=== PATIENT | female | born 1955 | race Caucasian/White ===

== ENCOUNTER → 2017-02-03 | Outpatient (CLI) | payer BC ==
[2017-02-03 12:12] LABS: Calcium 10.2 mg/dL (8.4-10.2); Potassium 5.4 mmol/L (3.5-5.1); Total Bilirubin 0.6 mg/dL (0.2-1.3); Total Protein 7.7 g/dL (6.3-8.2)
[2017-02-03 14:04] LABS: Hemoglobin A1C 7.4 % (4.2-6.1)
== END | disposition home or self-care (01) ==
LOC: LABWHC1 11:01
PROVIDERS: ATTEND Family Medicine
DX: I10 Essential (primary) hypertension (principal); E11.9 Type 2 diabetes mellitus without complications; E78.5 Hyperlipidemia, unspecified
CPT/HCPCS: 36415; 80053; 80061; 83036

== ENCOUNTER → 2017-10-03 | Outpatient (CLI) | payer BC ==
[2017-10-03 10:28] LABS: ALT 54 U/L (9-52); AST 41 U/L (14-36); Albumin 4.2 g/dL (3.5-5.0); Alkaline Phosphatase 62 U/L (38-126); Anion Gap 12 mmol/L; Blood Urea Nitrogen 22 mg/dL (7-17); Calcium 10.2 mg/dL (8.4-10.2); Carbon Dioxide 29 mmol/L (22-30); Chloride 105 mmol/L (98-107); Cholesterol 137 mg/dL (<200); Glucose 82 mg/dL (74-99); HDL Cholesterol 42 mg/dL (40-60); LDL Cholesterol,Calculated 74 mg/dL (0-99); Sodium 146 mmol/L (137-145); Total Bilirubin 0.3 mg/dL (0.2-1.3); Total Protein 7.3 g/dL (6.3-8.2); Triglycerides 103 mg/dL (<150)
== END | disposition home or self-care (01) ==
LOC: LABWHC1 09:48
PROVIDERS: ATTEND Internal Medicine Interventional Cardiology
DX: E78.2 Mixed hyperlipidemia (principal)
CPT/HCPCS: 36415; 80053; 80061

== ENCOUNTER 2017-10-18 07:12 | Day surgery (SDC) | payer BC ==
[2017-10-06 13:14] VITALS: BMI 38.2
[2017-10-18] MEDS ORDERED: SODIUM CHLORIDE 0.9% 1,000 ML in EMPTY BAG 1 BAG IV ONE (07:38)
[2017-10-18] MEDS ORDERED: NITROGLYCERIN SL TABS 0.4 MG TAB SUBLINGUAL PRN ×2 (07:38→11:22)
[2017-10-18] MEDS ORDERED: ALPRAZolam 0.25 MG TAB PO PRN (07:38)
[2017-10-18] MEDS ORDERED: ASPIRIN 325 MG TAB PO STA (07:38)
[2017-10-18] MEDS ORDERED: SODIUM CHLORIDE 0.9% 1,000 ML IV ONE (08:00)
[2017-10-18 08:12] LABS: Glucose,Whole Blood 97 mg/dL (75-99)
[2017-10-18] MEDS ORDERED: fentaNYL (PF) 50 MCG/ML 2 ML AMP ONE (09:35)
[2017-10-18] MEDS ORDERED: HEPARIN SODIUM 1,000 UN/ML (10ML VL) ONE (09:35)
[2017-10-18] MEDS ORDERED: LIDOCAINE 2% INJ 20 MG/ML (20 ML MDV) ONE (09:35)
[2017-10-18] MEDS ORDERED: VERAPAMIL 2.5 MG/ML 2 ML AMP ONE (09:40)
[2017-10-18] MEDS ORDERED: fentaNYL (PF) 50 MCG/ML 2 ML AMP IV ONE (10:19)
[2017-10-18] MEDS ORDERED: LIDOCAINE 2% INJ 20 MG/ML SQ ONE (10:21)
[2017-10-18] MEDS: VERAPAMIL SYRINGE (5 MG/10 ML) INTRAARTER ONE ×2 (10:25→10:59)
[2017-10-18] MEDS ORDERED: PRASUGREL 10 MG TAB ONE (10:34)
[2017-10-18] MEDS ORDERED: BIVALIRUDIN BOLUS 250 MG/50 ML IV ONE (10:35)
[2017-10-18] MEDS ORDERED: MIDAZOLAM 2 MG/2 ML VIAL ONE (10:37)
[2017-10-18] MEDS ORDERED: PRASUGREL 10 MG TAB PO ONE (10:40)
[2017-10-18] MEDS ORDERED: BIVALIRUDIN 250 MG in SODIUM CHLORIDE 0.9% 50 ML IV ONE (10:40)
[2017-10-18] MEDS ORDERED: MIDAZOLAM 2 MG/2 ML VIAL IV ONE (10:40)
[2017-10-18] MEDS ORDERED: IODIXANOL 320 MG/ML 100 ML INTRAARTER ONE (10:59)
[2017-10-18 11:15] LABS: Glucose,Whole Blood 76 mg/dL (75-99)
[2017-10-18] MEDS ORDERED: ATROPINE SULFATE 0.1 MG/ML 10ML SYRINGE IV PRN (11:22)
[2017-10-18] MEDS ORDERED: ZOLPIDEM 5 MG TAB PO PRN (11:22)
[2017-10-18] MEDS ORDERED: MAG HYDROX/AL HYDROX/SIMETH 30 ML CUP PO PRN (11:22)
[2017-10-18] MEDS ORDERED: RX INFO: IV CONTRAST WAS GIVEN 1 EACH MISC MISCELLANE PRN (11:22)
[2017-10-18] MEDS ORDERED: SODIUM CHLORIDE 0.9% 1,000 ML IV SCH (11:30)
--- NOTE | 2017-10-18 11:38 | CC ---
CARDIAC CATHETERIZATION REPORT Mrs. Ramírez is 61-year-old female with known history of hypertension, hyperlipidemia, and diabetes mellitus who has been complaining for symptoms of progressive dyspnea on exertion as well as chest discomfort with activity. In view of that, recommendation regarding cardiac catheterization, the procedures, risks and complication were discussed with the patient who is in full understanding and agreement. PROCEDURE: Patient was brought to the Project [facility] in a fasting semi-sedated state after receiving fentanyl and Benadryl. She was draped and prepped in conventional fashion using Xylocaine anesthesia and Seldinger technique, a 6-Maltese sheath was introduced in the right radial artery. Selective right and left angiography were performed using 5- Maltese 3.5 bend right and left En catheter. Multiple views of the right coronary artery including osman-axial views were obtained. Following that a 5-Maltese tight pigtail catheter introduced into the left ventricle and pressure was calculated. Following that, catheters were removed, images were reviewed. FINDINGS: 1. FLUOROSCOPY: There is mild calcification involving all the coronary arteries. 2. LEFT MAIN: This is a short-size vessel bifurcating into left circumflex, left anterior descending artery. Left main coronary artery has no evidence of high- grade stenosis. 3. LEFT ANTERIOR DESCENDING ARTERY: This is a large-sized vessel reaching toward the apex with a wraparound apex segment giving rise to a moderately-sized diagonal branch. The left anterior descending artery has mild to moderate disease in the mid segment of 30%. The rest of the vessel has no high-grade stenosis. 4. LEFT CIRCUMFLEX: This is a nondominant large vessel giving rise to 2 obtuse marginal branch. The first one is small in caliber, has diffuse intimal disease. The second one is large and has an area of 80% to 90% stenosis proximally. The rest of the vessel has no high-grade stenosis. 5. RIGHT CORONARY ARTERY: This is a large dominant vessel bifurcating into PDA and posterolateral segment branches. The right coronary in mid segment has after the takeoff of the acute marginal branch, has an area of stenosis of 70%, distally prior to the bifurcation. The PDA has a long segment of stenosis up to 99%. The rest of the vessel has no high-grade stenosis. 6. LEFT VENTRICULOGRAM: Left ventriculogram is not performed. 7. HEMODYNAMICS: There was no gradient across the aortic valve. The ventricular end- diastolic pressure was 10 mmHg. CONCLUSION: 1. Critical stenosis involving the mid and distal right coronary artery. 2. Significant stenosis involving the second obtuse marginal branch. 3. Mild disease in the left anterior descending artery. RECOMMENDATION: In view of finding anatomy, I have recommended proceeding with angioplasty and stenting of the right coronary artery. Those findings and recommendations were discussed with the patient. She was in full understanding and agreement. MMCECILIAL / IJN: [id number] /
--- NOTE | 2017-10-18 12:14 | PTCA ---
PERCUTANEOUSTRANS CORORONARY ANGIOGRAPHY Mrs. Ramírez is a 61-year-old female with known history of hypertension, hyperlipidemia, diabetes mellitus, who has been complaining of progressive symptoms, dyspnea on exertion, and chest discomfort with physical activity. She underwent cardiac catheterization, was found to have critical stenosis involving the distal right coronary artery and the mid-right coronary artery as well as the second obtuse marginal branch. Patient has baseline mild renal insufficiency. In view of that, staged angioplasty and stenting was recommended. Those findings and recommendation were discussed with the patient and she is in full understanding and agreement. PROCEDURE: A 6-Setswana FR 3.5 guiding catheter introduced into the system. After cannulating the right coronary ostium, a 0.014 advanced medium-weight J-wire was advanced across the lesion and positioned distally. Then a 2.5 x 50 mm Trek balloon was advanced and two inflations distal segment were done and insufflation in the mid-segment was done at maximum 8 atmospheres. Following that, the balloon removed and a 2.5 x 18 mm Xience Alpine stent was deployed distally. Post-dilated at 14 atmospheres. Following that, the balloon was removed and a 3.0 x 18 mm Xience Alpine stent was deployed in the mid segment and postdilated at 14 atmospheres. After the last inflation, after appropriate wait, the balloon and the guidewire were withdrawn back in the guiding catheter. Images were obtained and repeated. Those images reveal stable successful stenting. At that point, the guiding catheter, the balloon and the guidewire were removed. The sheath was removed. Hemostasis was obtained with deployment of a TR band. There was no immediate complication. Patient is returned to her room in stable condition. Of note, patient had no chest discomfort with the inflation, but had EKG changes. She received Angiomax per protocol as well as oral loading dose of Effient. She received intra-arterial verapamil. FINDIN. Successful stenting of the mid-right coronary artery with reduction of stenosis from 70% to 0%. 2. Successful stenting of the distal right coronary artery with reduction of stenosis from 99% to 0%. RECOMMENDATION: Patient will be continued on aspirin, Effient, beta rosalva, and statin. The importance of dual antiplatelet treatment were discussed with the patient and her family and they are in full understanding and agreement. The patient will be brought back in an elective fashion to undergo percutaneous revascularization of her left circumflex. Duration of the procedure is 44 minutes. MMODL / IJN: [id number] /
--- NOTE | 2017-10-18 12:17 | LTR ---
DATE OF SERVICE: 10/18/2017 RE: Jenny Ramírez Dear Dr. Quinonez; I had the pleasure to perform cardiac catheterization and coronary angioplasty on Mrs. Ramírez on [facility] on October 18, 2017 and a full copy of the procedure note with be forwarded to you. In brief, she was found to have significant obstructive disease involving the right coronary artery, distally as well as in the mid-segment. She underwent successful stenting of that vessel using a drug-eluting stent. At the same time, she had significant obstructive disease involving the second obtuse marginal branch, but because of her baseline renal insufficiency, I have recommended to perform staged stenting of the circumflex at a later time. I will keep you updated on her progress and thank you again for allowing me to participate in your patient's care. Please feel free to call for any questions. Sincerely yours, MD BABAR Hess / TRAMAINE: [id number] /
[2017-10-18 16:50] LABS: Glucose,Whole Blood 132 mg/dL (75-99)
[2017-10-18] MEDS: ASCORBIC ACID 500 MG TAB PO SCH (17:10)
[2017-10-18] MEDS: busPIRone HCl 5 MG TAB PO SCH (20:53)
[2017-10-18] MEDS ORDERED: ATENOLOL 50 MG TAB PO SCH (21:00)
[2017-10-18 21:01] LABS: Glucose,Whole Blood 151 mg/dL (75-99)
[2017-10-18] MEDS: INSULIN DETEMIR 100 UNIT/ML 10 ML VIAL SQ SCH (21:03)
[2017-10-19 06:20] LABS: Glucose,Whole Blood 123 mg/dL (75-99)
[2017-10-19] MEDS: ASCORBIC ACID 500 MG TAB PO SCH (06:43)
[2017-10-19 06:45] LABS: Anion Gap 13 mmol/L; Blood Urea Nitrogen 20 mg/dL (7-17); Carbon Dioxide 25 mmol/L (22-30); Chloride 105 mmol/L (98-107); Glucose 119 mg/dL (74-99); Potassium 4.4 mmol/L (3.5-5.1); Sodium 143 mmol/L (137-145)
[2017-10-19 08:04] VITALS: RESP 18; TEMP 97.1
[2017-10-19] MEDS ORDERED: FENOFIBRATE 160 MG TAB PO SCH (09:00)
[2017-10-19] MEDS ORDERED: CALCIUM CARB-VIT D 500MG-200UN 1 EACH TAB PO SCH (09:00)
[2017-10-19] MEDS ORDERED: ATORVASTATIN 20 MG TAB PO SCH (09:00)
[2017-10-19] MEDS ORDERED: ESCITALOPRAM 10 MG TAB PO SCH (09:00)
[2017-10-19] MEDS ORDERED: HYDROCHLOROTHIAZIDE 25 MG TAB PO SCH (09:00)
[2017-10-19] MEDS ORDERED: ASPIRIN 81 MG PO SCH (09:00)
[2017-10-19] MEDS ORDERED: amLODIPine 10 MG TAB PO SCH (09:00)
[2017-10-19] MEDS ORDERED: LISINOPRIL 10 MG TAB PO SCH (09:00)
[2017-10-19] MEDS: busPIRone HCl 5 MG TAB PO SCH (09:21)
[2017-10-19 09:39] VITALS: PULSE 62
[2017-10-19] MEDS: INSULIN DETEMIR 100 UNIT/ML 10 ML VIAL SQ SCH (09:51)
[2017-10-19 10:09] VITALS: BP 161/70
--- NOTE | 2017-10-19 10:24 | PN ---
PROGRESS NOTE Mrs. Ramírez is a 61-year-old female with known history of hypertension, hyperlipidemia, diabetes mellitus, who presented with symptoms of angina pectoris, underwent cardiac catheterization and was found to have critical stenosis involving the right coronary artery as well as severe stenosis of first obtuse marginal branch. Because of her baseline renal insufficiency, she underwent stenting of the right coronary artery in the mid and distal segment and the plan is to bring her back to undergo a staged procedure to the left circumflex. She is doing well this morning. She is denying any chest pain. Her breathing has been stable. She denies any dizziness or palpitation. She continues to be on aspirin once a day, Effient 10 mg daily, amlodipine 10 mg daily, atenolol 50 mg daily, Lipitor 20 mg daily, fenofibrate 160 mg daily, Lexapro 10 mg daily, buspirone 15 mg twice a day, hydrochlorothiazide 25 mg daily, insulin, lisinopril 10 mg daily. PHYSICAL EXAMINATION: Blood pressure running in the 160s with the heart rate in the 60s. LUNGS: Clear. HEART: Regular rate and rhythm. S1, S2. No S3, no rub with systolic murmur. ABDOMEN: Soft, nontender. EXTREMITIES: With trace to 1+ edema. Right radial pulse intact. EKG revealed no acute changes. LAB DATA: Lab data revealed BUN and creatinine of 20 and 1.0. Potassium 4.4. IMPRESSION: 1. Coronary artery disease, status post stenting of the right coronary artery. 2. Significant disease in the left circumflex. 3. Hypertension. 4. Hyperlipidemia. 5. Diabetes mellitus. 6. Renal insufficiency preprocedure. RECOMMENDATION: Patient will be discharged home today to be re-admitted as an outpatient and undergo percutaneous revascularization of left circumflex. The rationale behind the procedure as well as the risks and complications were discussed with the patient who is in full understanding and agreement. MMODL / IJN: [id number] /
[2017-10-19] MEDS ORDERED: PRASUGREL 10 MG TAB PO SCH (11:00)
[2017-10-19] MEDS ORDERED: VIT A,C & E-LUTEIN-MINERALS 1 EACH TAB PO SCH (12:00)
== END 2017-10-19 10:42 | disposition home or self-care (01) ==
LOC: CATHCVL 07:12 → 6SEL 11:00 → CATHCVL 10-19 10:42
PROVIDERS: ATTEND Internal Medicine Interventional Cardiology
DX: I25.110 Atherosclerotic heart disease of native coronary artery with unstable angina pectoris (principal); I25.84 Coronary atherosclerosis due to calcified coronary lesion; I10 Essential (primary) hypertension; E78.2 Mixed hyperlipidemia; E11.9 Type 2 diabetes mellitus without complications; Z79.4 Long term (current) use of insulin; Z79.82 Long term (current) use of aspirin; Z79.899 Other long term (current) drug therapy; Z88.0 Allergy status to penicillin; Z88.2 Allergy status to sulfonamides; Z91.09 Other allergy status, other than to drugs and biological substances
CPT/HCPCS: 80048; 85347; 93458

== ENCOUNTER 2017-10-24 06:17 | Day surgery (SDC) | payer BC ==
[2017-10-19 15:30] VITALS: BMI 42.5
[~2017-10-24 06:17] MED LIST: ALPRAZolam 0.25 MG TAB PO PRN; ALPRAZolam 0.5 MG TAB PO PRN; ASPIRIN 325 MG TAB PO STA; NITROGLYCERIN SL TABS 0.4 MG TAB SUBLINGUAL PRN
[2017-10-24] MEDS: SODIUM CHLORIDE 0.9% 1,000 ML in EMPTY BAG 1 BAG IV ONE ×2 (06:40→07:19)
[2017-10-24 06:59] LABS: Glucose,Whole Blood 75 mg/dL (75-99)
[2017-10-24 07:30] LABS: Basophils # (A) 0.1 k/uL (0-0.2); Basophils % (A) 1 %; Eosinophils # (A) 0.5 k/uL (0-0.7); Eosinophils % (A) 5 %; HCT 38.5 % (34.0-46.0); HGB 12.3 gm/dL (11.4-16.0); Lymphocytes # (A) 2.6 k/uL (1.0-4.8); Lymphocytes % (A) 23 %; MCH 27.6 pg (25.0-35.0); MCV 86.1 fL (80.0-100.0); Mean Platelet Volume 6.8; Monocytes # (A) 0.7 k/uL (0-1.0); Monocytes % (A) 6 %; Neutrophils # (A) 7.2 k/uL (1.3-7.7); Neutrophils % (A) 64 %; Platelet Count 381 k/uL (150-450); RBC 4.47 m/uL (3.80-5.40); WBC 11.3 k/uL (3.8-10.6)
[2017-10-24] MEDS ORDERED: fentaNYL (PF) 50 MCG/ML 2 ML AMP IV ONE (07:30)
[2017-10-24] MEDS ORDERED: LIDOCAINE 2% INJ 20 MG/ML SQ ONE (07:36)
[2017-10-24] MEDS ORDERED: BIVALIRUDIN BOLUS 250 MG/50 ML IV ONE (07:40)
[2017-10-24] MEDS ORDERED: BIVALIRUDIN 250 MG in SODIUM CHLORIDE 0.9% 40 ML IV ONE (07:40)
[2017-10-24] MEDS ORDERED: MIDAZOLAM 2 MG/2 ML VIAL IV ONE (07:42)
[2017-10-24] MEDS ORDERED: NITROGLYCERIN 1000MCG/10ML SYRINGE INTRACORON ONE (07:47)
[2017-10-24] MEDS ORDERED: IODIXANOL 320 MG/ML 100 ML INTRAARTER ONE (07:57)
[2017-10-24] MEDS ORDERED: ATROPINE SULFATE 0.1 MG/ML 10ML SYRINGE IV PRN (08:10)
[2017-10-24] MEDS ORDERED: MAG HYDROX/AL HYDROX/SIMETH 30 ML CUP PO PRN (08:10)
[2017-10-24] MEDS ORDERED: ZOLPIDEM 5 MG TAB PO PRN (08:10)
[2017-10-24] MEDS ORDERED: NITROGLYCERIN SL TABS 0.4 MG TAB SUBLINGUAL PRN ×2 (08:10→08:12)
[2017-10-24] MEDS ORDERED: RX INFO: IV CONTRAST WAS GIVEN 1 EACH MISC MISCELLANE PRN (08:10)
[2017-10-24] MEDS ORDERED: SODIUM CHLORIDE 0.9% 1,000 ML IV SCH (08:15)
--- NOTE | 2017-10-24 08:30 | PTCA ---
PERCUTANEOUSTRANS CORORONARY ANGIOGRAPHY Mrs. Ramírez is a 61-year-old female with a history of hypertension, hyperlipidemia and diabetes mellitus, who has been complaining of exertional chest discomfort and progressive dyspnea on exertion. She underwent cardiac catheterization last week and was found to have critical stenosis involving the right coronary artery and the left circumflex, underwent stenting of the right coronary artery and she is admitted today to undergo staged angioplasty of the first obtuse marginal branch. The procedure as well as the risks and complications were discussed with the patient who is in full understanding and agreement. PROCEDURE: Patient was brought to the labor mediator in a fasting semi-sedated state after receiving fentanyl and Benadryl and achieving moderate conscious sedated state. Using Xylocaine anesthesia in the Seldinger technique, a 6-Andorran sheath was introduced in the right radial artery. Left coronary angiography was performed with 6-Andorran FL3.5 bend. After cannulating the left main, a 0.014 balanced medium weight J-wire was advanced across the lesion, positioned in the distal obtuse marginal branch. Following that, a 2.5 x 12 mm Trek balloon was advanced, 1 inflation, 8 atmospheres was done. Following that, the balloon was removed and a 2.75 x 18 mm Xience Alpine stent was deployed postdilated at 14 atmospheres. After the last inflation, after appropriate wait, the balloon and the guidewire were withdrawn back in the guiding catheter. Images were obtained and repeated. Those images reveal stable successful stenting. At that point, the guiding catheter, the balloon and the guidewire were removed. The sheath was removed. Hemostasis was obtained with deployment of a TR band. There was no immediate complication. Patient is returned to her room in stable condition. Of note, the patient had chest discomfort with the inflation that resulted in procedure. She received Angiomax per protocol and she received intra-arterial verapamil. RESULTS: Successful stenting of the first obtuse marginal branch with reduction of stenosis from 90% to 0%. RECOMMENDATION: The patient will be continued on aspirin, Effient, beta rosalva, MIN inhibitor and statin. The importance of dual antiplatelet treatment was discussed with the patient and her family and are in full understanding and agreement. Duration of procedure is 27 minutes. MMODL / IJN: [id number] /
[2017-10-24 09:26] LABS: Glucose,Whole Blood 231 mg/dL (75-99)
[2017-10-24] MEDS: busPIRone HCl 5 MG TAB PO SCH ×2 (09:27→21:52)
[2017-10-24] MEDS: ATORVASTATIN 20 MG TAB PO SCH (09:27)
[2017-10-24] MEDS: ASCORBIC ACID 500 MG TAB PO SCH ×2 (09:27→21:52)
[2017-10-24] MEDS: ASPIRIN 81 MG PO SCH (09:27)
[2017-10-24] MEDS: amLODIPine 10 MG TAB PO SCH (09:27)
[2017-10-24] MEDS: HYDROCHLOROTHIAZIDE 25 MG TAB PO SCH (09:28)
[2017-10-24] MEDS: FENOFIBRATE 160 MG TAB PO SCH (09:28)
[2017-10-24] MEDS: PRASUGREL 10 MG TAB PO SCH (09:28)
[2017-10-24] MEDS: LISINOPRIL 10 MG TAB PO SCH (09:28)
[2017-10-24] MEDS: ESCITALOPRAM 10 MG TAB PO SCH (09:28)
[2017-10-24] MEDS: INSULIN DETEMIR 100 UNIT/ML 10 ML VIAL SQ SCH ×2 (09:35→21:53)
[2017-10-24] MEDS ORDERED: VIT A,C & E-LUTEIN-MINERALS 1 EACH TAB PO SCH (12:00)
[2017-10-24] MEDS ORDERED: CALCIUM CARB-VIT D 500MG-200UN 1 EACH TAB PO SCH (12:00)
[2017-10-24] MEDS ORDERED: MULTIVITAMINS, THERA 1 EACH TAB PO SCH (12:00)
[2017-10-24 12:38] LABS: Glucose,Whole Blood 245 mg/dL (75-99)
[2017-10-24 16:41] LABS: Glucose,Whole Blood 209 mg/dL (75-99)
[2017-10-24] MEDS ORDERED: ACETAMINOPHEN TAB 325 MG TAB PO PRN (16:45)
[2017-10-24 20:37] LABS: Glucose,Whole Blood 216 mg/dL (75-99)
[2017-10-24] MEDS ORDERED: ATENOLOL 50 MG TAB PO SCH (21:00)
[2017-10-24 23:34] VITALS: TEMP 97.4
[2017-10-24 23:46] VITALS: RESP 18
[2017-10-25 06:18] LABS: Glucose,Whole Blood 82 mg/dL (75-99)
[2017-10-25 06:25] LABS: Anion Gap 10 mmol/L; Blood Urea Nitrogen 21 mg/dL (7-17); Calcium 10.3 mg/dL (8.4-10.2); Carbon Dioxide 32 mmol/L (22-30); Chloride 103 mmol/L (98-107); Glucose 78 mg/dL (74-99); Potassium 4.6 mmol/L (3.5-5.1); Sodium 145 mmol/L (137-145)
[2017-10-25 06:27] VITALS: BP 184/72; PULSE 59
[2017-10-25] MEDS: amLODIPine 10 MG TAB PO SCH (08:19)
[2017-10-25] MEDS: PRASUGREL 10 MG TAB PO SCH (08:19)
[2017-10-25] MEDS: FENOFIBRATE 160 MG TAB PO SCH (08:19)
[2017-10-25] MEDS: LISINOPRIL 10 MG TAB PO SCH (08:19)
[2017-10-25] MEDS: busPIRone HCl 5 MG TAB PO SCH (08:19)
[2017-10-25] MEDS: ATORVASTATIN 20 MG TAB PO SCH (08:19)
[2017-10-25] MEDS: ASCORBIC ACID 500 MG TAB PO SCH (08:20)
[2017-10-25] MEDS: ESCITALOPRAM 10 MG TAB PO SCH (08:20)
[2017-10-25] MEDS: HYDROCHLOROTHIAZIDE 25 MG TAB PO SCH (08:20)
[2017-10-25] MEDS: ASPIRIN 81 MG PO SCH (08:21)
[2017-10-25] MEDS: INSULIN DETEMIR 100 UNIT/ML 10 ML VIAL SQ SCH (08:24)
--- NOTE | 2017-10-25 08:34 | PN ---
PROGRESS NOTE Mrs. Ramírez is a 61-year-old female, known history of hypertension, hyperlipidemia, diabetes mellitus, who presented with evidence of angina pectoris, underwent cardiac catheterization and was found to have significant disease in the RCA and the circumflex. Underwent stenting of the RCA last week and was brought in yesterday electively to undergo stenting of the left circumflex. She underwent the procedure without any difficulty. She is doing well this morning. Her breathing is stable. She denying any dizziness or palpitation. No nausea. She is ambulating without difficulty. She is going to be on aspirin once a day, amlodipine 10 mg daily, atenolol 50 mg daily, Lipitor 20 mg daily, buspirone, Lexapro 10 mg daily, fenofibrate 160 mg daily, hydrochlorothiazide 25 mg daily, lisinopril 10 mg daily, insulin, Effient 10 mg daily. PHYSICAL EXAMINATION: Blood pressure in the 150s to 160s with the heart rate in the 60s. LUNGS: Clear. HEART: Regular rate and rhythm. S1, S2. No S3. No rub. ABDOMEN: Soft, nontender, obese. EXTREMITIES: No edema. Right radial pulse is intact. LAB DATA: Lab data revealed BUN and creatinine 21 and 1.0. Potassium 4.6. IMPRESSION: 1. Status post stenting of left circumflex. 2. Hypertension. 3. Hyperlipidemia. 4. Diabetes mellitus. RECOMMENDATION: The patient will be discharged home today. Her blood pressure will be followed as an outpatient for further adjustment of her medical regimen. MMODL / IJN: [id number] /
== END 2017-10-25 08:49 | disposition home or self-care (01) ==
LOC: CATHCVL 06:17 → 6SEL 07:57 → CATHCVL 10-25 08:49
PROVIDERS: ATTEND Internal Medicine Interventional Cardiology
DX: I25.119 Atherosclerotic heart disease of native coronary artery with unspecified angina pectoris (principal); I10 Essential (primary) hypertension; E78.2 Mixed hyperlipidemia; E11.9 Type 2 diabetes mellitus without complications; Z79.4 Long term (current) use of insulin; Z95.5 Presence of coronary angioplasty implant and graft; Z79.82 Long term (current) use of aspirin; Z79.899 Other long term (current) drug therapy; Z88.0 Allergy status to penicillin; Z88.2 Allergy status to sulfonamides; Z91.09 Other allergy status, other than to drugs and biological substances
CPT/HCPCS: 85347; 80048; 85025; C9600; C1769 ×2; C1887; C1894; C1725; C1874; J2001; J2250; Q9967; J3010; J0583

== ENCOUNTER → 2017-11-23 | Outpatient (CLI) | payer BC ==
[2017-11-23 10:01] LABS: Calcium 10.2 mg/dL (8.4-10.2); Magnesium 2.1 mg/dL (1.6-2.3); Potassium 4.9 mmol/L (3.5-5.1)
== END | disposition home or self-care (01) ==
LOC: LABWHC1 08:56
PROVIDERS: ATTEND Internal Medicine Nephrology
DX: I12.9 Hypertensive chronic kidney disease with stage 1 through stage 4 chronic kidney disease, or unspecified chronic kidney disease (principal); N18.2 Chronic kidney disease, stage 2 (mild); E11.22 Type 2 diabetes mellitus with diabetic chronic kidney disease
CPT/HCPCS: 36415; 80048; 82043; 82570; 83735

== ENCOUNTER 2018-03-30 23:42 | Emergency (ER) | payer BC ==
[2018-03-31 00:08] VITALS: TEMP 98
[2018-03-31] MEDS ORDERED: cloNIDine HCL 0.1 MG TAB PO STA (01:14)
[2018-03-31] MEDS ORDERED: OXYMETAZOLINE 0.05% NASL SPRAY 1 SPRAY BOTTLE NASAL STA (01:14)
--- NOTE | 2018-03-31 02:28 | ED ---
ENT HPI - General Chief complaint: ENT Stated complaint: Epistaxis Time Seen by Provider: 03/31/18 01:03 Source: patient Mode of arrival: ambulatory Limitations: no limitations - History of Present Illness Initial comments: 62-year-old female patient presents to emergency department today for evaluation of epistaxis. Patient states that she has been having bleeding from the left nostril for the last 6 hours. Patient states that she has attempted several times to hold pressure after blowing out the clots but has not helped. Patient states that she has spoken to her doctor's office as well as her [facility] nursing line. Patient has been having difficulty controlling her blood pressures, her primary care physician is adjusting her medications. Patient denies any dizziness, weakness, headache, fever, chills, recent illness , fatigue, chest pain, or shortness of breath. Patient states that she has been having epistaxis on and off since starting Effient. She takes the effient for heart stents. - Related Data Home Medications Medication Instructions Recorded Confirmed Ascorbic Acid [Vitamin C] 500 mg PO BID 01/06/14 03/31/18 Aspirin 81 mg PO DAILY 01/06/14 03/31/18 Atenolol 50 mg PO HS 01/06/14 03/31/18 Escitalopram [Lexapro] 10 mg PO DAILY 01/06/14 03/31/18 Hydrochlorothiazide [Hydrodiuril] 25 mg PO DAILY 01/06/14 03/31/18 Insulin Glargine [Lantus] 52 unit SQ BID 01/06/14 03/31/18 Multivitamin [Multivitamins] 1 each PO DAILY 01/06/14 03/31/18 amLODIPine [Norvasc] 10 mg PO DAILY 01/06/14 03/31/18 busPIRone HCL [Buspar] 15 mg PO BID 01/06/14 03/31/18 glyBURIDE/METFORMIN HCL 2 tab PO AC-BID 01/06/14 03/31/18 [Glucovance 5-500 mg Tablet] Calcium Carbonate/Vitamin D3 1 each PO DAILY 10/06/17 03/31/18 [Calcium 500-Vit D3 600 Tablet] Fenofibrate 160 mg PO DAILY 10/06/17 03/31/18 Insulin Glulisine [Apidra] 8 - 12 unit SQ TID-W/MEALS PRN 10/06/17 03/31/18 Quinapril HCl [Accupril] 10 mg PO DAILY 10/06/17 03/31/18 hydrALAZINE HCL 25 mg PO 03/31/18 Previous Rx's Medication Instructions Recorded Atorvastatin [Lipitor] 20 mg PO DAILY #90 tab 10/19/17 Nitroglycerin Sl Tabs [Nitrostat] 0.4 mg SUBLINGUAL Q5M PRN #25 tab 10/19/17 Prasugrel [Effient] 10 mg PO DAILY #90 tab 10/19/17 Allergies Allergy/AdvReac Type Severity Reaction Status Date / Time Penicillins Allergy Rash/Hives Verified 10/24/17 07:00 Sulfa (Sulfonamide Allergy Rash/Hives Verified 10/24/17 07:00 Antibiotics) adhesive AdvReac Rash/Hives Verified 10/24/17 07:00 Review of Systems ROS Statement: Those systems with pertinent positive or pertinent negative responses have been documented in the HPI. ROS Other: All systems not noted in ROS Statement are negative. Past Medical History Past Medical History: Diabetes Mellitus, Hypertension, Skin Disorder Additional Past Medical History / Comment(s): Rt radial puncture from heart cath ,SOB,ARTHRITIS, CHRONIC BACKPAIN, SORES RIGHT CALF ARE HEALING-Scabbed History of Any Multi-Drug Resistant Organisms: None Reported Past Surgical History: Back Surgery, Section, Heart Catheterization With Stent, Hysterectomy, Orthopedic Surgery, Tonsillectomy Additional Past Surgical History / Comment(s): heart stents x2,BUNIONECTOMY BELLA , LEFT KNEE TORN MENISCUS, TRIGGER FINGER X2,Rods and screws to back,bella cataract Past Anesthesia/Blood Transfusion Reactions: Motion Sickness, Postoperative Nausea & Vomiting (PONV) Additional Past Anesthesia/Blood Transfusion Reaction / Comment(s): no prob with prior blood transfusions Date of Last Stent Placement:: 10-18-17 Past Psychological History: Anxiety, Depression Smoking Status: Never smoker Past Alcohol Use History: None Reported Past Drug Use History: None Reported - Past Family History Father Family Medical History: Cancer, Deep Vein Thrombosis (DVT) Mother Family Medical History: Cancer Additional Family Medical History / Comment(s): heart disease Brother(s) Family Medical History: Pulmonary Embolus General Exam Limitations: no limitations General appearance: alert, in no apparent distress, other (Well-developed, well- nourished adult female patient in no acute distress. Vital signs temperature 98.0F, pulse 71, respirations 20, blood pressure 181/74, pulse ox 97% on room air.) Eye exam: Present: normal appearance, PERRL, EOMI. Absent: scleral icterus, conjunctival injection, periorbital swelling ENT exam: Present: normal exam, normal oropharynx, mucous membranes moist, other (Patient has bright red bleeding from the left nare) Neck exam: Present: normal inspection. Absent: tenderness, meningismus, lymphadenopathy Respiratory exam: Present: normal lung sounds bilaterally. Absent: respiratory distress, wheezes, rales, rhonchi, stridor Cardiovascular Exam: Present: regular rate, normal rhythm, normal heart sounds. Absent: systolic murmur, diastolic murmur, rubs, gallop, clicks GI/Abdominal exam: Present: soft, normal bowel sounds. Absent: distended, tenderness, guarding, rebound, rigid Neurological exam: Present: alert, oriented X3, CN II-XII intact Psychiatric exam: Present: normal affect, normal mood Skin exam: Present: warm, dry, intact, normal color. Absent: rash Course Vital Signs 03/31/18 03/31/18 00:03 02:29 Temperature 98.0 F Pulse Rate 71 67 Respiratory 20 18 Rate Blood Pressure 181/74 138/80 O2 Sat by Pulse 97 96 Oximetry Medical Decision Making - Medical Decision Making 62-year-old female patient presented to the emergency department today for evaluation of epistaxis. Upon arrival blood pressure was elevated. We did administer Catapres. Upon reevaluation patient states epistaxis was resolved without any intervention. Patient is hemodynamically stable. She is instructed to follow-up with her primary care physician for recheck in 1-2 days. Return parameters discussed in detail. She verbalizes understanding and agreed with this plan. Disposition Clinical Impression: Epistaxis, Hypertension Disposition: HOME SELF-CARE Condition: Good Instructions: Nosebleed (ED), Hypertension (ED) Additional Instructions: If bleeding starts again, blow out all clots and hold pressure for 20 minutes. Follow-up with your primary care physician to discuss nosebleeds and high blood pressure. Return here immediately for any new, worsening, or concerning symptoms. Is patient prescribed a controlled substance at d/c from ED?: No Referrals: Uriel Quinonez MD [Primary Care Provider] - 1-2 days Time of Disposition: 02:28
[2018-03-31 02:30] VITALS: BP 138/80; PULSE 67; RESP 18
== END 2018-03-31 02:39 | disposition home or self-care (01) ==
LOC: EC 23:42
DX: I10 Essential (primary) hypertension (principal); R04.0 Epistaxis; E11.9 Type 2 diabetes mellitus without complications; M19.90 Unspecified osteoarthritis, unspecified site; F32.9 Major depressive disorder, single episode, unspecified; F41.9 Anxiety disorder, unspecified; Z95.5 Presence of coronary angioplasty implant and graft; Z98.890 Other specified postprocedural states; Z79.4 Long term (current) use of insulin; Z79.82 Long term (current) use of aspirin; Z79.899 Other long term (current) drug therapy; Z88.0 Allergy status to penicillin; Z88.2 Allergy status to sulfonamides; Z91.048 Other nonmedicinal substance allergy status
CPT/HCPCS: 99283

== ENCOUNTER → 2018-05-22 | Outpatient (CLI) | payer BC ==
[2018-05-22 10:38] LABS: Albumin 4.2 g/dL (3.5-5.0); Calcium 9.7 mg/dL (8.4-10.2); Potassium 5.1 mmol/L (3.5-5.1); Total Bilirubin 0.4 mg/dL (0.2-1.3); Total Protein 7.1 g/dL (6.3-8.2)
== END ==
LOC: LABWHC1 09:36
PROVIDERS: ATTEND Internal Medicine Interventional Cardiology
DX: E78.2 Mixed hyperlipidemia (principal)
CPT/HCPCS: 36415; 80053; 80061

== ENCOUNTER → 2018-05-31 | Outpatient (CLI) | payer BC | END | disposition home or self-care (01) | LOC: LABWHC1 09:11 | PROVIDERS: ATTEND Internal Medicine Interventional Cardiology | DX: I10 Essential (primary) hypertension (principal) | CPT/HCPCS: 36415; 80051; 82565; 84520 ==

== ENCOUNTER → 2018-06-18 | Outpatient (CLI) | payer BC ==
[2018-06-18 10:54] LABS: Potassium 4.6 mmol/L (3.5-5.1)
== END ==
LOC: LABWHC1 09:53
PROVIDERS: ATTEND Internal Medicine Interventional Cardiology
DX: I25.10 Atherosclerotic heart disease of native coronary artery without angina pectoris (principal); I10 Essential (primary) hypertension
CPT/HCPCS: 36415; 80051; 82565; 83880; 84520

== ENCOUNTER 2018-07-24 05:42 | Day surgery (SDC) | payer BC ==
[2018-07-23 10:48] VITALS: BMI 45.7
[2018-07-24 06:27] VITALS: TEMP 97.8
[2018-07-24] MEDS ORDERED: SODIUM CHLORIDE 0.9% 1,000 ML IV ONE (06:29)
[2018-07-24 06:45] LABS: Glucose,Whole Blood 93 mg/dL (75-99)
[2018-07-24] MEDS ORDERED: fentaNYL (PF) 50 MCG/ML 2 ML AMP IV ONE (07:34)
[2018-07-24] MEDS: MIDAZOLAM 2 MG/2 ML VIAL IV ONE ×2 (07:40→07:55)
[2018-07-24] MEDS: LIDOCAINE 1% INJ 10MG/ML (20 ML MDV) SQ ONE ×2 (07:48→07:59)
[2018-07-24] MEDS ORDERED: VERAPAMIL SYRINGE (5 MG/10 ML) INTRAARTER ONE (07:50)
[2018-07-24 08:03] VITALS: RESP 16
[2018-07-24] MEDS ORDERED: IOPAMIDOL-370 125ML BTL INJ ONE (08:12)
[2018-07-24] MEDS ORDERED: RX INFO: IV CONTRAST WAS GIVEN 1 EACH MISC MISCELLANE PRN (08:24)
[2018-07-24] MEDS ORDERED: NITROGLYCERIN SL TABS 0.4 MG TAB SUBLINGUAL PRN (08:24)
[2018-07-24] MEDS ORDERED: SODIUM CHLORIDE 0.9% 1,000 ML IV SCH (08:30)
[2018-07-24] MEDS ORDERED: amLODIPine 10 MG TAB PO SCH (09:00)
[2018-07-24] MEDS ORDERED: VITAMIN D3 PO SCH (09:00)
[2018-07-24] MEDS ORDERED: INSULIN GLARGINE 52 UNIT SQ SCH (09:00)
[2018-07-24] MEDS ORDERED: ATORVASTATIN 20 MG TAB PO SCH (09:00)
[2018-07-24] MEDS ORDERED: hydrALAZINE HCL 25 MG TAB PO SCH (09:00)
[2018-07-24] MEDS ORDERED: ASCORBIC ACID 500 MG TAB PO SCH (09:00)
[2018-07-24] MEDS ORDERED: BUSPIRONE HCL 15 MG PO SCH (09:00)
[2018-07-24] MEDS ORDERED: MULTIVITAMIN PO SCH (09:00)
[2018-07-24] MEDS ORDERED: CALCIUM CARBONATE PO SCH (09:00)
[2018-07-24] MEDS ORDERED: ESCITALOPRAM 10 MG TAB PO SCH (09:00)
[2018-07-24] MEDS ORDERED: ASPIRIN 81 MG PO SCH (09:00)
[2018-07-24] MEDS ORDERED: QUINAPRIL HCL 40 MG PO SCH (09:00)
[2018-07-24] MEDS ORDERED: CLOPIDOGREL 75 MG TAB PO SCH (09:00)
[2018-07-24] MEDS ORDERED: NON-FORMULARY DRUG (Vit C/E/Zn/Coppr/Lutein/Zeaxan [Preservision Areds 2 Softgel] 1 EACH) PO SCH (09:00)
[2018-07-24] MEDS ORDERED: [UNRECOGNIZED DRUG - OTHER] PO SCH (09:00)
[2018-07-24] MEDS ORDERED: ATENOLOL 50 MG TAB PO SCH (09:00)
--- NOTE | 2018-07-24 09:28 | CC ---
CARDIAC CATHETERIZATION REPORT Mrs. Ramírez is a 62-year-old female with known history of hypertension, hyperlipidemia, diabetes mellitus, history of coronary artery disease status post stenting of the left circumflex and the right coronary artery who was been complaining of progressive dyspnea on exertion. She underwent a myocardial perfusion imaging that revealed anterolateral and anteroapical ischemia. In view of that, recommendation made regarding cardiac catheterization. The procedures, risks and complication were discussed with the patient who is in full understanding and agreement. PROCEDURE: Patient was brought to the laborer beam house in a fasting semi-sedated state after receiving fentanyl and Benadryl and achieving moderate conscious sedated state. The right radial artery was cannulated but there was inability to advance the wire because of severe spasm at that time. Using Xylocaine anesthesia and Seldinger technique, a 6-German sheath was introduced in the right femoral artery. Selective right and left angiography performed using 6-German 4 bend right and left En catheter, multiple views including hemiaxial views were obtained. Following that, a 5-German tight pigtail catheter was introduced in the left ventricle and a 30 degree MORALES view of the left ventricle was obtained. Following that, the catheter and sheath were removed. Hemostasis was obtained with deployment of an Angio-Seal. There was no immediate complication. Patient was returned to her room in stable condition. FINDINGS: LEFT MAIN: This is a large-sized vessel bifurcating into left circumflex, left anterior descending artery. Left main coronary artery has no evidence of high-grade stenosis. LEFT ANTERIOR DESCENDING ARTERY: This is a large-sized vessel, reaching to the apex with a wraparound apex segment giving rise to two diagonal branches. The left anterior descending artery has mild intimal disease proximally of 20%. The rest of the vessel has no high-grade stenosis. LEFT CIRCUMFLEX: This is a large nondominant vessel, giving rise to three obtuse marginal branches The first obtuse marginal branch is the largest in caliber. The stented segment in the obtuse marginal branch is patent. There is no evidence of restenosis. There is a 20% plaque proximal to it. The rest of the vessel has no high- grade stenosis. RIGHT CORONARY ARTERY: This is a large dominant vessel, bifurcating into PDA and posterolateral segment branches. The stented segment in the mid and distal area are patent. There is mild intimal disease proximally and in the mid segment of about 20%. The rest of the vessel has no high-grade stenosis. LEFT VENTRICULOGRAM: Left ventriculogram was performed in 30 degree MORALES view revealing normal ventricular size and systolic function, ejection fraction is 55%. There was no significant mitral regurgitation. HEMODYNAMIC: There was no gradient across the aortic valve. The left ventricular end- diastolic pressure was 20 mmHg. CONCLUSION: 1. Mild triple-vessel disease. 2. No evidence of restenosis in the stented segment of the left circumflex coronary artery. 3. Normal left ventricular size and systolic function. RECOMMENDATION: In view of finding anatomy, recommend continue medical therapy with aggressive risk modifications being initiated. Those findings and recommendation were discussed with the patient and her family who are in full understanding and agreement. Duration of the procedure is 26 minutes. MMODL / IJN: [id number] /
[2018-07-24 13:11] LABS: Glucose,Whole Blood 173 mg/dL (75-99)
[2018-07-24 13:24] VITALS: PULSE 62
[2018-07-24 16:26] VITALS: BP 127/77
== END 2018-07-24 15:45 | disposition home or self-care (01) ==
LOC: CATHCVL 05:42
PROVIDERS: ATTEND Internal Medicine Interventional Cardiology
DX: I25.10 Atherosclerotic heart disease of native coronary artery without angina pectoris (principal); I10 Essential (primary) hypertension; E78.5 Hyperlipidemia, unspecified; E11.9 Type 2 diabetes mellitus without complications; Z79.4 Long term (current) use of insulin; Z95.5 Presence of coronary angioplasty implant and graft; Z79.02 Long term (current) use of antithrombotics/antiplatelets; Z79.82 Long term (current) use of aspirin; Z79.899 Other long term (current) drug therapy; Z88.0 Allergy status to penicillin; Z91.09 Other allergy status, other than to drugs and biological substances; Z88.2 Allergy status to sulfonamides
CPT/HCPCS: 93458; C1760; C1894; C1769; J2250; J2001; J3010; Q9967

== ENCOUNTER → 2018-08-30 | Outpatient (CLI) | payer BC ==
--- NOTE | 2018-08-31 14:43 | MM ---
Reason for exam: screening (asymptomatic). Last mammogram was performed 3 years and 11 months ago. History: Patient is postmenopausal and had first child at age 32. Physical Findings: A clinical breast exam by your physician is recommended on an annual basis and results should be correlated with mammographic findings. MG 3D Screening Mammo W/Cad Bilateral CC and MLO view(s) were taken. Prior study comparison: September 19, 2014, bilateral MG screening mammo w CAD. July 22, 2013, bilateral digital screening mammo w/CAD. The breast tissue is heterogeneously dense. This may lower the sensitivity of mammography. There are benign appearing round vascular calcifications bilaterally. New grouped indeterminate calcifications left middle depth lower inner quadrant. ASSESSMENT: Incomplete: need additional imaging evaluation, BI-RAD 0 RECOMMENDATION: Special view mammogram of the left breast. [facility] will attempt to contact patient to return for supplemental views.
== END | disposition home or self-care (01) ==
LOC: RADMAMWWP 11:45
PROVIDERS: ATTEND Family Medicine
DX: Z12.31 Encounter for screening mammogram for malignant neoplasm of breast (principal)
CPT/HCPCS: 77063; 77067

== ENCOUNTER → 2018-09-05 | Outpatient (CLI) | payer BC ==
--- NOTE | 2018-09-06 08:48 | MM ---
Reason for exam: additional evaluation requested from abnormal screening. Last mammogram was performed less than 1 month ago. History: Patient is postmenopausal and had first child at age 32. Physical Findings: Nurse did not find any significant physical abnormalities on exam. MG 3D Work Up W/Cad LT CC with magnification, LM with magnification, and LM view(s) were taken of the left breast. Prior study comparison: August 30, 2018, bilateral MG 3d screening mammo w/cad. September 19, 2014, bilateral MG screening mammo w CAD. There are scattered fibroglandular densities. 8 o'clock grouped heterogeneous calcifications middle to posterior depth left breast. Biopsy recommended. These results were verbally communicated with the patient and result sheet given to the patient on 09/05/18. ASSESSMENT: Suspicious, BI-RAD 4 RECOMMENDATION: Surgical consultation and stereotactic core biopsy of the left breast. Called Dr. Quinonez with mammographic findings and has scheduled an appointment for the patient for 09/20/18 at 1:[address] Posadas. Biopsy scheduled for 09/27/18 at 8 o'clock. PRELIMINARY REPORT CALLED AND FAXED TO DR. POSADAS ON09/06/18.
== END | disposition home or self-care (01) ==
LOC: RADMAMWWP 14:46
PROVIDERS: ATTEND Family Medicine
DX: R92.8 Other abnormal and inconclusive findings on diagnostic imaging of breast (principal)
CPT/HCPCS: 77061; 77065

== ENCOUNTER → 2018-09-20 | Outpatient (CLI) | payer BC ==
[2018-09-20 13:13] VITALS: BP 145/87; PULSE 62; RESP 18; TEMP 96.9; BMI 44.1
--- NOTE | 2018-09-20 13:58 | P.GSHP ---
History of Present Illness H&P Date: 09/20/18 Chief Complaint: Mammographic abnormality left breast Jenny is a 62-year-old white female who presents with a mammographic abnormality revealing in the 8 o'clock position of the left breast grouped heterogeneous calcifications in the middle to the posterior depth. The patient had no lesions of concern noted in the right breast. The patient states this was a routine screening mammogram. The patient does not feel anything of concern in her breasts. She has no history of abnormal nipple discharge. She has no history of any trauma to the breast. She has no history of any infection in the breast. The patient does have a history of a superficial breast abscess/pimple approximately a year and a half ago. Family History: 1. father: lung (smoker) 2. paternal grandfather: lung cancer 3. mother: skin cancer, no melanoma Hormonal history: Menarche: 13 Pregnancies:1, children,1; breast fed: yes, age: 31 menpause: partial hysterectomy at 32 control pills: 8 hormones: none Past surgical history: 1. Hysterectomy 2. Bilateral bunionectomy twice 3. Tonsillectomy/adenoidectomy 4. 5. Trigger finger release 6. Colonoscopy 7. Torn meniscus repair left knee 8. Trigger finger release and right ring finger 9. Back surgery laminectomy/decompression 10. Bilateral cataracts surgery 11. Torn meniscus right knee 12. Total knee replacement by 11. Cardiac stents placed to in 13. Heart cath and one stent placed Medical history: 1. Insulin-dependent diabetic 10 years 2. Coronary artery disease 3. Arthritis 4. Status post hysterectomy 5. Shortness of breath Social history: Smoke: Negative Alcohol: Negative Drugs: Negative - Constitutional Constitutional: Denies chills, Denies fever - EENT Comment: Bilateral cataracts surgery Eyes: denies blurred vision, denies pain Ears: deny: decreased hearing, tinnitus Ears, nose, mouth and throat: Denies headache, Denies sore throat - Breasts Breasts: bilateral: as per HPI - Cardiovascular Cardiovascular: Reports high blood pressure, Reports shortness of breath - Respiratory Respiratory: Denies cough, Denies 7 - Gastrointestinal Gastrointestinal: Denies abdominal pain, Denies diarrhea, Denies nausea, Denies vomiting - Genitourinary (Female) Genitourinary: Denies dysuria, Denies hematuria - Menstruation Menstruation: Reports post hysterectomy - Musculoskeletal Comment: arthritis, back pain in past - Integumentary Comment: excezma Integumentary: Denies pruritus, Denies rash - Neurological Neurological: Denies numbness, Denies weakness - Psychiatric Psychiatric: Reports anxiety, Reports depression - Endocrine Comment: diabetes - Hematologic/Lymphatic Comment: plavix, and aspirin - Allergic/Immunologic Allergic/Immunologic: Reports as per HPI Past Medical History Past Medical History: Chest Pain / Angina, Diabetes Mellitus, Hyperlipidemia, Hypertension, Skin Disorder Additional Past Medical History / Comment(s): SOB,ARTHRITIS History of Any Multi-Drug Resistant Organisms: None Reported Past Surgical History: Back Surgery, Section, Heart Catheterization With Stent, Hysterectomy, Orthopedic Surgery, Tonsillectomy Additional Past Surgical History / Comment(s): heart stents x2,BUNIONECTOMY BELLA , LEFT KNEE TORN MENISCUS, TRIGGER FINGER X2,Rods and screws to back,bella cataract, Total right knee replacement Past Anesthesia/Blood Transfusion Reactions: Motion Sickness, Postoperative Nausea & Vomiting (PONV) Additional Past Anesthesia/Blood Transfusion Reaction / Comment(s): no prob with prior blood transfusions Date of Last Stent Placement:: 10-18-17 Past Psychological History: Anxiety, Depression Smoking Status: Never smoker Past Alcohol Use History: None Reported Past Drug Use History: None Reported - Past Family History Father Family Medical History: Cancer, Deep Vein Thrombosis (DVT) Mother Family Medical History: Cancer Additional Family Medical History / Comment(s): heart disease Brother(s) Family Medical History: Pulmonary Embolus Medications and Allergies Home Medications Medication Instructions Recorded Confirmed Type Aspirin 81 mg PO DAILY 01/06/14 09/20/18 History Atenolol 50 mg PO BID 01/06/14 09/20/18 History Escitalopram [Lexapro] 10 mg PO DAILY 01/06/14 09/20/18 History Insulin Glargine [Lantus] 52 unit SQ BID 01/06/14 09/20/18 History amLODIPine [Norvasc] 10 mg PO DAILY 01/06/14 09/20/18 History busPIRone HCL [Buspar] 15 mg PO BID 01/06/14 09/20/18 History glyBURIDE/METFORMIN HCL 2 tab PO BID 01/06/14 09/20/18 History [Glucovance 5-500 mg Tablet] Quinapril HCl [Accupril] 40 mg PO DAILY 10/06/17 09/20/18 History Atorvastatin [Lipitor] 20 mg PO DAILY #90 tab 10/19/17 09/20/18 Rx hydrALAZINE HCL 25 mg PO TID 03/31/18 09/20/18 History Clopidogrel [Plavix] 75 mg PO DAILY 07/23/18 09/20/18 History Furosemide [Lasix] 20 mg PO BID 07/23/18 09/20/18 History Insulin Aspart [NovoLOG See Protocol SQ AC-TID 07/23/18 09/20/18 History (formulary)] Allergies Allergy/AdvReac Type Severity Reaction Status Date / Time Penicillins Allergy Rash/Hives Verified 09/20/18 13:13 Sulfa (Sulfonamide Allergy Rash/Hives Verified 09/20/18 13:13 Antibiotics) adhesive AdvReac Rash/Hives Verified 09/20/18 13:13 Surgical - Exam Vital Signs Temp Pulse Resp BP Pulse Ox 96.9 F L 62 18 145/87 98 09/20/18 13:06 09/20/18 13:06 09/20/18 13:06 09/20/18 13:06 09/20/18 13:06 BMI 44.1 - General obese - Eyes normal ocular movement - ENT normal pinna, no hearing loss - Neck no masses, trachea midline - Respiratory normal respiratory effort, clear to auscultation - Cardiovascular Rhythm: regular Heart Sounds: normal: S1, S2 - Abdomen Abdomen: soft - Integumentary scattered areas over right arm where scratched - Neurologic no disoriented, no combative - Musculoskeletal normal gait, normal posture - Psychiatric oriented to time, oriented to person, oriented to place, speech is normal, memory intact Breast examination: Right breast: Multi-positional exam no dominant masses or nodules of concern Right axilla: No adenopathy of concern Left breast: Multi-positional exam no dominant masses or nodules of concern Left axilla: No adenopathy of concern Assessment and Plan Assessment: Impression: 1. History of angina with 3 cardiac stents 2. Radiographic abnormality left breast for which biopsy has been recommended 3. Multiple joint surgeries including right knee total replacement and left knee arthroscopy 4. 2 surgeries for trigger finger 5. Surgery for back pain which has resolved 6. Cataract surgery bilateral 7. Diabetes 8. Coronary artery disease 9. Hypertension 10. Hyperlipidemia I have had a long discussion with the patient and her regarding stereotactic core biopsy. Additionally I have reviewed her radiographs with radiology and the fact that the patient has coronary artery disease and is presently on aspirin and Plavix. 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 After review of the radiographs in discussion with radiology refill that this is reasonable. Patient and her understand that there could be increased risk of bruising and wished to proceed. Alternatives would be open surgical biopsy which is not recommended at this time. Risk and benefits of the procedure are discussed with the patient and her . Plan: 1. Medical management of medical conditions 2. Patient will continue her aspirin but stopped her Plavix and proceed with a stereotactic core biopsy of the left breast CC: Dr. Uriel Quinonez in [place], [place]
== END | disposition home or self-care (01) ==
LOC: WWCWWP 12:46
PROVIDERS: ATTEND Surgery
DX: Z53.9 Procedure and treatment not carried out, unspecified reason (principal)

== ENCOUNTER → 2018-09-27 | Day surgery (SDC) | payer BC ==
[2018-09-27 07:32] VITALS: RESP 16; BMI 44.1
[2018-09-27 10:00] VITALS: BP 144/66; PULSE 65; TEMP 98.5
--- NOTE | 2018-09-27 14:57 | P.OP ---
Date of Procedure: 09/27/18 Preoperative Diagnosis: Mammographic abnormality left breast 2 sites Postoperative Diagnosis: same Procedure(s) Performed: Left breast stereotactic core biopsy 2 sites Anesthesia: local Surgeon: Zoraida Posadas Estimated Blood Loss (ml): 1 Pathology: other (Breast tissue) Condition: stable Disposition: same day Indications for Procedure: Mammographic abnormality of 2 sites of concern in the left breast this 8:00 grouped heterogeneous calcifications medial to posterior depth of left breast, second area of linear calcifications remote from this site Description of Procedure: Jenny is a 62-year-old white female who was noted on a routine mammogram to have 2 areas of microcalcification identified in her left breast for which stereotactic core biopsy was recommended. The first group was at the 8 o'clock position in the middle to posterior depths of the left breast. The second group was linear in nature somewhat remote from the first group. On physical examination the patient did not have any dominant masses or nodules of concern in either breast. There is no axillary adenopathy of concern. Patient was taken with stereotactic core biopsy room and risks and benefits of the procedure were clearly discussed with the patient. The patient wished to proceed with a biopsy. Concern is the fact that the patient does take aspirin and Plavix and although she stopped her Plavix she is still taking baby aspirin. She understands there is increased risk of hematoma formation wishes to proceed. The patient was positioned on the low rad table. The 8:00 group of heterogeneous calcifications was identified. Stereotactic views were obtained of this group. The approach was a CC from below. The breast was prepped using Betadine. 1% lidocaine with epinephrine was used to anesthetize the area of concern. Approximately 15 mL was utilized. A 9-gauge vacuum assisted rotating core biopsy needle was driven to the correct coordinates. Pre-fire and post- fire radiographs were obtained confirming the correct location of the needle. Multiple core biopsies were obtained, 12. Radiograph of the specimen revealed the area of concern had been obtained. A secure shailesh top marker was placed. The linear calcifications were targeted. Approximately 10 mL of 1% lidocaine with epinephrine was used to anesthetize the area of concern. A 9-gauge vacuum assisted rotating core biopsy needle was driven to the correct coordinates. Prefire and post-fire radiographs were obtained confirming the correct location of the needle. Approximately 8 core biopsies were obtained with 3 at the 12 o' clock position, one biopsy was obtained at the 11 o'clock position and one at the 1 o'clock position, additionally 3 core biopsies were obtained at the 6 o' clock position. Radiograph of the specimen revealed that the area of microcalcifications of concern was obtained. A trimark marking device was deployed at the site of biopsy. Radiograph revealed that the marking clips were in the correct location. Specimens were sent for pathology. There were no immediate postprocedure complications. The patient will follow-up with Dr. Sargent in 1 week.
--- NOTE | 2018-09-27 17:06 | MM ---
EXAMINATION TYPE: MG stereo VAD BX addl LT DATE OF EXAM: 09/27/2018 COMPARISON: 09/05/2018 CLINICAL HISTORY: Abnormal calcifications left breast TECHNIQUE: Stereotactic guided core biopsy of left breast. FINDINGS: The procedure was performed by surgery. Final Targeting was provided by surgery. Images were reviewed. A second set of calcifications were identified on both locations were determined to be sufficiently suspicious to warrant core biopsy. The calcifications were targeted. Imaging demonstrates biopsy of this site. Marker was deployed at this location. The linear arranged calcifications were targeted. Suspicion of the biopsy technique discussed with the surgeon. Imaging demonstrates biopsy at this site. Marker was deployed at this location. Specimen: Mammographic specimen is presented. Multiple calcifications are scattered within each specimen. A postprocedure mammogram was obtained and demonstrates 2 clips present from the biopsy. Calcifications resected. IMPRESSION: 1. Successful stereotactic core biopsy left breast calcifications, 2 separate locations. Recommendations: 1. Recommendations are pending pathology results. Pathology Results: Benign A. LEFT BREAST ANTERIOR, SITE A, STEREOTACTIC CORE BIOPSY: Fibrocystic changes including fibroadenomatoid hyperplasia with calcifications and fibrosis. B. LEFT BREAST POSTERIOR, SITE B, STEREOTACTIC CORE BIOPSY: Fibrocystic changes including fibroadenomatoid hyperplasia with calcifications and fibrosis. Recommendation Follow up mammogram of the left breast in 6 months. ANGE
== END ==
LOC: RADMAMWWP 06:48
PROVIDERS: ATTEND Surgery
DX: N60.12 Diffuse cystic mastopathy of left breast (principal); R92.1 Mammographic calcification found on diagnostic imaging of breast; Z79.02 Long term (current) use of antithrombotics/antiplatelets; Z79.82 Long term (current) use of aspirin; Z88.0 Allergy status to penicillin; Z88.2 Allergy status to sulfonamides; Z91.09 Other allergy status, other than to drugs and biological substances
CPT/HCPCS: 88305; 19081; 19082; A4648

== ENCOUNTER → 2018-10-04 | Outpatient (CLI) | payer BC ==
[2018-10-04 10:33] VITALS: BP 195/81; PULSE 64; TEMP 96.4; BMI 44.1
--- NOTE | 2018-10-04 11:07 | P.PN ---
Subjective Progress Note Date: 10/04/18 Jenny is a 62-year-old white female who is status post her tactic core biopsy of 2 sites in her left breast on 120 419. Postprocedure she has done well with some mild ecchymosis developing at the biopsy site. Of importance is the fact that she had been on Plavix and aspirin and although she stopped the Plavix she was continuing her aspirin. She has no hematoma of concern. Her pathology revealed fiber adenomatoid hyperplasia with calcifications of both sites. This was felt to be benign concordant. Objective - Vital Signs Vital signs: Vital Signs Temp 96.4 F L 10/04/18 10:24 Pulse 64 10/04/18 10:24 Resp BP 195/81 10/04/18 10:24 Pulse Ox 97 10/04/18 10:24 Intake & Output 10/03/18 10/04/18 10/04/18 18:59 06:59 18:59 Weight 120.202 kg - Exam BMI 44.1 - Constitutional General appearance: Present: obese - EENT Eyes: Present: EOMI ENT: Present: hearing grossly normal - Integumentary Integumentary Comment(s): Mild ecchymosis at the posterior haptic core biopsy site No hematoma Puncture sites clean and dry - Psychiatric Psychiatric: Present: A&O x's 3, appropriate affect, intact judgment & insight Assessment and Plan Assessment: Impression: 1. Patient status post stereotactic core biopsy 2 sites and left breast/benign pathology Plan: 1. Repeat left breast mammogram in 6 months time with physician exam at that time CC:Dr. Quinonez
== END | disposition home or self-care (01) ==
LOC: WWCWWP 10:20
PROVIDERS: ATTEND Surgery
DX: Z53.9 Procedure and treatment not carried out, unspecified reason (principal)

== ENCOUNTER → 2018-11-22 | Outpatient (CLI) | payer BC ==
[2018-11-22 10:52] LABS: Anisocytosis Slight; Basophils % (A) 1 %; Eosinophils # (A) 0.4 k/uL (0-0.7); Eosinophils % (A) 4 %; HCT 33.4 % (34.0-46.0); Hypochromasia Moderate; Lymphocytes # (A) 1.3 k/uL (1.0-4.8); Lymphocytes % (A) 14 %; MCH 23.6 pg (25.0-35.0); MCHC 29.8 g/dL (31.0-37.0); MCV 79.3 fL (80.0-100.0); Mean Platelet Volume 7.2; Monocytes # (A) 0.5 k/uL (0-1.0); Monocytes % (A) 6 %; Neutrophils # (A) 6.5 k/uL (1.3-7.7); Neutrophils % (A) 73 %; Platelet Count 259 k/uL (150-450); RBC 4.21 m/uL (3.80-5.40); RDW 16.2 % (11.5-15.5); WBC 8.9 k/uL (3.8-10.6)
[2018-11-22 17:18] LABS: Albumin 4.2 g/dL (3.80-4.90); Albumin/Globulin Ratio 1.83 (1.60-3.17); Anion Gap 8.5 mmol/L (4.00-12.00); Calcium 9.1 mg/dL (8.7-10.3); Carbon Dioxide 25.5 mmol/L (21.6-31.8); Globulin 2.3 g/dL (1.6-3.3); LDL Cholesterol,Calculated 45.8 mg/dL (0.0-131.0); Potassium 4.3 mmol/L (3.5-5.5); Total Bilirubin 0.4 mg/dL (0.3-1.2); Total Protein 6.5 g/dL (6.2-8.2); Uric Acid 9.1 mg/dL (2.9-7.7); VLDL Calculation 14.2 mg/dL (5.00-40.00)
== END | disposition home or self-care (01) ==
LOC: LABWHC1 09:50
PROVIDERS: ATTEND Internal Medicine Interventional Cardiology
DX: E11.22 Type 2 diabetes mellitus with diabetic chronic kidney disease (principal); I12.9 Hypertensive chronic kidney disease with stage 1 through stage 4 chronic kidney disease, or unspecified chronic kidney disease; N18.3 Chronic kidney disease, stage 3 (moderate); E78.2 Mixed hyperlipidemia
CPT/HCPCS: 36415; 80053; 80061; 82043; 82570; 83970; 84550; 85025

== ENCOUNTER → 2019-01-29 | Outpatient (CLI) | payer BC ==
[2019-01-29 15:58] LABS: Anion Gap 8.1 mmol/L (4.00-12.00); Calcium 9.7 mg/dL (8.7-10.3); Carbon Dioxide 24.9 mmol/L (21.6-31.8); Potassium 4.7 mmol/L (3.5-5.5)
== END | disposition home or self-care (01) ==
LOC: LABWHC1 09:31
PROVIDERS: ATTEND Internal Medicine Nephrology
DX: I12.9 Hypertensive chronic kidney disease with stage 1 through stage 4 chronic kidney disease, or unspecified chronic kidney disease (principal); N18.3 Chronic kidney disease, stage 3 (moderate)
CPT/HCPCS: 36415; 80048; 83735

== ENCOUNTER → 2019-02-04 | Outpatient (CLI) | payer BC ==
--- NOTE | 2019-02-05 10:52 | MM ---
Reason for exam: follow-up at short interval from prior study. Last mammogram was performed 5 months ago. History: Patient is postmenopausal and had first child at age 32. Benign MG stereo VAD BX addl LT of the left breast, September 27, 2018. Benign MG stereo VAD BX LT of the left breast, September 27, 2018. Physical Findings: Nurse did not find any significant physical abnormalities on exam. MG 3D Diag Mammo W/Cad LT CC and MLO view(s) were taken of the left breast. Prior study comparison: September 05, 2018, left breast MG 3d work up w/cad LT. August 30, 2018, bilateral MG 3d screening mammo w/cad. The breast tissue is heterogeneously dense. This may lower the sensitivity of mammography. Benign appearing calcifictions in the left breast. There are residual hematomas at the site of biopsy x 2 on the left. These results were verbally communicated with the patient and result sheet given to the patient on 02/04/19. ASSESSMENT: Benign, BI-RAD 2 RECOMMENDATION: Return to routine screening mammogram schedule for both breasts. Back on schedule.
== END ==
LOC: RADMAMWWP 13:57
PROVIDERS: ATTEND Surgery
DX: R92.8 Other abnormal and inconclusive findings on diagnostic imaging of breast (principal)
CPT/HCPCS: 77061; 77065

== ENCOUNTER → 2019-02-15 | Outpatient (CLI) | payer BC ==
[2019-02-15 08:18] VITALS: BP 137/69; PULSE 74; RESP 16; TEMP 97.8; BMI 44.9
--- NOTE | 2019-02-15 08:57 | P.PN ---
Subjective Progress Note Date: 02/15/19 Jenny is a 63 year old white female status post left breast stero-biopsy on 09-27-18. Two sites were sampled both were benign. She is here for a 6 month follow up. she had a left breast mammogram on 02-04-19 which was benign BIRAD 2. she is not having any complaints related to her breast. She is having no pain johanna or nipple discharge of concern. Family History: 1. father: lung cancer 2. mother: skin Past Surgical History: 1. hysterectomy 2. bunionectomy 3. tonsil 4. 5. trigger finger 6. colonoscopy 7. back surgery 8. catatact 9. total knee right 10. heart cath 11. cardiac stents past Medical history 1. diabetic, insulin dependant 2. Coranary artery disease 3. arthritis 4. 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 muscle-skeletal: arthritis skin: excezma endocrine: diabetes psych: anxiety/depression hematologic: aspirin/plavix Objective - Vital Signs Vital signs: Vital Signs Temp 97.8 F 02/15/19 07:59 Pulse 74 02/15/19 07:59 Resp 16 02/15/19 07:59 BP 137/69 02/15/19 07:59 Pulse Ox 95 02/15/19 07:59 Intake & Output 02/14/19 02/15/19 02/15/19 18:59 06:59 18:59 Weight 122.47 kg - Exam BMI 44.9 - Constitutional General appearance: Present: obese - EENT Eyes: Present: EOMI ENT: Present: hearing grossly normal - Neck Neck: Present: normal ROM - Respiratory Respiratory: bilateral: CTA - Cardiovascular Rhythm: regular Heart sounds: normal: S1, S2 - Gastrointestinal General gastrointestinal: Present: soft - Integumentary Integumentary Comment(s): bilateral ankel swelling +2 pitting edema Integumentary: Present: normal turgor - Musculoskeletal Musculoskeletal: Present: gait normal - Psychiatric Psychiatric: Present: A&O x's 3, appropriate affect, intact judgment & insight - Additional findings Additional findings: breast exam: right breast: no masses, fibrocystic changes right axilla: no adenopathy of concern left breast: no masses, scar from prior boil left axilla: no denopathy of concern Assessment and Plan Assessment: Impression: 1. diabetic, insulin dependant 2. Coranary artery disease 3. arthritis 4. Shortness of breath 5. bilateral fibrocystic breast disease 6. family history of cancer 7. skin change left breast/scar 8. obesity Plan: 1. repeat bilateral mammogram in 6 months 2. appointment at that time 3. medical managment of medical problems CC: Dr. Quinonez in [place]
== END | disposition home or self-care (01) ==
LOC: WWCWWP 07:53
PROVIDERS: ATTEND Surgery
DX: Z53.9 Procedure and treatment not carried out, unspecified reason (principal)

== ENCOUNTER 2019-04-11 14:48 | Inpatient (IN) | payer BC ==
[2019-04-11] MEDS ORDERED: IPRATROPIUM-ALBUTEROL 3 ML NEB INHALATION STA (15:18)
--- NOTE | 2019-04-11 15:23 | ED ---
SOB HPI - General Chief Complaint: Shortness of Breath Stated Complaint: SOB/knee pain Time Seen by Provider: 04/11/19 15:18 Source: patient, RN notes reviewed, old records reviewed Mode of arrival: wheelchair Limitations: no limitations - History of Present Illness Initial Comments: This is a 60-year-old female the ER for evaluation, patient is presented to ER for evaluation of couple complaints, shortness of breath shortness of breath with exertion, knee pain knee pain with ambulation worse with palpation. History of right knee repair. Patient has history of diabetes high blood pressure high cholesterol angina. Patient has no current chest pain. No recent travel history no sick contacts. Patient has had fevers up to 103 at home with cough. No recent hospitalizations. Patient has not taken anything for pain, the pain is on the point right knee where she has difficulty with ambulation MD Complaint: shortness of breath, cough -: days(s) Severity: moderate Severity scale (1-10): 6 Consistency: constant Improves With: nothing Worsens With: exertion, movement Known History Of: congestive heart failure Context: recent URI, occurred during exertion Associated Symptoms: fever, cough, sputum production Treatments Prior to Arrival: none - Related Data Home Medications Medication Instructions Recorded Confirmed Aspirin 81 mg PO DAILY 01/06/14 04/11/19 Atenolol 50 mg PO BID 01/06/14 04/11/19 Insulin Glargine [Lantus] 52 unit SQ QAM 01/06/14 04/11/19 glyBURIDE/METFORMIN HCL 2 tab PO BID 01/06/14 04/11/19 [Glucovance 5-500 mg Tablet] Clopidogrel [Plavix] 75 mg PO DAILY 07/23/18 04/11/19 Furosemide [Lasix] 40 mg PO DAILY 07/23/18 04/11/19 INSULIN ASPART (NovoLOG) [NovoLOG See Protocol SQ AC-TID 07/23/18 04/11/19 (formulary)] Multivitamin with Iron 1 tab PO DAILY 02/15/19 04/11/19 [Multivitamins with Iron] Vit C/E/Zn/Coppr/Lutein/Zeaxan 1 tab PO DAILY 02/15/19 04/11/19 [Preservision Areds 2 Softgel] Atorvastatin [Lipitor] 20 mg PO HS 04/11/19 04/11/19 Betamethasone Dipropionate 1 applic TOPICAL BID PRN 04/11/19 04/11/19 [Diprolene 0.05% Ointment] Escitalopram [Lexapro] 20 mg PO DAILY 04/11/19 04/11/19 Insulin Glargine [Lantus] 40 unit SQ HS 04/11/19 04/11/19 Isosorbide Mononitrate ER [Imdur] 30 mg PO HS 04/11/19 04/11/19 Melatonin 5 mg PO HS 04/11/19 04/11/19 NIFEdipine [Procardia XL] 60 mg PO BID 04/11/19 04/11/19 Nitroglycerin Sl Tabs [Nitrostat] 0.4 mg SUBLINGUAL Q5M PRN 04/11/19 04/11/19 Quinapril HCl [Accupril] 40 mg PO DAILY 04/11/19 04/11/19 Spironolactone [Aldactone] 25 mg PO DAILY 04/11/19 04/11/19 Allergies Allergy/AdvReac Type Severity Reaction Status Date / Time Penicillins Allergy Dyspnea Verified 04/11/19 17:24 Sulfa (Sulfonamide Allergy Rash/Hives Verified 04/11/19 17:24 Antibiotics) adhesive AdvReac Rash/Hives Verified 04/11/19 17:24 Review of Systems ROS Statement: Those systems with pertinent positive or pertinent negative responses have been documented in the HPI. ROS Other: All systems not noted in ROS Statement are negative. Past Medical History Past Medical History: Chest Pain / Angina, Diabetes Mellitus, Hyperlipidemia, Hypertension, Skin Disorder Additional Past Medical History / Comment(s): SOB,ARTHRITIS History of Any Multi-Drug Resistant Organisms: None Reported Past Surgical History: Back Surgery, Section, Heart Catheterization With Stent, Hysterectomy, Orthopedic Surgery, Tonsillectomy Additional Past Surgical History / Comment(s): heart stents x2,BUNIONECTOMY BELLA, LEFT KNEE TORN MENISCUS, TRIGGER FINGER X2,Rods and screws to back,bella ca taract, Total right knee replacement Past Anesthesia/Blood Transfusion Reactions: Motion Sickness, Postoperative Nausea & Vomiting (PONV) Additional Past Anesthesia/Blood Transfusion Reaction / Comment(s): no prob with prior blood transfusions Date of Last Stent Placement:: 2 Past Psychological History: Anxiety, Depression Smoking Status: Never smoker Past Alcohol Use History: None Reported Past Drug Use History: None Reported - Past Family History Father Family Medical History: Cancer, Deep Vein Thrombosis (DVT) Mother Family Medical History: Cancer Additional Family Medical History / Comment(s): heart disease Brother(s) Family Medical History: Pulmonary Embolus General Exam Limitations: no limitations General appearance: alert, in no apparent distress Head exam: Present: atraumatic, normocephalic, normal inspection Eye exam: Present: normal appearance, PERRL, EOMI. Absent: scleral icterus, conjunctival injection, periorbital swelling ENT exam: Present: normal exam, mucous membranes moist Neck exam: Present: normal inspection. Absent: tenderness, meningismus, lymphadenopathy Respiratory exam: Present: normal lung sounds bilaterally. Absent: respiratory distress, wheezes, rales, rhonchi, stridor Cardiovascular Exam: Present: regular rate, normal rhythm, normal heart sounds. Absent: systolic murmur, diastolic murmur, rubs, gallop, clicks GI/Abdominal exam: Present: soft, normal bowel sounds. Absent: distended, tenderness, guarding, rebound, rigid Extremities exam: Present: normal inspection, full ROM, normal capillary refill. Absent: tenderness, pedal edema, joint swelling, calf tenderness Back exam: Present: normal inspection Neurological exam: Present: alert, oriented X3, CN II-XII intact Psychiatric exam: Present: normal affect, normal mood Skin exam: Present: warm, dry, intact, normal color. Absent: rash Course Vital Signs 04/11/19 04/11/19 04/11/19 14:54 16:05 16:16 Temperature 98.0 F Pulse Rate 67 68 64 Respiratory 24 Rate Blood Pressure 145/65 O2 Sat by Pulse 96 Oximetry 04/11/19 04/11/19 18:30 19:37 Temperature 98.1 F Pulse Rate 70 74 Respiratory 18 22 Rate Blood Pressure 138/70 O2 Sat by Pulse 98 Oximetry - Reevaluation(s) Reevaluation #1: 04/11/19 20:24 Medical record reviewed Reevaluation #2: 04/11/19 20:24 Patient is still with pain shortness of breath Medical Decision Making - Medical Decision Making 63 female the ER for evaluation. Patient resents today for evaluation regards to shortness of breath and knee pain. Patient be admitted for knee can be pain control she does have bursitis of the right knee as well as shortness of breath and fever likely bronchitis we'll treat with antibiotics and breathing treatments. - Lab Data Result diagrams: 04/11/19 15:45 04/11/19 15:45 Lab Results 04/11/19 04/11/19 04/11/19 Range/Units 15:45 15:45 15:45 WBC 17.6 H (3.8-10.6) k/uL RBC 4.08 (3.80-5.40) m/uL Hgb 10.5 L (11.4-16.0) gm/dL Hct 31.6 L (34.0-46.0) % MCV 77.4 L (80.0-100.0) fL MCH 25.6 (25.0-35.0) pg MCHC 33.1 (31.0-37.0) g/dL RDW 16.8 H (11.5-15.5) % Plt Count 263 (150-450) k/uL Neutrophils % 82 % Lymphocytes % 8 % Monocytes % 8 % Eosinophils % 0 % Basophils % 0 % Neutrophils # 14.4 H (1.3-7.7) k/uL Lymphocytes # 1.3 (1.0-4.8) k/uL Monocytes # 1.5 H (0-1.0) k/uL Eosinophils # 0.0 (0-0.7) k/uL Basophils # 0.0 (0-0.2) k/uL Anisocytosis Slight Microcytosis Slight PT (9.0-12.0) sec INR (<1.2) APTT (22.0-30.0) sec Sodium 136 L (137-145) mmol/L Potassium 4.2 (3.5-5.1) mmol/L Chloride 101 (98-107) mmol/L Carbon Dioxide 23 (22-30) mmol/L Anion Gap 12 mmol/L BUN 29 H (7-17) mg/dL Creatinine 1.22 H (0.52-1.04) mg/dL Est GFR (CKD-EPI)AfAm 55 (>60 ml/min/1.73 sqM) Est GFR (CKD-EPI)NonAf 47 (>60 ml/min/1.73 sqM) Glucose 127 H (74-99) mg/dL Calcium 9.1 (8.4-10.2) mg/dL Magnesium 1.9 (1.6-2.3) mg/dL Total Bilirubin 0.6 (0.2-1.3) mg/dL AST 28 (14-36) U/L ALT 30 (9-52) U/L Alkaline Phosphatase 87 (38-126) U/L Troponin I (0.000-0.034) ng/mL NT-Pro-B Natriuret Pep 1670 pg/mL Total Protein 7.1 (6.3-8.2) g/dL Albumin 4.0 (3.5-5.0) g/dL 04/11/19 04/11/19 Range/Units 15:45 15:45 WBC (3.8-10.6) k/uL RBC (3.80-5.40) m/uL Hgb (11.4-16.0) gm/dL Hct (34.0-46.0) % MCV (80.0-100.0) fL MCH (25.0-35.0) pg MCHC (31.0-37.0) g/dL RDW (11.5-15.5) % Plt Count (150-450) k/uL Neutrophils % % Lymphocytes % % Monocytes % % Eosinophils % % Basophils % % Neutrophils # (1.3-7.7) k/uL Lymphocytes # (1.0-4.8) k/uL Monocytes # (0-1.0) k/uL Eosinophils # (0-0.7) k/uL Basophils # (0-0.2) k/uL Anisocytosis Microcytosis PT 10.6 (9.0-12.0) sec INR 1.0 (<1.2) APTT 25.9 (22.0-30.0) sec Sodium (137-145) mmol/L Potassium (3.5-5.1) mmol/L Chloride (98-107) mmol/L Carbon Dioxide (22-30) mmol/L Anion Gap mmol/L BUN (7-17) mg/dL Creatinine (0.52-1.04) mg/dL Est GFR (CKD-EPI)AfAm (>60 ml/min/1.73 sqM) Est GFR (CKD-EPI)NonAf (>60 ml/min/1.73 sqM) Glucose (74-99) mg/dL Calcium (8.4-10.2) mg/dL Magnesium (1.6-2.3) mg/dL Total Bilirubin (0.2-1.3) mg/dL AST (14-36) U/L ALT (9-52) U/L Alkaline Phosphatase (38-126) U/L Troponin I <0.012 (0.000-0.034) ng/mL NT-Pro-B Natriuret Pep pg/mL Total Protein (6.3-8.2) g/dL Albumin (3.5-5.0) g/dL - EKG Data -: EKG Interpreted by Me (EKG shows sinus rhythm rate is 68 OK 188 QRS 86 QTC 423) - Radiology Data Radiology results: report reviewed (Chest x-rays negative for pneumonia), image reviewed Disposition Clinical Impression: Acute bronchitis, Fever, Right knee pain Disposition: ADMITTED IP TO THIS [facility] Condition: Fair Is patient prescribed a controlled substance at d/c from ED?: No Referrals: Uriel Quinonez MD [Primary Care Provider] - 1-2 days
[2019-04-11 16:00] LABS: Anisocytosis Slight; Basophils % (A) 0 %; Eosinophils % (A) 0 %; HCT 31.6 % (34.0-46.0); HGB 10.5 gm/dL (11.4-16.0); Lymphocytes # (A) 1.3 k/uL (1.0-4.8); Lymphocytes % (A) 8 %; MCH 25.6 pg (25.0-35.0); MCHC 33.1 g/dL (31.0-37.0); MCV 77.4 fL (80.0-100.0); Mean Platelet Volume 7.7; Microcytosis Slight; Monocytes # (A) 1.5 k/uL (0-1.0); Monocytes % (A) 8 %; Neutrophils # (A) 14.4 k/uL (1.3-7.7); Neutrophils % (A) 82 %; Platelet Count 263 k/uL (150-450); RBC 4.08 m/uL (3.80-5.40); RDW 16.8 % (11.5-15.5); WBC 17.6 k/uL (3.8-10.6)
[2019-04-11 16:04] LABS: Calcium 9.1 mg/dL (8.4-10.2); Magnesium 1.9 mg/dL (1.6-2.3); Potassium 4.2 mmol/L (3.5-5.1); Total Bilirubin 0.6 mg/dL (0.2-1.3); Total Protein 7.1 g/dL (6.3-8.2)
[2019-04-11 16:11] LABS: Partial Thromboplastin Time 25.9 sec (22.0-30.0); Prothrombin Time 10.6 sec (9.0-12.0)
--- NOTE | 2019-04-11 16:12 | XR ---
EXAMINATION TYPE: XR knee complete RT DATE OF EXAM: 04/11/2019 COMPARISON: NONE HISTORY: Pain TECHNIQUE: 3 views submitted FINDINGS: Postsurgical change appears in near anatomic alignment. Small amount of fluid in the suprap atellar bursa. Soft tissue edema noted. IMPRESSION: Soft tissue edema and small suprapatellar bursal fluid collection.
--- NOTE | 2019-04-11 16:13 | XR ---
EXAMINATION TYPE: XR chest 2V DATE OF EXAM: 04/11/2019 COMPARISON: 09/18/2017 TECHNIQUE: PA and lateral views submitted. HISTORY: Shortness of breath FINDINGS: The lungs are clear and there is no pneumothorax, pleural effusion, or focal pneumonia. Hypertrophi c and degenerative changes spine. Suggestion previous surgery involving the lumbar region. Heart is e nlarged. IMPRESSION: 1. Cardiomegaly. No definite consolidation..
--- NOTE | 2019-04-11 17:11 | US ---
EXAMINATION TYPE: US venous doppler duplex LE RT DATE OF EXAM: 04/11/2019 4:20 PM COMPARISON: NONE CLINICAL HISTORY: Pain. Feet swelling SIDE PERFORMED: Right TECHNIQUE: The lower extremity deep venous system is examined utilizing real time linear array sonog noel with graded compression, doppler sonography and color-flow sonography. VESSELS IMAGED: External Iliac Vein (EIV) Common Femoral Vein Deep Femoral Vein Greater Saphenous Vein * Femoral Vein Popliteal Vein Small Saphenous Vein * Proximal Calf Veins (* superficial vessels) Right Leg: Negative for DVT IMPRESSION: No evidence of right leg deep venous thrombosis.
[2019-04-11] MEDS ORDERED: AZITHROMYCIN 500 MG in SODIUM CHLORIDE 0.9% 250 ML IVPB STA (20:26)
[2019-04-11 22:26] LABS: Glucose,Whole Blood 205 mg/dL (75-99)
[2019-04-11] MEDS ORDERED: KETOROLAC 30 MG/ML 1 ML VIAL IVP PRN (23:32)
[2019-04-11 23:44] VITALS: BMI 44.9
[2019-04-12 00:46] LABS: Glucose,Whole Blood 169 mg/dL (75-99)
[2019-04-12] MEDS: NAPROXEN 250 MG TAB PO SCH ×3 (00:47→15:17)
[2019-04-12] MEDS: ATENOLOL 50 MG TAB PO SCH ×3 (00:47→22:07)
[2019-04-12] MEDS: ISOSORBIDE MONONITRATE ER 30 MG TAB.ER.24H PO SCH ×2 (00:47→22:07)
[2019-04-12] MEDS: ATORVASTATIN 20 MG TAB PO SCH ×2 (00:47→22:07)
[2019-04-12] MEDS: INSULIN DETEMIR (LEVEMIR) 100 UNIT/ML SYR SQ SCH ×3 (00:48→22:07)
[2019-04-12] MEDS: METFORMIN HCL PO SCH ×3 (00:49→22:07)
[2019-04-12] MEDS: GLYBURIDE PO SCH ×3 (00:49→22:07)
[2019-04-12 07:13] LABS: Glucose,Whole Blood 128 mg/dL (75-99)
[2019-04-12] MEDS: ASPIRIN 81 MG PO SCH (08:14)
[2019-04-12] MEDS: CLOPIDOGREL 75 MG TAB PO SCH (08:14)
[2019-04-12] MEDS: INSULIN ASPART (NovoLOG) 100 UNIT/ML VIAL SQ SCH ×4 (08:16→22:07)
[2019-04-12] MEDS: ESCITALOPRAM 20 MG TAB PO SCH (08:16)
[2019-04-12] MEDS: IPRATROPIUM-ALBUTEROL 3 ML NEB INHALATION SCH ×4 (08:54→20:46)
[2019-04-12] MEDS ORDERED: AZITHROMYCIN 500 MG TAB PO SCH (09:00)
[2019-04-12] MEDS ORDERED: FUROSEMIDE 40 MG TAB PO SCH (09:00)
[2019-04-12 11:29] LABS: Glucose,Whole Blood 262 mg/dL (75-99)
--- NOTE | 2019-04-12 17:22 | P.HPIM ---
History of Present Illness H&P Date: 04/12/19 Chief Complaint: Short of breath History of presenting complaint: This is a very pleasant 63-year-old patient of Dr. Quinonez. Patient's chronic stable medical conditions include diabetes, hype tension, hyperlipidemia, arthritis, coronary artery disease with stent. Patient is here present with her and son. Patient for about 2 days. Having more shortness of breath and a baseline is no cough no phlegm short of breath. He also swelling of the lower extremity. Some orthopnea. She is also notices pain in the right knee for about 3 days rather significant with some swelling and redness. Patient did have a surgery done by Dr. Navarro and has a right knee replacement. Admitted for the same. Review of systems: GEN.: Fever of 102 at home EYES: None HEENT: None NECK: None RESPIRATORY: As above CARDIOVASCULAR: As above GASTROINTESTINAL: None GENITOURINARY: None MUSCULOSKELETAL: As above LYMPHATICS: None HEMATOLOGICAL: None PSYCHIATRY: None NEUROLOGICAL: None Past medical history: Diabetes mellitus type 2, hypertension, hyperlipidemia, arthritis, coronary artery disease with stent, morbid obesity Social history: Does not smoke or drink alcohol. . Physical examination: VITAL SIGNS: 98, 67, 24, 145/65, 96% room air GENERAL: BMI 45.6, propped up in bed, short of breath. EYES: Pupils equal. Conjunctiva normal. HEENT: External appearance of nose and ears normal, oral cavity grossly normal. NECK: JVD possibly raise, neck is short and thick masses not palpable. HEART: First and second heart sounds are normal; edema in both the legs. LUNGS: Respiratory rate increased, diminished breath sounds. ABDOMEN: Soft, nontender, liver spleen not palpable, no masses palpable. PSYCH: Alert and oriented x3; mood and affect normal. NEUROLOGICAL: Cranial nerves grossly intact; no facial asymmetry, power and sensation grossly intact. LYMPHATICS: No lymph nodes palpable in the axilla and neck MUSCULOSKELETAL: There is redness swelling, local tenderness on the lower part of the right knee and just below the scapula, tender INVESTIGATIONS, reviewed in the clinical context: White count 7.6 hemoglobin 10.5 potassium 4.2 BUN 29 and 1.22 Troponin less than 0.012, proBNP 1670 Checks x-ray film personally reviewed by me shows cardiomegaly and venous prominence Doppler ultrasound of the right lower extremity negative for DVT Assessment: -Acute congestive heart failure exacerbation EF not known -Morbid obesity BMI 45.6 -Possibly prepatellar bursitis, versus infected right arthroplasty knee extending patient's fever at home of 102 patient has a leukocytosis and rather inflamed appearing knee findings -Diabetes mellitus type 2 -Essential hypertension -Hyperlipidemia -Primary osteoarthritis -Coronary artery disease with stent -Possibly chronic kidney disease Plan: Patient started on IV Lasix. Follow electrolytes closely. Order 2-D echocardiogram. Cartilages consulted. I don't see evidence of pneumonia. We'll DC Zithromax. We'll start the patient on IV clindamycin. We will also order renal ultrasound and get a nephrology consultation. Care was discussed with the patient and family question were answered. Past Medical History Past Medical History: Chest Pain / Angina, Diabetes Mellitus, Hyperlipidemia, Hypertension, Skin Disorder Additional Past Medical History / Comment(s): SOB,ARTHRITIS History of Any Multi-Drug Resistant Organisms: None Reported Past Surgical History: Back Surgery, Section, Heart Catheterization With Stent, Hysterectomy, Orthopedic Surgery, Tonsillectomy Additional Past Surgical History / Comment(s): heart stents x2,BUNIONECTOMY BELLA, LEFT KNEE TORN MENISCUS, TRIGGER FINGER X2,Rods and screws to back,bella cataract, Total right knee replacement Past Anesthesia/Blood Transfusion Reactions: Motion Sickness, Postoperative Nausea & Vomiting (PONV) Additional Past Anesthesia/Blood Transfusion Reaction / Comment(s): no prob with prior blood transfusions Date of Last Stent Placement:: 10-25-17 Past Psychological History: Anxiety, Depression Smoking Status: Never smoker Past Alcohol Use History: None Reported Past Drug Use History: None Reported - Past Family History Father Family Medical History: Cancer, Deep Vein Thrombosis (DVT) Additional Family Medical History / Comment(s): lung cancer Mother Family Medical History: Cancer, Diabetes Mellitus Additional Family Medical History / Comment(s): heart disease Brother(s) Family Medical History: Pulmonary Embolus Medications and Allergies Home Medications Medication Instructions Recorded Confirmed Type Aspirin 81 mg PO DAILY 01/06/14 04/11/19 History Atenolol 50 mg PO BID 01/06/14 04/11/19 History Insulin Glargine [Lantus] 52 unit SQ QAM 01/06/14 04/11/19 History glyBURIDE/METFORMIN HCL 2 tab PO BID 01/06/14 04/11/19 History [Glucovance 5-500 mg Tablet] Clopidogrel [Plavix] 75 mg PO DAILY 07/23/18 04/11/19 History Furosemide [Lasix] 40 mg PO DAILY 07/23/18 04/11/19 History INSULIN ASPART (NovoLOG) [NovoLOG See Protocol SQ AC-TID 07/23/18 04/11/19 History (formulary)] Multivitamin with Iron 1 tab PO DAILY 02/15/19 04/11/19 History [Multivitamins with Iron] Vit C/E/Zn/Coppr/Lutein/Zeaxan 1 tab PO DAILY 02/15/19 04/11/19 History [Preservision Areds 2 Softgel] Atorvastatin [Lipitor] 20 mg PO HS 04/11/19 04/11/19 History Betamethasone Dipropionate 1 applic TOPICAL BID PRN 04/11/19 04/11/19 History [Diprolene 0.05% Ointment] Escitalopram [Lexapro] 20 mg PO DAILY 04/11/19 04/11/19 History Insulin Glargine [Lantus] 40 unit SQ HS 04/11/19 04/11/19 History Isosorbide Mononitrate ER [Imdur] 30 mg PO HS 04/11/19 04/11/19 History Melatonin 5 mg PO HS 04/11/19 04/11/19 History NIFEdipine [Procardia XL] 60 mg PO BID 04/11/19 04/11/19 History Nitroglycerin Sl Tabs [Nitrostat] 0.4 mg SUBLINGUAL Q5M PRN 04/11/19 04/11/19 History Quinapril HCl [Accupril] 40 mg PO DAILY 04/11/19 04/11/19 History Spironolactone [Aldactone] 25 mg PO DAILY 04/11/19 04/11/19 History Allergies Allergy/AdvReac Type Severity Reaction Status Date / Time Penicillins Allergy Dyspnea Verified 04/11/19 17:24 Sulfa (Sulfonamide Allergy Rash/Hives Verified 04/11/19 17:24 Antibiotics) adhesive AdvReac Rash/Hives Verified 04/11/19 17:24 Physical Exam Vitals: Vital Signs Temp Pulse Pulse Resp BP BP Pulse Ox 04/12/19 17:04 78 04/12/19 16:48 80 95 04/12/19 12:43 98.7 F 71 22 181/72 98 04/12/19 12:01 75 04/12/19 11:50 76 04/12/19 09:07 69 04/12/19 08:54 68 93 L 04/12/19 04:56 97.6 F 60 18 157/66 93 L 04/11/19 22:26 97.7 F 73 22 134/72 96 04/11/19 21:10 98.8 F 69 22 119/79 97 04/11/19 19:37 98.1 F 74 22 138/70 98 04/11/19 19:30 22 04/11/19 18:30 70 18 Intake and Output 04/12/19 04/12/19 04/12/19 06:59 14:59 22:59 Other: Voiding Method Toilet # Voids 1 2 # Bowel Movements 2 Results CBC & Chem 7: 04/11/19 15:45 04/11/19 15:45 Labs: Abnormal Lab Results - Last 24 Hours (Table) 04/11/19 04/12/19 04/12/19 Range/Units 22:25 00:46 07:11 POC Glucose (mg/dL) 205 H 169 H 128 H (75-99) mg/dL 04/12/19 Range/Units 11:21 POC Glucose (mg/dL) 262 H (75-99) mg/dL Thrombosis Risk Factor Assmnt - Choose All That Apply Any of the Below Risk Factors Present?: Yes Each Factor Represents 1 point: Obesity (BMI >25) Other Risk Factors: Yes Each Risk Factor Represents 2 Points: Age 61-74 years Other congenital or acquired thrombophilia - If yes, enter type in comment: No Thrombosis Risk Factor Assessment Total Risk Factor Score: 3 Thrombosis Risk Factor Assessment Level: Moderate Risk
[2019-04-12 17:43] LABS: Glucose,Whole Blood 114 mg/dL (75-99)
[2019-04-12] MEDS: FUROSEMIDE 10 MG/ML 10 ML VIAL IV SCH ×2 (18:17→23:41)
[2019-04-12 21:16] LABS: Glucose,Whole Blood 203 mg/dL (75-99)
[2019-04-12] MEDS: CLINDAMYCIN 300 MG in DEXTROSE 5% IN WATER 50 ML IVPB SCH ×4 (21:57→22:07)
[2019-04-13 00:57] LABS: Glucose,Whole Blood 152 mg/dL (75-99)
[2019-04-13 04:50] LABS: Glucose,Whole Blood 70 mg/dL (75-99)
[2019-04-13] MEDS: CLINDAMYCIN 300 MG in DEXTROSE 5% IN WATER 50 ML IVPB SCH ×8 (05:27→23:14)
[2019-04-13 06:06] LABS: Glucose,Whole Blood 101 mg/dL (75-99)
[2019-04-13] MEDS: INSULIN ASPART (NovoLOG) 100 UNIT/ML VIAL SQ SCH ×4 (06:24→21:56)
[2019-04-13 07:13] LABS: Anisocytosis Slight; Basophils % (A) 0 %; Eosinophils # (A) 0.2 k/uL (0-0.7); Eosinophils % (A) 2 %; HCT 28.7 % (34.0-46.0); HGB 9.1 gm/dL (11.4-16.0); Lymphocytes # (A) 0.9 k/uL (1.0-4.8); Lymphocytes % (A) 8 %; MCH 25.4 pg (25.0-35.0); MCHC 31.9 g/dL (31.0-37.0); MCV 79.7 fL (80.0-100.0); Mean Platelet Volume 8.6; Microcytosis Slight; Monocytes # (A) 0.7 k/uL (0-1.0); Monocytes % (A) 6 %; Neutrophils # (A) 9.5 k/uL (1.3-7.7); Neutrophils % (A) 83 %; Platelet Count 226 k/uL (150-450); RDW 16.6 % (11.5-15.5); WBC 11.5 k/uL (3.8-10.6)
[2019-04-13 07:23] LABS: Calcium 8.7 mg/dL (8.4-10.2)
[2019-04-13] MEDS: IPRATROPIUM-ALBUTEROL 3 ML NEB INHALATION SCH ×4 (08:43→21:19)
[2019-04-13] MEDS: METFORMIN HCL PO SCH ×2 (09:00→21:56)
[2019-04-13] MEDS: ESCITALOPRAM 20 MG TAB PO SCH (09:00)
[2019-04-13] MEDS: ATENOLOL 50 MG TAB PO SCH ×2 (09:00→21:56)
[2019-04-13] MEDS: GLYBURIDE PO SCH ×2 (09:00→21:56)
[2019-04-13] MEDS: ASPIRIN 81 MG PO SCH (09:00)
[2019-04-13] MEDS: FUROSEMIDE 10 MG/ML 10 ML VIAL IV SCH ×3 (09:00→19:48)
[2019-04-13] MEDS: CLOPIDOGREL 75 MG TAB PO SCH (09:00)
[2019-04-13] MEDS: INSULIN DETEMIR (LEVEMIR) 100 UNIT/ML SYR SQ SCH ×2 (09:00→21:56)
--- NOTE | 2019-04-13 09:33 | P.CRDCN ---
History of Present Illness Consult date: 04/13/19 Chief complaint: Shortness of breath History of present illness: This is a pleasant 63-year-old female patient who sees Dr. Bennett in the office as an outpatient on a regular basis with a past medical history significant for coronary artery disease and prior stenting of the left circumflex with the last heart catheterization was performed in 2018 showing patent stents in the left circumflex without any disease involving the rest of her coronaries, diabetes, hypertension, and dyslipidemia, resented to the hospital complaining of shortness of breath. The patient noticed increasing shortness of breath for the last 48-72 hours. She was short of breath even with minimal exertion. No symptoms of shortness of breath in laying flat in bed. Also she noticed increasing in the edema in the lower extremities but she stated that she always does have edema but it was increasing for the last few days. No chest pain or chest discomfort, dizziness or lightheadedness, feeling of heart racing or fluttering, or syncope. She stated that her weight has been stable. She never diagnosed in the past was congestive heart failure or had any hospital admission was congestive heart failure. She stated that she was compliant with her medications and also she has been watching what she is eating including her salt. Clinically the patient seems to be in fluid overload. She does have crackles in both lung jiménez. She has also pitting edema in the lower extremities. Her vitals are stable. The BNP came in to be elevated at 1600. The chest x-ray showed cardiomegaly. The EKG showed sinus rhythm without any ischemic ST or T-wave abnormalities. The rest of the blood work came in to be unremarkable except for anemia which is probably chronic. The patient was admitted to the hospital and she was started on Lasix IV. An echocardiogram was ordered and we will follow-up on that. No prior echocardiogram was performed within the last few years. Past Medical History Past Medical History: Chest Pain / Angina, Diabetes Mellitus, Hyperlipidemia, Hypertension, Skin Disorder Additional Past Medical History / Comment(s): SOB,ARTHRITIS History of Any Multi-Drug Resistant Organisms: None Reported Past Surgical History: Back Surgery, Section, Heart Catheterization With Stent, Hysterectomy, Orthopedic Surgery, Tonsillectomy Additional Past Surgical History / Comment(s): heart stents x2,BUNIONECTOMY BELLA, LEFT KNEE TORN MENISCUS, TRIGGER FINGER X2,Rods and screws to back,bella cataract, Total right knee replacement Past Anesthesia/Blood Transfusion Reactions: Motion Sickness, Postoperative Nausea & Vomiting (PONV) Additional Past Anesthesia/Blood Transfusion Reaction / Comment(s): no prob with prior blood transfusions Date of Last Stent Placement:: 10-25-17 Past Psychological History: Anxiety, Depression Smoking Status: Never smoker Past Alcohol Use History: None Reported Past Drug Use History: None Reported - Past Family History Father Family Medical History: Cancer, Deep Vein Thrombosis (DVT) Additional Family Medical History / Comment(s): lung cancer Mother Family Medical History: Cancer, Diabetes Mellitus Additional Family Medical History / Comment(s): heart disease Brother(s) Family Medical History: Pulmonary Embolus Medications and Allergies Home Medications Medication Instructions Recorded Confirmed Type Aspirin 81 mg PO DAILY 01/06/14 04/11/19 History Atenolol 50 mg PO BID 01/06/14 04/11/19 History Insulin Glargine [Lantus] 52 unit SQ QAM 01/06/14 04/11/19 History glyBURIDE/METFORMIN HCL 2 tab PO BID 01/06/14 04/11/19 History [Glucovance 5-500 mg Tablet] Clopidogrel [Plavix] 75 mg PO DAILY 07/23/18 04/11/19 History Furosemide [Lasix] 40 mg PO DAILY 07/23/18 04/11/19 History INSULIN ASPART (NovoLOG) [NovoLOG See Protocol SQ AC-TID 07/23/18 04/11/19 Hi story (formulary)] Multivitamin with Iron 1 tab PO DAILY 02/15/19 04/11/19 History [Multivitamins with Iron] Vit C/E/Zn/Coppr/Lutein/Zeaxan 1 tab PO DAILY 02/15/19 04/11/19 History [Preservision Areds 2 Softgel] Atorvastatin [Lipitor] 20 mg PO HS 04/11/19 04/11/19 History Betamethasone Dipropionate 1 applic TOPICAL BID PRN 04/11/19 04/11/19 History [Diprolene 0.05% Ointment] Escitalopram [Lexapro] 20 mg PO DAILY 04/11/19 04/11/19 History Insulin Glargine [Lantus] 40 unit SQ HS 04/11/19 04/11/19 History Isosorbide Mononitrate ER [Imdur] 30 mg PO HS 04/11/19 04/11/19 History Melatonin 5 mg PO HS 04/11/19 04/11/19 History NIFEdipine [Procardia XL] 60 mg PO BID 04/11/19 04/11/19 History Nitroglycerin Sl Tabs [Nitrostat] 0.4 mg SUBLINGUAL Q5M PRN 04/11/19 04/11/19 History Quinapril HCl [Accupril] 40 mg PO DAILY 04/11/19 04/11/19 History Spironolactone [Aldactone] 25 mg PO DAILY 04/11/19 04/11/19 History Allergies Allergy/AdvReac Type Severity Reaction Status Date / Time Penicillins Allergy Dyspnea Verified 04/11/19 17:24 Sulfa (Sulfonamide Allergy Rash/Hives Verified 04/11/19 17:24 Antibiotics) adhesive AdvReac Rash/Hives Verified 04/11/19 17:24 Physical Exam Vitals: Vital Signs Temp Pulse Pulse Resp BP Pulse Ox 04/13/19 08:55 70 04/13/19 08:46 66 96 04/13/19 04:00 98.9 F 68 20 155/88 96 04/13/19 00:00 98.5 F 76 18 151/73 93 L 04/12/19 21:00 84 04/12/19 20:47 80 04/12/19 17:04 78 04/12/19 16:48 80 95 04/12/19 12:43 98.7 F 71 22 181/72 98 04/12/19 12:01 75 04/12/19 11:50 76 Intake and Output 04/12/19 04/13/19 04/13/19 22:59 06:59 14:59 Intake Total 480 Output Total 301 Balance -301 480 Intake: Oral 480 Output: Urine 300 Stool 1 Other: Voiding Method Bedside Commode # Voids 2 1 1 # Bowel Movements 1 1 Weight 121.8 kg - Constitutional General appearance: no acute distress - Respiratory Respiratory: bilateral: rales - Cardiovascular Rhythm: regular Heart sounds: normal: S1, S2 Results 04/13/19 06:41 04/13/19 06:41 CBC 04/13/19 Range/Units 06:41 WBC 11.5 H (3.8-10.6) k/uL RBC 3.60 L (3.80-5.40) m/uL Hgb 9.1 L (11.4-16.0) gm/dL Hct 28.7 L (34.0-46.0) % Plt Count 226 (150-450) k/uL Comprehensive Metabolic Panel 04/13/19 Range/Units 06:41 Sodium 138 (137-145) mmol/L Potassium 4.0 (3.5-5.1) mmol/L Chloride 101 (98-107) mmol/L Carbon Dioxide 28 (22-30) mmol/L BUN 32 H (7-17) mg/dL Creatinine 0.98 (0.52-1.04) mg/dL Glucose 82 (74-99) mg/dL Calcium 8.7 (8.4-10.2) mg/dL Current Medications Generic Name Dose Route Start Last Admin Trade Name Freq PRN Reason Stop Dose Admin Albuterol/Ipratropium 3 ml 04/12/19 08:00 04/13/19 08:43 Duoneb 0.5 Mg-3 Mg/3 Ml Soln INHALATION 3 ml RT-QID BÁRBARA Administration Aspirin 81 mg 04/12/19 09:00 04/13/19 09:00 Aspirin PO 81 mg DAILY BÁRBARA Administration Atenolol 50 mg 04/12/19 00:15 04/13/19 09:00 Tenormin PO 50 mg BID BÁRBARA Administration Atorvastatin Calcium 20 mg 04/12/19 00:15 04/12/19 22:07 Lipitor PO 20 mg HS BÁRBARA Administration Betamethasone Dipropionate 1 applic 04/12/19 09:00 Diprolene TOPICAL BID PRN Skin Irritation Clopidogrel Bisulfate 75 mg 04/12/19 09:00 04/13/19 09:00 Plavix PO 75 mg DAILY BÁRBARA Administration Escitalopram Oxalate 20 mg 04/12/19 09:00 04/13/19 09:00 Lexapro PO 20 mg DAILY BÁRBARA Administration Furosemide 80 mg 04/12/19 17:15 04/13/19 09:00 Lasix IV 80 mg Q8HR BÁRBARA Administration Clindamycin Phosphate 300 mg/ 52 mls @ 50 mls/hr 04/12/19 18:00 04/13/19 05:27 Dextrose/Water IVPB 50 mls/hr Q6HR BÁRBARA Administration Insulin Aspart 0 unit 04/12/19 17:30 04/13/19 06:24 Novolog SQ Not Given ACHS [facility] Protocol Insulin Detemir 40 unit 04/12/19 00:30 04/12/19 22:07 Levemir SQ 40 unit HS BÁRBARA Administration Insulin Detemir 52 unit 04/12/19 09:00 04/13/19 09:00 Levemir SQ 52 unit QAM BÁRBARA Administration Isosorbide Mononitrate 30 mg 04/12/19 00:30 04/12/19 22:07 Imdur PO 30 mg HS BÁRBARA Administration Glyburide/Metformin 2 tab 04/12/19 00:15 04/13/19 09:00 Hcl [Glucovance 5- PO 2 tab 500 Mg Tablet] BID BÁRBARA Administration Intake and Output 04/12/19 04/13/19 04/13/19 22:59 06:59 14:59 Intake Total 480 Output Total 301 Balance -301 480 Intake: Oral 480 Output: Urine 300 Stool 1 Other: Voiding Method Bedside Commode # Voids 2 1 1 # Bowel Movements 1 1 Weight 121.8 kg 04/13/19 06:41 04/13/19 06:41 Assessment and Plan Assessment: Assessment #1 congestive heart failure exacerbation of unknown etiology #2 coronary artery disease and status post a stenting #3 obesity #4 diabetes #5 hypertension #6 dyslipidemia Plan #1 I agree to keep the patient on the current dose of Lasix IV #2 continue monitor the kidney function as well as electrolytes #3 follow-up on the echocardiogram which was performed #4 the patient was advised about the diet as well as the medications including diuretics as an outpatient #5 follow-up with the patient Thank you for allowing us participate in her care
--- NOTE | 2019-04-13 11:56 | P.CNOR ---
History of Present Illness - HPI Consult date: 04/13/19 History of present illness: This is a 63-year-old female who is admitted for right knee pain, fever and CHF exacerbation. Patient states that on 04/10/2019, she developed pain in her right knee. Patient denies any injury, but reports pain with walking. Patient states that she had her right knee replaced [address] Navarro and has not had any problems with it until this week. Patient states that she had a temperature of 102 at home and this is when she went to the emergency room. Patient states that she did not have a fever upon arrival to the emergency room and she did not take any medication to help with fever. Patient states that she was also feeling short of breath upon arrival to the emergency room. Today, patient states that her right knee pain is improving and she has been able to bear weight on the right lower extremity with her walker. Patient states that she has been able to walk to the bathroom and back. Patient's past medical history significant for diabetes mellitus, hyperlipidemia and hypertension. Patient denies any history of MRSA. Patient has been seen by cardiology and is being treated for CHF exacerbation. Patient denies any numbness, weakness, tingling, abdominal pain, or chest pain. Review of Systems See HPI. Past Medical History Past Medical History: Chest Pain / Angina, Diabetes Mellitus, Hyperlipidemia, Hypertension, Skin Disorder Additional Past Medical History / Comment(s): SOB,ARTHRITIS History of Any Multi-Drug Resistant Organisms: None Reported Past Surgical History: Back Surgery, Section, Heart Catheterization With Stent, Hysterectomy, Orthopedic Surgery, Tonsillectomy Additional Past Surgical History / Comment(s): heart stents x2,BUNIONECTOMY BELLA, LEFT KNEE TORN MENISCUS, TRIGGER FINGER X2,Rods and screws to back,bella cataract, Total right knee replacement Past Anesthesia/Blood Transfusion Reactions: Motion Sickness, Postoperative Nausea & Vomiting (PONV) Additional Past Anesthesia/Blood Transfusion Reaction / Comm: no prob with prior blood transfusions Date of Last Stent Placement:: 10-25-17 Past Psychological History: Anxiety, Depression Smoking Status: Never smoker Past Alcohol Use History: None Reported Past Drug Use History: None Reported - Past Family History Father Family Medical History: Cancer, Deep Vein Thrombosis (DVT) Additional Family Medical History / Comment(s): lung cancer Mother Family Medical History: Cancer, Diabetes Mellitus Additional Family Medical History / Comment(s): heart disease Brother(s) Family Medical History: Pulmonary Embolus Medications and Allergies Home Medications Medication Instructions Recorded Confirmed Type Aspirin 81 mg PO DAILY 01/06/14 04/11/19 History Atenolol 50 mg PO BID 01/06/14 04/11/19 History Insulin Glargine [Lantus] 52 unit SQ QAM 01/06/14 04/11/19 History glyBURIDE/METFORMIN HCL 2 tab PO BID 01/06/14 04/11/19 History [Glucovance 5-500 mg Tablet] Clopidogrel [Plavix] 75 mg PO DAILY 07/23/18 04/11/19 History Furosemide [Lasix] 40 mg PO DAILY 07/23/18 04/11/19 History INSULIN ASPART (NovoLOG) [NovoLOG See Protocol SQ AC-TID 07/23/18 04/11/19 History (formulary)] Multivitamin with Iron 1 tab PO DAILY 02/15/19 04/11/19 History [Multivitamins with Iron] Vit C/E/Zn/Coppr/Lutein/Zeaxan 1 tab PO DAILY 02/15/19 04/11/19 History [Preservision Areds 2 Softgel] Atorvastatin [Lipitor] 20 mg PO HS 04/11/19 04/11/19 History Betamethasone Dipropionate 1 applic TOPICAL BID PRN 04/11/19 04/11/19 History [Diprolene 0.05% Ointment] Escitalopram [Lexapro] 20 mg PO DAILY 04/11/19 04/11/19 History Insulin Glargine [Lantus] 40 unit SQ HS 04/11/19 04/11/19 History Isosorbide Mononitrate ER [Imdur] 30 mg PO HS 04/11/19 04/11/19 History Melatonin 5 mg PO HS 04/11/19 04/11/19 History NIFEdipine [Procardia XL] 60 mg PO BID 04/11/19 04/11/19 History Nitroglycerin Sl Tabs [Nitrostat] 0.4 mg SUBLINGUAL Q5M PRN 04/11/19 04/11/19 History Quinapril HCl [Accupril] 40 mg PO DAILY 04/11/19 04/11/19 History Spironolactone [Aldactone] 25 mg PO DAILY 04/11/19 04/11/19 History Allergies Allergy/AdvReac Type Severity Reaction Status Date / Time Penicillins Allergy Dyspnea Verified 04/11/19 17:24 Sulfa (Sulfonamide Allergy Rash/Hives Verified 04/11/19 17:24 Antibiotics) adhesive AdvReac Rash/Hives Verified 04/11/19 17:24 Physical Examination On exam patient is resting comfortably in a chair in no acute distress. There is mild tenderness to palpation along the medial and lateral joint lines. Patient has full extension of the right lower extremity in flexion to approximately 95. There is no swelling, erythema or ecchymosis. Skin is intact. There is no ligamentous instability. There is swelling to bilateral lower extremities. Calves are soft and mildly tender to palpation bilaterally. Sensation is intact. Neurovascular status and circulatory status are intact. Results A venous Doppler ultrasound dated 04/11/2019 of the right lower extremity is negative for DVT. X-rays of the right knee dated 04/11/2019 shows total knee arthroplasty in good position and alignment. - Labs Labs: Abnormal Lab Results - Last 24 Hours (Table) 04/12/19 04/12/19 04/13/19 Range/Units 17:41 21:14 00:56 WBC (3.8-10.6) k/uL RBC (3.80-5.40) m/uL Hgb (11.4-16.0) gm/dL Hct (34.0-46.0) % MCV (80.0-100.0) fL RDW (11.5-15.5) % Neutrophils # (1.3-7.7) k/uL Lymphocytes # (1.0-4.8) k/uL BUN (7-17) mg/dL POC Glucose (mg/dL) 114 H 203 H 152 H (75-99) mg/dL 04/13/19 04/13/19 04/13/19 Range/Units 04:48 06:05 06:41 WBC (3.8-10.6) k/uL RBC (3.80-5.40) m/uL Hgb (11.4-16.0) gm/dL Hct (34.0-46.0) % MCV (80.0-100.0) fL RDW (11.5-15.5) % Neutrophils # (1.3-7.7) k/uL Lymphocytes # (1.0-4.8) k/uL BUN 32 H (7-17) mg/dL POC Glucose (mg/dL) 70 L 101 H (75-99) mg/dL 04/13/19 Range/Units 06:41 WBC 11.5 H (3.8-10.6) k/uL RBC 3.60 L (3.80-5.40) m/uL Hgb 9.1 L (11.4-16.0) gm/dL Hct 28.7 L (34.0-46.0) % MCV 79.7 L (80.0-100.0) fL RDW 16.6 H (11.5-15.5) % Neutrophils # 9.5 H (1.3-7.7) k/uL Lymphocytes # 0.9 L (1.0-4.8) k/uL BUN (7-17) mg/dL POC Glucose (mg/dL) (75-99) mg/dL H & H 04/11/19 04/13/19 Range/Units 15:45 06:41 Hgb 10.5 L 9.1 L (11.4-16.0) gm/dL Hct 31.6 L 28.7 L (34.0-46.0) % Coagulation 04/11/19 Range/Units 15:45 INR 1.0 (<1.2) Result Diagrams: 04/13/19 06:41 04/13/19 06:41 Assessment and Plan Assessment: Diabetes mellitus Hyperlipidemia Hypertension (1) Right knee pain Current Visit: Yes Status: Acute Code(s): M25.561 - PAIN IN RIGHT KNEE SNOMED Code(s): 63536907 Plan: 1. X-rays are reviewed and discussed with the patient. Continue weightbearing as tolerated with walker. 2. Patient's white blood cell count is 11.5 today and patient is afebrile. Patient's right knee pain is improving and she is able to bear weight on the right lower extremity. 3. Appreciate input from infectious disease and internal medicine. 4. No surgical intervention planned. Will continue to follow the patient closely.
--- NOTE | 2019-04-13 12:28 | ECHOF ---
Referral Reason:CHF MEASUREMENTS -------- HEIGHT: 165.1 cm WEIGHT: 121.6 kg BP: 155/88 RVIDd: 3.7 cm (< 3.3) IVSd: 1.8 cm (0.6 - 1.1) LVIDd: 4.3 cm (3.9 - 5.3) LVPWd: 1.8 cm (0.6 - 1.1) IVSs: 2.5 cm LVIDs: 2.8 cm LVPWs: 2.3 cm LAESV Index (A-L): 25.96 ml/m Ao Diam: 2.9 cm (2.0 - 3.7) AV Cusp: 1.8 cm (1.5 - 2.6) LA Diam: 4.4 cm (2.7 - 3.8) MV EXCURSION: 12.495 mm (> 18.000) MV EF SLOPE: 107 mm/s (70 - 150) EPSS: 0.5 cm MV E Antoine: 1.38 m/s MV DecT: 221 ms MV A Antoine: 0.98 m/s MV E/A Ratio: 1.42 RAP: 5.00 mmHg RVSP: 56.12 mmHg FINDINGS -------- Sinus rhythm. This was a technically adequate study. The left ventricular size is normal. There is severe concentric left ventricular hypertrophy. Ove rall left ventricular systolic function is low-normal with, an EF between 50 - 55 %. Mitral Doppler inflow pattern suggests diastolic filling abnormality 17.65. The right ventricle is mildly enlarged. Normal LA size by volume 22+/-6 ml/m2. The right atrial size is normal. Interatrial and interventricular septum intact. The aortic valve is trileaflet and appears structurally normal. There is no evidence of aortic sten osis. No mitral regurgitation. [id number] tricuspid regurgitation present. There is moderate to severe pulmonary hypertensio n. The right ventricular systolic pressure, as measured by Doppler, is 56.12mmHg. There is no pulmonic regurgitation present. The aortic root size is normal. The inferior vena cava is mildly dilated. There is no pericardial effusion. CONCLUSIONS -------- 1. Sinus rhythm. 2. This was a technically adequate study. 3. The left ventricular size is normal. 4. There is severe concentric left ventricular hypertrophy. 5. Overall left ventricular systolic function is low-normal with, an EF between 50 - 55 %. 6. Mitral Doppler inflow pattern suggest diastolic filling abnormality 17.65. 7. The right ventricle is mildly enlarged. 8. Normal LA size by volume 22+/-6 ml/m2. 9. The right atrial size is normal. 10. Interatrial and interventricular septum intact. 11. The aortic valve is trileaflet and appears structurally normal. 12. There is no evidence of aortic stenosis. 13. No mitral regurgitation. 14. [id number] tricuspid regurgitation present. 15. There is moderate to severe pulmonary hypertension. 16. The right ventricular systolic pressure, as measured by Doppler, is 56.12mmHg. 17. There is no pulmonic regurgitation present. 18. The aortic root size is normal. 19. The inferior vena cava is mildly dilated. 20. There is no pericardial effusion. [employer]ATION MANAGER: Ilda Gould RDCS
[2019-04-13 12:39] LABS: Glucose,Whole Blood 190 mg/dL (75-99)
--- NOTE | 2019-04-13 13:30 | XR ---
EXAMINATION TYPE: XR shoulder complete RT DATE OF EXAM: 04/13/2019 COMPARISON: NONE HISTORY: Pain TECHNIQUE: Three views are submitted. FINDINGS: The osseous structures are intact. There is no acute fracture or dislocation. Arthropathy of the AC joint. Interstitial prominence within the right lung. Recommend chest x-ray. IMPRESSION: 1. AC joint arthropathy. 2. Interstitial prominence within the lung field recommend chest x-ray.
[2019-04-13 17:05] LABS: Glucose,Whole Blood 105 mg/dL (75-99)
[2019-04-13 20:51] LABS: Glucose,Whole Blood 132 mg/dL (75-99)
--- NOTE | 2019-04-13 21:48 | P.PN ---
Progress Note - Text Progress Note Date: 04/13/19 Chief Complaint: Short of breath Interval history: This is a very pleasant 63-year-old patient of Dr. Quinonez. Patient's chronic stable medical conditions include diabetes, hype tension, hyperlipidemia, arthritis, coronary artery disease with stent. Patient is here present with her and son. Patient for about 2 days. Having more shortness of breath and a baseline is no cough no phlegm short of breath. He also swelling of the lower extremity. Some orthopnea. She is also notices pain in the right knee for about 3 days rather significant with some swelling and redness. Patient did have a surgery done by Dr. Navarro and has a right knee replacement. Admitted for the same. Patient admitting diagnoses acute congestive heart failure exacerbation and possible right knee cellulitis Today-breathing is better this morning. The short of breath. Also right knee pain is better. On antibiotic. An IV Lasix. Seen by cardiology. Also seen by orthopedics Review of systems: Was done for constitutional, cardiovascular, GI, pulmonary. relevant finding as above Active Medications Albuterol/Ipratropium (Duoneb 0.5 Mg-3 Mg/3 Ml Soln) 3 ml INHALATION RT-QID [facility] Last Admin: 04/13/19 21:19 Dose: 3 ml Documented by: Aspirin (Aspirin) 81 mg PO DAILY [facility] Last Admin: 04/13/19 09:00 Dose: 81 mg Documented by: Atenolol (Tenormin) 50 mg PO BID [facility] Last Admin: 04/13/19 09:00 Dose: 50 mg Documented by: Atorvastatin Calcium (Lipitor) 20 mg PO HS [facility] Last Admin: 04/12/19 22:07 Dose: 20 mg Documented by: Betamethasone Dipropionate (Diprolene) 1 applic TOPICAL BID PRN PRN Reason: Skin Irritation Clopidogrel Bisulfate (Plavix) 75 mg PO DAILY [facility] Last Admin: 04/13/19 09:00 Dose: 75 mg Documented by: Escitalopram Oxalate (Lexapro) 20 mg PO DAILY [facility] Last Admin: 04/13/19 09:00 Dose: 20 mg Documented by: Furosemide (Lasix) 80 mg IV Q8HR [facility] Last Admin: 04/13/19 19:48 Dose: 80 mg Documented by: Clindamycin Phosphate 300 mg/ (Dextrose/Water) 52 mls @ 50 mls/hr IVPB Q6HR [facility] Last Admin: 04/13/19 17:05 Dose: 50 mls/hr Documented by: Insulin Aspart (Novolog) 0 unit SQ ACHS [facility]; Protocol Last Admin: 04/13/19 17:04 Dose: Not Given Documented by: Insulin Detemir (Levemir) 40 unit SQ [facility] Last Admin: 04/12/19 22:07 Dose: 40 unit Documented by: Insulin Detemir (Levemir) 52 unit SQ QAM [facility] Last Admin: 04/13/19 09:00 Dose: 52 unit Documented by: Isosorbide Mononitrate (Imdur) 30 mg PO [facility] Last Admin: 04/12/19 22:07 Dose: 30 mg Documented by: Glyburide/Metformin Hcl [Glucovance 5- 500 Mg Tablet] 2 tab PO BID [facility] Last Admin: 04/13/19 09:00 Dose: 2 tab Documented by: Physical examination: VITAL SIGNS: 98.3, 71, 18, 1 61 x 61, 94% on 2 L GENERAL:, serial sitting at the edge of the bed, breathing better. EYES: Pupils equal. Conjunctiva normal. HEENT: External appearance of nose and ears normal, oral cavity grossly normal. NECK: JVD possibly raise, neck is short and thick masses not palpable. HEART: First and second heart sounds are normal; edema in both the legs. LUNGS: Respiratory rate increased, diminished breath sounds. ABDOMEN: Soft, nontender, liver spleen not palpable, no masses palpable. PSYCH: Alert and oriented x3; mood and affect normal. MUSCULOSKELETAL: There is redness swelling, local tenderness on the lower part of the right knee less tender INVESTIGATIONS, reviewed in the clinical context: 2-D echo-EF 55-60% moderate to severe probably hypertension Previous tests White count 7.6 hemoglobin 10.5 potassium 4.2 BUN 29 and 1.22 Troponin less than 0.012, proBNP 1670 Checks x-ray film personally reviewed by me shows cardiomegaly and venous prominence Doppler ultrasound of the right lower extremity negative for DVT Assessment: -Acute congestive heart failure exacerbation from diastolic dysfunction EF 55- 60% -Rule out pulmonary fibrosis, will do a high resolution CT chest -Moderate to severe secondary probably hypertension( -Morbid obesity BMI 45.6 -Possibly prepatellar cellulitis, improving -Diabetes mellitus type 2 -Essential hypertension -Hyperlipidemia -Primary osteoarthritis -Coronary artery disease with stent -Possibly chronic kidney disease Plan: Keep the patient on IV Lasix and IV antibiotic. Clinically looking better. To rule out pulmonary fibrosis we'll order a high resolution computed tomography scan of the chest. Earlier care was discussed with the patient and at the bedside. Follow with cardiology and orthopedics. Repeat labs in the morning
[2019-04-13] MEDS: ATORVASTATIN 20 MG TAB PO SCH (21:56)
[2019-04-13] MEDS: ISOSORBIDE MONONITRATE ER 30 MG TAB.ER.24H PO SCH (21:56)
--- NOTE | 2019-04-13 22:53 | P.CONS ---
History of Present Illness - Reason for Consult Consult date: 04/13/19 - Chief Complaint fever - History of Present Illness 63-year-old woman who has a history of obesity as well as degenerative joint disease presents the emergency center with the relatively sudden onset of fever chill increasing pain to her right knee which is of concern because of her prior total knee arthroplasty that was placed about 2 years ago. She also has developed the sudden onset of some significant discomfort into her right anterior aspect of her shoulder has also been exquisitely tender. Since coming to Hospital she's not been having significant fevers but still feels somewhat poorly. However is feeling slightly better now than she was yesterday. She this point in time is denying any further fever she has had difficulties with shortness of breath. Has been ensuing and there is concerns to some underlying congestive heart failure and she is receiving some diuresis. She relates that she's also feeling better. She relates no acute trauma in regards the sudden onset of the right knee pain. Ended no new activities that resulted into the right shoulder pain. She's had one prior bout of severe right shoulder pain in the past that eventually resolved. She did have severe degenerative changes to her right knee before the surgery but was never this exquisitely painful as it is now. Review of Systems HEENT:Denies headache or acute visual change. Denies sinus or mouth discomforts. Denies neck stiffness or pain. Denies significant oral cavity pain. Denies difficulty on swallowing. Lungs: Denies significant shortness of breath, cough, sputum production, or hemoptysis. Cardiovascular: Denies significant shortness of breath, chest pain, chest wall pain, orthopnea, dyspnea on exertion, syncope Gastrointestinal:Denies nausea, vomiting, diarrhea, constipation, hematemesis, melena, hematochezia. No no significant change of bowel habit noticed. Musculoskeletal: As per the HPI second onset of severe right knee pain and then the sudden onset of right shoulder pain Skin: Denies new rash or lesions. No new ulcers or wounds are related.. Neuro: Denies headache or visual change. Denies any new onset weakness or difficulty with ambulation. Denies falls or seizures. Psychiatric:Denies anxiety or depression. Endocrine:chronic fatigue, denies significant weight loss or weight gain. Past Medical History Past Medical History: Chest Pain / Angina, Diabetes Mellitus, Hyperlipidemia, Hypertension, Skin Disorder Additional Past Medical History / Comment(s): SOB,ARTHRITIS History of Any Multi-Drug Resistant Organisms: None Reported Past Surgical History: Back Surgery, Section, Heart Catheterization With Stent, Hysterectomy, Orthopedic Surgery, Tonsillectomy Additional Past Surgical History / Comment(s): heart stents x2,BUNIONECTOMY BELLA, LEFT KNEE TORN MENISCUS, TRIGGER FINGER X2,Rods and screws to back,bella cataract, Total right knee replacement Past Anesthesia/Blood Transfusion Reactions: Motion Sickness, Postoperative Nausea & Vomiting (PONV) Additional Past Anesthesia/Blood Transfusion Reaction / Comm: no prob with prior blood transfusions Date of Last Stent Placement:: 10-25-17 Past Psychological History: Anxiety, Depression Additional Psychological History / Comment(s): . 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 No recent international travel. 1 adult child no animals in the home. No tobacco use. No recreational drug use or alcohol use Smoking Status: Never smoker Past Alcohol Use History: None Reported Past Drug Use History: None Reported - Past Family History Father Family Medical History: Cancer, Deep Vein Thrombosis (DVT) Additional Family Medical History / Comment(s): lung cancer Mother Family Medical History: Cancer, Diabetes Mellitus Additional Family Medical History / Comment(s): heart disease Brother(s) Family Medical History: Pulmonary Embolus Medications and Allergies Home Medications and Allergies Comment(s): Current Medications Albuterol/Ipratropium (Duoneb 0.5 Mg-3 Mg/3 Ml Soln) 3 ml INHALATION RT-QID [facility] Last Admin: 04/13/19 21:19 Dose: 3 ml Documented by: Aspirin (Aspirin) 81 mg PO DAILY [facility] Last Admin: 04/13/19 09:00 Dose: 81 mg Documented by: Atenolol (Tenormin) 50 mg PO BID [facility] Last Admin: 04/13/19 21:56 Dose: 50 mg Documented by: Atorvastatin Calcium (Lipitor) 20 mg PO HS [facility] Last Admin: 04/13/19 21:56 Dose: 20 mg Documented by: Betamethasone Dipropionate (Diprolene) 1 applic TOPICAL BID PRN PRN Reason: Skin Irritation Clopidogrel Bisulfate (Plavix) 75 mg PO DAILY [facility] Last Admin: 04/13/19 09:00 Dose: 75 mg Documented by: Escitalopram Oxalate (Lexapro) 20 mg PO DAILY [facility] Last Admin: 04/13/19 09:00 Dose: 20 mg Documented by: Furosemide (Lasix) 80 mg IV Q8HR [facility] Last Admin: 04/13/19 19:48 Dose: 80 mg Documented by: Clindamycin Phosphate 300 mg/ (Dextrose/Water) 52 mls @ 50 mls/hr IVPB Q6HR [facility] Last Admin: 04/13/19 17:05 Dose: 50 mls/hr Documented by: Insulin Aspart (Novolog) 0 unit SQ [facility]; Protocol Last Admin: 04/13/19 21:56 Dose: Not Given Documented by: Insulin Detemir (Levemir) 40 unit SQ [facility] Last Admin: 04/13/19 21:56 Dose: 40 unit Documented by: Insulin Detemir (Levemir) [facility] Last Admin: 04/13/19 09:00 Dose: 52 unit Documented by: Isosorbide Mononitrate (Imdur) 30 mg PO [facility] Last Admin: 04/13/19 21:56 Dose: 30 mg Documented by: Glyburide/Metformin Hcl [Glucovance 5- 500 Mg Tablet] 2 tab PO BID [facility] Last Admin: 04/13/19 21:56 Dose: 2 tab Documented by: Home Medications Medication Instructions Recorded Confirmed Type Aspirin 81 mg PO DAILY 01/06/14 04/11/19 History Atenolol 50 mg PO BID 01/06/14 04/11/19 History Insulin Glargine [Lantus] 52 unit SQ [facility] 01/06/14 04/11/19 History glyBURIDE/METFORMIN HCL 2 tab PO BID 01/06/14 04/11/19 History [Glucovance 5-500 mg Tablet] Clopidogrel [Plavix] 75 mg PO DAILY 07/23/18 04/11/19 History Furosemide [Lasix] 40 mg PO DAILY 07/23/18 04/11/19 History INSULIN ASPART (NovoLOG) [NovoLOG See Protocol SQ [facility] 07/23/18 04/11/19 History (formulary)] Multivitamin with Iron 1 tab PO DAILY 02/15/19 04/11/19 History [Multivitamins with Iron] Vit C/E/Zn/Coppr/Lutein/Zeaxan 1 tab PO DAILY 02/15/19 04/11/19 History [Preservision Areds 2 Softgel] Atorvastatin [Lipitor] 20 mg PO HS 04/11/19 04/11/19 History Betamethasone Dipropionate 1 applic TOPICAL BID PRN 04/11/19 04/11/19 History [Diprolene 0.05% Ointment] Escitalopram [Lexapro] 20 mg PO DAILY 04/11/19 04/11/19 History Insulin Glargine [Lantus] 40 unit SQ [facility] 04/11/19 04/11/19 History Isosorbide Mononitrate ER [Imdur] 30 mg PO HS 04/11/19 04/11/19 History Melatonin 5 mg PO HS 04/11/19 04/11/19 History NIFEdipine [Procardia XL] 60 mg PO BID 04/11/19 04/11/19 History Nitroglycerin Sl Tabs [Nitrostat] 0.4 mg SUBLINGUAL Q5M PRN 04/11/19 04/11/19 History Quinapril HCl [Accupril] 40 mg PO DAILY 04/11/19 04/11/19 History Spironolactone [Aldactone] 25 mg PO DAILY 04/11/19 04/11/19 History Allergies Allergy/AdvReac Type Severity Reaction Status Date / Time Penicillins Allergy Dyspnea Verified 04/11/19 17:24 Sulfa (Sulfonamide Allergy Rash/Hives Verified 04/11/19 17:24 Antibiotics) adhesive AdvReac Rash/Hives Verified 04/11/19 17:24 Physical Exam Vitals: Vital Signs Temp Pulse Pulse Resp BP Pulse Ox 04/13/19 21:32 76 04/13/19 21:19 80 97 04/13/19 17:15 148/77 04/13/19 16:32 72 04/13/19 16:21 76 04/13/19 15:54 98.5 F 76 18 176/74 94 L 04/13/19 13:03 74 04/13/19 12:55 68 04/13/19 12:00 98.3 F 71 18 161/61 94 L 04/13/19 08:55 70 04/13/19 08:46 66 96 04/13/19 08:00 98 F 69 20 159/70 95 04/13/19 04:00 98.9 F 68 20 155/88 96 04/13/19 00:00 98.5 F 76 18 151/73 93 L Intake and Output 04/13/19 04/13/19 04/13/19 06:59 14:59 22:59 Intake Total 720 480 Output Total 301 Balance -301 720 480 Intake: Oral 720 480 Output: Urine 300 Stool 1 Other: Voiding Method Bedside Commode Bedside Commode # Voids 1 1 3 # Bowel Movements 1 1 Weight 121.8 kg Pleasant obese 63-year-old woman who is still somewhat uncomfortable due to the significant discomfort to her right knee and right shoulder HEENT: Anicteric conjunctiva are pink and moist nasal mucosa grossly intact w ithout significant lesions, there is no thrush. Neck: The neck is supple without significant lymphadenopathy or thyromegaly. Lungs: Good bilateral air entry few basilar crackles . There is no significant bronchial sounds. There is no egophony or dullness. Heart: Regular rate and rhythm with an audible S1-S2, no S3 no S4. There is no significant murmur click or rub, PMI was nondisplaced. Abdomen: Positive bowel sounds soft and nontender without palpable masses or organomegaly. There was no guarding or rebound. Extremities: Right upper extremity reveals evidence of the exquisite point tenderness to the anterior aspect of the right shoulder with some significant discomfort with attempts to range of motion to the right shoulder including internal and external rotation as well as abduction and abduction. Right knee is warm to touch and she relates it is less hot and it was. There some minimal erythema. There is no palpable crepitance or fluctuance. No smoking effusion is palpated. There is discomfort to range of motion but she relates it's already improved from yesterday. Neuro: Awake alert oriented to person place and time. There are no acute new gross focal sensory motor deficits. Results CBC & Chem 7: 04/13/19 06:41 04/13/19 06:41 Labs: Abnormal Lab Results - Last 24 Hours (Table) 04/13/19 04/13/19 04/13/19 Range/Units 00:56 04:48 06:05 WBC (3.8-10.6) k/uL RBC (3.80-5.40) m/uL Hgb (11.4-16.0) gm/dL Hct (34.0-46.0) % MCV (80.0-100.0) fL RDW (11.5-15.5) % Neutrophils # (1.3-7.7) k/uL Lymphocytes # (1.0-4.8) k/uL BUN (7-17) mg/dL POC Glucose (mg/dL) 152 H 70 L 101 H (75-99) mg/dL 04/13/19 04/13/19 04/13/19 Range/Units 06:41 06:41 11:55 WBC 11.5 H (3.8-10.6) k/uL RBC 3.60 L (3.80-5.40) m/uL Hgb 9.1 L (11.4-16.0) gm/dL Hct 28.7 L (34.0-46.0) % MCV 79.7 L (80.0-100.0) fL RDW 16.6 H (11.5-15.5) % Neutrophils # 9.5 H (1.3-7.7) k/uL Lymphocytes # 0.9 L (1.0-4.8) k/uL BUN 32 H (7-17) mg/dL POC Glucose (mg/dL) 190 H (75-99) mg/dL 04/13/19 04/13/19 Range/Units 16:51 20:49 WBC (3.8-10.6) k/uL RBC (3.80-5.40) m/uL Hgb (11.4-16.0) gm/dL Hct (34.0-46.0) % MCV (80.0-100.0) fL RDW (11.5-15.5) % Neutrophils # (1.3-7.7) k/uL Lymphocytes # (1.0-4.8) k/uL BUN (7-17) mg/dL POC Glucose (mg/dL) 105 H 132 H (75-99) mg/dL Microbiology - Last 24 Hours (Table) 04/12/19 17:58 Blood Culture - Preliminary Blood No Growth after 24 hours Laboratory Results WBC 11.5 k/uL (3.8-10.6) H 04/13/19 06:41 RBC 3.60 m/uL (3.80-5.40) L 04/13/19 06:41 Hgb 9.1 gm/dL (11.4-16.0) L 04/13/19 06:41 Hct 28.7 % (34.0-46.0) L 04/13/19 06:41 MCV 79.7 fL (80.0-100.0) L 04/13/19 06:41 MCH 25.4 pg (25.0-35.0) 04/13/19 06:41 MCHC 31.9 g/dL (31.0-37.0) 04/13/19 06:41 RDW 16.6 % (11.5-15.5) H 04/13/19 06:41 Plt Count 226 k/uL (150-450) 04/13/19 06:41 Neutrophils % 83 % 04/13/19 06:41 Lymphocytes % 8 % 04/13/19 06:41 Monocytes % 6 % 04/13/19 06:41 Eosinophils % 2 % 04/13/19 06:41 Basophils % 0 % 04/13/19 06:41 Neutrophils # 9.5 k/uL (1.3-7.7) H 04/13/19 06:41 Lymphocytes # 0.9 k/uL (1.0-4.8) L 04/13/19 06:41 Monocytes # 0.7 k/uL (0-1.0) 04/13/19 06:41 Eosinophils # 0.2 k/uL (0-0.7) 04/13/19 06:41 Basophils # 0.0 k/uL (0-0.2) 04/13/19 06:41 Anisocytosis Slight 04/13/19 06:41 Microcytosis Slight 04/13/19 06:41 PT 10.6 sec (9.0-12.0) 04/11/19 15:45 INR 1.0 (<1.2) 04/11/19 15:45 APTT 25.9 sec (22.0-30.0) 04/11/19 15:45 Sodium 138 mmol/L (137-145) 04/13/19 06:41 Potassium 4.0 mmol/L (3.5-5.1) 04/13/19 06:41 Chloride 101 mmol/L (98-107) 04/13/19 06:41 Carbon Dioxide 28 mmol/L (22-30) 04/13/19 06:41 Anion Gap 9 mmol/L 04/13/19 06:41 BUN 32 mg/dL (7-17) H 04/13/19 06:41 Creatinine 0.98 mg/dL (0.52-1.04) 04/13/19 06:41 Est GFR (CKD-EPI)AfAm 71 (>60 ml/min/1.73 sqM) 04/13/19 06:41 Est GFR (CKD-EPI)NonAf 62 (>60 ml/min/1.73 sqM) 04/13/19 06:41 Glucose 82 mg/dL (74-99) 04/13/19 06:41 POC Glucose (mg/dL) 132 mg/dL (75-99) H 04/13/19 20:49 POC Glu Cable Inspector ID Jessica Suarez 04/13/19 20:49 Calcium 8.7 mg/dL (8.4-10.2) 04/13/19 06:41 Magnesium 1.9 mg/dL (1.6-2.3) 04/11/19 15:45 Total Bilirubin 0.6 mg/dL (0.2-1.3) 04/11/19 15:45 AST 28 U/L (14-36) 04/11/19 15:45 ALT 30 U/L (9-52) 04/11/19 15:45 Alkaline Phosphatase 87 U/L (38-126) 04/11/19 15:45 Troponin I <0.012 ng/mL (0.000-0.034) 04/11/19 15:45 NT-Pro-B Natriuret Pep 1670 pg/mL 04/11/19 15:45 Total Protein 7.1 g/dL (6.3-8.2) 04/11/19 15:45 Albumin 4.0 g/dL (3.5-5.0) 04/11/19 15:45 Microbiology 04/12/19 17:58 Blood Blood Culture - Preliminary No Growth after 24 hours Comments: x-rays without evidence of fracture or loosening of hardware Assessment and Plan (1) Gout Narrative/Plan: Pleasant 63-year-old woman who has a history of degenerative joint disease who has presented to hospital with sudden onset of fever that has already abated but continues to have ongoing significant pain to her right knee with warmth and some swelling. However she is already having some significant improvement of her discomfort. She has received 2 doses of naproxen were discontinued. She had a sudden onset also of severe right shoulder pain and also is slightly improved since yesterday. Review of the record reveals evidence of her uric acid of 9.1. His constantly-like that she's having acute gout flare involving the right knee and right shoulder. Given her many medical troubles in concerns to suggest congestive heart failure would like to avoid further anti- inflammatories that can exacerbate heart failure. 6 colchicine will be given and she'll be monitored for improvement of her status. Given the fact that she hasn't elevated uric acid level should be repeated. If it is still is elevated as it was in the outpatient setting. 9.1 when sure flare is improved she be placed on allopurinol or similar medication to try to improve her uric acid to less than 6. At this time she does not appear to have any acute infection. Current Visit: Yes Status: Acute Code(s): M10.9 - GOUT, UNSPECIFIED SNOMED Code(s): 96250804
[2019-04-14 03:28] LABS: Glucose,Whole Blood 82 mg/dL (75-99)
[2019-04-14] MEDS: CLINDAMYCIN 300 MG in DEXTROSE 5% IN WATER 50 ML IVPB SCH ×6 (05:47→17:37)
[2019-04-14 06:14] LABS: Glucose,Whole Blood 64 mg/dL (75-99)
[2019-04-14 06:26] LABS: Anisocytosis Slight; Basophils % (A) 0 %; Eosinophils # (A) 0.2 k/uL (0-0.7); Eosinophils % (A) 2 %; HGB 9.2 gm/dL (11.4-16.0); Lymphocytes % (A) 9 %; MCH 25.6 pg (25.0-35.0); MCHC 31.6 g/dL (31.0-37.0); Mean Platelet Volume 7.5; Monocytes # (A) 0.8 k/uL (0-1.0); Monocytes % (A) 8 %; Neutrophils # (A) 8.3 k/uL (1.3-7.7); Neutrophils % (A) 79 %; Platelet Count 281 k/uL (150-450); RBC 3.58 m/uL (3.80-5.40); RDW 16.5 % (11.5-15.5); WBC 10.6 k/uL (3.8-10.6)
[2019-04-14 06:34] LABS: Glucose,Whole Blood 91 mg/dL (75-99)
[2019-04-14] MEDS: INSULIN ASPART (NovoLOG) 100 UNIT/ML VIAL SQ SCH ×4 (06:42→22:00)
[2019-04-14 06:50] LABS: Calcium 8.7 mg/dL (8.4-10.2); Potassium 3.7 mmol/L (3.5-5.1)
[2019-04-14] MEDS: INSULIN DETEMIR (LEVEMIR) 100 UNIT/ML SYR SQ SCH ×2 (07:49→22:01)
[2019-04-14] MEDS: ATENOLOL 50 MG TAB PO SCH ×2 (07:49→22:00)
[2019-04-14] MEDS: FUROSEMIDE 10 MG/ML 10 ML VIAL IV SCH ×2 (07:49→16:46)
[2019-04-14] MEDS: ASPIRIN 81 MG PO SCH (07:49)
[2019-04-14] MEDS: ESCITALOPRAM 20 MG TAB PO SCH (07:49)
[2019-04-14] MEDS: GLYBURIDE PO SCH (07:50)
[2019-04-14] MEDS: BETAMETHASONE DIPROPIONATE 0.05% OINTMENT 45 GM TUBE TOPICAL PRN (07:50)
[2019-04-14] MEDS: METFORMIN HCL PO SCH (07:50)
[2019-04-14] MEDS: CLOPIDOGREL 75 MG TAB PO SCH (07:50)
[2019-04-14] MEDS: IPRATROPIUM-ALBUTEROL 3 ML NEB INHALATION SCH ×4 (08:42→20:52)
--- NOTE | 2019-04-14 09:12 | P.PN ---
Subjective Progress Note Date: 04/14/19 This is a 63-year-old female who is admitted for right knee pain and CHF exacerbation. Patient states that her right knee pain continues to improve and she has been able to ambulate. Patient denies any new symptoms or complaints today. Objective - Vital Signs Vital signs: Vital Signs Temp 98.2 F 04/14/19 08:00 Pulse 64 04/14/19 08:00 Resp 20 04/14/19 08:00 BP 192/79 04/14/19 08:00 Pulse Ox 95 04/14/19 08:00 Intake & Output 04/13/19 04/14/19 04/14/19 18:59 06:59 18:59 Intake Total 1200 Output Total 3 Balance 1200 -3 Weight 119.6 kg Intake: Oral 1200 Output: Stool 3 Other: Voiding Method Bedside Commode Bedside Commode Bedside Commode # Voids 3 3 1 # Bowel Movements 1 - Exam On exam there is minimal tenderness to palpation over the right knee. There is minimal swelling. There is no erythema or ecchymosis. Skin is intact. Patient has good range of motion of the right knee without pain or difficulty. There is swelling of bilateral lower extremities. Sensation intact. Neurovascular status and circulatory status are intact. - Labs CBC & Chem 7: 04/14/19 05:23 04/14/19 05:23 Labs: Abnormal Lab Results - Last 24 Hours (Table) 04/13/19 04/13/19 04/13/19 Range/Units 11:55 16:51 20:49 RBC (3.80-5.40) m/uL Hgb (11.4-16.0) gm/dL Hct (34.0-46.0) % RDW (11.5-15.5) % Neutrophils # (1.3-7.7) k/uL BUN (7-17) mg/dL Glucose (74-99) mg/dL POC Glucose (mg/dL) 190 H 105 H 132 H (75-99) mg/dL 04/14/19 04/14/19 04/14/19 Range/Units 05:23 05:23 06:04 RBC 3.58 L (3.80-5.40) m/uL Hgb 9.2 L (11.4-16.0) gm/dL Hct 29.0 L (34.0-46.0) % RDW 16.5 H (11.5-15.5) % Neutrophils # 8.3 H (1.3-7.7) k/uL BUN 30 H (7-17) mg/dL Glucose 62 L (74-99) mg/dL POC Glucose (mg/dL) 64 L (75-99) mg/dL Microbiology - Last 24 Hours (Table) 04/12/19 17:58 Blood Culture - Preliminary Blood No Growth after 24 hours Assessment and Plan Assessment: Diabetes mellitus Hyperlipidemia Hypertension (1) Right knee pain Current Visit: Yes Status: Acute Code(s): M25.561 - PAIN IN RIGHT KNEE SNOMED Code(s): 78521995 Plan: 1. Continue weightbearing as tolerated with walker. 2. Patient's white blood cell count is within normal limits and patient continues to be afebrile. Very low suspicion for right knee infection. 3. Appreciate input from infectious disease and internal medicine. 4. No surgical intervention planned. Patient may follow up as an outpatient.
[2019-04-14] MEDS ORDERED: COLCHICINE 0.6 MG EACH PO SCH (10:45)
--- NOTE | 2019-04-14 11:09 | CT ---
EXAMINATION TYPE: CT chest wo con DATE OF EXAM: 04/14/2019 COMPARISON: None HISTORY: CHF, possible pulmonary fibrosis CT DLP: 1328.8 mGycm, Automated exposure control for dose reduction was used. CONTRAST: None TECHNIQUE: Axial images were obtained at 1 mm thick sections at 10 mm intervals. This will limit po rtions of the examination which may not be visualized within the [id number]. Images were obtained in the prone and supine views. FINDINGS: Portion of the thyroid visualized is normal. There is a 0.6 cm peripheral nodule adjacent to the right superior mediastinum. Series 401 image 5. M ild pneumonitis changes in the posterior right lung base. No enlarged mediastinal or hilar adenopathy is evident. The ascending aorta diameter at the level o f the main pulmonary artery is 3.6 cm. The main pulmonary artery diameter at the bifurcation is 3.5 cm. Moderate coronary artery calcification is noted. Limited CT sections are obtained through the upper abdomen. Abdomen is essentially unremarkable. IMPRESSIONS: 1. Small 0.6 cm nodule superior medial right upper lung field. Follow-up standard CT chest in 6 month s to reevaluate is recommended. 2. Mild pneumonitis change posterior right lung base on the supine imaging not visualized on the pron e view. 3. No suspicious changes to suggest pulmonary fibrosis.
--- NOTE | 2019-04-14 11:29 | P.PN ---
Subjective Progress Note Date: 04/14/19 This is a pleasant 63-year-old female patient who sees Dr. Bennett in the office as an outpatient on a regular basis with a past medical history significant for coronary artery disease and prior stenting of the left circumflex with the last heart catheterization was performed in 2018 showing patent stents in the left circumflex without any disease involving the rest of her coronaries, diabetes, hypertension, and dyslipidemia, resented to the hospital complaining of shortness of breath. The patient noticed increasing shortness of breath for the last 48-72 hours. She was short of breath even with minimal exertion. No symptoms of shortness of breath in laying flat in bed. Also she noticed increasing in the edema in the lower extremities but she stated that she always does have edema but it was increasing for the last few days. No chest pain or chest discomfort, dizziness or lightheadedness, feeling of heart racing or fluttering, or syncope. She stated that her weight has been stable. She never diagnosed in the past was congestive heart failure or had any hospital admission was congestive heart failure. She stated that she was compliant with her medications and also she has been watching what she is eating including her salt. Clinically the patient seems to be in fluid overload.The BNP came in to be elevated at 1600. The patient was admitted to the hospital and she was started on Lasix IV. Weight is down 2 kg today. According to the patient, her edema is significantly improved, breathing is also improving. She still continues to have a significant amount of edema. Blood pressure this morning 192/79 prior to medication administration, heart rate in the use, 95% on 2 L of oxygen. White blood cell count 10.6, hemoglobin 9.2, platelet count 281. Sodium 139, potassium 3.7, BUN 30 and creatinine 0.9. Echocardiogram with Doppler study was performed which revealed an ejection fraction of 50-55%, mild to moderate tricuspid regurg. Objective - Vital Signs Vital signs: Vital Signs Temp 98.2 F 04/14/19 08:00 Pulse 64 04/14/19 08:00 Resp 20 04/14/19 08:00 BP 192/79 04/14/19 08:00 Pulse Ox 95 04/14/19 08:00 Intake & Output 04/13/19 04/14/19 04/14/19 18:59 06:59 18:59 Intake Total 1200 100 Output Total 3 Balance 1200 -3 100 Weight 119.6 kg Intake: Oral 1200 100 Output: Stool 3 Other: Voiding Method Bedside Commode Bedside Commode Bedside Commode # Voids 3 3 1 # Bowel Movements 1 - Exam PHYSICAL EXAMINATION: GENERAL: 63-year-old female in no acute distress at the time of my examination HEENT: Head is atraumatic, normocephalic. Pupils equal, round. Sclera anicteric. Conjunctiva are clear. Mucous membranes of the mouth are moist. Neck is supple. There is no elevated jugular venous pressure. No carotid bruit is heard. HEART EXAMINATION: Heart S1, S2 normal. No murmur or gallop heard. CHEST EXAMINATION: Lungs reveal fine rales to bilateral bases. ABDOMEN: Soft, obese, nontender. Bowel sounds are heard. No organomegaly noted. EXTREMITIES: 2+ peripheral pulses with 1-2+ evidence of peripheral edema and no calf tenderness noted. NEUROLOGIC patient is awake, alert and oriented 3 . . - Labs CBC & Chem 7: 04/14/19 05:23 04/14/19 05:23 Labs: Abnormal Lab Results - Last 24 Hours (Table) 04/13/19 04/13/19 04/13/19 Range/Units 11:55 16:51 20:49 RBC (3.80-5.40) m/uL Hgb (11.4-16.0) gm/dL Hct (34.0-46.0) % RDW (11.5-15.5) % Neutrophils # (1.3-7.7) k/uL BUN (7-17) mg/dL Glucose (74-99) mg/dL POC Glucose (mg/dL) 190 H 105 H 132 H (75-99) mg/dL Uric Acid (3.7-7.4) mg/dL 04/14/19 04/14/19 04/14/19 Range/Units 05:23 05:23 05:23 RBC 3.58 L (3.80-5.40) m/uL Hgb 9.2 L (11.4-16.0) gm/dL Hct 29.0 L (34.0-46.0) % RDW 16.5 H (11.5-15.5) % Neutrophils # 8.3 H (1.3-7.7) k/uL BUN 30 H (7-17) mg/dL Glucose 62 L (74-99) mg/dL POC Glucose (mg/dL) (75-99) mg/dL Uric Acid 11.3 H (3.7-7.4) mg/dL 04/14/19 Range/Units 06:04 RBC (3.80-5.40) m/uL Hgb (11.4-16.0) gm/dL Hct (34.0-46.0) % RDW (11.5-15.5) % Neutrophils # (1.3-7.7) k/uL BUN (7-17) mg/dL Glucose (74-99) mg/dL POC Glucose (mg/dL) 64 L (75-99) mg/dL Uric Acid (3.7-7.4) mg/dL Microbiology - Last 24 Hours (Table) 04/12/19 17:58 Blood Culture - Preliminary Blood No Growth after 24 hours Assessment and Plan Plan: Assessment and plan #1 congestive heart failure exacerbation , diastolic acute on chronic #2 coronary artery disease and status post a stenting #3 obesity #4 diabetes #5 hypertension #6 dyslipidemia #7 small 0.6 cm nodule noted in the superior medial right upper lung field. Plan From cardiology's perspective, we would recommend to continue the patient on her current medications. Continue to monitor the intake and output along with daily weights and daily lytes BUN and creatinine. Echocardiogram with Doppler study showed an ejection fraction, 50-55% with mild to moderate tricuspid regurg. DNP note has been reviewed, I agree with a documented findings and plan of care. Patient was seen and examined.
[2019-04-14 12:04] LABS: Glucose,Whole Blood 65 mg/dL (75-99)
[2019-04-14 12:28] LABS: Glucose,Whole Blood 86 mg/dL (75-99)
[2019-04-14 17:10] LABS: Glucose,Whole Blood 118 mg/dL (75-99)
--- NOTE | 2019-04-14 17:28 | P.PN ---
Progress Note - Text Progress Note Date: 04/14/19 Chief Complaint: Short of breath Interval history: This is a very pleasant 63-year-old patient of Dr. Quinonez. Patient's chronic stable medical conditions include diabetes, hype tension, hyperlipidemia, arthritis, coronary artery disease with stent. Patient is here present with her and son. Patient for about 2 days. Having more shortness of breath and a baseline is no cough no phlegm short of breath. He also swelling of the lower extremity. Some orthopnea. She is also notices pain in the right knee for about 3 days rather significant with some swelling and redness. Patient did have a surgery done by Dr. Navarro and has a right knee replacement. Admitted for the same. Patient admitting diagnoses acute congestive heart failure exacerbation and acute gout of the right knee Today-breathing much improved. On IV Lasix. Right knee pain swelling impro ving. Starting a diet. Review of systems: Was done for constitutional, cardiovascular, GI, pulmonary. relevant finding as above Physical examination: VITAL SIGNS: 99, 66, 20, 113 W. 72, 97% on 2 L GENERAL:, serial sitting at the edge of the bed, breathing better. EYES: Pupils equal. Conjunctiva normal. HEENT: External appearance of nose and ears normal, oral cavity grossly normal. NECK: JVD possibly raise, neck is short and thick masses not palpable. HEART: First and second heart sounds are normal; edema in both the legs. LUNGS: Respiratory rate increased, diminished breath sounds. ABDOMEN: Soft, nontender, liver spleen not palpable, no masses palpable. PSYCH: Alert and oriented x3; mood and affect normal. MUSCULOSKELETAL: redness swelling, local tenderness on the lower part of the right knee less tender, much improved INVESTIGATIONS, reviewed in the clinical context: Accu-Cheks 91, 65, 86, 118 high-resolution CT chest does not show pulmonary fibrosis uric acid 11.3 Previous tests White count 7.6 hemoglobin 10.5 potassium 4.2 BUN 29 and 1.22 Troponin less than 0.012, proBNP 1670 Checks x-ray film personally reviewed by me shows cardiomegaly and venous prominence Doppler ultrasound of the right lower extremity negative for DVT 2-D echo-EF 55-60% moderate to severe probably hypertrophy Assessment: -Acute congestive heart failure exacerbation from diastolic dysfunction EF 55- 60%, improving -pulmonary fibrosis-ruled out -Moderate to severe secondary probably hypertension( -Morbid obesity BMI 45.6 -acute gout of the right knee, with hyperuricemia, improving -Diabetes mellitus type 2 -Essential hypertension -Hyperlipidemia -Primary osteoarthritis -Coronary artery disease with stent -no chronic kidney disease Plan: doing better.on IV Lasix. Will add naproxen. DC clindamycin.
[2019-04-14] MEDS: NAPROXEN 250 MG TAB PO SCH ×2 (17:49→22:10)
[2019-04-14] MEDS: metFORMIN 500 MG TAB PO SCH (17:51)
[2019-04-14] MEDS ORDERED: hydrALAZINE HCL 20 MG/ML 1 ML VIAL IVP STA (18:16)
[2019-04-14] MEDS ORDERED: ENALAPRILAT 1.25 MG/ML 1 ML VIAL IVP STA (18:16)
[2019-04-14 21:23] LABS: Glucose,Whole Blood 142 mg/dL (75-99)
[2019-04-14] MEDS: ISOSORBIDE MONONITRATE ER 30 MG TAB.ER.24H PO SCH (21:59)
[2019-04-14] MEDS: ATORVASTATIN 20 MG TAB PO SCH (22:00)
--- NOTE | 2019-04-14 22:51 | P.PN ---
Subjective Progress Note Date: 04/14/19 63-year-old woman who has a history of obesity as well as degenerative joint disease presents the emergency center with the relatively sudden onset of fever chill increasing pain to her right knee which is of concern because of her prior total knee arthroplasty that was placed about 2 years ago. She also has developed the sudden onset of some significant discomfort into her right anterior aspect of her shoulder has also been exquisitely tender. Since coming to Hospital she's not been having significant fevers but still feels somewhat poorly. However is feeling slightly better now than she was yesterday. She this point in time is denying any further fever she has had difficulties with shortness of breath. Has been ensuing and there is concerns to some underlying congestive heart failure and she is receiving some diuresis. She relates that she's also feeling better. She relates no acute trauma in regards the sudden onset of the right knee pain. Ended no new activities that resulted into the right shoulder pain. She's had one prior bout of severe right shoulder pain in the past that eventually resolved. She did have severe degenerative changes to her right knee before the surgery but was never this exquisitely painful as it is now. 04/14/2019 the patient is feeling just slightly better today. The uric acid was requested as come back greater than 11 which makes an acute gouty attack to her right knee and right shoulder most likely. Colchicine was added and were awaiting a clinical response. She continues to have the difficulties with her pulmonary status. In the high-resolution computed tomography scan now has been complete were awaiting a reading. As related she's had difficulty with shortness of breath for some time. She's had the cardiac etiology of this dressed and treated with her cardiac stents. Echocardiogram suggests the possibility of severe pulmonary hypertension. Objective - Vital Signs Vital signs: Vital Signs Temp 98.8 F 04/14/19 15:40 Pulse 80 04/14/19 21:07 Resp 20 04/14/19 15:40 BP 188/79 04/14/19 15:40 Pulse Ox 98 04/14/19 15:40 Intake & Output 04/14/19 04/14/19 04/15/19 06:59 18:59 06:59 Intake Total 544 Output Total 3 600 Balance -3 -56 Weight 119.6 kg Intake: Oral 544 Output: Urine 600 Stool 3 Other: Voiding Method Bedside Commode Bedside Commode # Voids 3 2 - Exam Pleasant obese 63-year-old woman who is still somewhat uncomfortable due to the significant discomfort to her right knee and right shoulder HEENT: Anicteric conjunctiva are pink and moist nasal mucosa grossly intact without significant lesions, there is no thrush. Neck: The neck is supple without significant lymphadenopathy or thyromegaly. Lungs: Good bilateral air entry few basilar crackles . There is no significant bronchial sounds. There is no egophony or dullness. Heart: Regular rate and rhythm with an audible S1-S2, no S3 no S4. There is no significant murmur click or rub, PMI was nondisplaced. Abdomen: Positive bowel sounds soft and nontender without palpable masses or organomegaly. There was no guarding or rebound. Extremities: Right upper extremity reveals evidence of the improvement of the point tenderness to the anterior aspect of the right shoulder with improvement in the discomfort with attempts to range of motion to the right shoulder including internal and external rotation as well as abduction and abduction. Right knee is warm to touch and she relates it is less hot and it was. There some minimal erythema. There is no palpable crepitance or fluctuance. No smoking effusion is palpated. There is discomfort to range of motion but she re lates it's already improved from yesterday. Neuro: Awake alert oriented to person place and time. There are no acute new gross focal sensory motor deficits. - Labs CBC & Chem 7: 04/14/19 05:23 04/14/19 05:23 Labs: Abnormal Lab Results - Last 24 Hours (Table) 04/14/19 04/14/19 04/14/19 Range/Units 05:23 05:23 05:23 RBC 3.58 L (3.80-5.40) m/uL Hgb 9.2 L (11.4-16.0) gm/dL Hct 29.0 L (34.0-46.0) % RDW 16.5 H (11.5-15.5) % Neutrophils # 8.3 H (1.3-7.7) k/uL BUN 30 H (7-17) mg/dL Glucose 62 L (74-99) mg/dL POC Glucose (mg/dL) (75-99) mg/dL Uric Acid 11.3 H (3.7-7.4) mg/dL 08/11/19 08/11/19 08/11/19 Range/Units 06:04 11:52 17:04 RBC (3.80-5.40) m/uL Hgb (11.4-16.0) gm/dL Hct (34.0-46.0) % RDW (11.5-15.5) % Neutrophils # (1.3-7.7) k/uL BUN (7-17) mg/dL Glucose (74-99) mg/dL POC Glucose (mg/dL) 64 L 65 L 118 H (75-99) mg/dL Uric Acid (3.7-7.4) mg/dL 04/14/19 Range/Units 21:21 RBC (3.80-5.40) m/uL Hgb (11.4-16.0) gm/dL Hct (34.0-46.0) % RDW (11.5-15.5) % Neutrophils # (1.3-7.7) k/uL BUN (7-17) mg/dL Glucose (74-99) mg/dL POC Glucose (mg/dL) 142 H (75-99) mg/dL Uric Acid (3.7-7.4) mg/dL Microbiology - Last 24 Hours (Table) 04/12/19 17:58 Blood Culture - Preliminary Blood No Growth after 48 hours Laboratory Results WBC 10.6 k/uL (3.8-10.6) 04/14/19 05:23 RBC 3.58 m/uL (3.80-5.40) L 04/14/19 05:23 Hgb 9.2 gm/dL (11.4-16.0) L 04/14/19 05:23 Hct 29.0 % (34.0-46.0) L 04/14/19 05:23 MCV 81.0 fL (80.0-100.0) 04/14/19 05:23 MCH 25.6 pg (25.0-35.0) 04/14/19 05:23 MCHC 31.6 g/dL (31.0-37.0) 04/14/19 05:23 RDW 16.5 % (11.5-15.5) H 04/14/19 05:23 Plt Count 281 k/uL (150-450) 04/14/19 05:23 Neutrophils % 79 % 04/14/19 05:23 Lymphocytes % 9 % 04/14/19 05:23 Monocytes % 8 % 04/14/19 05:23 Eosinophils % 2 % 04/14/19 05:23 Basophils % 0 % 04/14/19 05:23 Neutrophils # 8.3 k/uL (1.3-7.7) H 04/14/19 05:23 Lymphocytes # 1.0 k/uL (1.0-4.8) 04/14/19 05:23 Monocytes # 0.8 k/uL (0-1.0) 04/14/19 05:23 Eosinophils # 0.2 k/uL (0-0.7) 04/14/19 05:23 Basophils # 0.0 k/uL (0-0.2) 04/14/19 05:23 Anisocytosis Slight 04/14/19 05:23 Microcytosis Slight 04/13/19 06:41 PT 10.6 sec (9.0-12.0) 04/11/19 15:45 INR 1.0 (<1.2) 04/11/19 15:45 APTT 25.9 sec (22.0-30.0) 04/11/19 15:45 Sodium 139 mmol/L (137-145) 04/14/19 05:23 Potassium 3.7 mmol/L (3.5-5.1) 04/14/19 05:23 Chloride 102 mmol/L (98-107) 04/14/19 05:23 Carbon Dioxide 30 mmol/L (22-30) 04/14/19 05:23 Anion Gap 7 mmol/L 04/14/19 05:23 BUN 30 mg/dL (7-17) H 04/14/19 05:23 Creatinine 0.96 mg/dL (0.52-1.04) 04/14/19 05:23 Est GFR (CKD-EPI)AfAm 73 (>60 ml/min/1.73 sqM) 04/14/19 05:23 Est GFR (CKD-EPI)NonAf 63 (>60 ml/min/1.73 sqM) 04/14/19 05:23 Glucose 62 mg/dL (74-99) L 04/14/19 05:23 POC Glucose (mg/dL) 142 mg/dL (75-99) H 04/14/19 21:21 POC Glu [employer] ID Jessica Suarez 04/14/19 21:21 Uric Acid 11.3 mg/dL (3.7-7.4) H 04/14/19 05:23 Calcium 8.7 mg/dL (8.4-10.2) 04/14/19 05:23 Magnesium 1.9 mg/dL (1.6-2.3) 04/11/19 15:45 Total Bilirubin 0.6 mg/dL (0.2-1.3) 04/11/19 15:45 AST 28 U/L (14-36) 04/11/19 15:45 ALT 30 U/L (9-52) 04/11/19 15:45 Alkaline Phosphatase 87 U/L (38-126) 04/11/19 15:45 Troponin I <0.012 ng/mL (0.000-0.034) 04/11/19 15:45 NT-Pro-B Natriuret Pep 1670 pg/mL 04/11/19 15:45 Total Protein 7.1 g/dL (6.3-8.2) 04/11/19 15:45 Albumin 4.0 g/dL (3.5-5.0) 04/11/19 15:45 Microbiology 04/12/19 17:58 Blood Blood Culture - Preliminary No Growth after 48 hours Assessment and Plan (1) Gout Narrative/Plan: Pleasant 63-year-old woman who has a history of degenerative joint disease who has presented to hospital with sudden onset of fever that has already abated but continues to have ongoing significant pain to her right knee with warmth and some swelling. However she is already having some significant improvement of her discomfort. She has received 2 doses of naproxen were discontinued. She had a sudden onset also of severe right shoulder pain and also is slightly improved since yesterday. Review of the record reveals evidence of her uric acid of 9.1. His constantly-like that she's having acute gout flare involving the right knee and right shoulder. Given her many medical troubles in concerns to suggest congestive heart failure would like to avoid further anti- inflammatories that can exacerbate heart failure. 6 colchicine will be given and she'll be monitored for improvement of her status. Given the fact that she hasn't elevated uric acid level should be repeated. If it is still is elevated as it was in the outpatient setting. 9.1 when sure flare is improved she be placed on allopurinol or similar medication to try to improve her uric acid to less than 6. At this time she does not appear to have any acute infection. 04/14/2019 the patient is starting to feel slightly better today. As noted has the uric acid level greater than 11 and colchicine was added. Hopefully we'll have a rapid improvement. Once symptomatology starts to improve allopurinol should be added to help her with reduction of her uric acid levels to prevent further recurrences. He will need follow-up with her primary physician for long-term treatment. At this time does not appear to have infection of any joints. Would plan d iscontinuation of antibiotics in the morning if there are no positive cultures. She is being evaluated for her dyspnea and high resolution CT scans been performed. Evaluation for underlying lung disease as well as pulmonary hypertension are contemplated and will need assessment and treatment. Current Visit: Yes Status: Acute Code(s): M10.9 - GOUT, UNSPECIFIED SNOMED Code(s): 05555954
[2019-04-15] MEDS: FUROSEMIDE 10 MG/ML 10 ML VIAL IV SCH ×3 (00:09→16:51)
[2019-04-15] MEDS: CLINDAMYCIN 300 MG in DEXTROSE 5% IN WATER 50 ML IVPB SCH ×8 (00:10→17:19)
[2019-04-15 01:26] LABS: Glucose,Whole Blood 65 mg/dL (75-99)
[2019-04-15 01:41] LABS: Glucose,Whole Blood 64 mg/dL (75-99)
[2019-04-15 01:58] LABS: Glucose,Whole Blood 106 mg/dL (75-99)
[2019-04-15 03:31] LABS: Glucose,Whole Blood 115 mg/dL (75-99)
[2019-04-15 06:18] LABS: Glucose,Whole Blood 67 mg/dL (75-99)
[2019-04-15 06:39] LABS: Glucose,Whole Blood 77 mg/dL (75-99)
[2019-04-15 07:18] LABS: Calcium 8.9 mg/dL (8.4-10.2)
[2019-04-15] MEDS: INSULIN ASPART (NovoLOG) 100 UNIT/ML VIAL SQ SCH ×4 (07:44→21:01)
[2019-04-15] MEDS: metFORMIN 500 MG TAB PO SCH ×2 (08:35→17:19)
[2019-04-15] MEDS: BETAMETHASONE DIPROPIONATE 0.05% OINTMENT 45 GM TUBE TOPICAL PRN (08:35)
[2019-04-15] MEDS: ESCITALOPRAM 20 MG TAB PO SCH (08:35)
[2019-04-15] MEDS: NAPROXEN 250 MG TAB PO SCH (08:36)
[2019-04-15] MEDS: ATENOLOL 50 MG TAB PO SCH ×2 (08:36→20:49)
[2019-04-15] MEDS: ASPIRIN 81 MG PO SCH (08:36)
[2019-04-15] MEDS: CLOPIDOGREL 75 MG TAB PO SCH (08:36)
[2019-04-15] MEDS: IPRATROPIUM-ALBUTEROL 3 ML NEB INHALATION SCH ×4 (08:55→20:05)
[2019-04-15] MEDS ORDERED: amLODIPine 5 MG TAB PO SCH (09:00)
--- NOTE | 2019-04-15 11:45 | P.NPCON ---
History of Present Illness - Reason for Consult acute renal failure - History of Present Illness Reason for consultation: Acute kidney injury History of present illness: Patient is a 63-year-old female seen in consultation for acute kidney injury. Patient's creatinine was 1.2-1 admission and is now back to baseline. 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 She presented to the hospital with dyspnea and lower extremity edema. She is currently maintained on IV Lasix 80 mg 3 times daily. Patient's edema has significantly improved. She admits to good urine output. No hematuria or dysuria. Patient does have severe pulmonary hypertension and mild to moderate tricuspid regurgitation. She has history of diabetes mellitus that was diagnosed for 20 years ago and has been insulin-dependent for over 10 years. She denies any family history of renal disease. No chest pain or shortness of breath at this time. No abdominal pain. No fever or chills. No cough. Vital signs are stable. General: The patient appeared well nourished and normally developed. HEENT: Head exam is unremarkable. Neck is without jugular venous distension. LUNGS: Lungs are clear to auscultation and percussion. Breath sounds decreased. HEART: Rate and Rhythm are regular. First and second heart sounds normal. No murmurs, rubs or gallops. ABDOMEN: Abdominal exam reveals normal bowel sounds. Non-tender and non- distended. No evidence of peritonitis. EXTREMITITES: No clubbing, cyanosis, or edema. Past Medical History Past Medical History: Chest Pain / Angina, Diabetes Mellitus, Hyperlipidemia, Hypertension, Skin Disorder Additional Past Medical History / Comment(s): SOB,ARTHRITIS History of Any Multi-Drug Resistant Organisms: None Reported Past Surgical History: Back Surgery, Section, Heart Catheterization With Stent, Hysterectomy, Orthopedic Surgery, Tonsillectomy Additional Past Surgical History / Comment(s): heart stents x2,BUNIONECTOMY BELLA, LEFT KNEE TORN MENISCUS, TRIGGER FINGER X2,Rods and screws to back,bella cataract, Total right knee replacement Past Anesthesia/Blood Transfusion Reactions: Motion Sickness, Postoperative Nausea & Vomiting (PONV) Additional Past Anesthesia/Blood Transfusion Reaction / Comment(s): no prob with prior blood transfusions Date of Last Stent Placement:: 10-25-17 Past Psychological History: Anxiety, Depression Additional Psychological History / Comment(s): . 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 No recent international travel. 1 adult child no animals in the home. No tobacco use. No recreational drug use or alcohol use Smoking Status: Never smoker Past Alcohol Use History: None Reported Past Drug Use History: None Reported - Past Family History Father Family Medical History: Cancer, Deep Vein Thrombosis (DVT) Additional Family Medical History / Comment(s): lung cancer Mother Family Medical History: Cancer, Diabetes Mellitus Additional Family Medical History / Comment(s): heart disease Brother(s) Family Medical History: Pulmonary Embolus Medications and Allergies Home Medications Medication Instructions Recorded Confirmed Type Aspirin 81 mg PO DAILY 01/06/14 04/11/19 History Atenolol 50 mg PO BID 01/06/14 04/11/19 History Insulin Glargine [Lantus] 52 unit SQ QAM 01/06/14 04/11/19 History glyBURIDE/METFORMIN HCL 2 tab PO BID 01/06/14 04/11/19 History [Glucovance 5-500 mg Tablet] Clopidogrel [Plavix] 75 mg PO DAILY 07/23/18 04/11/19 History Furosemide [Lasix] 40 mg PO DAILY 07/23/18 04/11/19 History INSULIN ASPART (NovoLOG) [NovoLOG See Protocol SQ AC-TID 07/23/18 04/11/19 History (formulary)] Multivitamin with Iron 1 tab PO DAILY 02/15/19 04/11/19 History [Multivitamins with Iron] Vit C/E/Zn/Coppr/Lutein/Zeaxan 1 tab PO DAILY 02/15/19 04/11/19 History [Preservision Areds 2 Softgel] Atorvastatin [Lipitor] 20 mg PO HS 04/11/19 04/11/19 History Betamethasone Dipropionate 1 applic TOPICAL BID PRN 04/11/19 04/11/19 History [Diprolene 0.05% Ointment] Escitalopram [Lexapro] 20 mg PO DAILY 04/11/19 04/11/19 History Insulin Glargine [Lantus] 40 unit SQ HS 04/11/19 04/11/19 History Isosorbide Mononitrate ER [Imdur] 30 mg PO HS 04/11/19 04/11/19 History Melatonin 5 mg PO HS 04/11/19 04/11/19 History NIFEdipine [Procardia XL] 60 mg PO BID 04/11/19 04/11/19 History Nitroglycerin Sl Tabs [Nitrostat] 0.4 mg SUBLINGUAL Q5M PRN 04/11/19 04/11/19 History Quinapril HCl [Accupril] 40 mg PO DAILY 04/11/19 04/11/19 History Spironolactone [Aldactone] 25 mg PO DAILY 04/11/19 04/11/19 History Allergies Allergy/AdvReac Type Severity Reaction Status Date / Time Penicillins Allergy Dyspnea Verified 04/11/19 17:24 Sulfa (Sulfonamide Allergy Rash/Hives Verified 04/11/19 17:24 Antibiotics) adhesive AdvReac Rash/Hives Verified 04/11/19 17:24 Physical Exam Vitals: Vital Signs Temp Pulse Pulse Resp BP Pulse Ox 04/15/19 09:05 63 04/15/19 08:55 60 98 04/15/19 08:00 97.7 F 63 20 179/75 97 04/15/19 04:00 98.0 F 61 18 181/72 98 04/15/19 00:00 97.8 F 63 18 149/68 98 04/14/19 21:07 80 04/14/19 20:52 80 04/14/19 20:00 98.2 F 72 18 191/73 97 04/14/19 17:15 78 04/14/19 17:05 78 04/14/19 15:40 98.8 F 65 18 188/79 98 Intake and Output 04/14/19 04/15/19 04/15/19 22:59 06:59 14:59 Intake Total 222 100 Output Total 600 Balance -378 100 Intake: Oral 222 100 Output: Urine 600 Other: Voiding Method Toilet Toilet # Voids 2 2 1 Weight 118.3 kg Results - Lab Results Most recent lab results Calcium 8.9 mg/dL (8.4-10.2) 04/15/19 06:26 Magnesium 1.9 mg/dL (1.6-2.3) 04/11/19 15:45 04/14/19 05:23 04/15/19 06:26 Assessment and Plan Plan: Assessment: 1. Acute kidney injury mostly prerenal secondary to cardiorenal syndrome. Creatinine was 1.22 on admission and is 0.97 today. 2. Insulin-dependent diabetes mellitus. 3. Benign hypertension. Blood pressure has been on the higher side. Amlodipine added today. 4. Volume overload. 5. Severe pulmonary hypertension and mild to moderate tricuspid regurgitation. Plan: Maintain IV Lasix 80 mg 3 times daily. Can likely be transitioned over to oral diuretics tomorrow. Check urinalysis. Avoid nephrotoxins. Discontinue nonsteroidals. Repeat electrolytes in the morning. Thank you for the consultation. I will continue to follow the patient with you during her hospital stay.
[2019-04-15 11:46] LABS: Glucose,Whole Blood 92 mg/dL (75-99)
[2019-04-15] MEDS: INSULIN DETEMIR (LEVEMIR) 100 UNIT/ML SYR SQ SCH (12:07)
--- NOTE | 2019-04-15 12:22 | P.PN ---
Subjective This is a pleasant 63 years old female with past medical history of diabetes mellitus, hypertension, hyperlipidemia, arthritis, coronary artery disease status post stent. Presents because of dyspnea related to her diastolic acute congestive heart failure, also she had right shoulder pain which is completely resolved and right knee pain which is significantly improved today is 1-2/10 in severity Objective - Vital Signs Vital signs: Vital Signs Temp 98 F 04/15/19 12:00 Pulse 60 04/15/19 12:06 Resp 20 04/15/19 12:00 BP 156/72 04/15/19 12:00 Pulse Ox 99 04/15/19 12:00 Intake & Output 04/14/19 04/15/19 04/15/19 18:59 06:59 18:59 Intake Total 544 100 Output Total 600 Balance -56 100 Weight 118.3 kg Intake: Oral 544 100 Output: Urine 600 Other: Voiding Method Bedside Commode Toilet # Voids 2 2 1 - Exam GENERAL: The patient is alert and oriented x3, not in any acute distress. Well developed, well nourished. HEENT: Pupils are round and equally reacting to light. EOMI. No scleral icterus. No conjunctival pallor. Normocephalic, atraumatic. No pharyngeal erythema. No thyromegaly. CARDIOVASCULAR: S1 and S2 present. No murmurs, rubs, or gallops. PULMONARY: Chest is clear to auscultation, no wheezing or crackles. ABDOMEN: Soft, nontender, nondistended, normoactive bowel sounds. No palpable organomegaly. MUSCULOSKELETAL: No joint swelling or deformity. -EXTREMITIES: No cyanosis, clubbing, or pedal edema. Mild knee tenderness, above the patella NEUROLOGICAL: Gross neurological examination did not reveal any focal deficits. SKIN: No rashes. - Labs CBC & Chem 7: 04/14/19 05:23 04/15/19 06:26 Labs: Abnormal Lab Results - Last 24 Hours (Table) 04/14/19 04/14/19 04/15/19 Range/Units 17:04 21:21 01:24 Carbon Dioxide (22-30) mmol/L BUN (7-17) mg/dL Glucose (74-99) mg/dL POC Glucose (mg/dL) 118 H 142 H 65 L (75-99) mg/dL 04/15/19 04/15/19 04/15/19 Range/Units 01:39 01:56 03:29 Carbon Dioxide (22-30) mmol/L BUN (7-17) mg/dL Glucose (74-99) mg/dL POC Glucose (mg/dL) 64 L 106 H 115 H (75-99) mg/dL 04/15/19 04/15/19 Range/Units 06:15 06:26 Carbon Dioxide 32 H (22-30) mmol/L BUN 29 H (7-17) mg/dL Glucose 58 L (74-99) mg/dL POC Glucose (mg/dL) 67 L (75-99) mg/dL Microbiology - Last 24 Hours (Table) 04/12/19 17:58 Blood Culture - Preliminary Blood No Growth after 48 hours Assessment and Plan Assessment: Right knee pain Acute diastolic CHF Acute kidney injury, resolved Diabetes mellitus Hypertension Hyperlipidemia History of arthritis Plan: This is a pleasant 63 years old female who presents with CHF, right knee pain, mostly related to her gout or arthritis, all are significantly improving. Nephrology recommended to keep him IV Lasix till tomorrow. ID team recommended to stop antibiotics if culture remains negative. Cardiology and orthopedic input is appreciated. Labs and medication were reviewed.. Continue same treatment. Continue with symptomatic treatment. Resume home medication. Monitor lytes and vitals. DVT and GI prophylaxis. Further recommendations of the clinical course of the patient DVT prophylaxis: Subcutaneous heparin GI Prophylaxis: Pepcid PT/OT: Pending Prognosis is guarded
[2019-04-15] MEDS ORDERED: INSULIN DETEMIR (LEVEMIR) 100 UNIT/ML SYR SQ ONE (13:15)
--- NOTE | 2019-04-15 14:00 | P.PN ---
Subjective Progress Note Date: 04/15/19 This is a pleasant 63-year-old female patient who sees Dr. Bennett in the office as an outpatient on a regular basis with a past medical history significant for coronary artery disease and prior stenting of the left circumflex with the last heart catheterization was performed in 2018 showing patent stents in the left circumflex without any disease involving the rest of her coronaries, diabetes, hypertension, and dyslipidemia, resented to the hospital complaining of shortness of breath. The patient noticed increasing shortness of breath for the last 48-72 hours. She was short of breath even with minimal exertion. No symptoms of shortness of breath in laying flat in bed. Also she noticed increasing in the edema in the lower extremities but she stated that she always does have edema but it was increasing for the last few days. No chest pain or chest discomfort, dizziness or lightheadedness, feeling of heart racing or fluttering, or syncope. She stated that her weight has been stable. She never diagnosed in the past was congestive heart failure or had any hospital admission was congestive heart failure. She stated that she was compliant with her medications and also she has been watching what she is eating including her salt. Clinically the patient seems to be in fluid overload.The BNP came in to be elevated at 1600. The patient was admitted to the hospital and she was started on Lasix IV. Weight is down 2 kg today. According to the patient, her edema is significantly improved, breathing is also improving. She still continues to have a significant amount of edema. Blood pressure this morning 192/79 prior to medication administration, heart rate in the use, 95% on 2 L of oxygen. White blood cell count 10.6, hemoglobin 9.2, platelet count 281. Sodium 139, potassium 3.7, BUN 30 and creatinine 0.9. Echocardiogram with Doppler study was performed which revealed an ejection fraction of 50-55%, mild to moderate tricuspid regurg. 04/15/2019 Patient was seen and examined this morning, sitting up in the chair bedside. Continue to diurese well through the night last night, her weight is down 1 kg today. Echocardiogram with Doppler study was performed which revealed an ejection fraction of 50-55%, severe concentric LVH noted, mild to moderate tricuspid regurg, moderate to severe pulmonary hypertension. Blood pressure 156/72 with a heart rate in the 60s, 99% on 2 L of oxygen. Sodium 141, potassium 4.0, BUN 29 and creatinine 0.9. Objective - Vital Signs Vital signs: Vital Signs Temp 98 F 04/15/19 12:00 Pulse 61 04/15/19 12:21 Resp 20 04/15/19 12:00 BP 156/72 04/15/19 12:00 Pulse Ox 99 04/15/19 12:00 Intake & Output 04/14/19 04/15/19 04/15/19 18:59 06:59 18:59 Intake Total 544 100 Output Total 600 Balance -56 100 Weight 118.3 kg Intake: Oral 544 100 Output: Urine 600 Other: Voiding Method Bedside Commode Toilet # Voids 2 2 1 - Exam PHYSICAL EXAMINATION: GENERAL: 63-year-old female in no acute distress at the time of my examination HEENT: Head is atraumatic, normocephalic. Pupils equal, round. Sclera anicteric. Conjunctiva are clear. Mucous membranes of the mouth are moist. Neck is supple. There is no elevated jugular venous pressure. No carotid bruit is heard. HEART EXAMINATION: Heart S1, S2 normal. No murmur or gallop heard. CHEST EXAMINATION: Lungs reveal fine rales to right posterior base . ABDOMEN: Soft, obese, nontender. Bowel sounds are heard. No organomegaly noted. EXTREMITIES: 2+ peripheral pulses with 1+ evidence of peripheral edema and no calf tenderness noted. NEUROLOGIC patient is awake, alert and oriented 3 . . - Labs CBC & Chem 7: 04/14/19 05:23 04/15/19 06:26 Labs: Abnormal Lab Results - Last 24 Hours (Table) 04/14/19 04/14/19 04/15/19 Range/Units 17:04 21:21 01:24 Carbon Dioxide (22-30) mmol/L BUN (7-17) mg/dL Glucose (74-99) mg/dL POC Glucose (mg/dL) 118 H 142 H 65 L (75-99) mg/dL 04/15/19 04/15/19 04/15/19 Range/Units 01:39 01:56 03:29 Carbon Dioxide (22-30) mmol/L BUN (7-17) mg/dL Glucose (74-99) mg/dL POC Glucose (mg/dL) 64 L 106 H 115 H (75-99) mg/dL 04/15/19 04/15/19 Range/Units 06:15 06:26 Carbon Dioxide 32 H (22-30) mmol/L BUN 29 H (7-17) mg/dL Glucose 58 L (74-99) mg/dL POC Glucose (mg/dL) 67 L (75-99) mg/dL Microbiology - Last 24 Hours (Table) 04/12/19 17:58 Blood Culture - Preliminary Blood No Growth after 48 hours Assessment and Plan Plan: Assessment and plan #1 congestive heart failure exacerbation , diastolic acute on chronic #2 coronary artery disease and status post a stenting #3 obesity #4 diabetes #5 hypertension #6 dyslipidemia #7 small 0.6 cm nodule noted in the superior medial right upper lung field. Plan From cardiology's perspective, we'll increase the dose of Norvasc to 10 mg by mouth daily for more optimal blood pressure control. Continue current dose of IV Lasix. DNP note has been reviewed, I agree with a documented findings and plan of care. Patient was seen and examined.
[2019-04-15 16:35] LABS: Amorphous Sediment,Urine Rare /hpf; Appearance,Urine Clear (Clear); Bacteria,Urine Rare /hpf; Bilirubin,Urine Negative (Negative); Blood,Urine Negative (Negative); Color,Urine Yellow; Glucose,Urine (UA) Negative (Negative); Hyaline Casts,Urine 83 /lpf (0-2); Ketones,Urine Negative (Negative); Leukocyte Esterase,Urine Moderate (Negative); Nitrite,Urine Negative (Negative); Protein,Urine 1+ (Negative); RBC,Urine 4 /hpf (0-5); Specific Gravity,Urine 1.015 (1.001-1.035); Squamous Epithelial Cell,Urine 2 /hpf (0-4); Urobilinogen,Urine <2.0 mg/dL (<2.0); WBC,Urine 19 /hpf (0-5)
[2019-04-15 17:21] LABS: Glucose,Whole Blood 174 mg/dL (75-99)
[2019-04-15] MEDS: ISOSORBIDE MONONITRATE ER 30 MG TAB.ER.24H PO SCH (20:48)
[2019-04-15] MEDS: ATORVASTATIN 20 MG TAB PO SCH (20:48)
[2019-04-15 20:53] LABS: Glucose,Whole Blood 193 mg/dL (75-99)
[2019-04-15] MEDS ORDERED: INSULIN DETEMIR (LEVEMIR) 100 UNIT/ML SYR SQ SCH (21:00)
[2019-04-15 21:49] LABS: Anisocytosis Slight; Basophils % (A) 0 %; Eosinophils # (A) 0.3 k/uL (0-0.7); Eosinophils % (A) 3 %; HCT 31.8 % (34.0-46.0); HGB 9.9 gm/dL (11.4-16.0); Hypochromasia Slight; Lymphocytes # (A) 1.3 k/uL (1.0-4.8); Lymphocytes % (A) 13 %; MCH 25.4 pg (25.0-35.0); MCHC 31.2 g/dL (31.0-37.0); MCV 81.3 fL (80.0-100.0); Mean Platelet Volume 7.5; Monocytes # (A) 0.7 k/uL (0-1.0); Monocytes % (A) 7 %; Neutrophils # (A) 7.7 k/uL (1.3-7.7); Neutrophils % (A) 75 %; Platelet Count 347 k/uL (150-450); RBC 3.91 m/uL (3.80-5.40); RDW 16.1 % (11.5-15.5); WBC 10.3 k/uL (3.8-10.6)
[2019-04-16 00:20] LABS: Glucose,Whole Blood 106 mg/dL (75-99)
[2019-04-16] MEDS: INSULIN DETEMIR (LEVEMIR) 100 UNIT/ML SYR SQ SCH ×2 (00:20→07:01)
[2019-04-16] MEDS: CLINDAMYCIN 300 MG in DEXTROSE 5% IN WATER 50 ML IVPB SCH ×6 (00:22→11:56)
[2019-04-16] MEDS: FUROSEMIDE 10 MG/ML 10 ML VIAL IV SCH ×2 (00:22→07:01)
[2019-04-16 06:16] LABS: Potassium 4.1 mmol/L (3.5-5.1)
[2019-04-16 06:30] LABS: Glucose,Whole Blood 148 mg/dL (75-99)
[2019-04-16] MEDS: INSULIN ASPART (NovoLOG) 100 UNIT/ML VIAL SQ SCH ×2 (07:01→11:56)
[2019-04-16] MEDS: metFORMIN 500 MG TAB PO SCH (07:02)
[2019-04-16] MEDS: IPRATROPIUM-ALBUTEROL 3 ML NEB INHALATION SCH ×3 (07:35→16:07)
[2019-04-16] MEDS: CLOPIDOGREL 75 MG TAB PO SCH (08:35)
[2019-04-16] MEDS: ATENOLOL 50 MG TAB PO SCH (08:35)
[2019-04-16] MEDS: ASPIRIN 81 MG PO SCH (08:35)
[2019-04-16] MEDS: ESCITALOPRAM 20 MG TAB PO SCH (08:35)
[2019-04-16] MEDS ORDERED: amLODIPine 10 MG TAB PO SCH (09:00)
[2019-04-16 09:20] VITALS: RESP 20; TEMP 98.1
--- NOTE | 2019-04-16 10:34 | P.PN ---
Subjective Patient is seen in follow-up for volume overload. Overall the patient is feeling better. Weight is trending down. Edema is improved. Oral intake is good. Vital signs are stable. General: The patient appeared well nourished and normally developed. HEENT: Head exam is unremarkable. Neck is without jugular venous distension. LUNGS: Lungs are clear to auscultation and percussion. Breath sounds decreased. HEART: Rate and Rhythm are regular. First and second heart sounds normal. No murmurs, rubs or gallops. ABDOMEN: Abdominal exam reveals normal bowel sounds. Non-tender and non- distended. No evidence of peritonitis. EXTREMITITES: 1+ edema. Objective - Vital Signs Vital signs: Vital Signs Temp 98.1 F 04/16/19 08:00 Pulse 69 04/16/19 08:00 Resp 20 04/16/19 08:00 BP 150/73 04/16/19 08:00 Pulse Ox 95 04/16/19 08:00 Intake & Output 04/15/19 04/16/19 04/16/19 18:59 06:59 18:59 Intake Total 680 Output Total 800 Balance -120 Weight 116.4 kg Intake: IV 150 Clindamycin 300 mg In 150 Dextrose 5% in Water 50 ml @ 50 mls/hr IVPB Q6HR [facility] Rx#:[id number] Oral 530 Output: Urine 800 Other: Voiding Method Toilet Toilet # Voids 3 3 - Labs CBC & Chem 7: 04/15/19 21:07 04/16/19 05:28 Labs: Abnormal Lab Results - Last 24 Hours (Table) 04/15/19 04/15/19 04/15/19 Range/Units 16:57 20:51 21:07 Hgb 9.9 L (11.4-16.0) gm/dL Hct 31.8 L (34.0-46.0) % RDW 16.1 H (11.5-15.5) % Carbon Dioxide (22-30) mmol/L BUN (7-17) mg/dL Glucose (74-99) mg/dL POC Glucose (mg/dL) 174 H 193 H (75-99) mg/dL Urine Protein (Negative) Ur Leukocyte Esterase (Negative) Urine WBC (0-5) /hpf Amorphous Sediment (None) /hpf Urine Bacteria (None) /hpf Hyaline Casts (0-2) /lpf 04/15/19 04/16/19 04/16/19 Range/Units Unknown 00:18 05:28 Hgb (11.4-16.0) gm/dL Hct (34.0-46.0) % RDW (11.5-15.5) % Carbon Dioxide 31 H (22-30) mmol/L BUN 33 H (7-17) mg/dL Glucose 159 H (74-99) mg/dL POC Glucose (mg/dL) 106 H (75-99) mg/dL Urine Protein 1+ H (Negative) Ur Leukocyte Esterase Moderate H (Negative) Urine WBC 19 H (0-5) /hpf Amorphous Sediment Rare H (None) /hpf Urine Bacteria Rare H (None) /hpf Hyaline Casts 83 H (0-2) /lpf 04/16/19 Range/Units 06:29 Hgb (11.4-16.0) gm/dL Hct (34.0-46.0) % RDW (11.5-15.5) % Carbon Dioxide (22-30) mmol/L BUN (7-17) mg/dL Glucose (74-99) mg/dL POC Glucose (mg/dL) 148 H (75-99) mg/dL Urine Protein (Negative) Ur Leukocyte Esterase (Negative) Urine WBC (0-5) /hpf Amorphous Sediment (None) /hpf Urine Bacteria (None) /hpf Hyaline Casts (0-2) /lpf Microbiology - Last 24 Hours (Table) 04/12/19 17:58 Blood Culture - Preliminary Blood No Growth after 72 hours Assessment and Plan Plan: Assessment: 1. Acute kidney injury mostly prerenal secondary to cardiorenal syndrome. Creatinine was 1.22 on admission and is 0.83 today. 2. Insulin-dependent diabetes mellitus. 3. Benign hypertension. Better this morning. 4. Volume overload. Improving with diuresis. 5. Severe pulmonary hypertension and mild to moderate tricuspid regurgitation. 6. Proteinuria. Most likely secondary to underlying diabetic kidney disease. Plan: Change Lasix to 40 mg orally twice daily. Avoid nephrotoxins. Discontinued nonsteroidals. Further workup for proteinuria outpatient. Patient follows with a tank worker out of her [place]. I advised the patient follow a low salt diet along with 60-70 ounces of fluid restriction per day. She was also advised to monitor her weight closely at home and to call her physician if notices more than 2-3 pound weekend.
[2019-04-16 11:23] VITALS: BP 136/65
[2019-04-16 11:47] LABS: Glucose,Whole Blood 198 mg/dL (75-99)
[2019-04-16 11:53] VITALS: PULSE 68
--- NOTE | 2019-04-16 15:16 | P.PN ---
Subjective Progress Note Date: 04/16/19 This is a pleasant 63-year-old female patient who sees Dr. Bennett in the office as an outpatient on a regular basis with a past medical history significant for coronary artery disease and prior stenting of the left circumflex with the last heart catheterization was performed in 2018 showing patent stents in the left circumflex without any disease involving the rest of her coronaries, diabetes, hypertension, and dyslipidemia, resented to the hospital complaining of shortness of breath. The patient noticed increasing shortness of breath for the last 48-72 hours. She was short of breath even with minimal exertion. No symptoms of shortness of breath in laying flat in bed. Also she noticed increasing in the edema in the lower extremities but she stated that she always does have edema but it was increasing for the last few days. No chest pain or chest discomfort, dizziness or lightheadedness, feeling of heart racing or fluttering, or syncope. She stated that her weight has been stable. She never diagnosed in the past was congestive heart failure or had any hospital admission was congestive heart failure. She stated that she was compliant with her medications and also she has been watching what she is eating including her salt. Clinically the patient seems to be in fluid overload.The BNP came in to be elevated at 1600. The patient was admitted to the hospital and she was started on Lasix IV. Weight is down 2 kg today. According to the patient, her edema is significantly improved, breathing is also improving. She still continues to have a significant amount of edema. Blood pressure this morning 192/79 prior to medication administration, heart rate in the use, 95% on 2 L of oxygen. White blood cell count 10.6, hemoglobin 9.2, platelet count 281. Sodium 139, potassium 3.7, BUN 30 and creatinine 0.9. Echocardiogram with Doppler study was performed which revealed an ejection fraction of 50-55%, mild to moderate tricuspid regurg. 04/15/2019 Patient was seen and examined this morning, sitting up in the chair bedside. Continue to diurese well through the night last night, her weight is down 1 kg today. Echocardiogram with Doppler study was performed which revealed an ejection fraction of 50-55%, severe concentric LVH noted, mild to moderate tricuspid regurg, moderate to severe pulmonary hypertension. Blood pressure 156/72 with a heart rate in the 60s, 99% on 2 L of oxygen. Sodium 141, potassium 4.0, BUN 29 and creatinine 0.9. 04/16/2019 was seen and examined this morning, again diurese well through the night and feels great today anticipating discharge home. Hemodynamically she stable. Objective - Vital Signs Vital signs: Vital Signs Temp 98.1 F 04/16/19 11:22 Pulse 68 04/16/19 12:03 Resp 20 04/16/19 11:22 BP 136/65 04/16/19 11:22 Pulse Ox 93 L 04/16/19 11:22 Intake & Output 04/15/19 04/16/19 04/16/19 18:59 06:59 18:59 Intake Total 680 240 Output Total 800 Balance -120 240 Weight 116.4 kg Intake: IV 150 Clindamycin 300 mg In 150 Dextrose 5% in Water 50 ml @ 50 mls/hr IVPB Q6HR [facility] Rx#:[id number] Oral 530 240 Output: Urine 800 Other: Voiding Method Toilet Toilet # Voids 3 3 - Exam PHYSICAL EXAMINATION: GENERAL: 63-year-old female in no acute distress at the time of my examination HEENT: Head is atraumatic, normocephalic. Pupils equal, round. Sclera anicteric. Conjunctiva are clear. Mucous membranes of the mouth are moist. Neck is supple. There is no elevated jugular venous pressure. No carotid bruit is heard. HEART EXAMINATION: Heart S1, S2 normal. No murmur or gallop heard. CHEST EXAMINATION: Lungs reveal fine rales to right posterior base . ABDOMEN: Soft, obese, nontender. Bowel sounds are heard. No organomegaly noted. EXTREMITIES: 2+ peripheral pulses with 1+ evidence of peripheral edema and no calf tenderness noted. NEUROLOGIC patient is awake, alert and oriented 3 . . - Labs CBC & Chem 7: 04/15/19 21:07 04/16/19 05:28 Labs: Abnormal Lab Results - Last 24 Hours (Table) 04/15/19 04/15/19 04/15/19 Range/Units 16:57 20:51 21:07 Hgb 9.9 L (11.4-16.0) gm/dL Hct 31.8 L (34.0-46.0) % RDW 16.1 H (11.5-15.5) % Carbon Dioxide (22-30) mmol/L BUN (7-17) mg/dL Glucose (74-99) mg/dL POC Glucose (mg/dL) 174 H 193 H (75-99) mg/dL Urine Protein (Negative) Ur Leukocyte Esterase (Negative) Urine WBC (0-5) /hpf Amorphous Sediment (None) /hpf Urine Bacteria (None) /hpf Hyaline Casts (0-2) /lpf 04/15/19 04/16/19 04/16/19 Range/Units Unknown 00:18 05:28 Hgb (11.4-16.0) gm/dL Hct (34.0-46.0) % RDW (11.5-15.5) % Carbon Dioxide 31 H (22-30) mmol/L BUN 33 H (7-17) mg/dL Glucose 159 H (74-99) mg/dL POC Glucose (mg/dL) 106 H (75-99) mg/dL Urine Protein 1+ H (Negative) Ur Leukocyte Esterase Moderate H (Negative) Urine WBC 19 H (0-5) /hpf Amorphous Sediment Rare H (None) /hpf Urine Bacteria Rare H (None) /hpf Hyaline Casts 83 H (0-2) /lpf 04/16/19 04/16/19 Range/Units 06:29 11:46 Hgb (11.4-16.0) gm/dL Hct (34.0-46.0) % RDW (11.5-15.5) % Carbon Dioxide (22-30) mmol/L BUN (7-17) mg/dL Glucose (74-99) mg/dL POC Glucose (mg/dL) 148 H 198 H (75-99) mg/dL Urine Protein (Negative) Ur Leukocyte Esterase (Negative) Urine WBC (0-5) /hpf Amorphous Sediment (None) /hpf Urine Bacteria (None) /hpf Hyaline Casts (0-2) /lpf Microbiology - Last 24 Hours (Table) 04/12/19 17:58 Blood Culture - Preliminary Blood No Growth after 72 hours Assessment and Plan Plan: Assessment and plan #1 congestive heart failure exacerbation , diastolic acute on chronic #2 coronary artery disease and status post a stenting #3 obesity #4 diabetes #5 hypertension #6 dyslipidemia #7 small 0.6 cm nodule noted in the superior medial right upper lung field. Plan From cardiology's perspective, we'll discontinue the IV Lasix and change the patient over to Lasix 40 mg one tablet by mouth twice a day. The patient may be able to be discharged home from our standpoint to follow-up in the office post discharge. Patient has been advised as well that she may benefit from undergoing an outpatient sleep study. DNP note has been reviewed, I agree with a documented findings and plan of care. Patient was seen and examined.
[2019-04-16] MEDS ORDERED: FUROSEMIDE 40 MG TAB PO SCH (16:00)
--- NOTE | 2019-04-16 21:56 | P.PN ---
Subjective Progress Note Date: 04/16/19 63-year-old woman who has a history of obesity as well as degenerative joint disease presents the emergency center with the relatively sudden onset of fever chill increasing pain to her right knee which is of concern because of her prior total knee arthroplasty that was placed about 2 years ago. She also has developed the sudden onset of some significant discomfort into her right anterior aspect of her shoulder has also been exquisitely tender. Since coming to Hospital she's not been having significant fevers but still feels somewhat poorly. However is feeling slightly better now than she was yesterday. She this point in time is denying any further fever she has had difficulties with shortness of breath. Has been ensuing and there is concerns to some underlying congestive heart failure and she is receiving some diuresis. She relates that she's also feeling better. She relates no acute trauma in regards the sudden onset of the right knee pain. Ended no new activities that resulted into the right shoulder pain. She's had one prior bout of severe right shoulder pain in the past that eventually resolved. She did have severe degenerative changes to her right knee before the surgery but was never this exquisitely painful as it is now. 04/14/2019 the patient is feeling just slightly better today. The uric acid was requested as come back greater than 11 which makes an acute gouty attack to her right knee and right shoulder most likely. Colchicine was added and were awaiting a clinical response. She continues to have the difficulties with her pulmonary status. In the high-resolution computed tomography scan now has been complete were awaiting a reading. As related she's had difficulty with shortness of breath for some time. She's had the cardiac etiology of this dressed and treated with her cardiac stents. Echocardiogram suggests the possibility of severe pulmonary hypertension. 04/16/2019 the patient is feeling considerably better. Her shortness of breath is improved with her extensive diuresis. Severe joint pains improved with the colchicine that was given. Objective - Vital Signs Vital signs: Vital Signs Temp 98.1 F 04/16/19 11:22 Pulse 68 04/16/19 12:03 Resp 20 04/16/19 11:22 BP 136/65 04/16/19 11:22 Pulse Ox 93 L 04/16/19 11:22 Intake & Output 04/16/19 04/16/19 04/17/19 06:59 18:59 06:59 Intake Total 240 Balance 240 Weight 116.4 kg Intake: Oral 240 Other: Voiding Method Toilet # Voids 3 - Exam Pleasant obese 63-year-old woman who is still somewhat uncomfortable due to the significant discomfort to her right knee and right shoulder HEENT: Anicteric conjunctiva are pink and moist nasal mucosa grossly intact without significant lesions, there is no thrush. Neck: The neck is supple without significant lymphadenopathy or thyromegaly. Lungs: Good bilateral air entry few basilar crackles . There is no significant bronchial sounds. There is no egophony or dullness. Heart: Regular rate and rhythm with an audible S1-S2, no S3 no S4. There is no significant murmur click or rub, PMI was nondisplaced. Abdomen: Positive bowel sounds soft and nontender without palpable masses or organomegaly. There was no guarding or rebound. Extremities: Right upper extremity reveals evidence of the improvement of the point tenderness to the anterior aspect of the right shoulder with improvement in the discomfort with attempts to range of motion to the right shoulder including internal and external rotation as well as abduction and abduction. Right knee is warm to touch and she relates it is less hot and it was. There some minimal erythema. There is no palpable crepitance or fluctuance. No smoking effusion is palpated. There is discomfort to range of motion but she relates it's already improved from yesterday. Neuro: Awake alert oriented to person place and time. There are no acute new gross focal sensory motor deficits. - Labs CBC & Chem 7: 04/15/19 21:07 04/16/19 05:28 Labs: Abnormal Lab Results - Last 24 Hours (Table) 04/16/19 04/16/19 04/16/19 Range/Units 00:18 05:28 06:29 Carbon Dioxide 31 H (22-30) mmol/L BUN 33 H (7-17) mg/dL Glucose 159 H (74-99) mg/dL POC Glucose (mg/dL) 106 H 148 H (75-99) mg/dL 04/16/19 Range/Units 11:46 Carbon Dioxide (22-30) mmol/L BUN (7-17) mg/dL Glucose (74-99) mg/dL POC Glucose (mg/dL) 198 H (75-99) mg/dL Microbiology - Last 24 Hours (Table) 04/12/19 17:58 Blood Culture - Preliminary Blood No Growth after 96 hours Laboratory Results WBC 10.3 k/uL (3.8-10.6) 04/15/19 21:07 RBC 3.91 m/uL (3.80-5.40) 04/15/19 21:07 Hgb 9.9 gm/dL (11.4-16.0) L 04/15/19 21:07 Hct 31.8 % (34.0-46.0) L 04/15/19 21:07 MCV 81.3 fL (80.0-100.0) 04/15/19 21:07 MCH 25.4 pg (25.0-35.0) 04/15/19 21:07 MCHC 31.2 g/dL (31.0-37.0) 04/15/19 21:07 RDW 16.1 % (11.5-15.5) H 04/15/19 21:07 Plt Count 347 k/uL (150-450) 04/15/19 21:07 Neutrophils % 75 % 04/15/19 21:07 Lymphocytes % 13 % 04/15/19 21:07 Monocytes % 7 % 04/15/19 21:07 Eosinophils % 3 % 04/15/19 21:07 Basophils % 0 % 04/15/19 21:07 Neutrophils # 7.7 k/uL (1.3-7.7) 04/15/19 21:07 Lymphocytes # 1.3 k/uL (1.0-4.8) 04/15/19 21:07 Monocytes # 0.7 k/uL (0-1.0) 04/15/19 21:07 Eosinophils # 0.3 k/uL (0-0.7) 04/15/19 21:07 Basophils # 0.0 k/uL (0-0.2) 04/15/19 21:07 Hypochromasia Slight 04/15/19 21:07 Anisocytosis Slight 04/15/19 21:07 Microcytosis Slight 04/13/19 06:41 PT 10.6 sec (9.0-12.0) 04/11/19 15:45 INR 1.0 (<1.2) 04/11/19 15:45 APTT 25.9 sec (22.0-30.0) 04/11/19 15:45 Sodium 138 mmol/L (137-145) 04/16/19 05:28 Potassium 4.1 mmol/L (3.5-5.1) 04/16/19 05:28 Chloride 99 mmol/L (98-107) 04/16/19 05:28 Carbon Dioxide 31 mmol/L (22-30) H 04/16/19 05:28 Anion Gap 8 mmol/L 04/16/19 05:28 BUN 33 mg/dL (7-17) H 04/16/19 05:28 Creatinine 0.83 mg/dL (0.52-1.04) 04/16/19 05:28 Est GFR (CKD-EPI)AfAm 87 (>60 ml/min/1.73 sqM) 04/16/19 05:28 Est GFR (CKD-EPI)NonAf 76 (>60 ml/min/1.73 sqM) 04/16/19 05:28 Glucose 159 mg/dL (74-99) H 04/16/19 05:28 POC Glucose (mg/dL) 198 mg/dL (75-99) H 04/16/19 11:46 POC Glu Client Service Representative ID Marshall Massey 04/16/19 11:46 Uric Acid 11.3 mg/dL (3.7-7.4) H 04/14/19 05:23 Calcium 9.0 mg/dL (8.4-10.2) 04/16/19 05:28 Magnesium 1.9 mg/dL (1.6-2.3) 04/11/19 15:45 Total Bilirubin 0.6 mg/dL (0.2-1.3) 04/11/19 15:45 AST 28 U/L (14-36) 04/11/19 15:45 ALT 30 U/L (9-52) 04/11/19 15:45 Alkaline Phosphatase 87 U/L (38-126) 04/11/19 15:45 Troponin I <0.012 ng/mL (0.000-0.034) 04/11/19 15:45 NT-Pro-B Natriuret Pep 1670 pg/mL 04/11/19 15:45 Total Protein 7.1 g/dL (6.3-8.2) 04/11/19 15:45 Albumin 4.0 g/dL (3.5-5.0) 04/11/19 15:45 Urine Color Yellow 04/15/19 Unknown Urine Appearance Clear (Clear) 04/15/19 Unknown Urine pH 5.0 (5.0-8.0) 04/15/19 Unknown Ur Specific [place] 1.015 (1.001-1.035) 04/15/19 Unknown Urine Protein 1+ (Negative) H 04/15/19 Unknown Urine Glucose (UA) Negative (Negative) 04/15/19 Unknown Urine Ketones Negative (Negative) 04/15/19 Unknown Urine Blood Negative (Negative) 04/15/19 Unknown Urine Nitrite Negative (Negative) 04/15/19 Unknown Urine Bilirubin Negative (Negative) 04/15/19 Unknown Urine Urobilinogen <2.0 mg/dL (<2.0) 04/15/19 Unknown Ur Leukocyte Esterase Moderate (Negative) H 04/15/19 Unknown Urine RBC 4 /hpf (0-5) 04/15/19 Unknown Urine WBC 19 /hpf (0-5) H 04/15/19 Unknown Ur Squamous Epith Cells 2 /hpf (0-4) 04/15/19 Unknown Amorphous Sediment Rare /hpf (None) H 04/15/19 Unknown Urine Bacteria Rare /hpf (None) H 04/15/19 Unknown Hyaline Casts 83 /lpf (0-2) H 04/15/19 Unknown Microbiology 04/12/19 17:58 Blood Blood Culture - Preliminary No Growth after 96 hours Assessment and Plan (1) Gout Narrative/Plan: Pleasant 63-year-old woman who has a history of degenerative joint disease who has presented to hospital with sudden onset of fever that has already abated but continues to have ongoing significant pain to her right knee with warmth and some swelling. However she is already having some significant improvement of her discomfort. She has received 2 doses of naproxen were discontinued. She had a sudden onset also of severe right shoulder pain and also is slightly improved since yesterday. Review of the record reveals evidence of her uric acid of 9.1. His constantly-like that she's having acute gout flare involving the right knee and right shoulder. Given her many medical troubles in concerns to suggest congestive heart failure would like to avoid further anti- inflammatories that can exacerbate heart failure. 6 colchicine will be given and she'll be monitored for improvement of her status. Given the fact that she hasn't elevated uric acid level should be repeated. If it is still is elevated as it was in the outpatient setting. 9.1 when sure flare is improved she be placed on allopurinol or similar medication to try to improve her uric acid to less than 6. At this time she does not appear to have any acute infection. 04/14/2019 the patient is starting to feel slightly better today. As noted has the uric acid level greater than 11 and colchicine was added. Hopefully we'll have a rapid improvement. Once symptomatology starts to improve allopurinol should be added to help her with reduction of her uric acid levels to prevent further recurrences. He will need follow-up with her primary physician for long-term treatment. At this time does not appear to have infection of any joints. Would plan discontinuation of antibiotics in the morning if there are no positive cultures. She is being evaluated for her dyspnea and high resolution CT scans been performed. Evaluation for underlying lung disease as well as pulmonary hypertension are contemplated and will need assessment and treatment. 04/16/2019 the patient is now much improved. She will initiate a regimen that includes allopurinol the outpatient setting likely to be initiated by her safe deposit box rental clerk. She'll follow-up with them. She is virtually had an excellent recovery of severe joint inflammation to the right shoulder and right knee. No infections noted. For her severe shortness of breath she has been aggressively diuresed initially marked improvement in skin seen by the extensive reduction of edema. Status: Acute Code(s): M10.9 - GOUT, UNSPECIFIED SNOMED Code(s): 76610647
--- NOTE | 2019-04-30 11:19 | P.DS ---
Providers Date of admission: 04/12/19 17:30 Attending physician: Robb Wright Consults: 04/12/19 17:01 Consult Physician Routine Consulting Provider: Sonu Dukes Consult Reason/Comments: Right knee pain inflamed Do you want consulting provider notified?: Yes 04/12/19 17:07 Consult Physician Routine Consulting Provider: Oc Whalen Consult Reason/Comments: CHF Do you want consulting provider notified?: Yes 04/12/19 17:22 Consult Physician Routine Consulting Provider: Osmar Hernandez Consult Reason/Comments: Right knee infection Do you want consulting provider notified?: Yes 04/12/19 17:25 Consult Physician Routine Consulting Provider: Dimitrios Patricio Consult Reason/Comments: Renal failure Do you want consulting provider notified?: Yes Primary care physician: [facility] Course: Diagnoses: Right knee pain, suspicious for gouty arthritis versus soft tissue infection. Patient finished her course of antibiotics and she'll be discharged on allopurinol Acute diastolic CHF, patient treated with diuretics. Currently she is on room air 0.6 cm pulmonary nodule, patient informed for the need for follow-up and she agrees. pulmonary appointment is made for the pt and she agrees with it. Acute kidney injury, resolved Diabetes mellitus Hypertension Hyperlipidemia History of arthritis Hospital course: This is a pleasant 63 years old female with past medical history of diabetes mellitus, hypertension, hyperlipidemia, arthritis, coronary artery disease status post stent. Presents because of dyspnea related to her diastolic acute congestive heart failure, also she had right shoulder pain which is completely resolved and right knee pain which is significantly improved . Patient has been evaluated by many consultants including infectious disease, lactation coordinator, business solutions director and orthopedic teams. She's been treated with IV Lasix, and clindamycin for her right knee infection. Patient showed interval improvement and she is hemodynamically stable and she is saturating 93% on room air. Her symptoms of dyspnea and right knee pain are soiled. She denies dyspnea. No cough. No change in urine or bowel habits. She is eating well with no problems. No nausea vomiting. No fever Patient also found to have pulmonary nodule of 0.6 cm, risks explained for the patient and at bedside, including but not limited to the risk of cancer and she verbalized understanding and acceptance. Patient was instructed to follow up with her goring cutter and she agrees to make an appointment with goring cutter. Patient appears to be on Lantus 40 units at night and 52 is in the morning, however currently she needs less amount of insulin, probably after the treating of her infection and her sugar is controlled. Patient is going to be discharged on Levemir 5 units twice a day and metformin. Patient will be discharged on oral Lasix as well. She is on atenolol, aspirin and Lipitor. She does not need antibiotics upon discharge as per ID team, and he said she will be discharged on allopurinol Patient eventually showed interval improvement and she is back close to her baseline, patient is eager to be discharged today. Patient was cleared for discharge by all consultants including business solutions director, lactation coordinator, infectious disease and orthopedic. Problems and management plan were discussed with the patient and he verbalized understanding and acceptance Patient was found stable and can be discharged home pt agrees with appointments made for her with their timing. Patient verbalized understanding and acceptance Gen: patient is a AAOx3, no distress CVS: S1-S2, RRR, no murmur Lungs: B/L CTA, no wheezing Abdomen: soft, no distention, no tenderness, positive bowel sounds Extremity: no leg edema or induration Time spent more than 35 minutes Patient Condition at Discharge: Stable Plan - Discharge Summary Discharge Rx Participant: No New Discharge Prescriptions: New metFORMIN HCL [Glucophage] 1,000 mg PO BID-W/MEALS #120 tab Furosemide [Lasix] 40 mg PO BID@0900,1600 #60 tab Insulin Detemir (Levemir) [Levemir] 5 unit SQ Q12HR@0700,2100 #1 vial amLODIPine [Norvasc] 10 mg PO DAILY #30 tab Albuterol Inhaler [Ventolin Hfa Inhaler] 1 - 2 puff INHALATION RT-Q6H PRN #1 inhaler PRN Reason: Shortness Of Breath Or Wheezing Allopurinol [Zyloprim] 100 mg PO DAILY #30 tablet Continue Aspirin 81 mg PO DAILY Atenolol 50 mg PO BID INSULIN ASPART (NovoLOG) [NovoLOG (formulary)] See Protocol SQ AC-TID Clopidogrel [Plavix] 75 mg PO DAILY Vit C/E/Zn/Coppr/Lutein/Zeaxan [Preservision Areds 2 Softgel] 1 tab PO DAILY Multivitamin with Iron [Multivitamins with Iron] 1 tab PO DAILY Nitroglycerin Sl Tabs [Nitrostat] 0.4 mg SUBLINGUAL Q5M PRN PRN Reason: Chest Pain Betamethasone Dipropionate [Diprolene 0.05% Ointment] 1 applic TOPICAL BID PRN PRN Reason: Skin Irritation Isosorbide Mononitrate ER [Imdur] 30 mg PO HS Atorvastatin [Lipitor] 20 mg PO HS Escitalopram [Lexapro] 20 mg PO DAILY Melatonin 5 mg PO HS Discontinued Insulin Glargine [Lantus] 52 unit SQ QAM glyBURIDE/METFORMIN HCL [Glucovance 5-500 mg Tablet] 2 tab PO BID Furosemide [Lasix] 40 mg PO DAILY NIFEdipine [Procardia XL] 60 mg PO BID Insulin Glargine [Lantus] 40 unit SQ HS Quinapril HCl [Accupril] 40 mg PO DAILY Spironolactone [Aldactone] 25 mg PO DAILY Discharge Medication List Aspirin 81 mg PO DAILY 01/06/14 [History] Atenolol 50 mg PO BID 01/06/14 [History] Clopidogrel [Plavix] 75 mg PO DAILY 07/23/18 [History] INSULIN ASPART (NovoLOG) [NovoLOG (formulary)] See Protocol SQ AC-TID 07/23/18 [History] Multivitamin with Iron [Multivitamins with Iron] 1 tab PO DAILY 02/15/19 [History] Vit C/E/Zn/Coppr/Lutein/Zeaxan [Preservision Areds 2 Softgel] 1 tab PO DAILY 02/15/19 [History] Atorvastatin [Lipitor] 20 mg PO HS 04/11/19 [History] Betamethasone Dipropionate [Diprolene 0.05% Ointment] 1 applic TOPICAL BID PRN 04/11/19 [History] Escitalopram [Lexapro] 20 mg PO DAILY 04/11/19 [History] Isosorbide Mononitrate ER [Imdur] 30 mg PO HS 04/11/19 [History] Melatonin 5 mg PO HS 04/11/19 [History] Nitroglycerin Sl Tabs [Nitrostat] 0.4 mg SUBLINGUAL Q5M PRN 04/11/19 [History] Albuterol Inhaler [Ventolin Hfa Inhaler] 1 - 2 puff INHALATION RT-Q6H PRN #1 inhaler 04/16/19 [Rx] Allopurinol [Zyloprim] 100 mg PO DAILY #30 tablet 04/16/19 [Rx] Furosemide [Lasix] 40 mg PO BID@0900,1600 #60 tab 04/16/19 [Rx] Insulin Detemir (Levemir) [Levemir] 5 unit SQ Q12HR@0700,2100 #1 vial 04/16/19 [Rx] amLODIPine [Norvasc] 10 mg PO DAILY #30 tab 04/16/19 [Rx] metFORMIN HCL [Glucophage] 1,000 mg PO BID-W/MEALS #120 tab 04/16/19 [Rx] Follow up Appointment(s)/Referral(s): Shanthi Lucas PAC [PHYSICIAN ENVIRONMENTAL SERVICES PROJECT MANAGER] - 04/29/19 1:30 pm ([facility] for right knee pain.) Javon Bennett MD [STAFF PHYSICIAN] - 04/25/19 9:15 am (With [facility]AT[facility] ART THERAPIST.) Uriel Quinonez MD [Primary Care Provider] - 04/24/19 11:30 am Rafal Mann DO [Doctor of Osteopathic Medicine] - 04/22/19 10:00 am (0.6 cm pulmonary nodule) Patient Instructions/Handouts: Heart Failure (DC), Low Purine Diet (DC), Gout (DC), Knee Pain (ED) Activity/Diet/Wound Care/Special Instructions: Cardiac diet Activity is limited till you see your doctor Discharge Disposition: HOME SELF-CARE
== END 2019-04-16 16:02 | disposition home or self-care (01) | DRG 292 ==
LOC: EC 14:48 → 3NMEDONC 20:26 → OBSVTOIN 04-12 17:30 → 3SCARD 04-12 19:02
PROVIDERS: ADMIT Hospitalist; ATTEND Hospitalist
DX: I11.0 Hypertensive heart disease with heart failure (principal); N17.9 Acute kidney failure, unspecified; L03.115 Cellulitis of right lower limb; Z68.42 Body mass index [BMI] 45.0-49.9, adult; I50.33 Acute on chronic diastolic (congestive) heart failure; I27.20 Pulmonary hypertension, unspecified; E66.01 Morbid (severe) obesity due to excess calories; I07.1 Rheumatic tricuspid insufficiency; D64.9 Anemia, unspecified; E11.9 Type 2 diabetes mellitus without complications; E78.00 Pure hypercholesterolemia, unspecified; E78.5 Hyperlipidemia, unspecified; F32.9 Major depressive disorder, single episode, unspecified; F41.9 Anxiety disorder, unspecified; I25.10 Atherosclerotic heart disease of native coronary artery without angina pectoris; M10.9 Gout, unspecified; M19.91 Primary osteoarthritis, unspecified site; R91.1 Solitary pulmonary nodule; Z79.02 Long term (current) use of antithrombotics/antiplatelets; Z79.4 Long term (current) use of insulin; Z79.82 Long term (current) use of aspirin; Z79.899 Other long term (current) drug therapy; Z95.5 Presence of coronary angioplasty implant and graft; Z88.0 Allergy status to penicillin; Z88.2 Allergy status to sulfonamides; Z91.048 Other nonmedicinal substance allergy status; Z90.710 Acquired absence of both cervix and uterus; Z96.651 Presence of right artificial knee joint; Z98.42 Cataract extraction status, left eye; Z98.41 Cataract extraction status, right eye; Z96.1 Presence of intraocular lens; Z80.1 Family history of malignant neoplasm of trachea, bronchus and lung; Z83.3 Family history of diabetes mellitus; Z82.49 Family history of ischemic heart disease and other diseases of the circulatory system
CPT/HCPCS: 36415; 71046; 71250; 80048; 80053; 81001; 83735; 83880; 84484; 84550; 85025; 85610; 85730; 87040; 93005; 93306; 94640; 94760; 96365; 99285

== ENCOUNTER → 2019-04-29 | Outpatient (CLI) | payer BC ==
[2019-04-29 18:34] LABS: African American GFR (CKD) 78.9 (60.0-200.0); Albumin/Globulin Ratio 1.43 (1.60-3.17); Anion Gap 9.7 mmol/L (4.00-12.00); Calcium 9.6 mg/dL (8.7-10.3); Carbon Dioxide 26.3 mmol/L (21.6-31.8); Chol/HDL Ratio 2.78; Globulin 2.8 g/dL (1.6-3.3); Potassium 4.9 mmol/L (3.5-5.5); Total Bilirubin 0.3 mg/dL (0.2-1.2); Total Protein 6.8 g/dL (6.2-8.2)
[2019-04-29 18:43] LABS: Magnesium 1.8 mg/dL (1.5-2.4)
== END ==
LOC: LABWHC1 10:27
PROVIDERS: ATTEND Nurse Practitioner Adult Health
DX: N18.3 Chronic kidney disease, stage 3 (moderate) (principal); I12.9 Hypertensive chronic kidney disease with stage 1 through stage 4 chronic kidney disease, or unspecified chronic kidney disease; E78.2 Mixed hyperlipidemia
CPT/HCPCS: 36415; 80053; 80061; 83735

== ENCOUNTER → 2019-05-09 | Outpatient (CLI) | payer BC ==
[2019-05-09 19:34] LABS: Iron Saturation 19.42 (12.00-45.00)
[2019-05-09 19:50] LABS: Folate, Serum >24.0 ng/mL
== END | disposition home or self-care (01) ==
LOC: LABWHC1 13:16
PROVIDERS: ATTEND Internal Medicine Nephrology
DX: D64.9 Anemia, unspecified (principal)
CPT/HCPCS: 36415; 82607; 82728; 82746; 83540; 83550

== ENCOUNTER → 2019-05-20 | Outpatient (CLI) | payer BC ==
[2019-05-20 16:24] LABS: African American GFR (CKD) 61.9 (60.0-200.0); Anion Gap 10.3 mmol/L (4.00-12.00); BUN/Creat Ratio 37.27 Ratio (12.00-20.00); Calcium 9.3 mg/dL (8.7-10.3); Carbon Dioxide 25.7 mmol/L (21.6-31.8); Potassium 4.5 mmol/L (3.5-5.5)
[2019-05-20 16:29] LABS: Iron Saturation 22.56 (12.00-45.00)
[2019-05-20 16:40] LABS: Folate, Serum >24.0 ng/mL
== END | disposition home or self-care (01) ==
LOC: LABWHC1 10:40
PROVIDERS: ATTEND Internal Medicine Nephrology
DX: E79.9 Disorder of purine and pyrimidine metabolism, unspecified (principal); I12.9 Hypertensive chronic kidney disease with stage 1 through stage 4 chronic kidney disease, or unspecified chronic kidney disease; E11.22 Type 2 diabetes mellitus with diabetic chronic kidney disease; N18.2 Chronic kidney disease, stage 2 (mild); D63.1 Anemia in chronic kidney disease
CPT/HCPCS: 36415; 80048; 82607; 82728; 82746; 83540; 83550; 83735

== ENCOUNTER → 2019-05-28 | Outpatient (CLI) | payer BC ==
[2019-05-28 16:52] LABS: African American GFR (CKD) 69.4 (60.0-200.0); Albumin 4.3 g/dL (3.80-4.90); Albumin/Globulin Ratio 2.15 (1.60-3.17); Anion Gap 12.2 mmol/L (4.00-12.00); Calcium 9.7 mg/dL (8.7-10.3); Carbon Dioxide 25.8 mmol/L (21.6-31.8); Chol/HDL Ratio 3.29; LDL Cholesterol,Calculated 58.2 mg/dL (0.0-131.0); Potassium 4.2 mmol/L (3.5-5.5); Total Bilirubin 0.3 mg/dL (0.2-1.2); Total Protein 6.3 g/dL (6.2-8.2); VLDL Calculation 37.8 mg/dL (5.00-40.00)
== END | disposition home or self-care (01) ==
LOC: LABWHC1 09:08
PROVIDERS: ATTEND Nurse Practitioner Adult Health
DX: E78.2 Mixed hyperlipidemia (principal)
CPT/HCPCS: 36415; 80053; 80061

== ENCOUNTER → 2019-06-13 | Outpatient (CLI) | payer BC ==
[2019-06-13 19:06] LABS: African American GFR (CKD) 69.4 (60.0-200.0); Anion Gap 11.7 mmol/L (4.00-12.00); Calcium 9.8 mg/dL (8.7-10.3); Carbon Dioxide 29.3 mmol/L (21.6-31.8); Magnesium 1.8 mg/dL (1.5-2.4); Potassium 4.2 mmol/L (3.5-5.5)
== END | disposition home or self-care (01) ==
LOC: LABWHC1 12:36
PROVIDERS: ATTEND Internal Medicine Nephrology
DX: I12.9 Hypertensive chronic kidney disease with stage 1 through stage 4 chronic kidney disease, or unspecified chronic kidney disease (principal); N18.2 Chronic kidney disease, stage 2 (mild); R60.9 Edema, unspecified
CPT/HCPCS: 36415; 80048; 83735

== ENCOUNTER → 2019-09-02 | Outpatient (CLI) | payer BC ==
[2019-09-02 16:42] LABS: African American GFR (CKD) 69.4 (60.0-200.0); Anion Gap 8.8 mmol/L (4.00-12.00); Calcium 9.5 mg/dL (8.7-10.3); Carbon Dioxide 27.2 mmol/L (21.6-31.8); Chol/HDL Ratio 3.36; LDL Cholesterol,Calculated 49.2 mg/dL (0.0-131.0); Non-African American GFR(CKD) 59.9 (60.0-200.0); Potassium 4.7 mmol/L (3.5-5.5); VLDL Calculation 35.8 mg/dL (5.00-40.00)
[2019-09-02 17:00] LABS: Hemoglobin A1C 7.6 % (4.0-6.0)
== END | disposition home or self-care (01) ==
LOC: LABWHC1 09:42
PROVIDERS: ATTEND Family Medicine
DX: Z00.00 Encounter for general adult medical examination without abnormal findings (principal); E11.21 Type 2 diabetes mellitus with diabetic nephropathy; E78.5 Hyperlipidemia, unspecified
CPT/HCPCS: 36415; 80048; 80061; 83036; 83735

== ENCOUNTER → 2019-09-02 | Outpatient (CLI) | payer BC ==
--- NOTE | 2019-09-02 13:49 | MM ---
Reason for exam: screening (asymptomatic). Last mammogram was performed 7 months ago. History: Patient is postmenopausal and had first child at age 32. Benign MG stereo VAD BX addl LT of the left breast, September 27, 2018. Benign MG stereo VAD BX LT of the left breast, September 27, 2018. Physical Findings: A clinical breast exam by your physician is recommended on an annual basis and results should be correlated with mammographic findings. MG 3D Screening Mammo W/Cad Bilateral CC and MLO view(s) were taken. Prior study comparison: February 04, 2019, left breast MG 3d diag mammo w/cad LT. September 05, 2018, left breast MG 3d work up w/cad LT. There are scattered fibroglandular densities. There are benign appearing vascular calcifications bilaterally. Previous mammotome biopsy in the left breast x 2. There is chronic nodularity in the left breast. There is no discrete abnormality. ASSESSMENT: Benign, BI-RAD 2 RECOMMENDATION: Routine screening mammogram of both breasts in 1 year.
== END | disposition home or self-care (01) ==
LOC: RADMAMWWP 10:08
PROVIDERS: ATTEND Surgery
DX: Z12.31 Encounter for screening mammogram for malignant neoplasm of breast (principal)
CPT/HCPCS: 77063; 77067

== ENCOUNTER → 2019-09-12 | Outpatient (CLI) | payer BC ==
--- NOTE | 2019-09-12 14:16 | P.PN ---
Subjective Progress Note Date: 09/12/19 Principal diagnosis: fibrocystic breast changes/surveillance Jenny is a 63-year-old white female status post bilateral mammogram on [id number]. This was a benign BIRADS 2 radiograph. She does have benign appearing vascular calcifications bilaterally. Previous mammotome biopsy in the left breast 2. This was done on . The anterior site revealed fibrocystic changes in the posterior site also revealed fibrocystic changes. Both sites were calcifications present. The patient has no complaints at this time related to her breast. caffeine: 1 cup of coffee/day smoke: no but patients father used to smoke 4 PPD until 23 years old chocolate: occasional hormones: none Family History: 1. father: lung (smoker) 2. paternal grandfather: lung cancer 3. mother: skin cancer, no melanoma Hormonal history: Menarche: 13 Pregnancies:1, children,1; breast fed: yes, age: 31 menpause: partial hysterectomy at 32 control pills: 8 hormones: none Past surgical history: 1. Hysterectomy 2. Bilateral bunionectomy twice 3. Tonsillectomy/adenoidectomy 4. 5. Trigger finger release 6. Colonoscopy 7. Torn meniscus repair left knee 8. Trigger finger release and right ring finger 9. Back surgery laminectomy/decompression 10. Bilateral cataracts surgery 11. Torn meniscus right knee 12. Total knee replacement by 11. Cardiac stents placed to in 13. Heart cath and one stent placed Medical history: 1. Insulin-dependent diabetic 10 years 2. Coronary artery disease 3. Arthritis 4. Status post hysterectomy 5. Shortness of breath 6. hospitalized 04/22 for SOB diagnosed with CHF 7. gout Social history: Smoke: Negative Alcohol: Negative Drugs: Negative - Constitutional Constitutional: Denies chills, Denies fever - EENT Comment: Bilateral cataracts surgery Eyes: denies blurred vision, denies pain Ears: deny: decreased hearing, tinnitus Ears, nose, mouth and throat: Denies headache, Denies sore throat - Breasts Breasts: bilateral: as per HPI - Cardiovascular Cardiovascular: Reports high blood pressure, Reports shortness of breath, dx. with CHF April 2019 loss 27 pounds of fluid - Respiratory Respiratory: Denies cough, - Gastrointestinal Gastrointestinal: Denies abdominal pain, Denies diarrhea, Denies nausea, Denies vomiting - Genitourinary (Female) Genitourinary: Denies dysuria, Denies hematuria - Menstruation Menstruation: Reports post hysterectomy - Musculoskeletal Comment: arthritis, back pain in past, gout - Integumentary Comment: excezma Integumentary: Denies pruritus, Denies rash - Neurological Neurological: Denies numbness, Denies weakness - Psychiatric Psychiatric: Reports anxiety, Reports depression - Endocrine Comment: diabetes - Hematologic/Lymphatic Comment: plavix, and aspirin - Allergic/Immunologic Allergic/Immunologic: Reports as per HPI Past Medical History Past Medical History: Chest Pain / Angina, Diabetes Mellitus, Hyperlipidemia, Hypertension, Skin Disorder Additional Past Medical History / Comment(s): SOB,ARTHRITIS History of Any Multi-Drug Resistant Organisms: None Reported Past Surgical History: Back Surgery, Section, Heart Catheterization With Stent, Hysterectomy, Orthopedic Surgery, Tonsillectomy Additional Past Surgical History / Comment(s): heart stents x2,BUNIONECTOMY BELLA, LEFT KNEE TORN MENISCUS, TRIGGER FINGER X2,Rods and screws to back,bella cataract, Total right knee replacement Past Anesthesia/Blood Transfusion Reactions: Motion Sickness, Postoperative Nausea & Vomiting (PONV) Additional Past Anesthesia/Blood Transfusion Reaction / Comment(s): no prob with prior blood transfusions Date of Last Stent Placement:: 10-18-17 Past Psychological History: Anxiety, Depression Smoking Status: Never smoker Past Alcohol Use History: None Reported Past Drug Use History: None Reported Objective - Vital Signs Vital signs: Vital Signs Temp 97.7 F 09/12/19 13:47 Pulse 66 09/12/19 13:47 Resp 20 09/12/19 13:47 BP 165/67 09/12/19 13:47 Pulse Ox 94 L 09/12/19 13:47 Intake & Output 09/11/19 09/12/19 09/12/19 18:59 06:59 18:59 Weight 118.841 kg - Exam BMI 45 - Constitutional General appearance: Present: obese - EENT EENT Comment(s): conjunctiva pink Eyes: Present: EOMI ENT: Present: hearing grossly normal - Neck Neck: Present: normal ROM - Respiratory Respiratory: bilateral: CTA - Cardiovascular Rhythm: regular Heart sounds: normal: S1, S2 - Gastrointestinal General gastrointestinal: Present: normal bowel sounds, soft - Integumentary Integumentary: Present: normal turgor - Musculoskeletal Musculoskeletal: Present: gait normal - Psychiatric Psychiatric: Present: A&O x's 3, appropriate affect, intact judgment & insight - Additional findings Additional findings: breast exam: BRA 42C ptosis grade3 right breast: Multi-positional exam no dominant masses or nodules of concern Right axilla: No adenopathy of concern Left breast: Multiple positional exam no dominant masses or nodules of concern well-healed scar from prior peroneal which was on the lateral aspect of the breast Left axilla: No adenopathy of concern Assessment and Plan Assessment: Impression: 1. fibrocystic breast changes 2. BMI 45, obesity 3. bilateral mammogram BIRADS 2, repeat mammogram in 1 year 4. history of CHF 5. diabetes Causes a fibrocystic breast disease discussed with the patient. We have discussed her caffeine intake, we have also discussed that she is not exposed to nicotine at the present time and eats very little chocolate. I've also discussed that she is not taking any hormones however secondary to her elevated BMI she may be forming estrogen in the adipose tissue and this could contribute to fibrocystic breast changes. I have counseled her to lose weight. Plan: 1. repeat bilateral mammogram in 1 year 2. follow up with DR. Quinonez if mammogram benign, and no clinical concerns 3. follow up here if any concerns related to breast 4. platient encouraged to lose weight CC: Dr. Quinonez encounter 20 minutes, > 50% of time in planning and counseling Time with Patient: Less than 30
[2019-09-12 14:53] VITALS: BP 165/67; PULSE 66; RESP 20; TEMP 97.7
== END | disposition home or self-care (01) ==
LOC: WWCWWP 13:32
PROVIDERS: ATTEND Surgery
DX: Z53.9 Procedure and treatment not carried out, unspecified reason (principal)

== ENCOUNTER → 2020-02-11 | Outpatient (CLI) | payer BC ==
[2020-02-11 13:11] LABS: Basophils # (A) 0.1 k/uL (0-0.2); Basophils % (A) 1 %; Eosinophils # (A) 0.4 k/uL (0-0.7); Eosinophils % (A) 4 %; HGB 11.8 gm/dL (11.4-16.0); Lymphocytes # (A) 1.3 k/uL (1.0-4.8); Lymphocytes % (A) 15 %; MCH 27.5 pg (25.0-35.0); MCHC 31.7 g/dL (31.0-37.0); MCV 86.6 fL (80.0-100.0); Mean Platelet Volume 7.3; Monocytes # (A) 0.5 k/uL (0-1.0); Monocytes % (A) 6 %; Neutrophils % (A) 72 %; Platelet Count 291 k/uL (150-450); RBC 4.28 m/uL (3.80-5.40); RDW 14.8 % (11.5-15.5); WBC 8.4 k/uL (3.8-10.6)
[2020-02-11 20:09] LABS: Urine Creatinine 49.4 mg/dL
[2020-02-11 20:12] LABS: African American GFR (CKD) 55.3 (60.0-200.0); Albumin 4.4 g/dL (3.80-4.90); Albumin/Globulin Ratio 1.91 (1.60-3.17); Anion Gap 10.4 mmol/L (4.00-12.00); BUN/Creat Ratio 33.33 Ratio (12.00-20.00); Calcium 9.7 mg/dL (8.7-10.3); Carbon Dioxide 26.6 mmol/L (21.6-31.8); Chol/HDL Ratio 3.82; Globulin 2.3 g/dL (1.6-3.3); LDL Cholesterol,Calculated 57.4 mg/dL (0.0-131.0); Magnesium 2.2 mg/dL (1.5-2.4); Non-African American GFR(CKD) 47.7 (60.0-200.0); Potassium 4.4 mmol/L (3.5-5.5); Total Bilirubin 0.5 mg/dL (0.3-1.2); Total Protein 6.7 g/dL (6.2-8.2); Uric Acid 11.3 mg/dL (2.9-7.7); VLDL Calculation 38.6 mg/dL (5.00-40.00)
[2020-02-11 21:16] LABS: Hemoglobin A1C 7.3 % (4.0-6.0)
== END | disposition home or self-care (01) ==
LOC: LABWHC1 12:01
PROVIDERS: ATTEND Internal Medicine Interventional Cardiology
DX: I12.0 Hypertensive chronic kidney disease with stage 5 chronic kidney disease or end stage renal disease (principal); E11.22 Type 2 diabetes mellitus with diabetic chronic kidney disease; N18.2 Chronic kidney disease, stage 2 (mild); E11.610 Type 2 diabetes mellitus with diabetic neuropathic arthropathy; E78.2 Mixed hyperlipidemia
CPT/HCPCS: 36415; 80053; 80061; 82043; 82570; 83036; 83735; 83970; 84550; 85025

== ENCOUNTER → 2020-02-13 | Outpatient (CLI) | payer BC ==
--- NOTE | 2020-02-13 16:52 | CT ---
EXAMINATION TYPE: CT chest wo con DATE OF EXAM: 02/13/2020 COMPARISON: 04/14/2019 HISTORY: 64-year-old female R91.1, follow-up lung nodule TECHNIQUE: Contiguous axial scanning of the chest without IV contrast. Coronal and sagittal reconstru ctions performed. CT DLP: 600.7 mGycm Automated exposure control for dose reduction was used. FINDINGS: Heart normal size without pericardial effusion. Extensive three-vessel coronary artery calcifications are present. Ectatic ascending aorta at 3.8 cm. Mild atherosclerotic arch calcifications with conventional vessel branching anatomy. No thoracic lymphadenopathy by CT size criteria. Mildly enlarged size right and left pulmonary arteries are 2.6 and 2.7 cm, respectively, suggesting u nderlying pulmonary hypertension. 4 mm posteromedial right lower lobe pulmonary nodule, axial image 38 not clearly seen on the eighth 09/23/2018 HRCT exam. The questioned anteromedial right upper lobe pulmonary nodule has not persisted. No consolidation or pleural effusion. Visualized upper abdomen shows no gross abnormality. Tiny superior splenule. Bones: Mild to moderate degenerative disc disease midthoracic spine. Accentuated lower thoracic kypho sis. IMPRESSION: 1. THE PREVIOUS RIGHT UPPER LOBE PULMONARY NODULE HAS RESOLVED. 2. NEW 4 MM RIGHT LOWER LOBE PULMONARY NODULE. SIX-MONTH FOLLOW-UP CT RECOMMENDED TO REASSESS. 3. CAD AND PULMONARY ARTERIAL HYPERTENSION.
== END | disposition home or self-care (01) ==
LOC: RADCTMAIN 15:54
PROVIDERS: ATTEND Internal Medicine Critical Care Medicine
DX: I25.10 Atherosclerotic heart disease of native coronary artery without angina pectoris (principal); I27.21 Secondary pulmonary arterial hypertension; R91.1 Solitary pulmonary nodule; Z91.040 Latex allergy status; Z88.0 Allergy status to penicillin; Z88.2 Allergy status to sulfonamides
CPT/HCPCS: 71250

== ENCOUNTER → 2020-06-30 | Outpatient (CLI) | payer BC ==
[2020-06-30 17:23] LABS: African American GFR (CKD) 61.4 (60.0-200.0); Albumin 4.5 g/dL (3.80-4.90); Albumin/Globulin Ratio 2.05 (1.60-3.17); Anion Gap 10.8 mmol/L (4.00-12.00); BUN/Creat Ratio 20.91 Ratio (12.00-20.00); Calcium 9.4 mg/dL (8.7-10.3); Carbon Dioxide 26.2 mmol/L (21.6-31.8); Chol/HDL Ratio 3.2; Globulin 2.2 g/dL (1.6-3.3); LDL Cholesterol,Calculated 57.8 mg/dL (0.0-131.0); Potassium 4.3 mmol/L (3.5-5.5); Total Bilirubin 0.4 mg/dL (0.3-1.2); Total Protein 6.7 g/dL (6.2-8.2); VLDL Calculation 30.2 mg/dL (5.00-40.00)
== END | disposition home or self-care (01) ==
LOC: LABWHC1 10:37
PROVIDERS: ATTEND Nurse Practitioner Adult Health
DX: E78.2 Mixed hyperlipidemia (principal); N18.9 Chronic kidney disease, unspecified
CPT/HCPCS: 36415; 80053; 80061

== ENCOUNTER → 2020-07-15 | Outpatient (CLI) | payer BC ==
[2020-07-15 12:12] LABS: Basophils # (A) 0.1 k/uL (0-0.2); Basophils % (A) 1 %; Eosinophils # (A) 0.4 k/uL (0-0.7); Eosinophils % (A) 4 %; HCT 38.8 % (34.0-46.0); HGB 12.8 gm/dL (11.4-16.0); Lymphocytes # (A) 1.5 k/uL (1.0-4.8); Lymphocytes % (A) 14 %; MCH 28.7 pg (25.0-35.0); MCHC 32.9 g/dL (31.0-37.0); MCV 87.3 fL (80.0-100.0); Mean Platelet Volume 7.2; Monocytes # (A) 0.6 k/uL (0-1.0); Monocytes % (A) 5 %; Neutrophils # (A) 7.8 k/uL (1.3-7.7); Neutrophils % (A) 74 %; Platelet Count 329 k/uL (150-450); RBC 4.45 m/uL (3.80-5.40); RDW 14.7 % (11.5-15.5); WBC 10.6 k/uL (3.8-10.6)
[2020-07-15 21:58] LABS: Hemoglobin A1C 7.4 % (4.0-6.0)
[2020-07-15 22:07] LABS: African American GFR (CKD) 42.2 (60.0-200.0); Albumin 4.6 g/dL (3.80-4.90); Albumin/Globulin Ratio 1.92 (1.60-3.17); BUN/Creat Ratio 40.67 Ratio (12.00-20.00); Calcium 10.3 mg/dL (8.7-10.3); Chol/HDL Ratio 3.66; Globulin 2.4 g/dL (1.6-3.3); LDL Cholesterol,Calculated 72.4 mg/dL (0.0-131.0); Non-African American GFR(CKD) 36.4 (60.0-200.0); Potassium 4.4 mmol/L (3.5-5.5); Total Bilirubin 0.3 mg/dL (0.2-1.2); VLDL Calculation 28.6 mg/dL (5.00-40.00)
== END | disposition home or self-care (01) ==
LOC: LABWHC1 10:36
PROVIDERS: ATTEND Internal Medicine Interventional Cardiology
DX: Z00.00 Encounter for general adult medical examination without abnormal findings (principal); E78.5 Hyperlipidemia, unspecified; I25.10 Atherosclerotic heart disease of native coronary artery without angina pectoris; Z13.0 Encounter for screening for diseases of the blood and blood-forming organs and certain disorders involving the immune mechanism
CPT/HCPCS: 36415; 80053; 80061; 83036; 85025

== ENCOUNTER → 2020-07-22 | Outpatient (CLI) | payer BC ==
[2020-07-22 18:51] LABS: African American GFR (CKD) 55.3 (60.0-200.0); Anion Gap 10.7 mmol/L (4.00-12.00); BUN/Creat Ratio 35.83 Ratio (12.00-20.00); Calcium 9.7 mg/dL (8.7-10.3); Carbon Dioxide 29.3 mmol/L (21.6-31.8); Non-African American GFR(CKD) 47.7 (60.0-200.0); Potassium 5.1 mmol/L (3.5-5.5)
== END | disposition home or self-care (01) ==
LOC: LABWHC1 11:22
PROVIDERS: ATTEND Nurse Practitioner Adult Health
DX: N18.9 Chronic kidney disease, unspecified (principal)
CPT/HCPCS: 36415; 80048

== ENCOUNTER → 2020-09-08 | Outpatient (CLI) | payer BC ==
[2020-09-08 11:29] LABS: Basophils # (A) 0.1 k/uL (0-0.2); Basophils % (A) 1 %; Eosinophils # (A) 0.3 k/uL (0-0.7); Eosinophils % (A) 3 %; HCT 38.1 % (34.0-46.0); HGB 11.9 gm/dL (11.4-16.0); Lymphocytes # (A) 1.6 k/uL (1.0-4.8); Lymphocytes % (A) 16 %; MCH 27.6 pg (25.0-35.0); MCHC 31.3 g/dL (31.0-37.0); Mean Platelet Volume 7.1; Monocytes # (A) 0.5 k/uL (0-1.0); Monocytes % (A) 5 %; Neutrophils # (A) 7.4 k/uL (1.3-7.7); Neutrophils % (A) 74 %; Platelet Count 329 k/uL (150-450); RBC 4.33 m/uL (3.80-5.40); RDW 15.2 % (11.5-15.5); WBC 10.1 k/uL (3.8-10.6)
[2020-09-08 15:28] LABS: African American GFR (CKD) 50.2 (60.0-200.0); Anion Gap 11.5 mmol/L (4.00-12.00); BUN/Creat Ratio 35.38 Ratio (12.00-20.00); Calcium 9.4 mg/dL (8.7-10.3); Carbon Dioxide 25.5 mmol/L (21.6-31.8); Magnesium 2.4 mg/dL (1.5-2.4); Non-African American GFR(CKD) 43.3 (60.0-200.0); Potassium 4.8 mmol/L (3.5-5.5); Uric Acid 9.9 mg/dL (2.9-7.7)
[2020-09-08 23:57] LABS: Urine Creatinine 45.9 mg/dL
== END | disposition home or self-care (01) ==
LOC: LABWHC1 10:49
PROVIDERS: ATTEND Internal Medicine Nephrology
DX: I12.9 Hypertensive chronic kidney disease with stage 1 through stage 4 chronic kidney disease, or unspecified chronic kidney disease (principal); E11.22 Type 2 diabetes mellitus with diabetic chronic kidney disease; N18.2 Chronic kidney disease, stage 2 (mild)
CPT/HCPCS: 36415; 80048; 82043; 82570; 83735; 83970; 84550; 85025

== ENCOUNTER → 2021-02-08 | Outpatient (CLI) | payer MEDICARE ==
[2021-02-08 13:45] LABS: Albumin 4.3 g/dL (3.5-5.0); Calcium 9.6 mg/dL (8.4-10.2); Potassium 4.6 mmol/L (3.5-5.1); Total Bilirubin 0.3 mg/dL (0.2-1.3); Total Protein 6.8 g/dL (6.3-8.2)
[2021-02-09 01:49] LABS: LDL Cholesterol,Calculated 63.2 mg/dL (0.0-131.0); VLDL Calculation 32.8 mg/dL (5.00-40.00)
--- NOTE | 2021-02-10 10:56 | MM ---
Reason for exam: screening (asymptomatic). Last mammogram was performed 1 year and 5 months ago. History: Patient is postmenopausal and had first child at age 32. Benign MG stereo VAD BX addl LT of the left breast, September 27, 2018. Benign MG stereo VAD BX LT of the left breast, September 27, 2018. Physical Findings: A clinical breast exam by your physician is recommended on an annual basis and results should be correlated with mammographic findings. MG 3D Screening Mammo W/Cad Bilateral CC and MLO view(s) were taken. Prior study comparison: September 02, 2019, bilateral MG 3d screening mammo w/cad. February 04, 2019, left breast MG 3d diag mammo w/cad LT. There are scattered fibroglandular densities. Previous mammotome biopsy in the left breast. Focal asymmetry right outer CC view. No significant changes when compared with prior studies. ASSESSMENT: Benign, BI-RAD 2 RECOMMENDATION: Routine screening mammogram of both breasts in 1 year.
== END | disposition home or self-care (01) ==
LOC: RADMAMWWP 09:50
PROVIDERS: ATTEND Family Medicine
DX: Z12.31 Encounter for screening mammogram for malignant neoplasm of breast (principal); Z78.0 Asymptomatic menopausal state
CPT/HCPCS: 77063; 77067; 80053; 80061; 83036

== ENCOUNTER → 2021-03-10 | Outpatient (CLI) | payer MEDICARE ==
[2021-03-10 18:20] LABS: Basophils # (A) 0.08 X 10*3/uL (0.00-0.10); Basophils % (A) 0.7 %; Eosinophils # (A) 0.44 X 10*3/uL (0.04-0.35); Eosinophils % (A) 3.9 %; HCT 37.4 % (37.2-46.3); HGB 11.8 g/dL (12.0-15.0); Lymphocytes % (A) 18.7 %; MCH 28.5 pg (27.0-32.0); MCHC 31.6 g/dL (32.0-37.0); MCV 90.3 fL (80.0-97.0); Mean Platelet Volume 10.9 fL (9.5-12.2); Monocytes # (A) 0.62 X 10*3/uL (0.20-1.00); Monocytes % (A) 5.5 %; Neutrophils # (A) 7.93 X 10*3/uL (1.80-7.70); Neutrophils % (A) 70.4 %; Platelet Count 314 X 10*3/uL (140-440); RBC 4.14 X 10*6/uL (4.10-5.20); RDW 14.2 % (11.5-14.5); WBC 11.26 X 10*3/uL (4.50-10.00)
[2021-03-10 22:15] LABS: Anion Gap 12.1 mmol/L (4.00-12.00); BUN/Creat Ratio 31.82 Ratio (12.00-20.00); Calcium 9.5 mg/dL (8.7-10.3); Carbon Dioxide 24.9 mmol/L (21.6-31.8); Non-African American GFR(CKD) 52.6 (60.0-200.0); Potassium 4.7 mmol/L (3.5-5.5)
== END | disposition home or self-care (01) ==
LOC: LABWHC1 12:00
PROVIDERS: ATTEND Internal Medicine Nephrology
DX: E11.22 Type 2 diabetes mellitus with diabetic chronic kidney disease (principal); I12.9 Hypertensive chronic kidney disease with stage 1 through stage 4 chronic kidney disease, or unspecified chronic kidney disease; N18.2 Chronic kidney disease, stage 2 (mild)
CPT/HCPCS: 36415; 80048; 82043; 82570; 83735; 83970; 84550; 85025

== ENCOUNTER → 2021-04-19 | Outpatient (CLI) | payer MEDICARE ==
[2021-04-19 15:10] LABS: Chol/HDL Ratio 3.68; LDL Cholesterol,Calculated 52.6 mg/dL (0.0-131.0); VLDL Calculation 38.4 mg/dL (5.00-40.00)
== END | disposition home or self-care (01) ==
LOC: LABWHC1 09:47
PROVIDERS: ATTEND Nurse Practitioner Adult Health
DX: E78.2 Mixed hyperlipidemia (principal)
CPT/HCPCS: 36415; 80061; 84450; 84460

== ENCOUNTER 2021-07-23 16:43 | Inpatient (IN) | payer MEDICARE ==
--- NOTE | 2021-07-23 18:17 | ED ---
General Adult HPI - General Chief complaint: Nausea/Vomiting/Diarrhea Stated complaint: Nausea/Vomiting Time Seen by Provider: 07/23/21 17:18 Source: patient, EMS, RN notes reviewed, old records reviewed Mode of arrival: EMS Limitations: no limitations - History of Present Illness Initial comments: Patient is a 65-year-old female with history of hypertension, diabetes, presenting to the emergency department via EMS with complaints of nausea, vomiting over the past 2 days. She is also especially shortness of breath. She denies history of asthma or COPD, she is not on home O2. She is no history of heart failure. She states yesterday she started experiencing nausea and vomiting has had many episodes throughout the night. She states she feels r eally weak. Her was diagnosed with RSV last weekend, they both had a negative covid test this week. She denies any fevers or chills. She has been having body aches and feels generalized weakness. No abdominal pains today. She denies history of blood clots. No recent travel. Patient did receive 4 mg Zofran and the EMS prior to arrival, she reports improvement in her nausea. She has no further complaints at this time. On arrival to the ER, she is 86% on room air, rest of vitals normal. - Related Data Home Medications Medication Instructions Recorded Confirmed Aspirin 81 mg PO DAILY 01/06/14 07/23/21 Atenolol 50 mg PO BID 01/06/14 07/23/21 INSULIN ASPART (NovoLOG) [NovoLOG 20 - 25 unit SQ AC-TID 07/23/18 07/23/21 (formulary)] Multivitamin with Iron 1 tab PO DAILY 02/15/19 07/23/21 [Multivitamins with Iron] Vit C/E/Zn/Coppr/Lutein/Zeaxan 1 tab PO DAILY 02/15/19 07/23/21 [Preservision Areds 2 Softgel] Atorvastatin [Lipitor] 20 mg PO HS 04/11/19 07/23/21 Escitalopram [Lexapro] 20 mg PO DAILY 04/11/19 07/23/21 Isosorbide Mononitrate ER [Imdur] 30 mg PO HS 04/11/19 07/23/21 Nitroglycerin Sl Tabs [Nitrostat] 0.4 mg SUBLINGUAL Q5M PRN 04/11/19 07/23/21 Ferrous Sulfate [Feosol] 325 mg PO DAILY 09/12/19 07/23/21 Insulin Glargine [Lantus] 60 unit SQ BID 09/12/19 07/23/21 Quinapril HCl [Accupril] 40 mg PO DAILY 09/12/19 07/23/21 Azithromycin [Zithromax Z-pack (6 See Taper PO DAILY 07/23/21 07/23/21 tabs)] Furosemide [Lasix] 160 mg PO DAILY 07/23/21 07/23/21 allopurinoL [Zyloprim] 200 mg PO DAILY 07/23/21 07/23/21 calcitrioL [Calcitriol] 0.25 mcg PO MOFR 07/23/21 07/23/21 glyBURIDE/METFORMIN HCL 2 tab PO BID 07/23/21 07/23/21 [Glucovance 5-500 mg] metOLazone [Zaroxolyn] 5 mg PO DAILY 07/23/21 07/23/21 Previous Rx's Medication Instructions Recorded amLODIPine [Norvasc] 10 mg PO DAILY #30 tab 04/16/19 Allergies Allergy/AdvReac Type Severity Reaction Status Date / Time Penicillins Allergy Dyspnea Verified 07/23/21 17:59 Sulfa (Sulfonamide Allergy Rash/Hives Verified 07/23/21 17:59 Antibiotics) adhesive AdvReac Rash/Hives Verified 07/23/21 17:59 Review of Systems ROS Statement: Those systems with pertinent positive or pertinent negative responses have been documented in the HPI. ROS Other: All systems not noted in ROS Statement are negative. Past Medical History Past Medical History: Chest Pain / Angina, Diabetes Mellitus, Hyperlipidemia, Hypertension, Skin Disorder Additional Past Medical History / Comment(s): SOB,ARTHRITIS History of Any Multi-Drug Resistant Organisms: None Reported Past Surgical History: Back Surgery, Section, Heart Catheterization With Stent, Hysterectomy, Orthopedic Surgery, Tonsillectomy Additional Past Surgical History / Comment(s): heart stents x2,BUNIONECTOMY BELLA, LEFT KNEE TORN MENISCUS, TRIGGER FINGER X2,Rods and screws to back,bella cataract, Total right knee replacement Past Anesthesia/Blood Transfusion Reactions: Motion Sickness, Postoperative Nausea & Vomiting (PONV) Additional Past Anesthesia/Blood Transfusion Reaction / Comment(s): no prob with prior blood transfusions Date of Last Stent Placement:: 2-21-18 Past Psychological History: Anxiety, Depression Smoking Status: Never smoker Past Alcohol Use History: None Reported Past Drug Use History: None Reported - Past Family History Father Family Medical History: Cancer, Deep Vein Thrombosis (DVT) Additional Family Medical History / Comment(s): lung cancer Mother Family Medical History: Cancer, Diabetes Mellitus Additional Family Medical History / Comment(s): heart disease Brother(s) Family Medical History: Pulmonary Embolus General Exam - General Exam Comments Initial Comments: GENERAL: Patient is well-developed and well-nourished. Patient is nontoxic and in mild distress. HEAD: Atraumatic, normocephalic. EYES: Pupils equal round and reactive to light, extraocular movements intact, sclera anicteric, conjunctiva are normal. Eyelids were unremarkable. ENT: TMs normal, nares patent, oropharynx clear without exudates. Moist mucous membranes. NECK: Normal range of motion, supple without lymphadenopathy or JVD. LUNGS: Patient having labored respirations, hard time completing a sentence without stopping to breathe. Breath sounds clear to auscultation bilaterally and equal. No wheezes rales or rhonchi. HEART: Regular rate and rhythm without murmurs, rubs or gallops. ABDOMEN: Soft, nontender, normoactive bowel sounds. No guarding, no rebound. No masses appreciated. MUSCULOSKELETAL: Normal extremities with adequate strength and normal range of motion, no pitting or edema. No clubbing or cyanosis. NEUROLOGICAL: Patient is alert and oriented x 3. Motor and sensory are also intact. Cranial nerves II through XII grossly intact. Symmetrical smile. Normal speech, normal gait. PSYCH: Normal mood, normal affect. SKIN: Warm, Dry, normal turgor, no rashes or lesions noted. Limitations: no limitations Course Vital Signs 07/23/21 07/23/21 16:45 20:09 Temperature 97.6 F Pulse Rate 80 77 Respiratory 16 16 Rate Blood Pressure 195/79 138/63 O2 Sat by Pulse 86 L 96 Oximetry EKG Findings - EKG Comments: EKG Findings:: Normal sinus rhythm, nonspecific ST and T-wave abnormalities, no signs of acute ST segment elevation. Similar to previous on 04/11/2019. Ventricular rate 75, KY interval 186, QT 380. Medical Decision Making - Medical Decision Making Patient is a 65-year-old female with history of diabetes, hypertension, presenting via EMS with complaints of nausea and vomiting since last night as well shortness of breath. She arrived 86% on room air, she is currently on 5 L, at 95%. She has no history of COPD, no heart failure history. She is not home O2, she does wear CPAP at night, has seen Dr. Jara in the past. Patient's white count is 20.3 with left shift, creatinine is 1.37 which is her baseline, lactic acid is 2.8. Troponin is negative, BNP is 683. Rapid Covid is negative. Chest x-ray is reading as no acute infiltrate. D-Dimer is pending. Patient will be admitted for hypoxia, PE versus pneumonia. We will start antibiotics prophylactically. Patient accepted by Dr. Wright. Case discussed with Dr. Mena. D-dimer came back elevated at 11, VQ scan was ordered for the morning and high- dose heparin was initiated. - Lab Data Result diagrams: 07/23/21 18:20 07/23/21 18:20 Lab Results 07/23/21 07/23/21 07/23/21 Range/Units 18:20 18:20 18:20 WBC 20.3 H (3.8-10.6) k/uL RBC 4.21 (3.80-5.40) m/uL Hgb 12.6 (11.4-16.0) gm/dL Hct 36.8 (34.0-46.0) % MCV 87.3 (80.0-100.0) fL MCH 29.9 (25.0-35.0) pg MCHC 34.3 (31.0-37.0) g/dL RDW 14.8 (11.5-15.5) % Plt Count 211 (150-450) k/uL MPV 10.0 Neutrophils % 95 % Lymphocytes % 2 % Monocytes % 3 % Eosinophils % 0 % Basophils % 0 % Neutrophils # 19.2 H (1.3-7.7) k/uL Lymphocytes # 0.4 L (1.0-4.8) k/uL Monocytes # 0.6 (0-1.0) k/uL Eosinophils # 0.0 (0-0.7) k/uL Basophils # 0.1 (0-0.2) k/uL PT (9.0-12.0) sec INR (<1.2) APTT (22.0-30.0) sec D-Dimer (<0.60) mg/L FEU Sodium 137 (137-145) mmol/L Potassium 4.3 (3.5-5.1) mmol/L Chloride 96 L (98-107) mmol/L Carbon Dioxide 29 (22-30) mmol/L Anion Gap 12 mmol/L BUN 46 H (7-17) mg/dL Creatinine 1.37 H (0.52-1.04) mg/dL Est GFR (CKD-EPI)AfAm 47 (>60 ml/min/1.73 sqM) Est GFR (CKD-EPI)NonAf 41 (>60 ml/min/1.73 sqM) Glucose 171 H (74-99) mg/dL Lactic Ac Sepsis Rflx Plasma Lactic Acid Mina 2.8 H* (0.7-2.0) mmol/L Calcium 9.6 (8.4-10.2) mg/dL Magnesium 2.0 (1.6-2.3) mg/dL Total Bilirubin 0.5 (0.2-1.3) mg/dL AST 30 (14-36) U/L ALT 30 (4-34) U/L Alkaline Phosphatase 91 (38-126) U/L Troponin I (0.000-0.034) ng/mL NT-Pro-B Natriuret Pep pg/mL Total Protein 7.6 (6.3-8.2) g/dL Albumin 4.5 (3.5-5.0) g/dL Coronavirus (PCR) (Not Detectd) 07/23/21 07/23/21 07/23/21 Range/Units 18:20 18:20 18:20 WBC (3.8-10.6) k/uL RBC (3.80-5.40) m/uL Hgb (11.4-16.0) gm/dL Hct (34.0-46.0) % MCV (80.0-100.0) fL MCH (25.0-35.0) pg MCHC (31.0-37.0) g/dL RDW (11.5-15.5) % Plt Count (150-450) k/uL MPV Neutrophils % % Lymphocytes % % Monocytes % % Eosinophils % % Basophils % % Neutrophils # (1.3-7.7) k/uL Lymphocytes # (1.0-4.8) k/uL Monocytes # (0-1.0) k/uL Eosinophils # (0-0.7) k/uL Basophils # (0-0.2) k/uL PT (9.0-12.0) sec INR (<1.2) APTT (22.0-30.0) sec D-Dimer (<0.60) mg/L FEU Sodium (137-145) mmol/L Potassium (3.5-5.1) mmol/L Chloride (98-107) mmol/L Carbon Dioxide (22-30) mmol/L Anion Gap mmol/L BUN (7-17) mg/dL Creatinine (0.52-1.04) mg/dL Est GFR (CKD-EPI)AfAm (>60 ml/min/1.73 sqM) Est GFR (CKD-EPI)NonAf (>60 ml/min/1.73 sqM) Glucose (74-99) mg/dL Lactic Ac Sepsis Rflx Plasma Lactic Acid Mina (0.7-2.0) mmol/L Calcium (8.4-10.2) mg/dL Magnesium (1.6-2.3) mg/dL Total Bilirubin (0.2-1.3) mg/dL AST (14-36) U/L ALT (4-34) U/L Alkaline Phosphatase (38-126) U/L Troponin I <0.012 (0.000-0.034) ng/mL NT-Pro-B Natriuret Pep 683 pg/mL Total Protein (6.3-8.2) g/dL Albumin (3.5-5.0) g/dL Coronavirus (PCR) Not Detected (Not Detectd) 07/23/21 07/23/21 07/23/21 Range/Units 18:48 18:54 18:54 WBC (3.8-10.6) k/uL RBC (3.80-5.40) m/uL Hgb (11.4-16.0) gm/dL Hct (34.0-46.0) % MCV (80.0-100.0) fL MCH (25.0-35.0) pg MCHC (31.0-37.0) g/dL RDW (11.5-15.5) % Plt Count (150-450) k/uL MPV Neutrophils % % Lymphocytes % % Monocytes % % Eosinophils % % Basophils % % Neutrophils # (1.3-7.7) k/uL Lymphocytes # (1.0-4.8) k/uL Monocytes # (0-1.0) k/uL Eosinophils # (0-0.7) k/uL Basophils # (0-0.2) k/uL PT 10.7 (9.0-12.0) sec INR 1.0 (<1.2) APTT 21.9 L (22.0-30.0) sec D-Dimer 11.20 H (<0.60) mg/L FEU Sodium (137-145) mmol/L Potassium (3.5-5.1) mmol/L Chloride (98-107) mmol/L Carbon Dioxide (22-30) mmol/L Anion Gap mmol/L BUN (7-17) mg/dL Creatinine (0.52-1.04) mg/dL Est GFR (CKD-EPI)AfAm (>60 ml/min/1.73 sqM) Est GFR (CKD-EPI)NonAf (>60 ml/min/1.73 sqM) Glucose (74-99) mg/dL Lactic Ac Sepsis Rflx Y Plasma Lactic Acid Mina (0.7-2.0) mmol/L Calcium (8.4-10.2) mg/dL Magnesium (1.6-2.3) mg/dL Total Bilirubin (0.2-1.3) mg/dL AST (14-36) U/L ALT (4-34) U/L Alkaline Phosphatase (38-126) U/L Troponin I (0.000-0.034) ng/mL NT-Pro-B Natriuret Pep pg/mL Total Protein (6.3-8.2) g/dL Albumin (3.5-5.0) g/dL Coronavirus (PCR) (Not Detectd) Critical Care Time Critical Care Time: Yes Total Critical Care Time: 35 (Patient presented hypoxic at 86% on room air, elevated white count, d-dimer came back elevated at 11, patient's kidney function is too low to perform CT to rule out PE, patient was started on high- dose heparin and will have a VQ scan tomorrow.) Disposition Clinical Impression: Dehydration, Hypoxia, Leukocytosis, Nausea & vomiting, Pulmonary embolism Disposition: ADMITTED IP TO THIS HOSP Condition: Stable Decision Date: 07/23/21 Decision Time: 19:18
--- NOTE | 2021-07-23 18:19 | XR ---
EXAMINATION TYPE: XR chest 2V DATE OF EXAM: 07/23/2021 COMPARISON: 09/16/2020 HISTORY: 65 years Female. STUDY INDICATION GIVEN: difficulty breathing . TECHNIQUE: AP and lateral chest radiographs IMPRESSION: There is prominence of the perihilar central vessels and peripheral vessels. There is mild interstiti al edema. There is minimal bibasilar subsegmental atelectasis. No definite focal airspace disease, pneumothorax or pleural effusion. Cardiac silhouette is prominent though stable in comparison to prior. No acute osseous abnormalities.
[2021-07-23 18:38] LABS: Basophils # (A) 0.1 k/uL (0-0.2); Basophils % (A) 0 %; Eosinophils % (A) 0 %; HCT 36.8 % (34.0-46.0); HGB 12.6 gm/dL (11.4-16.0); Lymphocytes # (A) 0.4 k/uL (1.0-4.8); Lymphocytes % (A) 2 %; MCH 29.9 pg (25.0-35.0); MCHC 34.3 g/dL (31.0-37.0); MCV 87.3 fL (80.0-100.0); Monocytes # (A) 0.6 k/uL (0-1.0); Monocytes % (A) 3 %; Neutrophils # (A) 19.2 k/uL (1.3-7.7); Neutrophils % (A) 95 %; Platelet Count 211 k/uL (150-450); RBC 4.21 m/uL (3.80-5.40); RDW 14.8 % (11.5-15.5); WBC 20.3 k/uL (3.8-10.6)
[2021-07-23 18:48] LABS: Albumin 4.5 g/dL (3.5-5.0); Calcium 9.6 mg/dL (8.4-10.2); Potassium 4.3 mmol/L (3.5-5.1); Total Bilirubin 0.5 mg/dL (0.2-1.3); Total Protein 7.6 g/dL (6.3-8.2)
[2021-07-23] MEDS ORDERED: PNEUMONIA PROTOCOL UTILIZED 1 EACH MISC PO PRN (19:14)
[2021-07-23] MEDS ORDERED: IPRATROPIUM-ALBUTEROL 3 ML NEB INHALATION PRN (19:14)
[2021-07-23 19:16] LABS: Prothrombin Time 10.7 sec (9.0-12.0)
[2021-07-23] MEDS ORDERED: ONDANSETRON 4 MG/2 ML VIAL IVP PRN (19:19)
[2021-07-23 19:34] LABS: Partial Thromboplastin Time 21.9 sec (22.0-30.0)
[2021-07-23] MEDS ORDERED: HEPARIN SODIUM 1,000 UN/ML (10ML VL) IV ONE (20:04)
[2021-07-23] MEDS ORDERED: HEPARIN SODIUM 1,000 UN/ML (10ML VL) IV PRN (20:04)
[2021-07-23] MEDS: SODIUM CHLORIDE 0.9% 1,000 ML IV SCH (20:17)
[2021-07-23] MEDS: HEPARIN SOD,PORK IN 0.45% NACL 25,000 UNIT in 0.45% NACL 1 250ML.BAG IV SCH (20:33)
[2021-07-23] MEDS ORDERED: NITROGLYCERIN SL TABS 0.4 MG TAB SUBLINGUAL PRN (22:16)
[2021-07-23 22:37] LABS: Glucose,Whole Blood 158 mg/dL (75-99)
[2021-07-23] MEDS: ATORVASTATIN 20 MG TAB PO SCH (22:58)
[2021-07-23] MEDS: ISOSORBIDE MONONITRATE ER 30 MG TAB.ER.24H PO SCH (22:58)
[2021-07-23] MEDS: ACETAMINOPHEN TAB 325 MG TAB PO PRN (22:58)
[2021-07-23] MEDS: atenoloL 50 MG TAB PO SCH (22:58)
[2021-07-23] MEDS: INSULIN DETEMIR (LEVEMIR) 100 UNIT/ML SYR SQ SCH (23:18)
[2021-07-24] LABS: Appearance,Urine Clear (Clear); Bacteria,Urine Occasional /hpf; Bilirubin,Urine Negative (Negative); Blood,Urine Negative (Negative); Color,Urine Yellow; Glucose,Urine (UA) Negative (Negative); Hyaline Casts,Urine 22 /lpf (0-2); Ketones,Urine Negative (Negative); Leukocyte Esterase,Urine Moderate (Negative); Mucus,Urine Rare /hpf; Nitrite,Urine Negative (Negative); PH, Urine 5.5 (5.0-8.0); Protein,Urine Negative (Negative); RBC,Urine 1 /hpf (0-5); Specific Gravity,Urine 1.011 (1.001-1.035); Squamous Epithelial Cell,Urine 1 /hpf (0-4); Urobilinogen,Urine <2.0 mg/dL (<2.0); WBC,Urine 25 /hpf (0-5)
[2021-07-24 04:43] LABS: Glucose,Whole Blood 97 mg/dL (75-99)
[2021-07-24 07:10] LABS: Glucose,Whole Blood 140 mg/dL (75-99)
[2021-07-24] MEDS ORDERED: INSULIN ASPART (NovoLOG) 100 UNIT/ML VIAL SQ SCH (07:30)
--- NOTE | 2021-07-24 08:03 | XR ---
EXAMINATION TYPE: XR chest 2V DATE OF EXAM: 07/24/2021 COMPARISON: 07/23/2021 HISTORY: 65-year-old female pneumonia TECHNIQUE: AP and lateral views FINDINGS: Heart borderline enlarged. Increased interstitial density, right greater than left compared to prior exam. No pleural effusion. IMPRESSION: Increasing interstitial density, right greater than left. Correlate to exclude atypical pneumonia or pulmonary vascular congestion.
[2021-07-24] MEDS: ACETAMINOPHEN TAB 325 MG TAB PO PRN ×3 (08:32→23:27)
[2021-07-24] MEDS: SODIUM CHLORIDE 0.9% 1,000 ML IV SCH ×2 (08:33→20:58)
[2021-07-24] MEDS: atenoloL 50 MG TAB PO SCH ×2 (08:34→20:42)
[2021-07-24] MEDS: amLODIPine 10 MG TAB PO SCH (08:34)
[2021-07-24] MEDS: lisinopriL 20 MG TAB PO SCH (08:34)
[2021-07-24] MEDS: glipiZIDE 10 MG TAB PO SCH ×2 (08:34→20:43)
[2021-07-24] MEDS: FERROUS SULFATE 325 MG TAB PO SCH (08:34)
[2021-07-24] MEDS: INSULIN ASPART (NovoLOG) 100 UNIT/ML VIAL SQ SCH ×3 (08:34→17:20)
[2021-07-24] MEDS: INSULIN DETEMIR (LEVEMIR) 100 UNIT/ML SYR SQ SCH ×2 (08:34→20:56)
[2021-07-24] MEDS: VIT A,C & E-LUTEIN-MINERALS 1 EACH TAB PO SCH (08:34)
[2021-07-24] MEDS: allopurinoL 100 MG TAB PO SCH (08:34)
[2021-07-24] MEDS: ESCITALOPRAM 20 MG TAB PO SCH (08:34)
[2021-07-24] MEDS: metOLazone 5 MG TAB PO SCH (08:35)
[2021-07-24] MEDS: metFORMIN 500 MG TAB PO SCH ×2 (08:35→20:43)
[2021-07-24] MEDS: FUROSEMIDE 80 MG TAB PO SCH (08:35)
[2021-07-24] MEDS: AZITHROMYCIN 250 MG TAB PO SCH (08:35)
[2021-07-24] MEDS: MULTIVITAMINS, THERA 1 EACH TAB PO SCH (08:35)
[2021-07-24] MEDS: ASPIRIN 81 MG PO SCH (08:35)
[2021-07-24 09:55] LABS: Basophils % (A) 0 %; Eosinophils # (A) 0.1 k/uL (0-0.7); Eosinophils % (A) 1 %; HCT 35.1 % (34.0-46.0); HGB 11.6 gm/dL (11.4-16.0); Lymphocytes # (A) 0.6 k/uL (1.0-4.8); Lymphocytes % (A) 5 %; MCH 29.5 pg (25.0-35.0); MCHC 33.1 g/dL (31.0-37.0); Mean Platelet Volume 7.4; Monocytes # (A) 0.6 k/uL (0-1.0); Monocytes % (A) 5 %; Neutrophils # (A) 10.5 k/uL (1.3-7.7); Neutrophils % (A) 88 %; Platelet Count 223 k/uL (150-450); RBC 3.94 m/uL (3.80-5.40); RDW 14.4 % (11.5-15.5)
[2021-07-24 11:00] LABS: Glucose,Whole Blood 90 mg/dL (75-99)
--- NOTE | 2021-07-24 11:09 | NM ---
EXAMINATION TYPE: NM pul vent and perfuse DATE OF EXAM: 07/24/2021 COMPARISON: 07/24/2021 HISTORY: 65-year-old female difficulty breathing, elevated d-dimer TECHNIQUE: Utilizing inhalation of 62 mCi Tc 99m DTPA aerosol and intravenous injection of 4.7 mCi o f Tc 99m MAA, ventilation and perfusion images are acquired post injection in multiple projections. FINDINGS: Unable to exclude a segmental perfusion defect in the left upper lobe (anterior projection) and also posterior right upper lobe (right lateral projection). IMPRESSION: Unable to exclude 2 sizable segmental perfusion defects in the upper lobes. This would suggest high p robability for pulmonary embolus. Treatment should be considered.
[2021-07-24] MEDS: HEPARIN SOD,PORK IN 0.45% NACL 25,000 UNIT in 0.45% NACL 1 250ML.BAG IV SCH ×2 (11:29→21:12)
--- NOTE | 2021-07-24 15:03 | P.HPIM ---
History of Present Illness H&P Date: 07/24/21 Chief Complaint: Short of breath This is a very pleasant 65-year-old patient of Dr. Quinonez. Chronic stable medical conditions include diabetes, hypertension, hyperlipidemia, osteoarthritis, CAD with stent, anxiety depression. Patient's was diagnosed with RSV infection about 2 weeks ago. About 4-5 days ago patient started off with cough with thick a rather severe. No phlegm. Also had fever and chills. Wheezing. Appetite has been okay. Patient also vomited. Tired rundown. Decided to come in. Patient has chronic lower extremity edema. Also uses CPAP. Patient accompanied by her . DC bronchodilators yesterday and IV ceftriaxone. Feeling a bit better this morning. Sitting at the edge of the bed. Did eat some breakfast. Review of systems: GEN.: Fever or chills tired EYES: None HEENT: None NECK: None RESPIRATORY: As above CARDIOVASCULAR: None GASTROINTESTINAL: None GENITOURINARY: None MUSCULOSKELETAL: Joint pains LYMPHATICS: None HEMATOLOGICAL: None PSYCHIATRY: None NEUROLOGICAL: None Past medical history to include: Diabetes, hypertension, hyperlipidemia, osteoarthritis, CAD with stent, depression, anxiety social history: . Does not smoke or drink alcohol. Family history: DVT lung cancer Physical examination: VITAL SIGNS: 97.6, 80, 18, 1 38 x 63, 86% room air upon presentation GENERAL: BMI 45.7, sitting at the edge bed, awake, slightly tired EYES: Pupils equal. Conjunctiva normal. HEENT: External appearance of nose and ears normal, oral cavity grossly normal. NECK: JVD not raised; masses not palpable. HEART: First and second heart sounds are normal; some edema. LUNGS: Respiratory rate increased, decreased breath sounds. ABDOMEN: Soft, nontender, liver spleen not palpable, no masses palpable. PSYCH: Alert and oriented x3; mood and affect normal. MUSCULAR skeletal: Evidence of OA in many joints NEUROLOGICAL: Cranial nerves grossly intact; no facial asymmetry, power and sensation grossly intact. LYMPHATICS: No lymph nodes palpable in the axilla and neck INVESTIGATIONS, reviewed in the clinical context: White count 20.3 hemoglobin 12.6 platelets 211 increased neutrophils potassium 4.3 BUN 46 creatinine 1.37 Lactic acid 2.8 Troponin I less than 0.012 proBNP 683 UA: Possibly contaminated Coronavirus [PCR]: Not detected EKG tracing personally reviewed by me-normal sinus rhythm. Nonspecific ST-T wave changes. Chest x-ray film personally reviewed by me-possible right basilar infiltrate Assessment and plan: -Possible right basilar pneumonia, suspect gram-negative organism. Patient had fever or chills cough at home. Elevated white count with a left shift IV ceftriaxone, Zithromax -Morbid obesity BMI 45.7 Weight loss measures and follow-up with PCP -Secondary bronchospasm secondary to pneumonia Albuterol nebulizer -Questionable PE. VQ scan results noted. We'll order DVT lower extremity. Pulmonary consultation for that opinion. IV heparin -IV heparin monitoring Follow PTT -Diabetes mellitus type 2 and oral hypoglycemic, chronically on insulin Follow Accu-Cheks. Sliding scale insulin. Glucotrol wants 5/502 tablets twice a day -Hyperlipidemia Lipitor 20 mg daily at bedtime -Essential hypertension Norvasc 10 mg daily Accupril 40 mg daily, -Primary osteoarthritis multiple toes bilaterally -CAD with stent Aspirin 81 mg daily, atenolol 50 mg twice a day, Lipitor 20 mg daily at bedtime -Anxiety depression otherwise specified Lexapro 20 mg daily -hyperuricemia Allopurinol 200 mg daily -Chronic kidney disease, stage III suspect diabetic nephropathy and hypertensive nephrosclerosis Follow renal function IV ceftriaxone, Zithromax. Albuterol 4 times a day. IV heparin. Pulmonary consultation. Doppler ultrasound lower extremity. Home medications resumed. Accu-Cheks. Care was discussed with the patient and the bedside. Given the complexity and severity of patient's condition expect the patient to be in the hospital at least for 2 overnights Past Medical History Past Medical History: Chest Pain / Angina, Diabetes Mellitus, Hyperlipidemia, Hypertension, Skin Disorder Additional Past Medical History / Comment(s): SOB,ARTHRITIS History of Any Multi-Drug Resistant Organisms: None Reported Past Surgical History: Back Surgery, Section, Heart Catheterization With Stent, Hysterectomy, Orthopedic Surgery, Tonsillectomy Additional Past Surgical History / Comment(s): heart stents x2,BUNIONECTOMY BELLA, LEFT KNEE TORN MENISCUS, TRIGGER FINGER X2,Rods and screws to back,bella cataract, Total right knee replacement Past Anesthesia/Blood Transfusion Reactions: Motion Sickness, Postoperative Nausea & Vomiting (PONV) Additional Past Anesthesia/Blood Transfusion Reaction / Comment(s): no prob with prior blood transfusions Date of Last Stent Placement:: 2-21-18 Past Psychological History: Anxiety, Depression Smoking Status: Never smoker Past Alcohol Use History: None Reported Past Drug Use History: None Reported - Past Family History Father Family Medical History: Cancer, Deep Vein Thrombosis (DVT) Additional Family Medical History / Comment(s): lung cancer Mother Family Medical History: Cancer, Diabetes Mellitus Additional Family Medical History / Comment(s): heart disease Brother(s) Family Medical History: Pulmonary Embolus Medications and Allergies Home Medications Medication Instructions Recorded Confirmed Type Aspirin 81 mg PO DAILY 01/06/14 07/23/21 History Atenolol 50 mg PO BID 01/06/14 07/23/21 History INSULIN ASPART (NovoLOG) [NovoLOG 20 - 25 unit SQ AC-TID 07/23/18 07/23/21 H istory (formulary)] Multivitamin with Iron 1 tab PO DAILY 02/15/19 07/23/21 History [Multivitamins with Iron] Vit C/E/Zn/Coppr/Lutein/Zeaxan 1 tab PO DAILY 02/15/19 07/23/21 History [Preservision Areds 2 Softgel] Atorvastatin [Lipitor] 20 mg PO HS 04/11/19 07/23/21 History Escitalopram [Lexapro] 20 mg PO DAILY 04/11/19 07/23/21 History Isosorbide Mononitrate ER [Imdur] 30 mg PO HS 04/11/19 07/23/21 History Nitroglycerin Sl Tabs [Nitrostat] 0.4 mg SUBLINGUAL Q5M PRN 04/11/19 07/23/21 History amLODIPine [Norvasc] 10 mg PO DAILY #30 tab 04/16/19 07/23/21 Rx Ferrous Sulfate [Feosol] 325 mg PO DAILY 09/12/19 07/23/21 History Insulin Glargine [Lantus] 60 unit SQ BID 09/12/19 07/23/21 History Quinapril HCl [Accupril] 40 mg PO DAILY 09/12/19 07/23/21 History Azithromycin [Zithromax Z-pack (6 See Taper PO DAILY 07/23/21 07/23/21 History tabs)] Furosemide [Lasix] 160 mg PO DAILY 07/23/21 07/23/21 History allopurinoL [Zyloprim] 200 mg PO DAILY 07/23/21 07/23/21 History calcitrioL [Calcitriol] 0.25 mcg PO MOFR 07/23/21 07/23/21 History glyBURIDE/METFORMIN HCL 2 tab PO BID 07/23/21 07/23/21 History [Glucovance 5-500 mg] metOLazone [Zaroxolyn] 5 mg PO DAILY 07/23/21 07/23/21 History Allergies Allergy/AdvReac Type Severity Reaction Status Date / Time Penicillins Allergy Dyspnea Verified 07/23/21 17:59 Sulfa (Sulfonamide Allergy Rash/Hives Verified 07/23/21 17:59 Antibiotics) adhesive AdvReac Rash/Hives Verified 07/23/21 17:59 Physical Exam Vitals: Vital Signs Temp Pulse Pulse Resp BP BP Pulse Ox 07/24/21 08:00 97.7 F 66 24 137/62 99 07/24/21 02:00 98.5 F 79 130/82 97 07/23/21 21:38 98.4 F 75 18 136/84 98 07/23/21 20:09 77 16 138/63 96 07/23/21 16:45 97.6 F 80 16 195/79 86 L Intake and Output 07/23/21 07/24/21 07/24/21 22:59 06:59 14:59 Intake Total 125.964 Balance 125.964 Intake: Intake, IV Titration 125.964 Amount Heparin Sod,Pork in 0.45% 125.964 NaCl 25,000 unit In 0.45 % NaCl 1 250ml.bag @ 18 UNITS/KG/HR 21.718 mls/hr IV .[id number] [facility] Rx#: [id number] Other: # Voids 1 Weight 120.656 kg Results CBC & Chem 7: 07/24/21 09:30 07/23/21 18:20 Labs: Abnormal Lab Results - Last 24 Hours (Table) 07/23/21 07/23/21 07/23/21 Range/Units 18:20 18:20 18:20 WBC 20.3 H (3.8-10.6) k/uL Neutrophils # 19.2 H (1.3-7.7) k/uL Lymphocytes # 0.4 L (1.0-4.8) k/uL APTT (22.0-30.0) sec D-Dimer (<0.60) mg/L FEU Chloride 96 L (98-107) mmol/L BUN 46 H (7-17) mg/dL Creatinine 1.37 H (0.52-1.04) mg/dL Glucose 171 H (74-99) mg/dL POC Glucose (mg/dL) (75-99) mg/dL Plasma Lactic Acid Mina 2.8 H* (0.7-2.0) mmol/L Ur Leukocyte Esterase (Negative) Urine WBC (0-5) /hpf Urine Bacteria (None) /hpf Hyaline Casts (0-2) /lpf Urine Mucus (None) /hpf 07/23/21 07/23/21 07/23/21 Range/Units 18:54 18:54 22:32 WBC (3.8-10.6) k/uL Neutrophils # (1.3-7.7) k/uL Lymphocytes # (1.0-4.8) k/uL APTT 21.9 L (22.0-30.0) sec D-Dimer 11.20 H (<0.60) mg/L FEU Chloride (98-107) mmol/L BUN (7-17) mg/dL Creatinine (0.52-1.04) mg/dL Glucose (74-99) mg/dL POC Glucose (mg/dL) 158 H (75-99) mg/dL Plasma Lactic Acid Mina (0.7-2.0) mmol/L Ur Leukocyte Esterase (Negative) Urine WBC (0-5) /hpf Urine Bacteria (None) /hpf Hyaline Casts (0-2) /lpf Urine Mucus (None) /hpf 07/23/21 07/24/21 07/24/21 Range/Units 23:24 01:38 07:09 WBC (3.8-10.6) k/uL Neutrophils # (1.3-7.7) k/uL Lymphocytes # (1.0-4.8) k/uL APTT 72.4 H (22.0-30.0) sec D-Dimer (<0.60) mg/L FEU Chloride (98-107) mmol/L BUN (7-17) mg/dL Creatinine (0.52-1.04) mg/dL Glucose (74-99) mg/dL POC Glucose (mg/dL) 140 H (75-99) mg/dL Plasma Lactic Acid Mina (0.7-2.0) mmol/L Ur Leukocyte Esterase Moderate H (Negative) Urine WBC 25 H (0-5) /hpf Urine Bacteria Occasional H (None) /hpf Hyaline Casts 22 H (0-2) /lpf Urine Mucus Rare H (None) /hpf 07/24/21 07/24/21 Range/Units 09:30 09:30 WBC 12.0 H (3.8-10.6) k/uL Neutrophils # 10.5 H (1.3-7.7) k/uL Lymphocytes # 0.6 L (1.0-4.8) k/uL APTT 34.5 H (22.0-30.0) sec D-Dimer (<0.60) mg/L FEU Chloride (98-107) mmol/L BUN (7-17) mg/dL Creatinine (0.52-1.04) mg/dL Glucose (74-99) mg/dL POC Glucose (mg/dL) (75-99) mg/dL Plasma Lactic Acid Mina (0.7-2.0) mmol/L Ur Leukocyte Esterase (Negative) Urine WBC (0-5) /hpf Urine Bacteria (None) /hpf Hyaline Casts (0-2) /lpf Urine Mucus (None) /hpf Microbiology - Last 24 Hours (Table) 07/23/21 23:24 Urine Culture - Preliminary Urine,Voided Thrombosis Risk Factor Assmnt - Choose All That Apply Each Risk Factor Represents 2 Points: Age 61-74 years Thrombosis Risk Factor Assessment Total Risk Factor Score: 2 Thrombosis Risk Factor Assessment Level: Low Risk
--- NOTE | 2021-07-24 15:25 | US ---
EXAMINATION TYPE: US venous doppler duplex LE BI DATE OF EXAM: 07/24/2021 2:34 PM COMPARISON: NONE CLINICAL HISTORY: r/o DVT. leg swelling for 20 yrs, no h/o dvt, pending if she has PE, already on hep aldo SIDE PERFORMED: Bilateral TECHNIQUE: The lower extremity deep venous system is examined utilizing real time linear array sonog noel with graded compression, doppler sonography and color-flow sonography. VESSELS IMAGED: Common Femoral Vein Deep Femoral Vein Greater Saphenous Vein * Femoral Vein Popliteal Vein Small Saphenous Vein * Proximal Calf Veins (* superficial vessels) Right Leg: Negative for DVT Left Leg: Negative for DVT IMPRESSION: No evidence of deep vein thrombosis in both legs.
[2021-07-24] MEDS: ALBUTEROL NEBULIZED 2.5 MG/3 ML INHALATION SCH ×2 (16:28→20:56)
[2021-07-24 16:58] LABS: Glucose,Whole Blood 192 mg/dL (75-99)
[2021-07-24 20:25] LABS: Glucose,Whole Blood 206 mg/dL (75-99)
[2021-07-24] MEDS: ISOSORBIDE MONONITRATE ER 30 MG TAB.ER.24H PO SCH (20:42)
[2021-07-24] MEDS: ATORVASTATIN 20 MG TAB PO SCH (20:43)
[2021-07-25 00:32] LABS: Glucose,Whole Blood 108 mg/dL (75-99)
[2021-07-25 05:23] LABS: Glucose,Whole Blood 94 mg/dL (75-99)
[2021-07-25] MEDS: HEPARIN SOD,PORK IN 0.45% NACL 25,000 UNIT in 0.45% NACL 1 250ML.BAG IV SCH ×2 (06:54→14:57)
[2021-07-25 07:03] LABS: Glucose,Whole Blood 112 mg/dL (75-99)
[2021-07-25] MEDS: INSULIN ASPART (NovoLOG) 100 UNIT/ML VIAL SQ SCH ×3 (07:11→17:18)
[2021-07-25] MEDS: ACETAMINOPHEN TAB 325 MG TAB PO PRN ×2 (07:25→15:11)
[2021-07-25] MEDS: lisinopriL 20 MG TAB PO SCH (07:26)
[2021-07-25] MEDS: allopurinoL 100 MG TAB PO SCH (07:26)
[2021-07-25] MEDS: glipiZIDE 10 MG TAB PO SCH ×2 (07:26→20:54)
[2021-07-25] MEDS: atenoloL 50 MG TAB PO SCH ×2 (07:26→20:53)
[2021-07-25] MEDS: ESCITALOPRAM 20 MG TAB PO SCH (07:26)
[2021-07-25] MEDS: metFORMIN 500 MG TAB PO SCH ×2 (07:26→20:54)
[2021-07-25] MEDS: MULTIVITAMINS, THERA 1 EACH TAB PO SCH (07:26)
[2021-07-25] MEDS: FUROSEMIDE 80 MG TAB PO SCH (07:27)
[2021-07-25] MEDS: INSULIN DETEMIR (LEVEMIR) 100 UNIT/ML SYR SQ SCH ×2 (07:27→20:54)
[2021-07-25] MEDS: amLODIPine 10 MG TAB PO SCH (07:27)
[2021-07-25] MEDS: FERROUS SULFATE 325 MG TAB PO SCH (07:27)
[2021-07-25] MEDS: ASPIRIN 81 MG PO SCH (07:27)
[2021-07-25] MEDS: AZITHROMYCIN 250 MG TAB PO SCH (07:28)
[2021-07-25] MEDS: metOLazone 5 MG TAB PO SCH (07:28)
[2021-07-25] MEDS: VIT A,C & E-LUTEIN-MINERALS 1 EACH TAB PO SCH (07:28)
[2021-07-25 07:34] LABS: Basophils % (A) 0 %; Eosinophils # (A) 0.4 k/uL (0-0.7); Eosinophils % (A) 4 %; HCT 33.1 % (34.0-46.0); HGB 10.9 gm/dL (11.4-16.0); Lymphocytes # (A) 1.1 k/uL (1.0-4.8); Lymphocytes % (A) 11 %; MCH 29.5 pg (25.0-35.0); MCV 89.4 fL (80.0-100.0); Mean Platelet Volume 7.6; Monocytes # (A) 0.6 k/uL (0-1.0); Monocytes % (A) 6 %; Neutrophils # (A) 7.5 k/uL (1.3-7.7); Neutrophils % (A) 76 %; Platelet Count 209 k/uL (150-450); RBC 3.71 m/uL (3.80-5.40); RDW 14.4 % (11.5-15.5); WBC 9.9 k/uL (3.8-10.6)
[2021-07-25] MEDS: ALBUTEROL NEBULIZED 2.5 MG/3 ML INHALATION SCH ×4 (07:34→19:15)
[2021-07-25 08:10] LABS: African American GFR (CKD) 53 (>60 ml/min/1.73 sqM); Anion Gap 8 mmol/L; Blood Urea Nitrogen 46 mg/dL (7-17); Calcium 8.7 mg/dL (8.4-10.2); Carbon Dioxide 26 mmol/L (22-30); Chloride 103 mmol/L (98-107); Glucose 108 mg/dL (74-99); Non-African American GFR(CKD) 46 (>60 ml/min/1.73 sqM); Potassium 4.2 mmol/L (3.5-5.1); Sodium 137 mmol/L (137-145)
[2021-07-25 09:40] LABS: Glucose,Whole Blood 167 mg/dL (75-99)
[2021-07-25 11:43] LABS: Glucose,Whole Blood 114 mg/dL (75-99)
--- NOTE | 2021-07-25 11:45 | P.PN ---
Progress Note - Text Progress Note Date: 07/25/21 Chief Complaint: Short of breath This is a very pleasant 65-year-old patient of Dr. Quinonez. Chronic stable medical conditions include diabetes, hypertension, hyperlipidemia, osteoarthritis, CAD with stent, anxiety depression. Patient's was diagnosed with RSV inf ection about 2 weeks ago. About 4-5 days ago patient started off with cough with thick a rather severe. No phlegm. Also had fever and chills. Wheezing. Appetite has been okay. Patient also vomited. Tired rundown. Decided to come in. Patient has chronic lower extremity edema. Also uses CPAP. Patient accompanied by her . DC bronchodilators yesterday and IV ceftriaxone. Feeling a bit better this morning. Sitting at the edge of the bed. Did eat some breakfast. Admitted with pneumonia, secondary bronchospasm. Started on bronchodilators. IV ceftriaxone. July 25: Breathing better. Does still of cough on laying down. Eating better. Pulmonary consulted. Sitting up in a chair. present. Doppler ultrasound negative for DVT Review of systems: Was done for constitutional, cardiovascular, GI, pulmonary. relevant finding as above Active Medications Acetaminophen (Acetaminophen Tab 325 Mg Tab) 650 mg PO Q6HR PRN PRN Reason: Fever and/ or Pain Last Admin: 07/25/21 07:25 Dose: 650 mg Documented by: Albuterol Sulfate (Albuterol Nebulized 2.5 Mg/3 Ml) 2.5 mg INHALATION RT-QID [facility] Last Admin: 07/25/21 11:24 Dose: 2.5 mg Documented by: Albuterol/Ipratropium (Ipratropium-Albuterol 3 Ml Neb) 3 ml INHALATION RT-Q4H PRN PRN Reason: shortness of breath Allopurinol (Allopurinol 100 Mg Tab) 200 mg PO DAILY [facility] Last Admin: 07/25/21 07:26 Dose: 200 mg Documented by: Amlodipine Besylate (Amlodipine 10 Mg Tab) 10 mg PO DAILY [facility] Last Admin: 07/25/21 07:27 Dose: 10 mg Documented by: Aspirin (Aspirin 81 Mg) 81 mg PO DAILY [facility] Last Admin: 07/25/21 07:27 Dose: 81 mg Documented by: Atenolol (Atenolol 50 Mg Tab) 50 mg PO BID [facility] Last Admin: 07/25/21 07:26 Dose: 50 mg Documented by: Atorvastatin Calcium (Atorvastatin 20 Mg Tab) 20 mg PO HS [facility] Last Admin: 07/24/21 20:43 Dose: 20 mg Documented by: Azithromycin (Azithromycin 250 Mg Tab) 250 mg PO DAILY [facility] Last Admin: 07/25/21 07:28 Dose: 250 mg Documented by: Calcitriol (Calcitriol 0.25 Mcg Cap) 0.25 mcg PO MoFr@0900 [facility] Last Admin: 07/23/21 22:56 Dose: Not Given Documented by: Escitalopram Oxalate (Escitalopram 20 Mg Tab) 20 mg PO DAILY [facility] Last Admin: 07/25/21 07:26 Dose: 20 mg Documented by: Ferrous Sulfate (Ferrous Sulfate 325 Mg Tab) 325 mg PO DAILY [facility] Last Admin: 07/25/21 07:27 Dose: 325 mg Documented by: Furosemide (Furosemide 80 Mg Tab) 160 mg PO DAILY [facility] Last Admin: 07/25/21 07:27 Dose: 160 mg Documented by: Glipizide (Glipizide 10 Mg Tab) 20 mg PO BID [facility] Last Admin: 07/25/21 07:26 Dose: 20 mg Documented by: Heparin Sodium (Porcine) (Heparin Sodium 1,000 Un/Ml (10ml Vl)) 0 unit IV PER PROTOCOL PRN; Protocol PRN Reason: Low PTT Heparin Sodium/Sodium Chloride (25,000 unit/ Sodium Chloride) 250 mls @ 21.718 mls/hr IV .[id number] [facility]; Protocol Last Admin: 07/25/21 06:54 Dose: 20 units/kg/hr, 24.131 mls/hr Documented by: Ceftriaxone Sodium 1 gm/ (Sodium Chloride) 50 mls @ 100 mls/hr IVPB Q12HR [facility] Last Admin: 07/25/21 07:28 Dose: 100 mls/hr Documented by: Insulin Aspart (Insulin Aspart (Novolog) 100 Unit/Ml Vial) 0 unit SQ AC-TID [facility]; Protocol Last Admin: 07/25/21 07:11 Dose: Not Given Documented by: Insulin Detemir (Insulin Detemir (Levemir) 100 Unit/Ml Syr) 60 unit SQ BID [facility] Last Admin: 07/25/21 07:27 Dose: 60 unit Documented by: Isosorbide Mononitrate (Isosorbide Mononitrate Er 30 Mg Tab.Er.24h) 30 mg PO [facility] Last Admin: 07/24/21 20:42 Dose: 30 mg Documented by: Lisinopril (Lisinopril 20 Mg Tab) 40 mg PO DAILY [facility] Last Admin: 07/25/21 07:26 Dose: 40 mg Documented by: Metformin HCl (Metformin 500 Mg Tab) 1,000 mg PO BID [facility] Last Admin: 07/25/21 07:26 Dose: 1,000 mg Documented by: Metolazone (Metolazone 5 Mg Tab) 5 mg PO DAILY [facility] Last Admin: 07/25/21 07:28 Dose: 5 mg Documented by: Miscellaneous Information (Pneumonia Protocol Utilized 1 Each Misc) 1 each PO ONCE PRN PRN Reason: Per Protocol Multivitamins (Multivitamins, Thera 1 Each Tab) 1 each PO DAILY [facility] Last Admin: 07/25/21 07:26 Dose: 1 each Documented by: Multivitamins/Minerals (Vit A,C & V-Vserkr-Sdbssqlf 1 Each Tab) 1 each PO DAILY [facility] Last Admin: 07/25/21 07:28 Dose: 1 each Documented by: Nitroglycerin (Nitroglycerin Sl Tabs 0.4 Mg Tab) 0.4 mg SUBLINGUAL Q5M PRN PRN Reason: Chest Pain Ondansetron HCl (Ondansetron 4 Mg/2 Ml Vial) 4 mg IVP Q8H PRN PRN Reason: Nausea Past medical history to include: Diabetes, hypertension, hyperlipidemia, osteoarthritis, CAD with stent, depression, anxiety social history: . Does not smoke or drink alcohol. Family history: DVT lung cancer Physical examination: VITAL SIGNS: 97.5, 68, 18, 117/51, 98% on 4 L GENERAL: Up in a chair. Breathing better. EYES: Pupils equal. Conjunctiva normal. HEENT: External appearance of nose and ears normal, oral cavity grossly normal. NECK: JVD not raised; masses not palpable. HEART: First and second heart sounds are normal; some edema. LUNGS: Respiratory rate increased, decreased breath sounds. ABDOMEN: Soft, nontender, liver spleen not palpable, no masses palpable. PSYCH: Alert and oriented x3; mood and affect normal. MUSCULAR skeletal: Evidence of OA in many joints INVESTIGATIONS, reviewed in the clinical context: July 25: White count 9.9 hemoglobin 10.9 platelets 209 potassium 4.2 BUN 46 creatinine 1.24 Doppler ultrasound lower extremity: Negative for DVT White count 20.3 hemoglobin 12.6 platelets 211 increased neutrophils potassium 4.3 BUN 46 creatinine 1.37 Lactic acid 2.8 Troponin I less than 0.012 proBNP 683 UA: Possibly contaminated Coronavirus [PCR]: Not detected EKG tracing personally reviewed by me-normal sinus rhythm. Nonspecific ST-T wave changes. Chest x-ray film personally reviewed by me-possible right basilar infiltrate Assessment and plan: -Possible right basilar pneumonia, suspect gram-negative organism. Patient had fever or chills cough at home. Elevated white count with a left shift IV ceftriaxone, Zithromax -Morbid obesity BMI 45.7 Weight loss measures and follow-up with PCP -Secondary bronchospasm secondary to pneumonia Albuterol nebulizer -Questionable PE. VQ scan results noted. Doppler ultrasound negative lower extremity.. Pulmonary consultation for that opinion. IV heparin -IV heparin monitoring Follow PTT -Diabetes mellitus type 2 and oral hypoglycemic, chronically on insulin Follow Accu-Cheks. Sliding scale insulin. Glucotrol wants 5/502 tablets twice a day -Hyperlipidemia Lipitor 20 mg daily at bedtime -Essential hypertension Norvasc 10 mg daily Accupril 40 mg daily, -Primary osteoarthritis multiple toes bilaterally -CAD with stent Aspirin 81 mg daily, atenolol 50 mg twice a day, Lipitor 20 mg daily at bedtime -Anxiety depression otherwise specified Lexapro 20 mg daily -hyperuricemia Allopurinol 200 mg daily -Chronic kidney disease, stage III suspect diabetic nephropathy and hypertensive nephrosclerosis Follow renal function Awaiting pulmonary input. Discussed with patient. DC IV fluids. On IV heparin. Hopefully discharge tomorrow if continues to improve.
[2021-07-25] MEDS: SODIUM CHLORIDE 0.9% 1,000 ML IV SCH (11:49)
--- NOTE | 2021-07-25 16:24 | P.CNPUL ---
History of Present Illness Consult date: 07/25/21 Requesting physician: Rbob Wright Reason for consult: dyspnea, pulmonary embolism Chief complaint: Shortness of breath, cough, vomiting, chills History of present illness: This is a 65-year-old female patient who has a history of morbid obesity, obstructive sleep apnea utilizing CPAP in the outpatient setting, diabetes mellitus, coronary artery disease with previous 3 stents placed, congestive heart failure. She presented here on 07/23/2021 with a one-week history of shortness of breath, cough, congestion. She was coughing so hard she was vomiting. She had chills. Chest x-ray showed mild interstitial edema. Minimal bibasilar segmental atelectasis. No focal airspace disease. No pneumothorax. No pleural effusions. She was hypoxemic and required oxygen currently at 3 L/m per nasal cannula. VQ scan revealed perfusion defects in the upper lobes. Suggestive of high probability for pulmonary embolus. We are consulted for the same. She is seen today on the regular medical floor. Sitting up at the bedside. Awake and alert in no acute distress. No worsening shortness of b reath, cough or congestion. Dopplers of lower extremities were negative for DVT. Blood culture revealed no growth. Urine culture revealed no growth. Sputum culture pending. White count 9.9. Hemoglobin 10.9. Sodium 137. Potassium 4.2. Creatinine 1.24. Glucose 108. She was initiated on a heparin drip. She is on DuoNeb inhalations, antibiotics in form of ceftriaxone and azithromycin. She remains on oral diuretics. Review of Systems REVIEW OF SYSTEMS: CONSTITUTIONAL: Positive for chills. Denies any recent significant weight loss or weight gain. EYES: Denies change in vision. EARS, NOSE, MOUTH, THROAT: Denies headaches, denies sore throat. CARDIOVASCULAR: Denies chest pain, palpitations or syncopal episodes. RESPIRATORY: Positive for shortness of breath, cough, congestion no hemoptysis. GASTROINTESTINAL: Positive for nausea, vomiting GENITOURINARY: Denies hematuria, denies infections. MUSKULOSKELETAL: Denies pain, denies swelling. INTEGUMENTARY: Denies rash, denies eczema. NEUROLOGICAL: Denies recent memory loss, no recent seizure activity. PSYCHIATRIC: Denies anxiety, denies depression. HEMATOLOGIC/LYMPHATIC: Denies anemia, denies enlarged lymph nodes. Past Medical History Past Medical History: Chest Pain / Angina, Diabetes Mellitus, Hyperlipidemia, Hypertension, Skin Disorder Additional Past Medical History / Comment(s): SOB,ARTHRITIS History of Any Multi-Drug Resistant Organisms: None Reported Past Surgical History: Back Surgery, Section, Heart Catheterization With Stent, Hysterectomy, Orthopedic Surgery, Tonsillectomy Additional Past Surgical History / Comment(s): heart stents x2,BUNIONECTOMY BELLA, LEFT KNEE TORN MENISCUS, TRIGGER FINGER X2,Rods and screws to back,bella cataract, Total right knee replacement Past Anesthesia/Blood Transfusion Reactions: Motion Sickness, Postoperative Nausea & Vomiting (PONV) Additional Past Anesthesia/Blood Transfusion Reaction / Comment(s): no prob with prior blood transfusions Date of Last Stent Placement:: 10-25-17 Past Psychological History: Anxiety, Depression Smoking Status: Never smoker Past Alcohol Use History: None Reported Past Drug Use History: None Reported - Past Family History Father Family Medical History: Cancer, Deep Vein Thrombosis (DVT) Additional Family Medical History / Comment(s): lung cancer Mother Family Medical History: Cancer, Diabetes Mellitus Additional Family Medical History / Comment(s): heart disease Brother(s) Family Medical History: Pulmonary Embolus Medications and Allergies Home Medications Medication Instructions Recorded Confirmed Type Aspirin 81 mg PO DAILY 01/06/14 07/23/21 History Atenolol 50 mg PO BID 01/06/14 07/23/21 History INSULIN ASPART (NovoLOG) [NovoLOG 20 - 25 unit SQ AC-TID 07/23/18 07/23/21 History (formulary)] Multivitamin with Iron 1 tab PO DAILY 02/15/19 07/23/21 History [Multivitamins with Iron] Vit C/E/Zn/Coppr/Lutein/Zeaxan 1 tab PO DAILY 02/15/19 07/23/21 History [Preservision Areds 2 Softgel] Atorvastatin [Lipitor] 20 mg PO HS 04/11/19 07/23/21 History Escitalopram [Lexapro] 20 mg PO DAILY 04/11/19 07/23/21 History Isosorbide Mononitrate ER [Imdur] 30 mg PO HS 04/11/19 07/23/21 History Nitroglycerin Sl Tabs [Nitrostat] 0.4 mg SUBLINGUAL Q5M PRN 04/11/19 07/23/21 History amLODIPine [Norvasc] 10 mg PO DAILY #30 tab 04/16/19 07/23/21 Rx Ferrous Sulfate [Feosol] 325 mg PO DAILY 09/12/19 07/23/21 History Insulin Glargine [Lantus] 60 unit SQ BID 09/12/19 07/23/21 History Quinapril HCl [Accupril] 40 mg PO DAILY 09/12/19 07/23/21 History Azithromycin [Zithromax Z-pack (6 See Taper PO DAILY 07/23/21 07/23/21 History tabs)] Furosemide [Lasix] 160 mg PO DAILY 07/23/21 07/23/21 History allopurinoL [Zyloprim] 200 mg PO DAILY 07/23/21 07/23/21 History calcitrioL [Calcitriol] 0.25 mcg PO MOFR 07/23/21 07/23/21 History glyBURIDE/METFORMIN HCL 2 tab PO BID 07/23/21 07/23/21 History [Glucovance 5-500 mg] metOLazone [Zaroxolyn] 5 mg PO DAILY 07/23/21 07/23/21 History Allergies Allergy/AdvReac Type Severity Reaction Status Date / Time Penicillins Allergy Dyspnea Verified 07/23/21 17:59 Sulfa (Sulfonamide Allergy Rash/Hives Verified 07/23/21 17:59 Antibiotics) adhesive AdvReac Rash/Hives Verified 07/23/21 17:59 Physical Exam Vitals: Vital Signs Temp Pulse Pulse Resp BP Pulse Ox 07/25/21 15:36 78 07/25/21 15:24 74 07/25/21 14:00 98.3 F 64 18 143/64 99 07/25/21 11:39 70 07/25/21 11:24 68 07/25/21 07:22 97.5 F L 61 18 117/51 98 07/25/21 05:07 98.3 F 73 20 142/44 98 07/25/21 01:36 98.2 F 61 21 134/66 98 07/24/21 20:57 64 07/24/21 20:00 68 18 07/24/21 19:17 99.4 F 68 18 162/76 99 07/24/21 19:14 96 07/24/21 16:39 67 07/24/21 16:34 98 07/24/21 16:29 67 Intake and Output 07/25/21 07/25/21 07/25/21 06:59 14:59 22:59 Intake Total 244.206 194.255 Balance 244.206 194.255 Intake: Intake, IV Titration 244.206 194.255 Amount Heparin Sod,Pork in 0.45% 244.206 194.255 NaCl 25,000 unit In 0.45 % NaCl 1 250ml.bag @ 18 UNITS/KG/HR 21.718 mls/hr IV .[id number] [facility] Rx#: [id number] Other: Voiding Method Toilet # Voids 3 # Bowel Movements 0 GENERAL EXAM: Alert, obese 65-year-old female patient, on 3 L nasal cannula, comfortable in no apparent distress. HEAD: Normocephalic. EYES: Normal reaction of pupils, equal size. NOSE: Clear with pink turbinates. THROAT: No erythema or exudates. NECK: No masses, no JVD. CHEST: No chest wall deformity. LUNGS: Equal air entry with no crackles, wheeze, rhonchi or dullness. CVS: S1 and S2 normal with no audible murmur, regular rhythm. ABDOMEN: No hepatosplenomegaly, normal bowel sounds, no guarding or rigidity. SPINE: No scoliosis or deformity SKIN: No rashes CENTRAL NERVOUS SYSTEM: No focal deficits, tone is normal in all 4 extremities. EXTREMITIES: There is no peripheral edema. No clubbing, no cyanosis. Periph eral pulses are intact. Results - Laboratory Findings CBC and BMP: 07/25/21 07:15 07/25/21 07:15 PT/INR, D-dimer PT 10.7 sec (9.0-12.0) 07/23/21 18:54 INR 1.0 (<1.2) 07/23/21 18:54 D-Dimer 11.20 mg/L FEU (<0.60) H 07/23/21 18:54 Abnormal lab findings: Abnormal Labs 07/23/21 07/23/21 07/23/21 18:20 18:20 18:20 WBC 20.3 H RBC Hgb Hct Neutrophils # 19.2 H Lymphocytes # 0.4 L APTT D-Dimer Chloride 96 L BUN 46 H Creatinine 1.37 H Glucose 171 H POC Glucose (mg/dL) Plasma Lactic Acid Mina 2.8 H* Ur Leukocyte Esterase Urine WBC Urine Bacteria Hyaline Casts Urine Mucus 07/23/21 07/23/21 07/23/21 18:54 18:54 22:32 WBC RBC Hgb Hct Neutrophils # Lymphocytes # APTT 21.9 L D-Dimer 11.20 H Chloride BUN Creatinine Glucose POC Glucose (mg/dL) 158 H Plasma Lactic Acid Mina Ur Leukocyte Esterase Urine WBC Urine Bacteria Hyaline Casts Urine Mucus 07/23/21 07/24/21 07/24/21 23:24 01:38 07:09 WBC RBC Hgb Hct Neutrophils # Lymphocytes # APTT 72.4 H D-Dimer Chloride BUN Creatinine Glucose POC Glucose (mg/dL) 140 H Plasma Lactic Acid Mina Ur Leukocyte Esterase Moderate H Urine WBC 25 H Urine Bacteria Occasional H Hyaline Casts 22 H Urine Mucus Rare H 07/24/21 07/24/21 07/24/21 09:30 09:30 16:56 WBC 12.0 H RBC Hgb Hct Neutrophils # 10.5 H Lymphocytes # 0.6 L APTT 34.5 H D-Dimer Chloride BUN Creatinine Glucose POC Glucose (mg/dL) 192 H Plasma Lactic Acid Mina Ur Leukocyte Esterase Urine WBC Urine Bacteria Hyaline Casts Urine Mucus 07/24/21 07/24/21 07/25/21 17:18 20:23 00:27 WBC RBC Hgb Hct Neutrophils # Lymphocytes # APTT 42.5 H 70.0 H D-Dimer Chloride BUN Creatinine Glucose POC Glucose (mg/dL) 206 H Plasma Lactic Acid Mina Ur Leukocyte Esterase Urine WBC Urine Bacteria Hyaline Casts Urine Mucus 07/25/21 07/25/21 07/25/21 00:30 07:02 07:15 WBC RBC 3.71 L Hgb 10.9 L Hct 33.1 L Neutrophils # Lymphocytes # APTT D-Dimer Chloride BUN Creatinine Glucose POC Glucose (mg/dL) 108 H 112 H Plasma Lactic Acid Mina Ur Leukocyte Esterase Urine WBC Urine Bacteria Hyaline Casts Urine Mucus 07/25/21 07/25/21 07/25/21 07:15 07:15 09:40 WBC RBC Hgb Hct Neutrophils # Lymphocytes # APTT 56.8 H D-Dimer Chloride BUN 46 H Creatinine 1.24 H Glucose 108 H POC Glucose (mg/dL) 167 H Plasma Lactic Acid Mina Ur Leukocyte Esterase Urine WBC Urine Bacteria Hyaline Casts Urine Mucus 07/25/21 11:42 WBC RBC Hgb Hct Neutrophils # Lymphocytes # APTT D-Dimer Chloride BUN Creatinine Glucose POC Glucose (mg/dL) 114 H Plasma Lactic Acid Mina Ur Leukocyte Esterase Urine WBC Urine Bacteria Hyaline Casts Urine Mucus - Diagnostic Findings Chest x-ray: image reviewed U/S of Legs: image reviewed Assessment and Plan Assessment: 1 Acute hypoxemic respiratory failure secondary to suspected right basilar pneumonia 2 Pulmonary Emboli of the Bilateral Upper Lobes, Currently on Heparin Drip. Dopplers of the Lower Extremities Negative 3 Morbid Obesity 4 Obstructive Apnea Maintained on CPAP Outpatient Setting 5 Diabetes Mellitus 6 Coronary Disease with Previous Stent Placement 7 History of Congestive Heart Failure 8 History of Anxiety/Depression 9 History of Hypertension 10 Hyperlipidemia 11 Osteoarthritis Plan: The patient was seen and evaluated by Dr. Santana Chest x-ray, VQ scan and labs reviewed Could be transitioned to oral anticoagulant Titrate down the FiO2 as tolerated Probable discharge in the a.m. We'll continue to follow I, the cosigning physician, performed a history & physical examination of the patient. Lungs sounds are clear. Maintaining good O2 saturations in the 90s on 3 L/m per nasal cannula. I discussed the assessment and plan of care with my nurse practitioner, Rosi Burleson. I attest to the above consultation as dictated by her. Time with Patient: Greater than 30
[2021-07-25 16:57] LABS: Glucose,Whole Blood 183 mg/dL (75-99)
[2021-07-25 20:46] LABS: Glucose,Whole Blood 228 mg/dL (75-99)
[2021-07-25] MEDS: ISOSORBIDE MONONITRATE ER 30 MG TAB.ER.24H PO SCH (20:54)
[2021-07-25] MEDS: ATORVASTATIN 20 MG TAB PO SCH (20:54)
[2021-07-26] MEDS: HEPARIN SOD,PORK IN 0.45% NACL 25,000 UNIT in 0.45% NACL 1 250ML.BAG IV SCH ×2 (00:26→12:46)
[2021-07-26] MEDS: ACETAMINOPHEN TAB 325 MG TAB PO PRN ×2 (00:39→10:38)
[2021-07-26 01:51] LABS: Glucose,Whole Blood 79 mg/dL (75-99)
[2021-07-26 07:43] LABS: Glucose,Whole Blood 57 mg/dL (75-99)
[2021-07-26 07:43] LABS: Glucose,Whole Blood 77 mg/dL (75-99)
[2021-07-26 08:33] LABS: Glucose,Whole Blood 156 mg/dL (75-99)
[2021-07-26 08:37] VITALS: BP 144/64; TEMP 97.9
[2021-07-26] MEDS: ALBUTEROL NEBULIZED 2.5 MG/3 ML INHALATION SCH ×2 (08:49→12:08)
[2021-07-26] MEDS: AZITHROMYCIN 250 MG TAB PO SCH (10:23)
[2021-07-26] MEDS: FUROSEMIDE 80 MG TAB PO SCH (10:23)
[2021-07-26] MEDS: ASPIRIN 81 MG PO SCH (10:23)
[2021-07-26] MEDS: INSULIN DETEMIR (LEVEMIR) 100 UNIT/ML SYR SQ SCH (10:23)
[2021-07-26] MEDS: VIT A,C & E-LUTEIN-MINERALS 1 EACH TAB PO SCH (10:23)
[2021-07-26] MEDS: lisinopriL 20 MG TAB PO SCH (10:24)
[2021-07-26] MEDS: ESCITALOPRAM 20 MG TAB PO SCH (10:24)
[2021-07-26] MEDS: metOLazone 5 MG TAB PO SCH (10:24)
[2021-07-26] MEDS: glipiZIDE 10 MG TAB PO SCH (10:24)
[2021-07-26] MEDS: metFORMIN 500 MG TAB PO SCH (10:24)
[2021-07-26] MEDS: MULTIVITAMINS, THERA 1 EACH TAB PO SCH (10:24)
[2021-07-26] MEDS: FERROUS SULFATE 325 MG TAB PO SCH (10:25)
[2021-07-26] MEDS: INSULIN ASPART (NovoLOG) 100 UNIT/ML VIAL SQ SCH ×2 (10:25→12:47)
[2021-07-26] MEDS: atenoloL 50 MG TAB PO SCH (10:25)
[2021-07-26] MEDS: allopurinoL 100 MG TAB PO SCH (10:25)
[2021-07-26] MEDS: amLODIPine 10 MG TAB PO SCH (10:25)
[2021-07-26 11:33] LABS: Glucose,Whole Blood 168 mg/dL (75-99)
[2021-07-26 12:25] VITALS: PULSE 63
[2021-07-26 13:40] VITALS: RESP 17
--- NOTE | 2021-07-26 14:55 | P.PN ---
Subjective Progress Note Date: 07/26/21 Principal diagnosis: Shortness of breath This is a 65-year-old female patient who has a history of morbid obesity, obstructive sleep apnea utilizing CPAP in the outpatient setting, diabetes mellitus, coronary artery disease with previous 3 stents placed, congestive heart failure. She presented here on 07/23/2021 with a one-week history of shortness of breath, cough, congestion. She was coughing so hard she was vomiting. She had chills. Chest x-ray showed mild interstitial edema. Minimal bibasilar segmental atelectasis. No focal airspace disease. No pneumothorax. No pleural effusions. She was hypoxemic and required oxygen currently at 3 L/m per nasal cannula. VQ scan revealed perfusion defects in the upper lobes. Suggestive of high probability for pulmonary embolus. We are consulted for the same. She is seen today on the regular medical floor. Sitting up at the bedside. Awake and alert in no acute distress. No worsening shortness of breath, cough or congestion. Dopplers of lower extremities were negative for DVT. Blood culture revealed no growth. Urine culture revealed no growth. Sputum culture pending. White count 9.9. Hemoglobin 10.9. Sodium 137. Potassium 4.2. Creatinine 1.24. Glucose 108. She was initiated on a heparin drip. She is on DuoNeb inhalations, antibiotics in form of ceftriaxone and azithromycin. She remains on oral diuretics. On 07/26/2021 patient seen in follow-up on medical surgical floor, she sits up in the chair, in no acute distress, on 20 have liters of oxygen her pulse ox is 97%. She normally is not oxygen dependent at baseline, she does have a CPAP at home for history of obstructive sleep apnea, she states she still has the cough, and the phlegm is production sanitizer in color, more clear compared to thickened green a few days ago. She's had no fever or chills, breathing comfortably, she remains on heparin infusion for possibility of bilateral PEs in upper lobes. No pleurisy, no worsening shortness of breath. Insurance coverage has been checked, and Eliquis is a better choice for patient, she will be started on the today. Patient is on azithromycin and Rocephin for antibiotic coverage, and get ne bulized bronchodilators, she is breathing easier, minimal rhonchi on today's exam, no wheezing. Blood culture from 07/23/2021 showed presumptive staph aureus. Sputum culture has been sent pending at this time, urine culture is negative. Today's labs have been reviewed, and orbital, significantly improved since admission was down to 9.9, hemoglobin was 10.9, electrolytes were within normal limits and renal profile is improving and BUN was 46 and creatinine was 1.24. Pro-calcitonin level came back at 10. Ablative urinary tract infection was suggested on the urinalysis however the urine culture was negative. Objective - Vital Signs Vital signs: Vital Signs Temp 97.9 F 07/26/21 08:00 Pulse 63 07/26/21 12:18 Resp 17 07/26/21 13:00 BP 144/64 07/26/21 08:00 Pulse Ox 95 07/26/21 13:00 Intake & Output 07/25/21 07/26/21 07/26/21 18:59 06:59 18:59 Intake Total 194.255 228.842 250.000 Balance 194.255 228.842 250.000 Intake: Intake, IV Titration 194.255 228.842 250.000 Amount Heparin Sod,Pork in 0.45% 194.255 228.842 250.000 NaCl 25,000 unit In 0.45 % NaCl 1 250ml.bag @ 18 UNITS/KG/HR 21.718 mls/hr IV .[id number] [facility] Rx#: [id number] Other: Voiding Method Toilet Toilet Toilet # Voids 2 3 1 # Bowel Movements 1 1 - Exam GENERAL EXAM: Alert, very pleasant, 65-year-old white female, on room air with a pulse ox of 95% comfortable in no apparent distress. HEAD: Normocephalic/atraumatic. EYES: Normal reaction of pupils, equal size. Conjunctiva pink, sclera white. NOSE: Clear with pink turbinates. THROAT: No erythema or exudates. NECK: No masses, no JVD, no thyroid enlargement, no adenopathy. CHEST: No chest wall deformity. Symmetrical expansion. LUNGS: Equal air entry with basilar crackles CVS: Regular rate and rhythm, normal S1 and S2, no gallops, no murmurs, no rubs ABDOMEN: Soft, nontender. No hepatosplenomegaly, normal bowel sounds, no guarding or rigidity. EXTREMITIES: No clubbing, no edema, no cyanosis, 2+ pulses and upper and lower extremities. MUSCULOSKELETAL: Muscle strength and tone normal. SPINE: No scoliosis or deformity SKIN: No rashes CENTRAL NERVOUS SYSTEM: Alert and oriented -3. No focal deficits, tone is normal in all 4 extremities. PSYCHIATRIC: Alert and oriented -3. Appropriate affect. Intact judgment and insight. - Labs CBC & Chem 7: 07/25/21 07:15 07/25/21 07:15 Labs: Abnormal Lab Results - Last 24 Hours (Table) 07/25/21 07/25/21 07/25/21 Range/Units 07:15 16:56 20:44 APTT (22.0-30.0) sec POC Glucose (mg/dL) 183 H 228 H (75-99) mg/dL Procalcitonin 10.00 H (0.02-0.09) ng/mL 07/26/21 07/26/21 07/26/21 Range/Units 07:23 07:43 08:32 APTT 74.4 H (22.0-30.0) sec POC Glucose (mg/dL) 57 L 156 H (75-99) mg/dL Procalcitonin (0.02-0.09) ng/mL 07/26/21 Range/Units 11:28 APTT (22.0-30.0) sec POC Glucose (mg/dL) 168 H (75-99) mg/dL Procalcitonin (0.02-0.09) ng/mL Microbiology - Last 24 Hours (Table) 07/23/21 19:44 Blood Culture Gram Stain - Preliminary Blood Blood Culture - Preliminary Presumptive Staph aureus 07/23/21 19:44 Blood Culture Gram Stain - Preliminary Blood Blood Culture - Preliminary Coagulase Negative Staph Presumptive Staph aureus 07/24/21 22:20 Gram Stain - Preliminary Sputum Sputum Culture - Preliminary 07/23/21 23:24 Urine Culture - Final Urine,Voided Assessment and Plan Plan: Assessment: #1. Acute hypoxic respiratory failure secondary to suspected right basilar pneumonia #2. Pulmonary emboli of the bilateral upper lobes, lower extremity Dopplers were negative for DVT. Initially started on heparin infusion, will be switched over to oral anticoagulation with Eliquis #3. Morbid obesity with BMI 45.7 kg/m #4. Family history of pulmonary embolism in her brother #5. Obstructive sleep apnea on CPAP therapy on an outpatient basis #6. Diabetes mellitus type seen #7. Coronary artery disease with previous stent placement #8. History of CHF #9. History of anxiety and depression #10. History of hypertension #11. Hyperlipidemia #12. Osteoarthritis Plan: Clinical patient is stable, Currently on 2-1/2 L of oxygen, home oxygen will be assessed Breathing comfortably, no chest pain, vital signs have been stable Patient will be switched over to Eliquis and heparin drip will be discontinued She stable for discharge home on oral anticoagulation and oral antibiotics Outpatient follow-up with Dr. Jara in the office in 7 days I performed a history & physical examination of the patient and discussed their management with my nurse practitioner, Sonia Brennan. I reviewed the nurse practitioner's note and agree with the documented findings and plan of care. Lung sounds are positive for diminished breath sounds throughout the lung jiménez. The findings and the impression was discussed with the patient. I att est to the documentation by the nurse practitioner. Time with Patient: Less than 30
--- NOTE | 2021-07-26 15:19 | P.DS ---
Providers Date of admission: 07/23/21 19:00 Expected date of discharge: 07/26/21 Attending physician: Robb Wright Consults: 07/24/21 12:13 Consult Physician Routine Consulting Provider: Michelle Santana Reason/Comments: poss PE Do you want consulting provider notified?: Yes Primary care physician: [facility] Course: Chief Complaint: Short of breath This is a very pleasant 65-year-old patient of Dr. Quinonez. Chronic stable medical conditions include diabetes, hypertension, hyperlipidemia, osteoarthritis, CAD with stent, anxiety depression. Patient's was diagnosed with RSV infection about 2 weeks ago. About 4-5 days ago patient started off with cough with thick a rather severe. No phlegm. Also had fever and chills. Wheezing. Appetite has been okay. Patient also vomited. Tired rundown. Decided to come in. Patient has chronic lower extremity edema. Also uses CPAP. Patient accompanied by her . DC bronchodilators yesterday and IV ceftriaxone. Feeling a bit better this morning. Sitting at the edge of the bed. Did eat some breakfast. Admitted with pneumonia, secondary bronchospasm. Started on bronchodilators. IV ceftriaxone. July 25: Breathing better. Does still of cough on laying down. Eating better. Pulmonary consulted. Sitting up in a chair. present. Doppler ultrasound negative for DVT July 26: Breathing much improved. Pulse ox 92-94% on room air. Seen by Dr. Santana from pulmonary. [place] to be possible PE. Patient restarted eliquis today. IV heparin being discontinued. Care was discussed with the patient has been at the bedside. Questions answered. Follow-up with Dr. Jara the office. Discussion and discharge planning more than 35 minutes Consultation: Dr. Santana partners from pulmonary Past medical history to include: Diabetes, hypertension, hyperlipidemia, osteoarthritis, CAD with stent, depression, anxiety social history: . Does not smoke or drink alcohol. Family history: DVT lung cancer Physical examination: VITAL SIGNS: 97.9, 61, 18, 144/64, 94% on room air GENERAL: Up in a chair. Comfortable EYES: Pupils equal. Conjunctiva normal. HEENT: External appearance of nose and ears normal, oral cavity grossly normal. NECK: JVD not raised; masses not palpable. HEART: First and second heart sounds are normal; some edema. LUNGS: Respiratory rate normal, decreased breath sounds. ABDOMEN: Soft, nontender, liver spleen not palpable, no masses palpable. PSYCH: Alert and oriented x3; mood and affect normal. MUSCULAR skeletal: Evidence of OA in many joints INVESTIGATIONS, reviewed in the clinical context: July 25: White count 9.9 hemoglobin 10.9 platelets 209 potassium 4.2 BUN 46 creatinine 1.24 Doppler ultrasound lower extremity: Negative for DVT White count 20.3 hemoglobin 12.6 platelets 211 increased neutrophils potassium 4.3 BUN 46 creatinine 1.37 Lactic acid 2.8 Troponin I less than 0.012 proBNP 683 UA: Possibly contaminated Coronavirus [PCR]: Not detected EKG tracing personally reviewed by me-normal sinus rhythm. Nonspecific ST-T wave changes. Chest x-ray film personally reviewed by me-possible right basilar infiltrate Assessment and plan: -Possible right basilar pneumonia, suspect gram-negative organism. Patient had fever or chills cough at home. Elevated white count with a left shift IV ceftriaxone, Zithromax -Morbid obesity BMI 45.7 Weight loss measures and follow-up with PCP -Secondary bronchospasm secondary to pneumonia Albuterol nebulizer -Possible pulmonary embolism. Received IV heparin. Changed to eliquis -IV heparin monitoring Follow PTT -Diabetes mellitus type 2 and oral hypoglycemic, chronically on insulin Follow Accu-Cheks. Sliding scale insulin. Glucotrol wants 5/502 tablets twice a day -Hyperlipidemia Lipitor 20 mg daily at bedtime -Essential hypertension Norvasc 10 mg daily Accupril 40 mg daily, -Primary osteoarthritis multiple toes bilaterally -CAD with stent Aspirin 81 mg daily, atenolol 50 mg twice a day, Lipitor 20 mg daily at bedtime -Anxiety depression otherwise specified Lexapro 20 mg daily -hyperuricemia Allopurinol 200 mg daily -Chronic kidney disease, stage III suspect diabetic nephropathy and hypertensive nephrosclerosis Follow renal function Disposition: Home Plan - Discharge Summary Discharge Rx Participant: Yes New Discharge Prescriptions: New Albuterol Sulfate [Albuterol Sulfate Hfa] 1 puff PO Q4-6H #8.5 gm Apixaban [Eliquis Starter Pack (for VTE)] 5 - 10 mg PO DIRECTED 30 Days #1 each Continue Aspirin 81 mg PO DAILY Atenolol 50 mg PO BID INSULIN ASPART (NovoLOG) [NovoLOG (formulary)] 20 - 25 unit SQ AC-TID Vit C/E/Zn/Coppr/Lutein/Zeaxan [Preservision Areds 2 Softgel] 1 tab PO DAILY Multivitamin with Iron [Multivitamins with Iron] 1 tab PO DAILY Nitroglycerin Sl Tabs [Nitrostat] 0.4 mg SUBLINGUAL Q5M PRN PRN Reason: Chest Pain Isosorbide Mononitrate ER [Imdur] 30 mg PO HS Atorvastatin [Lipitor] 20 mg PO HS Escitalopram [Lexapro] 20 mg PO DAILY amLODIPine [Norvasc] 10 mg PO DAILY #30 tab Ferrous Sulfate [Iron (65 MG Elemental)] 325 mg PO DAILY Insulin Glargine [Lantus Vial] 60 unit SQ BID Quinapril HCl [Accupril] 40 mg PO DAILY calcitrioL [Calcitriol] 0.25 mcg PO MOFR glyBURIDE/METFORMIN HCL [Glucovance 5-500 mg] 2 tab PO BID allopurinoL [Zyloprim] 200 mg PO DAILY Furosemide [Lasix] 160 mg PO DAILY metOLazone [Zaroxolyn] 5 mg PO DAILY Discontinued Azithromycin [Zithromax Z-pack (6 tabs)] See Taper PO DAILY Discharge Medication List Aspirin 81 mg PO DAILY 01/06/14 [History] Atenolol 50 mg PO BID 01/06/14 [History] INSULIN ASPART (NovoLOG) [NovoLOG (formulary)] 20 - 25 unit SQ AC-TID 07/23/18 [History] Multivitamin with Iron [Multivitamins with Iron] 1 tab PO DAILY 02/15/19 [History] Vit C/E/Zn/Coppr/Lutein/Zeaxan [Preservision Areds 2 Softgel] 1 tab PO DAILY 02/15/19 [History] Atorvastatin [Lipitor] 20 mg PO HS 04/11/19 [History] Escitalopram [Lexapro] 20 mg PO DAILY 04/11/19 [History] Isosorbide Mononitrate ER [Imdur] 30 mg PO HS 04/11/19 [History] Nitroglycerin Sl Tabs [Nitrostat] 0.4 mg SUBLINGUAL Q5M PRN 04/11/19 [History] amLODIPine [Norvasc] 10 mg PO DAILY #30 tab 04/16/19 [Rx] Ferrous Sulfate [Iron (65 MG Elemental)] 325 mg PO DAILY 09/12/19 [History] Insulin Glargine [Lantus Vial] 60 unit SQ BID 09/12/19 [History] Quinapril HCl [Accupril] 40 mg PO DAILY 09/12/19 [History] Furosemide [Lasix] 160 mg PO DAILY 07/23/21 [History] allopurinoL [Zyloprim] 200 mg PO DAILY 07/23/21 [History] calcitrioL [Calcitriol] 0.25 mcg PO MOFR 07/23/21 [History] glyBURIDE/METFORMIN HCL [Glucovance 5-500 mg] 2 tab PO BID 07/23/21 [History] metOLazone [Zaroxolyn] 5 mg PO DAILY 07/23/21 [History] Albuterol Sulfate [Albuterol Sulfate Hfa] 1 puff PO Q4-6H #8.5 gm 07/26/21 [Rx] Apixaban [Eliquis Starter Pack (for VTE)] 5 - 10 mg PO DIRECTED 30 Days #1 each 07/26/21 [Rx] Follow up Appointment(s)/Referral(s): Uriel Quinonez MD [Primary Care Provider] - 08/02/21 2:00 pm ( ,) Stephany Jara MD [STAFF PHYSICIAN] - 08/05/21 2:30 pm (With Lulu) Patient Instructions/Handouts: Viral Pneumonia (DC)
== END 2021-07-26 15:48 | disposition home or self-care (01) | DRG 177 ==
LOC: EC 16:43 → 4SSUR 19:00
PROVIDERS: ADMIT Hospitalist; ATTEND Hospitalist
PROC: 3E0F7SF Introduction of Other Gas into Respiratory Tract, Via Natural or Artificial Opening (ICD-10-PCS; principal; 2021-07-23)
DX: J15.211 Pneumonia due to Methicillin susceptible Staphylococcus aureus (principal); I26.99 Other pulmonary embolism without acute cor pulmonale; J96.01 Acute respiratory failure with hypoxia; Z68.42 Body mass index [BMI] 45.0-49.9, adult; J98.11 Atelectasis; I13.0 Hypertensive heart and chronic kidney disease with heart failure and stage 1 through stage 4 chronic kidney disease, or unspecified chronic kidney disease; J18.9 Pneumonia, unspecified organism; E11.9 Type 2 diabetes mellitus without complications; Z20.822 Contact with and (suspected) exposure to COVID-19; E66.01 Morbid (severe) obesity due to excess calories; E78.5 Hyperlipidemia, unspecified; E86.0 Dehydration; F41.8 Other specified anxiety disorders; G47.33 Obstructive sleep apnea (adult) (pediatric); E79.0 Hyperuricemia without signs of inflammatory arthritis and tophaceous disease; E11.21 Type 2 diabetes mellitus with diabetic nephropathy; E11.22 Type 2 diabetes mellitus with diabetic chronic kidney disease; N18.30 Chronic kidney disease, stage 3 unspecified; I25.10 Atherosclerotic heart disease of native coronary artery without angina pectoris; I50.9 Heart failure, unspecified; R11.2 Nausea with vomiting, unspecified; R53.1 Weakness; J98.01 Acute bronchospasm; M19.91 Primary osteoarthritis, unspecified site; N28.9 Disorder of kidney and ureter, unspecified; Z79.4 Long term (current) use of insulin; Z79.82 Long term (current) use of aspirin; Z79.899 Other long term (current) drug therapy; Z90.710 Acquired absence of both cervix and uterus; Z95.5 Presence of coronary angioplasty implant and graft; Z96.651 Presence of right artificial knee joint; Z88.0 Allergy status to penicillin; Z88.2 Allergy status to sulfonamides; Z91.048 Other nonmedicinal substance allergy status; Z98.890 Other specified postprocedural states
CPT/HCPCS: 36415; 71046; 78582; 80048; 80053; 81001; 82272; 83605; 83735; 83880; 84145; 84484; 85025; 85379; 85610; 85730; 87040; 87070; 87077; 87086; 87186; 87205; 87635; 93005; 93970; 94640; 94760; 99291

== ENCOUNTER → 2021-08-05 | Outpatient (CLI) | payer MEDICARE ==
[2021-08-05 18:30] LABS: Basophils # (A) 0.07 X 10*3/uL (0.00-0.10); Basophils % (A) 0.7 %; Eosinophils % (A) 2.9 %; HGB 11.5 g/dL (12.0-15.0); Lymphocytes # (A) 1.62 X 10*3/uL (0.90-5.00); Lymphocytes % (A) 15.8 %; MCH 28.8 pg (27.0-32.0); MCHC 31.1 g/dL (32.0-37.0); MCV 92.7 fL (80.0-97.0); Mean Platelet Volume 11.1 fL (9.5-12.2); Monocytes # (A) 0.54 X 10*3/uL (0.20-1.00); Monocytes % (A) 5.3 %; Neutrophils % (A) 74.2 %; Platelet Count 319 X 10*3/uL (140-440); RBC 3.99 X 10*6/uL (4.10-5.20); RDW 14.7 % (11.5-14.5); WBC 10.24 X 10*3/uL (4.50-10.00)
[2021-08-05 19:24] LABS: ALT 35 U/L (8-44); AST 27 U/L (13-35); African American GFR (CKD) 56.1 (60.0-200.0); Albumin 4.4 g/dL (3.8-4.9); Albumin/Globulin Ratio 1.59 (1.60-3.17); Alkaline Phosphatase 94 U/L (41-126); BUN/Creat Ratio 35.17 Ratio (12.00-20.00); Blood Urea Nitrogen 41.5 mg/dL (9.0-27.0); Calcium 9.9 mg/dL (8.7-10.3); Carbon Dioxide 21.7 mmol/L (20.0-27.5); Chloride 104 mmol/L (96-109); Chol/HDL Ratio 3.97 Ratio; Globulin 2.8 g/dL (1.6-3.3); Glucose 122 mg/dL (70-110); LDL Cholesterol,Calculated 76.8 mg/dL (0.0-131.0); Non-African American GFR(CKD) 48.4 (60.0-200.0); Sodium 141 mmol/L (135-145); Total Protein 7.2 g/dL (6.2-8.2)
[2021-08-06 03:14] LABS: Urine Creatinine 53.4 mg/dL (28.0-217.0)
== END | disposition home or self-care (01) ==
LOC: LABWHC1 11:24
PROVIDERS: ATTEND Nurse Practitioner Family
DX: I10 Essential (primary) hypertension (principal); E78.5 Hyperlipidemia, unspecified; E11.21 Type 2 diabetes mellitus with diabetic nephropathy
CPT/HCPCS: 36415; 80053; 80061; 82043; 82570; 83036; 85025

== ENCOUNTER 2021-09-06 04:19 | Inpatient (IN) | payer MEDICARE ==
[2021-09-06 04:42] LABS: Glucose,Whole Blood 229 mg/dL (75-99)
[2021-09-06 05:40] LABS: Basophils % (A) 0 %; Eosinophils % (A) 1 %; HCT 37.4 % (34.0-46.0); HGB 12.7 gm/dL (11.4-16.0); Lymphocytes % (A) 3 %; MCH 30.2 pg (25.0-35.0); MCHC 33.8 g/dL (31.0-37.0); MCV 89.4 fL (80.0-100.0); Mean Platelet Volume 7.2; Monocytes % (A) 5 %; Neutrophils % (A) 92 %; Platelet Count 283 k/uL (150-450); RBC 4.18 m/uL (3.80-5.40); WBC 23.3 k/uL (3.8-10.6)
[2021-09-06] MEDS ORDERED: ACETAMINOPHEN TAB 325 MG TAB PO STA (05:40)
[2021-09-06 05:41] LABS: Basophils # (A) 0.1 k/uL (0-0.2); Eosinophils # (A) 0.1 k/uL (0-0.7); Lymphocytes # (A) 0.6 k/uL (1.0-4.8); Monocytes # (A) 1.1 k/uL (0-1.0); Neutrophils # (A) 21.4 k/uL (1.3-7.7)
[2021-09-06 05:54] LABS: Albumin 4.6 g/dL (3.5-5.0); Potassium 4.3 mmol/L (3.5-5.1); Total Bilirubin 0.7 mg/dL (0.2-1.3); Total Protein 7.6 g/dL (6.3-8.2)
[2021-09-06] MEDS ORDERED: cefTRIAXone IN SWFI 1,000 MG/10 ML SYRINGE IVP STA ×2 (08:40→10:12)
[2021-09-06] MEDS ORDERED: SODIUM CHLORIDE 0.9% 1,000 ML IV ONE ×2 (08:41→10:55)
--- NOTE | 2021-09-06 08:49 | ED ---
General Adult HPI - General Chief complaint: Abdominal Pain Stated complaint: NVD Time Seen by Provider: 09/06/21 07:00 Source: patient, RN notes reviewed, old records reviewed Mode of arrival: EMS - History of Present Illness Initial comments: This is a 65-year-old female presents emergency Department complaining that she woke up at midnight with chills and then vomited twice and had diarrhea twice. Patient states she had some mid abdominal epigastric abdominal tenderness. Patient states that the pain seems better currently. And she is no longer nauseated. Patient states a month ago she was diagnosed with pneumonia and a pulmonary embolism and she is on eliquis. Patient denies any chest pain patient denies difficulty breathing shortness of breath per patient denies any pain in the legs or swelling of legs. - Related Data Home Medications Medication Instructions Recorded Confirmed Aspirin 81 mg PO DAILY 01/06/14 07/23/21 Atenolol 50 mg PO BID 01/06/14 07/23/21 INSULIN ASPART (NovoLOG) [NovoLOG 20 - 25 unit SQ AC-TID 07/23/18 07/23/21 (formulary)] Multivitamin with Iron 1 tab PO DAILY 02/15/19 07/23/21 [Multivitamins with Iron] Vit C/E/Zn/Coppr/Lutein/Zeaxan 1 tab PO DAILY 02/15/19 07/23/21 [Preservision Areds 2 Softgel] Atorvastatin [Lipitor] 20 mg PO HS 04/11/19 07/23/21 Escitalopram [Lexapro] 20 mg PO DAILY 04/11/19 07/23/21 Isosorbide Mononitrate ER [Imdur] 30 mg PO HS 04/11/19 07/23/21 Nitroglycerin Sl Tabs [Nitrostat] 0.4 mg SUBLINGUAL Q5M PRN 04/11/19 07/23/21 Ferrous Sulfate [Iron (65 MG 325 mg PO DAILY 09/12/19 07/23/21 Elemental)] Insulin Glargine [Lantus Vial] 60 unit SQ BID 09/12/19 07/23/21 Quinapril HCl [Accupril] 40 mg PO DAILY 09/12/19 07/23/21 Furosemide [Lasix] 160 mg PO DAILY 07/23/21 07/23/21 allopurinoL [Zyloprim] 200 mg PO DAILY 07/23/21 07/23/21 calcitrioL [Calcitriol] 0.25 mcg PO MOFR 07/23/21 07/23/21 glyBURIDE/METFORMIN HCL 2 tab PO BID 07/23/21 07/23/21 [Glucovance 5-500 mg] metOLazone [Zaroxolyn] 5 mg PO DAILY 07/23/21 07/23/21 Previous Rx's Medication Instructions Recorded amLODIPine [Norvasc] 10 mg PO DAILY #30 tab 04/16/19 Albuterol Sulfate [Albuterol 1 puff PO Q4-6H #8.5 gm 07/26/21 Sulfate Hfa] Apixaban [Eliquis Starter Pack 5 - 10 mg PO DIRECTED 30 Days 07/26/21 (for VTE)] #1 each Allergies Allergy/AdvReac Type Severity Reaction Status Date / Time Penicillins Allergy Dyspnea Verified 09/06/21 04:34 Sulfa (Sulfonamide Allergy Rash/Hives Verified 09/06/21 04:34 Antibiotics) adhesive AdvReac Rash/Hives Verified 09/06/21 04:34 Review of Systems ROS Statement: Those systems with pertinent positive or pertinent negative responses have been documented in the HPI. ROS Other: All systems not noted in ROS Statement are negative. Past Medical History Past Medical History: Chest Pain / Angina, Diabetes Mellitus, Hyperlipidemia, Hypertension, Skin Disorder Additional Past Medical History / Comment(s): SOB,ARTHRITIS History of Any Multi-Drug Resistant Organisms: None Reported Past Surgical History: Back Surgery, Section, Heart Catheterization With Stent, Hysterectomy, Orthopedic Surgery, Tonsillectomy Additional Past Surgical History / Comment(s): heart stents x2,BUNIONECTOMY BELLA, LEFT KNEE TORN MENISCUS, TRIGGER FINGER X2,Rods and screws to back,bella cataract, Total right knee replacement Past Anesthesia/Blood Transfusion Reactions: Motion Sickness, Postoperative Nausea & Vomiting (PONV) Additional Past Anesthesia/Blood Transfusion Reaction / Comment(s): no prob with prior blood transfusions Date of Last Stent Placement:: 10-25-17 Past Psychological History: Anxiety, Depression Smoking Status: Never smoker Past Alcohol Use History: None Reported Past Drug Use History: None Reported - Past Family History Father Family Medical History: Cancer, Deep Vein Thrombosis (DVT) Additional Family Medical History / Comment(s): lung cancer Mother Family Medical History: Cancer, Diabetes Mellitus Additional Family Medical History / Comment(s): heart disease Brother(s) Family Medical History: Pulmonary Embolus General Exam - General Exam Comments Initial Comments: GENERAL: Patient is well-developed and well-nourished. Patient is nontoxic and well- hydrated and is in mild distress. ENT: Neck is soft and supple. No significant lymphadenopathy is noted. Oropharynx is clear. Moist mucous membranes. Neck has full range of motion without eliciting any pain. EYES: The sclera were anicteric and conjunctiva were pink and moist. Extraocular movements were intact and pupils were equal round and reactive to light. Eyelids were unremarkable. PULMONARY: Unlabored respirations. Good breath sounds bilaterally. No audible rales rhonchi or wheezing was noted. CARDIOVASCULAR: There is a regular rate and rhythm without any murmurs gallops or rubs. ABDOMEN: Mild epigastric abdominal pain SKIN: Skin is clear with no lesions or rashes and otherwise unremarkable. NEUROLOGIC: Patient is alert and oriented x3. Cranial nerves II through XII are grossly intact. Motor and sensory are also intact. Normal speech, volume and content. Symmetrical smile. MUSCULOSKELETAL: Normal extremities with adequate strength and full range of motion. No lower extremity swelling or edema. No calf tenderness. LYMPHATICS: No significant lymphadenopathy is noted PSYCHIATRIC: Normal psychiatric evaluation. Course Vital Signs 09/06/21 09/06/21 09/06/21 04:35 07:47 10:31 Temperature 100.8 F H 98.8 F Pulse Rate 111 H 79 79 Respiratory 22 20 18 Rate Blood Pressure 146/56 147/70 168/72 O2 Sat by Pulse 95 96 98 Oximetry Medical Decision Making - Medical Decision Making EKG shows normal sinus rhythm at 77 bpm MD interval 192 QRS is 80 QT interval 34 QTC is 434. Patient's EKG shows no ST segment elevation or depression. CT of the abdomen and pelvis show no acute normalities explain the patient's symptoms. Patient urinary tract infection he was given 2 g of Rocephin. Spoke with Dr. Wright agreed to admit the patient admitted the patient I wrote admitting orders. - Lab Data Result diagrams: 09/06/21 05:02 09/06/21 05:02 Lab Results 09/06/21 09/06/21 09/06/21 Range/Units 04:40 05:02 05:02 WBC 23.3 H (3.8-10.6) k/uL RBC 4.18 (3.80-5.40) m/uL Hgb 12.7 (11.4-16.0) gm/dL Hct 37.4 (34.0-46.0) % MCV 89.4 (80.0-100.0) fL MCH 30.2 (25.0-35.0) pg MCHC 33.8 (31.0-37.0) g/dL RDW 15.0 (11.5-15.5) % Plt Count 283 (150-450) k/uL MPV 7.2 Neutrophils % 92 % Lymphocytes % 3 % Monocytes % 5 % Eosinophils % 1 % Basophils % 0 % Neutrophils # 21.4 H (1.3-7.7) k/uL Lymphocytes # 0.6 L (1.0-4.8) k/uL Monocytes # 1.1 H (0-1.0) k/uL Eosinophils # 0.1 (0-0.7) k/uL Basophils # 0.1 (0-0.2) k/uL D-Dimer 0.41 (<0.60) mg/L FEU Sodium (137-145) mmol/L Potassium (3.5-5.1) mmol/L Chloride (98-107) mmol/L Carbon Dioxide (22-30) mmol/L Anion Gap mmol/L BUN (7-17) mg/dL Creatinine (0.52-1.04) mg/dL Est GFR (CKD-EPI)AfAm (>60 ml/min/1.73 sqM) Est GFR (CKD-EPI)NonAf (>60 ml/min/1.73 sqM) Glucose (74-99) mg/dL POC Glucose (mg/dL) 229 H (75-99) mg/dL POC Glu Home Visits Nurse ID Jorge Nichols Plasma Lactic Acid Mina (0.7-2.0) mmol/L Calcium (8.4-10.2) mg/dL Total Bilirubin (0.2-1.3) mg/dL AST (14-36) U/L ALT (4-34) U/L Alkaline Phosphatase (38-126) U/L Troponin I (0.000-0.034) ng/mL Total Protein (6.3-8.2) g/dL Albumin (3.5-5.0) g/dL Amylase (30-110) U/L Lipase (23-300) U/L Urine Color Urine Appearance (Clear) Urine pH (5.0-8.0) Ur Specific [place] (1.001-1.035) Urine Protein (Negative) Urine Glucose (UA) (Negative) Urine Ketones (Negative) Urine Blood (Negative) Urine Nitrite (Negative) Urine Bilirubin (Negative) Urine Urobilinogen (<2.0) mg/dL Ur Leukocyte Esterase (Negative) Urine RBC (0-5) /hpf Urine WBC (0-5) /hpf Urine WBC Clumps (None) /hpf Ur Squamous Epith Cells (0-4) /hpf Urine Bacteria (None) /hpf Hyaline Casts (0-2) /lpf Urine Mucus (None) /hpf Coronavirus (PCR) (Not Detectd) 09/06/21 09/06/21 09/06/21 Range/Units 05:02 05:02 05:02 WBC (3.8-10.6) k/uL RBC (3.80-5.40) m/uL Hgb (11.4-16.0) gm/dL Hct (34.0-46.0) % MCV (80.0-100.0) fL MCH (25.0-35.0) pg MCHC (31.0-37.0) g/dL RDW (11.5-15.5) % Plt Count (150-450) k/uL MPV Neutrophils % % Lymphocytes % % Monocytes % % Eosinophils % % Basophils % % Neutrophils # (1.3-7.7) k/uL Lymphocytes # (1.0-4.8) k/uL Monocytes # (0-1.0) k/uL Eosinophils # (0-0.7) k/uL Basophils # (0-0.2) k/uL D-Dimer (<0.60) mg/L FEU Sodium 139 (137-145) mmol/L Potassium 4.3 (3.5-5.1) mmol/L Chloride 100 (98-107) mmol/L Carbon Dioxide 24 (22-30) mmol/L Anion Gap 15 mmol/L BUN 48 H (7-17) mg/dL Creatinine 1.12 H (0.52-1.04) mg/dL Est GFR (CKD-EPI)AfAm 60 (>60 ml/min/1.73 sqM) Est GFR (CKD-EPI)NonAf 52 (>60 ml/min/1.73 sqM) Glucose 231 H (74-99) mg/dL POC Glucose (mg/dL) (75-99) mg/dL POC Glu Home Visits Nurse ID Plasma Lactic Acid Mina (0.7-2.0) mmol/L Calcium 10.0 (8.4-10.2) mg/dL Total Bilirubin 0.7 (0.2-1.3) mg/dL AST 34 (14-36) U/L ALT 39 H (4-34) U/L Alkaline Phosphatase 90 (38-126) U/L Troponin I <0.012 (0.000-0.034) ng/mL Total Protein 7.6 (6.3-8.2) g/dL Albumin 4.6 (3.5-5.0) g/dL Amylase (30-110) U/L Lipase (23-300) U/L Urine Color Urine Appearance (Clear) Urine pH (5.0-8.0) Ur Specific [place] (1.001-1.035) Urine Protein (Negative) Urine Glucose (UA) (Negative) Urine Ketones (Negative) Urine Blood (Negative) Urine Nitrite (Negative) Urine Bilirubin (Negative) Urine Urobilinogen (<2.0) mg/dL Ur Leukocyte Esterase (Negative) Urine RBC (0-5) /hpf Urine WBC (0-5) /hpf Urine WBC Clumps (None) /hpf Ur Squamous Epith Cells (0-4) /hpf Urine Bacteria (None) /hpf Hyaline Casts (0-2) /lpf Urine Mucus (None) /hpf Coronavirus (PCR) Not Detected (Not Detectd) 09/06/21 09/06/21 09/06/21 Range/Units 09:22 09:26 09:26 WBC (3.8-10.6) k/uL RBC (3.80-5.40) m/uL Hgb (11.4-16.0) gm/dL Hct (34.0-46.0) % MCV (80.0-100.0) fL MCH (25.0-35.0) pg MCHC (31.0-37.0) g/dL RDW (11.5-15.5) % Plt Count (150-450) k/uL MPV Neutrophils % % Lymphocytes % % Monocytes % % Eosinophils % % Basophils % % Neutrophils # (1.3-7.7) k/uL Lymphocytes # (1.0-4.8) k/uL Monocytes # (0-1.0) k/uL Eosinophils # (0-0.7) k/uL Basophils # (0-0.2) k/uL D-Dimer (<0.60) mg/L FEU Sodium (137-145) mmol/L Potassium (3.5-5.1) mmol/L Chloride (98-107) mmol/L Carbon Dioxide (22-30) mmol/L Anion Gap mmol/L BUN (7-17) mg/dL Creatinine (0.52-1.04) mg/dL Est GFR (CKD-EPI)AfAm (>60 ml/min/1.73 sqM) Est GFR (CKD-EPI)NonAf (>60 ml/min/1.73 sqM) Glucose (74-99) mg/dL POC Glucose (mg/dL) (75-99) mg/dL POC Glu Home Visits Nurse ID Plasma Lactic Acid Mina 2.7 H* (0.7-2.0) mmol/L Calcium (8.4-10.2) mg/dL Total Bilirubin (0.2-1.3) mg/dL AST (14-36) U/L ALT (4-34) U/L Alkaline Phosphatase (38-126) U/L Troponin I (0.000-0.034) ng/mL Total Protein (6.3-8.2) g/dL Albumin (3.5-5.0) g/dL Amylase 31 (30-110) U/L Lipase 37 (23-300) U/L Urine Color Yellow Urine Appearance Cloudy H (Clear) Urine pH 5.0 (5.0-8.0) Ur Specific [place] 1.033 (1.001-1.035) Urine Protein 1+ H (Negative) Urine Glucose (UA) Negative (Negative) Urine Ketones Negative (Negative) Urine Blood Small H (Negative) Urine Nitrite Negative (Negative) Urine Bilirubin Negative (Negative) Urine Urobilinogen <2.0 (<2.0) mg/dL Ur Leukocyte Esterase Large H (Negative) Urine RBC 4 (0-5) /hpf Urine WBC >182 H (0-5) /hpf Urine WBC Clumps Many H (None) /hpf Ur Squamous Epith Cells 1 (0-4) /hpf Urine Bacteria Many H (None) /hpf Hyaline Casts 2 (0-2) /lpf Urine Mucus Rare H (None) /hpf Coronavirus (PCR) (Not Detectd) Disposition Clinical Impression: Urinary tract infection, Gastroenteritis, Leukocytosis Disposition: ADMITTED IP TO THIS HOSP Referrals: Uriel Quinonez MD [Primary Care Provider] - 1-2 days Time of Disposition: 10:55
[2021-09-06 09:38] LABS: Appearance,Urine Cloudy (Clear); Bacteria,Urine Many /hpf; Bilirubin,Urine Negative (Negative); Blood,Urine Small (Negative); Color,Urine Yellow; Glucose,Urine (UA) Negative (Negative); Hyaline Casts,Urine 2 /lpf (0-2); Ketones,Urine Negative (Negative); Leukocyte Esterase,Urine Large (Negative); Mucus,Urine Rare /hpf; Nitrite,Urine Negative (Negative); Protein,Urine 1+ (Negative); RBC,Urine 4 /hpf (0-5); Specific Gravity,Urine 1.033 (1.001-1.035); Squamous Epithelial Cell,Urine 1 /hpf (0-4); Urobilinogen,Urine <2.0 mg/dL (<2.0); WBC,Urine >182 /hpf (0-5)
--- NOTE | 2021-09-06 10:00 | CT ---
EXAMINATION TYPE: CT abdomen pelvis w con DATE OF EXAM: 09/06/2021 COMPARISON: NONE HISTORY: 65-year-old female abdominal pain, Stomach pain, nausea and vomiting TECHNIQUE: Contiguous axial scanning of the abdomen and pelvis following administration of 100 ml Iso francisco 300 IV contrast. Delayed images through the kidneys and coronal/sagittal reconstructions perform ed. CT DLP: 2864 mGycm Automated exposure control for dose reduction was used. FINDINGS: Heart upper limits of normal in size without pericardial effusion. [place] lower lung areas of probab le atelectasis. No pleural effusion. Breathing motion artifact. Liver mildly enlarged 21.6 cm. No focal lesion seen. Portal venous system is patent. No biliary ducta l dilatation. Gallbladder distended to the upper limits of normal at 3.9 cm wide. No surrounding inflammatory banda e. 1.2 cm cortical hypodensity anterior mid right kidney too small for accurate CT characterization, lik joo cyst. A couple similar hypodensities lateral left kidney measuring up to 1.2 cm. No excretion of contrast seen on either side on delayed kidney images. Adrenal glands, spleen, and mildly atrophic pancreas show no gross abnormal. No dilated small bowel, free fluid, or free air. Scattered prominent but nonenlarged mesenteric and retroperitoneal lymph nodes. Retroaortic left solo l vein. No dilated small bowel, free fluid, or free air. Appendix not clearly identified in the right lower quadrant. No secondary findings of acute appendici tis in the right lower quadrant. Mild stool burden. No pericolonic inflammatory change. There is some subcutaneous periumbilical fat stranding, for example, axial image 61 and also sagittal image 91. Bladder distended. Mild circumferential wall thickening. Uterus surgically absent. Left ovary is visu alized. Right ovary not clearly delineated. There are some prominent right-sided pelvic lymph nodes. These measure up to 1 cm along the obturator chain and 1 cm along the right external iliac chain. Als o up to 1.1 cm short axis in the right inguinal region. A larger 1.7 cm lymph node short axis of the right femoral chain region, reference axial image 96. No abnormal fluid collection the pelvis. Bones: [facility] in the lower thoracic spine. Postsurgical change L 3-L5 posterior and interbody fusion. IMPRESSION: 1. BORDERLINE ENLARGED LYMPH NODES IN THE RIGHT SIDE OF THE PELVIS MEASURING UP TO 1 CM, 1.1 CM RIGHT INGUINAL REGION, AND ENLARGED ALONG THE UPPER RIGHT FEMORAL CHAIN MEASURING UP TO 1.7 CM SHORT AXIS. THESE MAY BE REACTIVE/POST INFLAMMATORY. CORRELATE FOR ANY SIGNS/SYMPTOMS OF AN UPSTREAM INFECTION. CLINICAL FOLLOW-UP RECOMMENDED. IF ANY PERSISTENCE OR ENLARGEMENT, TARGETED ULTRASOUND AND SOFT TISSU E SAMPLING SHOULD BE CONSIDERED TO EXCLUDE METASTATIC NODES. 2. PERIUMBILICAL FAT STRANDING. CORRELATE TO EXCLUDE CELLULITIS. 3. MILD CIRCUMFERENTIAL BLADDER WALL THICKENING MAYBE CHRONIC FOR THE PATIENT. CORRELATE TO EXCLUDE C YSTITIS. 4. NO EXCRETION OF CONTRAST FROM THE KIDNEYS ON DELAYED KIDNEY IMAGES. CORRELATE FOR ACUTE KIDNEY INJ URY.
[2021-09-06 10:05] LABS: Amylase 31 U/L (30-110); Lipase 37 U/L (23-300)
[2021-09-06] MEDS ORDERED: ONDANSETRON 4 MG/2 ML VIAL IVP STA (10:38)
[2021-09-06] MEDS ORDERED: ONDANSETRON 4 MG/2 ML VIAL IVP PRN (10:57)
[2021-09-06] MEDS: ACETAMINOPHEN TAB 325 MG TAB PO PRN ×3 (11:45→21:07)
[2021-09-06] MEDS ORDERED: LACTULOSE 20 GM/30 ML CUP PO PRN (13:56)
[2021-09-06] MEDS ORDERED: MELATONIN 3 MG TABLET PO PRN (13:56)
[2021-09-06] MEDS ORDERED: CALCIUM CARBONATE 500 MG CHEWABLE PO PRN (13:56)
[2021-09-06] MEDS ORDERED: LORazepam 0.5 MG TAB PO PRN (13:56)
[2021-09-06] MEDS ORDERED: NALOXONE 0.4 MG/ML 1 ML VIAL IV PRN (13:56)
[2021-09-06] MEDS ORDERED: NITROGLYCERIN SL TABS 0.4 MG TAB SUBLINGUAL PRN (13:58)
[2021-09-06 13:59] LABS: Glucose,Whole Blood 208 mg/dL (75-99)
[2021-09-06 15:39] LABS: Glucose,Whole Blood 201 mg/dL (75-99)
[2021-09-06] MEDS: INSULIN ASPART (NovoLOG) 100 UNIT/ML VIAL SQ SCH ×3 (16:54→21:16)
[2021-09-06 16:59] LABS: Glucose,Whole Blood 197 mg/dL (75-99)
[2021-09-06] MEDS ORDERED: LEVOFLOXACIN 500 MG TAB PO SCH (21:00)
--- NOTE | 2021-09-06 21:03 | P.HPIM ---
History of Present Illness H&P Date: 09/06/21 Chief Complaint: Nausea vomiting This is a very pleasant 65-year-old patient of Dr. Quinonez. Chronic stable medical conditions include diabetes, hypertension, hyperlipidemia, osteoarthritis, CAD with stent, anxiety depression. Patient was here in July 2021 admitted with pneumonia and felt a possible PE. Discharged in eliquis. Last night patient started feeling unwell. Developed chills. This morning had a fever. Also nauseated and started vomiting. Also had loose stools. Last night. Had abdominal discomfort. was not sick. Patient had no further vomiting or diarrhea here. Feeling somewhat better. Given IV fluids. Review of systems: GEN.: Fever and chills EYES: None HEENT: None NECK: None RESPIRATORY: As above CARDIOVASCULAR: None GASTROINTESTINAL: Diarrhea with abdominal pain GENITOURINARY: None MUSCULOSKELETAL: Joint pains LYMPHATICS: None HEMATOLOGICAL: None PSYCHIATRY: None NEUROLOGICAL: None Past medical history to include: Diabetes, hypertension, hyperlipidemia, osteoarthritis, CAD with stent, depression, anxiety , PE in July 2021 social history: . Does not smoke or drink alcohol. Family history: DVT lung cancer Physical examination: VITAL SIGNS: 100.8, 111, 22, 1 46 x 56, 95% room air GENERAL: BMI 45.8, sitting up in a chair, awake, tired EYES: Pupils equal. Conjunctiva normal. HEENT: External appearance of nose and ears normal, oral cavity grossly normal. NECK: JVD not raised; masses not palpable. HEART: First and second heart sounds are normal; some edema. LUNGS: Respiratory rate increased, decreased breath sounds. ABDOMEN: Soft, epigastric tenderness, no guarding rigidity, liver spleen not palpable, no masses palpable. PSYCH: Alert and oriented x3; mood and affect normal. MUSCULAR skeletal: Evidence of OA in many joints NEUROLOGICAL: Cranial nerves grossly intact; no facial asymmetry, power and sensation grossly intact. LYMPHATICS: No lymph nodes palpable in the axilla and neck INVESTIGATIONS, reviewed in the clinical context: White count 23.3 hemoglobin 12.7 platelets 23 sodium 139 potassium 4.3 BUN 48 creatinine 1.12 lactic acid 2.7 UA positive for leukoesterase, WBC Coronavirus [PCR]: Not detected EKG tracing personally reviewed by me-normal sinus rhythm, rate 77 nonspecific T-wave changes Computed tomography scan abdomen and pelvis with contrast: Liver mildly enlarged 21.6 cm. Gallbladder distended to upper limits of normal. No surrounding inflammatory changes. Assessment and plan: -Patient presents with fever chills nausea vomiting up her abdominal pain and discomfort. Accompanied by diarrhea. Most likely bacterial food poisoning. By mouth Flagyl and Levaquin. Clear liquid diet -Sepsis IV fluids antibiotics -Acute UTI with cystitis Levaquin -Morbid obesity BMI 45.8 Weight loss measures and follow-up with PCP -July 2021 pulmonary embolism. eliquis -Diabetes mellitus type 2 and oral hypoglycemic, chronically on insulin Follow Accu-Cheks. Sliding scale insulin. Diabetic diet -Hyperlipidemia Lipitor 20 mg daily at bedtime -Essential hypertension Norvasc 10 mg daily Accupril 40 mg daily , -Primary osteoarthritis multiple joints bilaterally Tylenol as needed -CAD with stent Aspirin 81 mg daily, atenolol 50 mg twice a day, Lipitor 20 mg daily at bedtime -Anxiety depression otherwise specified Lexapro 20 mg daily -hyperuricemia Allopurinol 200 mg daily -Chronic kidney disease, stage III suspect diabetic nephropathy and hypertensive nephrosclerosis Follow renal function Past Medical History Past Medical History: Chest Pain / Angina, Diabetes Mellitus, Hyperlipidemia, Hypertension, Skin Disorder Additional Past Medical History / Comment(s): SOB,ARTHRITIS History of Any Multi-Drug Resistant Organisms: None Reported Past Surgical History: Back Surgery, Section, Heart Catheterization With Stent, Hysterectomy, Orthopedic Surgery, Tonsillectomy Additional Past Surgical History / Comment(s): heart stents x2,BUNIONECTOMY BELLA, LEFT KNEE TORN MENISCUS, TRIGGER FINGER X2,Rods and screws to back,bella cataract, Total right knee replacement Past Anesthesia/Blood Transfusion Reactions: Motion Sickness, Postoperative Nausea & Vomiting (PONV) Additional Past Anesthesia/Blood Transfusion Reaction / Comment(s): no prob with prior blood transfusions Date of Last Stent Placement:: 10-25-17 Past Psychological History: Anxiety, Depression Smoking Status: Never smoker Past Alcohol Use History: None Reported Past Drug Use History: None Reported - Past Family History Father Family Medical History: Cancer, Deep Vein Thrombosis (DVT) Additional Family Medical History / Comment(s): lung cancer Mother Family Medical History: Cancer, Diabetes Mellitus Additional Family Medical History / Comment(s): heart disease Brother(s) Family Medical History: Pulmonary Embolus Medications and Allergies Home Medications Medication Instructions Recorded Confirmed Type Aspirin 81 mg PO DAILY 01/06/14 09/06/21 History Atenolol 50 mg PO BID 01/06/14 09/06/21 History INSULIN ASPART (NovoLOG) [NovoLOG 20 - 25 unit SQ AC-TID 07/23/18 09/06/21 History (formulary)] Multivitamin with Iron 1 tab PO DAILY 02/15/19 09/06/21 History [Multivitamins with Iron] Vit C/E/Zn/Coppr/Lutein/Zeaxan 1 tab PO DAILY 02/15/19 09/06/21 History [Preservision Areds 2 Softgel] Atorvastatin [Lipitor] 20 mg PO HS 04/11/19 09/06/21 History Escitalopram [Lexapro] 20 mg PO DAILY 04/11/19 09/06/21 History Isosorbide Mononitrate ER [Imdur] 30 mg PO HS 04/11/19 09/06/21 History Nitroglycerin Sl Tabs [Nitrostat] 0.4 mg SUBLINGUAL Q5M PRN 04/11/19 09/06/21 History amLODIPine [Norvasc] 10 mg PO DAILY #30 tab 04/16/19 09/06/21 Rx Ferrous Sulfate [Iron (65 MG 325 mg PO DAILY 09/12/19 09/06/21 History Elemental)] Insulin Glargine [Lantus Vial] 60 unit SQ BID 09/12/19 09/06/21 History Quinapril HCl [Accupril] 40 mg PO DAILY 09/12/19 09/06/21 History Furosemide [Lasix] 160 mg PO DAILY 07/23/21 09/06/21 History allopurinoL [Zyloprim] 200 mg PO DAILY 07/23/21 09/06/21 History calcitrioL [Calcitriol] 0.25 mcg PO MOFR 07/23/21 09/06/21 History glyBURIDE/METFORMIN HCL 2 tab PO BID 07/23/21 09/06/21 History [Glucovance 5-500 mg] metOLazone [Zaroxolyn] 5 mg PO DIRECTED PRN 07/23/21 09/06/21 History Albuterol Sulfate [Albuterol 1 - 2 puff PO RT-Q6H PRN 09/06/21 09/06/21 History Sulfate Hfa] Apixaban [Eliquis] 5 mg PO BID 09/06/21 09/06/21 History Allergies Allergy/AdvReac Type Severity Reaction Status Date / Time adhesive Allergy Rash/Hives Verified 09/06/21 11:19 Penicillins Allergy Dyspnea/THROAT Verified 09/06/21 11:18 SWELLING Sulfa (Sulfonamide Allergy Rash/Hives Verified 09/06/21 11:18 Antibiotics) Physical Exam Vitals: Vital Signs Temp Pulse Resp BP Pulse Ox 09/06/21 13:50 100.3 F H 80 20 173/83 93 L 09/06/21 11:56 99.3 F 86 20 95 09/06/21 10:31 98.8 F 79 18 168/72 98 09/06/21 07:47 79 20 147/70 96 09/06/21 04:35 100.8 F H 111 H 22 146/56 95 Intake and Output 09/05/21 09/06/21 09/06/21 22:59 06:59 14:59 Other: Weight 121.109 kg Results CBC & Chem 7: 09/06/21 05:02 09/06/21 05:02 Labs: Abnormal Lab Results - Last 24 Hours (Table) 09/06/21 09/06/21 09/06/21 Range/Units 04:40 05:02 05:02 WBC 23.3 H (3.8-10.6) k/uL Neutrophils # 21.4 H (1.3-7.7) k/uL Lymphocytes # 0.6 L (1.0-4.8) k/uL Monocytes # 1.1 H (0-1.0) k/uL BUN 48 H (7-17) mg/dL Creatinine 1.12 H (0.52-1.04) mg/dL Glucose 231 H (74-99) mg/dL POC Glucose (mg/dL) 229 H (75-99) mg/dL Plasma Lactic Acid Mina (0.7-2.0) mmol/L ALT 39 H (4-34) U/L Urine Appearance (Clear) Urine Protein (Negative) Urine Blood (Negative) Ur Leukocyte Esterase (Negative) Urine WBC (0-5) /hpf Urine WBC Clumps (None) /hpf Urine Bacteria (None) /hpf Urine Mucus (None) /hpf 09/06/21 09/06/21 09/06/21 Range/Units 09:22 09:26 12:51 WBC (3.8-10.6) k/uL Neutrophils # (1.3-7.7) k/uL Lymphocytes # (1.0-4.8) k/uL Monocytes # (0-1.0) k/uL BUN (7-17) mg/dL Creatinine (0.52-1.04) mg/dL Glucose (74-99) mg/dL POC Glucose (mg/dL) (75-99) mg/dL Plasma Lactic Acid Mina 2.7 H* 2.3 H* (0.7-2.0) mmol/L ALT (4-34) U/L Urine Appearance Cloudy H (Clear) Urine Protein 1+ H (Negative) Urine Blood Small H (Negative) Ur Leukocyte Esterase Large H (Negative) Urine WBC >182 H (0-5) /hpf Urine WBC Clumps Many H (None) /hpf Urine Bacteria Many H (None) /hpf Urine Mucus Rare H (None) /hpf 09/06/21 Range/Units 13:47 WBC (3.8-10.6) k/uL Neutrophils # (1.3-7.7) k/uL Lymphocytes # (1.0-4.8) k/uL Monocytes # (0-1.0) k/uL BUN (7-17) mg/dL Creatinine (0.52-1.04) mg/dL Glucose (74-99) mg/dL POC Glucose (mg/dL) 208 H (75-99) mg/dL Plasma Lactic Acid Mina (0.7-2.0) mmol/L ALT (4-34) U/L Urine Appearance (Clear) Urine Protein (Negative) Urine Blood (Negative) Ur Leukocyte Esterase (Negative) Urine WBC (0-5) /hpf Urine WBC Clumps (None) /hpf Urine Bacteria (None) /hpf Urine Mucus (None) /hpf
[2021-09-06] MEDS: atenoloL 50 MG TAB PO SCH (21:07)
[2021-09-06] MEDS: ATORVASTATIN 20 MG TAB PO SCH (21:07)
[2021-09-06] MEDS: APIXABAN 5 MG TAB PO SCH (21:07)
[2021-09-06] MEDS: INSULIN DETEMIR (LEVEMIR) 100 UNIT/ML SYR SQ SCH (21:12)
[2021-09-06 21:16] LABS: Glucose,Whole Blood 129 mg/dL (75-99)
[2021-09-06] MEDS: metroNIDAZOLE 500 MG TAB PO SCH (22:58)
[2021-09-06] MEDS: ISOSORBIDE MONONITRATE ER 30 MG TAB.ER.24H PO SCH (22:58)
[2021-09-06] MEDS: SODIUM CHLORIDE 0.9% 1,000 ML IV SCH (23:00)
[2021-09-07] MEDS: ACETAMINOPHEN TAB 325 MG TAB PO PRN ×5 (03:58→21:02)
[2021-09-07 05:32] LABS: Glucose,Whole Blood 149 mg/dL (75-99)
[2021-09-07 07:07] LABS: Basophils % (A) 0 %; Eosinophils # (A) 0.1 k/uL (0-0.7); Eosinophils % (A) 1 %; HCT 34.8 % (34.0-46.0); HGB 10.8 gm/dL (11.4-16.0); Hypochromasia Slight; Lymphocytes # (A) 0.6 k/uL (1.0-4.8); Lymphocytes % (A) 4 %; MCH 29.7 pg (25.0-35.0); MCHC 31.1 g/dL (31.0-37.0); Mean Platelet Volume 7.4; Monocytes # (A) 0.6 k/uL (0-1.0); Monocytes % (A) 4 %; Neutrophils # (A) 12.8 k/uL (1.3-7.7); Neutrophils % (A) 89 %; Platelet Count 224 k/uL (150-450); RBC 3.64 m/uL (3.80-5.40); RDW 15.3 % (11.5-15.5); WBC 14.5 k/uL (3.8-10.6)
[2021-09-07 07:13] LABS: MCV 95.5 fL (80.0-100.0)
[2021-09-07 07:24] LABS: Calcium 8.7 mg/dL (8.4-10.2); Potassium 4.3 mmol/L (3.5-5.1)
[2021-09-07 07:28] LABS: Glucose,Whole Blood 157 mg/dL (75-99)
[2021-09-07] MEDS: atenoloL 50 MG TAB PO SCH ×2 (08:33→21:00)
[2021-09-07] MEDS: allopurinoL 100 MG TAB PO SCH (08:33)
[2021-09-07] MEDS: amLODIPine 10 MG TAB PO SCH (08:33)
[2021-09-07] MEDS: APIXABAN 5 MG TAB PO SCH ×2 (08:33→21:01)
[2021-09-07] MEDS: metroNIDAZOLE 500 MG TAB PO SCH ×3 (08:33→17:29)
[2021-09-07] MEDS: lisinopriL 20 MG TAB PO SCH (08:33)
[2021-09-07] MEDS: SODIUM CHLORIDE 0.9% 1,000 ML IV SCH ×2 (08:34→17:29)
[2021-09-07] MEDS: ASPIRIN 81 MG PO SCH (08:35)
[2021-09-07] MEDS: INSULIN ASPART (NovoLOG) 100 UNIT/ML VIAL SQ SCH ×4 (08:35→22:24)
[2021-09-07] MEDS: INSULIN DETEMIR (LEVEMIR) 100 UNIT/ML SYR SQ SCH ×2 (08:36→22:24)
[2021-09-07] MEDS: ESCITALOPRAM 20 MG TAB PO SCH (08:37)
[2021-09-07 11:06] LABS: Glucose,Whole Blood 230 mg/dL (75-99)
[2021-09-07 17:14] LABS: Glucose,Whole Blood 155 mg/dL (75-99)
--- NOTE | 2021-09-07 18:39 | XR ---
EXAMINATION TYPE: XR chest 1V portable DATE OF EXAM: 09/07/2021 COMPARISON: August 05, 2021 HISTORY: Short of breath TECHNIQUE: Single view FINDINGS: There is no heart failure. Heart size is normal. There are slight increased interstitial ma rkings. No pulmonary consolidation. Bony thorax appears intact. IMPRESSION: No pulmonary consolidation or heart failure. No adverse change.
[2021-09-07] MEDS ORDERED: FUROSEMIDE 10 MG/ML 4 ML VIAL IV STA (18:45)
--- NOTE | 2021-09-07 18:55 | P.PN ---
Progress Note - Text Progress Note Date: 09/07/21 Chief Complaint: Nausea vomiting This is a very pleasant 65-year-old patient of Dr. Quinonez. Chronic stable medical conditions include diabetes, hypertension, hyperlipidemia, osteoarthritis, CAD with stent, anxiety depression. Patient was here in July 2021 admitted with pneumonia and felt a possible PE. Discharged in eliquis. Last night patient started feeling unwell. Developed chills. This morning had a fever. Also nauseated and started vomiting. Also had loose stools. Last night. Had abdominal discomfort. was not sick. Patient had no further vomiting or diarrhea here. Feeling somewhat better. Given IV fluids. September 4: Overnight patient started having chills again. Blood cultures positive for gram-positive cocci in chains. ID consulted. Later today feeling a bit short of breath. Some wheezing. Check stat x-rays showed possible fluid overload. IV fluids cutback. 1 dose of IV Lasix 40 mg ordered. No diarrhea. Patient did a little bit. Review of systems: Was done for constitutional, cardiovascular, GI, pulmonary. relevant finding as above Active Medications Acetaminophen (Acetaminophen Tab 325 Mg Tab) 650 mg PO Q4HR PRN PRN Reason: Fever and/ or Pain Last Admin: 09/07/21 17:28 Dose: 650 mg Documented by: Albuterol/Ipratropium (Ipratropium-Albuterol 3 Ml Neb) 3 ml INHALATION RT-QID [facility] [place] Allopurinol (Allopurinol 100 Mg Tab) 200 mg PO DAILY [facility] [place] Last Admin: 09/07/21 08:33 Dose: 200 mg Documented by: Amlodipine Besylate (Amlodipine 10 Mg Tab) 10 mg PO DAILY [facility] [place] Last Admin: 09/07/21 08:33 Dose: 10 mg Documented by: Apixaban (Apixaban 5 Mg Tab) 5 mg PO BID [facility] [place]; Protocol Last Admin: 09/07/21 08:33 Dose: 5 mg Documented by: Aspirin (Aspirin 81 Mg) 81 mg PO DAILY [facility] [place] Last Admin: 09/07/21 08:35 Dose: 81 mg Documented by: Atenolol (Atenolol 50 Mg Tab) 50 mg PO BID [facility] [place] Last Admin: 09/07/21 08:33 Dose: 50 mg Documented by: Atorvastatin Calcium (Atorvastatin 20 Mg Tab) 20 mg PO [facility] Last Admin: 09/06/21 21:07 Dose: 20 mg Documented by: Calcium Carbonate/Glycine (Calcium Carbonate 500 Mg Chewable) 1,000 mg PO Q4HR PRN PRN Reason: Dyspepsia Escitalopram Oxalate (Escitalopram 20 Mg Tab) 20 mg PO DAILY [facility] [place] Last Admin: 09/07/21 08:37 Dose: 20 mg Documented by: Ceftriaxone Sodium 2 gm/ (Sodium Chloride) 50 mls @ 100 mls/hr IVPB Q24HR [facility] [place] Last Admin: 09/07/21 08:37 Dose: 100 mls/hr Documented by: Sodium Chloride (Saline 0.9%) 1,000 mls @ 20 mls/hr IV .Q24H [facility] [place] Last Admin: 09/07/21 17:29 Dose: 100 mls/hr Documented by: Insulin Aspart (Insulin Aspart (Novolog) 100 Unit/Ml Vial) 0 unit SQ ACHS [facility] [place]; Protocol Last Admin: 09/07/21 17:28 Dose: 2 unit Documented by: Insulin Detemir (Insulin Detemir (Levemir) 100 Unit/Ml Syr) 45 unit SQ BID [facility] [place] Last Admin: 09/07/21 08:36 Dose: 45 unit Documented by: Isosorbide Mononitrate (Isosorbide Mononitrate Er 30 Mg Tab.Er.24h) 30 mg PO HS [facility] [place] Last Admin: 09/06/21 22:58 Dose: 30 mg Documented by: Lactulose (Lactulose 20 Gm/30 Ml Cup) 20 gm PO DAILY PRN PRN Reason: Constipation Levofloxacin (Levofloxacin 250 Mg Tab) 250 mg PO Q24H [facility] [place] Lisinopril (Lisinopril 20 Mg Tab) 40 mg PO DAILY [facility] [place] Last Admin: 09/07/21 08:33 Dose: 40 mg Documented by: Lorazepam (Lorazepam 0.5 Mg Tab) 0.5 mg PO Q6HR PRN PRN Reason: Anxiety Melatonin (Melatonin 3 Mg Tablet) 3 mg PO HS PRN PRN Reason: Insomnia Last Admin: 09/06/21 21:07 Dose: 3 mg Documented by: Metronidazole (Metronidazole 500 Mg Tab) 500 mg PO QID [facility] [place] Last Admin: 09/07/21 17:29 Dose: 500 mg Documented by: Naloxone HCl (Naloxone 0.4 Mg/Ml 1 Ml Vial) 0.2 mg IV Q2M PRN PRN Reason: Opioid Reversal Nitroglycerin (Nitroglycerin Sl Tabs 0.4 Mg Tab) 0.4 mg SUBLINGUAL Q5M PRN PRN Reason: Chest Pain Ondansetron HCl (Ondansetron 4 Mg/2 Ml Vial) 4 mg IVP Q6HR PRN PRN Reason: Nausea And Vomiting Last Admin: 09/07/21 12:49 Dose: 4 mg Documented by: Past medical history to include: Diabetes, hypertension, hyperlipidemia, osteoarthritis, CAD with stent, depression, anxiety , PE in July 2021 social history: . Does not smoke or drink alcohol. Family history: DVT lung cancer Physical examination: VITAL SIGNS: Afebrile, 75, 26, 170/87, 92% on 3 L GENERAL: Laying, in bed, some shortness of breath, chills EYES: Pupils equal. Conjunctiva normal. HEENT: External appearance of nose and ears normal, oral cavity grossly normal. NECK: JVD not raised; masses not palpable. HEART: First and second heart sounds are normal; some edema. LUNGS: Respiratory rate increased, decreased breath sounds. Some wheezing ABDOMEN: Soft, no tenderness, no guarding rigidity, liver spleen not palpable, no masses palpable. PSYCH: Alert and oriented x3; mood and affect anxious. MUSCULAR skeletal: Evidence of OA in many joints INVESTIGATIONS, reviewed in the clinical context: August 07: White count 14.5 hemoglobin 10.8 platelets 2244.3 creatinine 1.04 Chest x-ray film personally reviewed by me-possible fluid overload Blood culture positive for Streptococcus agalactiae group B White count 23.3 hemoglobin 12.7 platelets 23 sodium 139 potassium 4.3 BUN 48 creatinine 1.12 lactic acid 2.7 UA positive for leukoesterase, WBC Coronavirus [PCR]: Not detected EKG tracing personally reviewed by me-normal sinus rhythm, rate 77 nonspecific T-wave changes Computed tomography scan abdomen and pelvis with contrast: Liver mildly enlarged 21.6 cm. Gallbladder distended to upper limits of normal. No surrounding inflammatory changes. Assessment and plan: -Probable bacterial food poisoning.: Better Soft diet -Sepsis, with blood cultures positive for Streptococcus agalactiae group B IV fluids IV ceftriaxone -Acute UTI with cystitis IV ceftriaxone -Acute pulmonary edema from IV fluids IV Lasix 40 mg twice 1 -Morbid obesity BMI 45.8 Weight loss measures and follow-up with PCP -July 2021 pulmonary embolism. eliquis -Diabetes mellitus type 2 and oral hypoglycemic, chronically on insulin Follow Accu-Cheks. Sliding scale insulin. Diabetic diet -Hyperlipidemia Lipitor 20 mg daily at bedtime -Essential hypertension Norvasc 10 mg daily Accupril 40 mg daily , -Primary osteoarthritis multiple joints bilaterally Tylenol as needed -CAD with stent Aspirin 81 mg daily, atenolol 50 mg twice a day, Lipitor 20 mg daily at bedtime -Anxiety depression otherwise specified Lexapro 20 mg daily -hyperuricemia Allopurinol 200 mg daily -Chronic kidney disease, stage III suspect diabetic nephropathy and hypertensive nephrosclerosis Follow renal function IV Lasix 40 mg 1. Consult pulmonary. IV ceftriaxone. Levaquin and Flagyl discontinued. Check stat x-rays reviewed. Pulmonary and ID on the case. Discussed with patient.
[2021-09-07] MEDS ORDERED: LEVOFLOXACIN 250 MG TAB PO SCH (21:00)
[2021-09-07] MEDS: ISOSORBIDE MONONITRATE ER 30 MG TAB.ER.24H PO SCH (21:00)
[2021-09-07] MEDS: ATORVASTATIN 20 MG TAB PO SCH (21:01)
[2021-09-07] MEDS: IPRATROPIUM-ALBUTEROL 3 ML NEB INHALATION SCH (21:10)
--- NOTE | 2021-09-07 22:20 | P.CONS ---
History of Present Illness - Reason for Consult Consult date: 09/07/21 bacteremia Requesting physician: Robb Wright - Chief Complaint rigors and chills x 1 day - History of Present Illness History of present illness : Patient is a 65-year-old female presenting to the ER yesterday morning for evaluation of rigors and chills vomiting x2 and did have diarrhea x2 in addition to the mild epigastric discomfort, with the symptom the patient has been evaluated by the ER physician on arrival to the ER patient did have fever 100.8 F patient did have a white count of 23.3 with a left shift D-dimer was normal BUN elevated creatinine is normal lactic acid was elevated liver enzymes are normal except ALT is mildly elevated amylase lipase normal urine is positive vogel PCR was negative patient blood pressure is Streptococcus agalactiae initially gram-negative patient did have a CT of abdominal pelvis with evidence of borderline enlarged lymph nodes in the right side of the pelvis periumbilical fat stranding mild circumferential bladder wall thickening, patient urine showing gram-negative blood cultures with Streptococcus agalactiae patient is currently being treated with the Rocephin 2 g daily infectious was consulted for further management of antibiotic therapy, patient IN evaluation denies any further fever or chills patient denies having any chest pain no shortness with cough some abdominal discomfort no further vomiting or diarrhea denies having any pain or swelling in his lower extremity did have some urinary frequency and burning as well Review of system: CONSTITUTIONAL: Positive for weakness along with the fever. EYES: No complaint. ENT: No complaint. RESPIRATORY: No complaint. CARDIOVASCULAR: No complaint. GENITOURINARY: As per history of present illness. GASTROINTESTINAL: As per history of present illness. MUSCULOSKELETAL: No complaint. INTEGUMENTARY: No complaint. PSYCHOLOGIC: No complaint. ENDOCRINE: No complaint. NEUROLOGIC: No complaint. Past medical history : Reviewed, documented below Past surgical history : Reviewed, documented below Social history: Reviewed, documented below Medications: Reviewed, as documented below EXAMINATION: Vital sigans= Reviewed and documented below GENERAL DESCRIPTION elderly female lying in bed, no distress. No tachypnea or accessory muscle of respiration use. HEENT: Shows Pallor , no scleral icterus. Oral mucous membrane is dry. NECK: Trachea central, no thyromegaly. LUNGS: Unlabored breathing. Clear to auscultation anteriorly. No wheeze or crackle. HEART: S1, S2, regular rate and rhythm. ABDOMEN: Soft, no tenderness , guarding or rigidity EXTREMITIES: No edema of feet. SKIN: No rash, no masses palpable. NEUROLOGICAL: The patient is awake, alert, oriented x3, mood and affect normal. LABS AND RADIOLOGY: Reviewed results see below Assessment : Patient presented to hospital with sepsis in this patient have a fever elevated white count now with evidence of streptococcal agalactiae bacteremia did have significantly positive UA with urinary symptoms highly suspicious for urinary source as currently no other obvious focus for this carmen teremia Plan: 1-blood cultures will be repeated document clearance of bacteremia 2-Rocephin 2 g daily to continue We will follow on clinical condition and cultures to further adjust medication if needed Thank you for this consultation we will follow the patient along with you Past Medical History Past Medical History: Chest Pain / Angina, Diabetes Mellitus, Hyperlipidemia, Hypertension, Skin Disorder Additional Past Medical History / Comment(s): SOB,ARTHRITIS History of Any Multi-Drug Resistant Organisms: None Reported Past Surgical History: Back Surgery, Section, Heart Catheterization With Stent, Hysterectomy, Orthopedic Surgery, Tonsillectomy Additional Past Surgical History / Comment(s): heart stents x2,BUNIONECTOMY BELLA, LEFT KNEE TORN MENISCUS, TRIGGER FINGER X2,Rods and screws to back,bella cataract, Total right knee replacement Past Anesthesia/Blood Transfusion Reactions: Motion Sickness, Postoperative Na usea & Vomiting (PONV) Additional Past Anesthesia/Blood Transfusion Reaction / Comm: no prob with prior blood transfusions Date of Last Stent Placement:: 10-25-17 Past Psychological History: Anxiety, Depression Smoking Status: Never smoker Past Alcohol Use History: None Reported Past Drug Use History: None Reported - Past Family History Father Family Medical History: Cancer, Deep Vein Thrombosis (DVT) Additional Family Medical History / Comment(s): lung cancer Mother Family Medical History: Cancer, Diabetes Mellitus Additional Family Medical History / Comment(s): heart disease Brother(s) Family Medical History: Pulmonary Embolus Medications and Allergies Home Medications Medication Instructions Recorded Confirmed Type Aspirin 81 mg PO DAILY 01/06/14 09/06/21 History Atenolol 50 mg PO BID 01/06/14 09/06/21 History INSULIN ASPART (NovoLOG) [NovoLOG 20 - 25 unit SQ AC-TID 07/23/18 09/06/21 History (formulary)] Multivitamin with Iron 1 tab PO DAILY 02/15/19 09/06/21 History [Multivitamins with Iron] Vit C/E/Zn/Coppr/Lutein/Zeaxan 1 tab PO DAILY 02/15/19 09/06/21 History [Preservision Areds 2 Softgel] Atorvastatin [Lipitor] 20 mg PO HS 04/11/19 09/06/21 History Escitalopram [Lexapro] 20 mg PO DAILY 04/11/19 09/06/21 History Isosorbide Mononitrate ER [Imdur] 30 mg PO HS 04/11/19 09/06/21 History Nitroglycerin Sl Tabs [Nitrostat] 0.4 mg SUBLINGUAL Q5M PRN 04/11/19 09/06/21 History amLODIPine [Norvasc] 10 mg PO DAILY #30 tab 04/16/19 09/06/21 Rx Ferrous Sulfate [Iron (65 MG 325 mg PO DAILY 09/12/19 09/06/21 History Elemental)] Quinapril HCl [Accupril] 40 mg PO DAILY 09/12/19 09/06/21 History allopurinoL [Zyloprim] 200 mg PO DAILY 07/23/21 09/06/21 History calcitrioL [Calcitriol] 0.25 mcg PO MOFR 07/23/21 09/06/21 History glyBURIDE/METFORMIN HCL 2 tab PO BID 07/23/21 09/06/21 History [Glucovance 5-500 mg] metOLazone [Zaroxolyn] 5 mg PO DIRECTED PRN 07/23/21 09/06/21 History Albuterol Sulfate [Albuterol 1 - 2 puff PO RT-Q6H PRN 09/06/21 09/06/21 History Sulfate Hfa] Apixaban [Eliquis] 5 mg PO BID 09/06/21 09/06/21 History Cefuroxime Axetil [Ceftin] 500 mg PO BID #14 tab 09/09/21 Rx Furosemide [Lasix] 80 mg PO DAILY #0 09/09/21 09/06/21 Rx Insulin Glargine [Lantus Vial] 45 unit SQ BID #0 09/09/21 09/06/21 Rx Allergies Allergy/AdvReac Type Severity Reaction Status Date / Time adhesive Allergy Rash/Hives Verified 09/06/21 11:19 Penicillins Allergy Dyspnea/THROAT Verified 09/06/21 11:18 SWELLING Sulfa (Sulfonamide Allergy Rash/Hives Verified 09/06/21 11:18 Antibiotics) Physical Exam Vitals: Vital Signs Temp Pulse Pulse Resp BP BP Pulse Ox 09/07/21 08:00 98.4 F 64 146/68 92 L 09/07/21 03:57 99.5 F 73 16 164/71 95 09/06/21 20:00 98.4 F 78 18 164/66 95 09/06/21 16:20 98.9 F 77 156/61 95 09/06/21 15:50 98.1 F 76 18 142/50 95 09/06/21 15:41 98.1 F 76 18 142/50 95 09/06/21 13:50 100.3 F H 80 20 173/83 93 L 09/06/21 11:56 99.3 F 86 20 95 Intake and Output 09/06/21 09/07/21 09/07/21 22:59 06:59 14:59 Intake Total 100 Balance 100 Intake: IV 100 Sodium Chloride 0.9% 1, 100 000 ml @ 100 mls/hr IV . Q10H ONE Rx#:[id number] Other: Weight 121.109 kg Results CBC & Chem 7: 09/09/21 06:41 09/09/21 06:41 Labs: Abnormal Lab Results - Last 24 Hours (Table) 09/06/21 09/06/21 09/06/21 Range/Units 12:51 13:47 15:37 WBC (3.8-10.6) k/uL RBC (3.80-5.40) m/uL Hgb (11.4-16.0) gm/dL Neutrophils # (1.3-7.7) k/uL Lymphocytes # (1.0-4.8) k/uL Sodium (137-145) mmol/L Carbon Dioxide (22-30) mmol/L BUN (7-17) mg/dL Glucose (74-99) mg/dL POC Glucose (mg/dL) 208 H 201 H (75-99) mg/dL Plasma Lactic Acid Mina 2.3 H* (0.7-2.0) mmol/L 09/06/21 09/06/21 09/07/21 Range/Units 16:56 21:11 05:29 WBC (3.8-10.6) k/uL RBC (3.80-5.40) m/uL Hgb (11.4-16.0) gm/dL Neutrophils # (1.3-7.7) k/uL Lymphocytes # (1.0-4.8) k/uL Sodium (137-145) mmol/L Carbon Dioxide (22-30) mmol/L BUN (7-17) mg/dL Glucose (74-99) mg/dL POC Glucose (mg/dL) 197 H 129 H 149 H (75-99) mg/dL Plasma Lactic Acid Mina (0.7-2.0) mmol/L 09/07/21 09/07/21 09/07/21 Range/Units 06:31 06:31 07:27 WBC 14.5 H (3.8-10.6) k/uL RBC 3.64 L (3.80-5.40) m/uL Hgb 10.8 L (11.4-16.0) gm/dL Neutrophils # 12.8 H (1.3-7.7) k/uL Lymphocytes # 0.6 L (1.0-4.8) k/uL Sodium 134 L (137-145) mmol/L Carbon Dioxide 20 L (22-30) mmol/L BUN 33 H (7-17) mg/dL Glucose 171 H (74-99) mg/dL POC Glucose (mg/dL) 157 H (75-99) mg/dL Plasma Lactic Acid Mina (0.7-2.0) mmol/L 09/07/21 Range/Units 11:05 WBC (3.8-10.6) k/uL RBC (3.80-5.40) m/uL Hgb (11.4-16.0) gm/dL Neutrophils # (1.3-7.7) k/uL Lymphocytes # (1.0-4.8) k/uL Sodium (137-145) mmol/L Carbon Dioxide (22-30) mmol/L BUN (7-17) mg/dL Glucose (74-99) mg/dL POC Glucose (mg/dL) 230 H (75-99) mg/dL Plasma Lactic Acid Mina (0.7-2.0) mmol/L Microbiology - Last 24 Hours (Table) 09/06/21 09:26 Blood Culture Gram Stain - Preliminary Blood Blood Culture - Preliminary Strep agalactiae - (group b) 09/06/21 09:26 Blood Culture - Final Blood 09/06/21 09:22 Urine Culture - Preliminary Urine,Clean Catch
[2021-09-07 22:26] LABS: Glucose,Whole Blood 156 mg/dL (75-99)
[2021-09-08] MEDS: ACETAMINOPHEN TAB 325 MG TAB PO PRN ×4 (02:55→18:17)
[2021-09-08 07:25] LABS: Glucose,Whole Blood 96 mg/dL (75-99)
[2021-09-08] MEDS: INSULIN ASPART (NovoLOG) 100 UNIT/ML VIAL SQ SCH ×4 (08:01→21:12)
[2021-09-08] MEDS: SODIUM CHLORIDE 0.9% 1,000 ML IV SCH (08:12)
[2021-09-08] MEDS: APIXABAN 5 MG TAB PO SCH ×2 (08:18→21:12)
[2021-09-08] MEDS: atenoloL 50 MG TAB PO SCH ×2 (08:18→21:12)
[2021-09-08] MEDS: ASPIRIN 81 MG PO SCH (08:18)
[2021-09-08] MEDS: allopurinoL 100 MG TAB PO SCH (08:18)
[2021-09-08] MEDS: ESCITALOPRAM 20 MG TAB PO SCH (08:18)
[2021-09-08] MEDS: amLODIPine 10 MG TAB PO SCH (08:18)
[2021-09-08] MEDS: INSULIN DETEMIR (LEVEMIR) 100 UNIT/ML SYR SQ SCH ×2 (08:19→21:13)
[2021-09-08] MEDS: lisinopriL 20 MG TAB PO SCH (08:19)
[2021-09-08 08:29] LABS: Basophils % (A) 0 %; Eosinophils # (A) 0.1 k/uL (0-0.7); Eosinophils % (A) 1 %; HCT 31.4 % (34.0-46.0); HGB 10.1 gm/dL (11.4-16.0); Lymphocytes # (A) 0.8 k/uL (1.0-4.8); Lymphocytes % (A) 6 %; MCH 29.8 pg (25.0-35.0); MCHC 32.3 g/dL (31.0-37.0); MCV 92.3 fL (80.0-100.0); Mean Platelet Volume 8.2; Monocytes # (A) 0.7 k/uL (0-1.0); Monocytes % (A) 5 %; Neutrophils # (A) 11.5 k/uL (1.3-7.7); Neutrophils % (A) 87 %; Platelet Count 217 k/uL (150-450); RDW 14.9 % (11.5-15.5); WBC 13.3 k/uL (3.8-10.6)
[2021-09-08 08:52] LABS: Calcium 9.1 mg/dL (8.4-10.2); Potassium 4.5 mmol/L (3.5-5.1)
[2021-09-08] MEDS: IPRATROPIUM-ALBUTEROL 3 ML NEB INHALATION SCH ×4 (09:24→21:12)
[2021-09-08 11:19] LABS: Glucose,Whole Blood 159 mg/dL (75-99)
[2021-09-08] MEDS ORDERED: FUROSEMIDE 10 MG/ML 2 ML VIAL IV ONE (13:25)
--- NOTE | 2021-09-08 14:50 | P.PN ---
Progress Note - Text Progress Note Date: 09/08/21 Chief Complaint: Nausea vomiting This is a very pleasant 65-year-old patient of Dr. Quinonez. Chronic stable medical conditions include diabetes, hypertension, hyperlipidemia, osteoarthritis, CAD with stent, anxiety depression. Patient was here in July 2021 admitted with pneumonia and felt a possible PE. Discharged in eliquis. Last night patient started feeling unwell. Developed chills. This morning had a fever. Also nauseated and started vomiting. Also had loose stools. Last night. Had abdominal discomfort. was not sick. Patient had no further vomiting or diarrhea here. Feeling somewhat better. Given IV fluids. Admitted with food poisoning, acute UTI with sepsis. Put on IV ceftriaxone. Blood cultures positive for Streptococcus agalactiae group B. ID consulted. Did going to fluid overload with pulmonary edema. Given IV Lasix. September 07: Overnight patient started having chills again. Blood cultures positive for gram-positive cocci in chains. ID consulted. Later today feeling a bit short of breath. Some wheezing. Check stat x-rays showed possible fluid overload. IV fluids cutback. 1 dose of IV Lasix 40 mg ordered. No diarrhea. Patient did a little bit. September 08: Patient feeling a bit better today. Sitting up in a chair. No fever. Requiring 3 L of nasal cannula. Appetite better today eating about 50%. - breakfast. Review of systems: Was done for constitutional, cardiovascular, GI, pulmonary. relevant finding as above Active Medications Acetaminophen (Acetaminophen Tab 325 Mg Tab) 650 mg PO Q4HR PRN PRN Reason: Fever and/ or Pain Last Admin: 09/08/21 13:13 Dose: 650 mg Documented by: Albuterol/Ipratropium (Ipratropium-Albuterol 3 Ml Neb) 3 ml INHALATION RT-QID [facility] Last Admin: 09/08/21 13:23 Dose: 3 ml Documented by: Allopurinol (Allopurinol 100 Mg Tab) 200 mg PO DAILY [facility] Last Admin: 09/08/21 08:18 Dose: 200 mg Documented by: Amlodipine Besylate (Amlodipine 10 Mg Tab) 10 mg PO DAILY [facility] Last Admin: 09/08/21 08:18 Dose: 10 mg Documented by: Apixaban (Apixaban 5 Mg Tab) 5 mg PO BID [facility]; Protocol Last Admin: 09/08/21 08:18 Dose: 5 mg Documented by: Aspirin (Aspirin 81 Mg) 81 mg PO DAILY [facility] Last Admin: 09/08/21 08:18 Dose: 81 mg Documented by: Atenolol (Atenolol 50 Mg Tab) 50 mg PO BID [facility] Last Admin: 09/08/21 08:18 Dose: 50 mg Documented by: Atorvastatin Calcium (Atorvastatin 20 Mg Tab) 20 mg PO HS [facility] Last Admin: 09/07/21 21:01 Dose: 20 mg Documented by: Calcium Carbonate/Glycine (Calcium Carbonate 500 Mg Chewable) 1,000 mg PO Q4HR PRN PRN Reason: Dyspepsia Escitalopram Oxalate (Escitalopram 20 Mg Tab) 20 mg PO DAILY [facility] Last Admin: 09/08/21 08:18 Dose: 20 mg Documented by: Ceftriaxone Sodium 2 gm/ (Sodium Chloride) 50 mls @ 100 mls/hr IVPB Q24HR [facility] Last Admin: 09/08/21 08:10 Dose: 100 mls/hr Documented by: Sodium Chloride (Saline 0.9%) 1,000 mls @ 20 mls/hr IV .Q24H [facility] Last Admin: 09/08/21 08:12 Dose: 20 mls/hr Documented by: Insulin Aspart (Insulin Aspart (Novolog) 100 Unit/Ml Vial) 0 unit SQ ACHS [facility]; Protocol Last Admin: 09/08/21 12:27 Dose: 2 unit Documented by: Insulin Detemir (Insulin Detemir (Levemir) 100 Unit/Ml Syr) 45 unit SQ BID [facility] Last Admin: 09/08/21 08:19 Dose: 45 unit Documented by: Isosorbide Mononitrate (Isosorbide Mononitrate Er 30 Mg Tab.Er.24h) 30 mg PO [facility] Last Admin: 09/07/21 21:00 Dose: 30 mg Documented by: Lactulose (Lactulose 20 Gm/30 Ml Cup) 20 gm PO DAILY PRN PRN Reason: Constipation Lisinopril (Lisinopril 20 Mg Tab) 40 mg PO DAILY [facility] Last Admin: 09/08/21 08:19 Dose: 40 mg Documented by: Lorazepam (Lorazepam 0.5 Mg Tab) 0.5 mg PO Q6HR PRN PRN Reason: Anxiety Melatonin (Melatonin 3 Mg Tablet) 3 mg PO HS PRN PRN Reason: Insomnia Last Admin: 09/06/21 21:07 Dose: 3 mg Documented by: Naloxone HCl (Naloxone 0.4 Mg/Ml 1 Ml Vial) 0.2 mg IV Q2M PRN PRN Reason: Opioid Reversal Nitroglycerin (Nitroglycerin Sl Tabs 0.4 Mg Tab) 0.4 mg SUBLINGUAL Q5M PRN PRN Reason: Chest Pain Ondansetron HCl (Ondansetron 4 Mg/2 Ml Vial) 4 mg IVP Q6HR PRN PRN Reason: Nausea And Vomiting Last Admin: 09/07/21 12:49 Dose: 4 mg Documented by: Past medical history to include: Diabetes, hypertension, hyperlipidemia, osteoarthritis, CAD with stent, depression, anxiety , PE in July 2021 social history: . Does not smoke or drink alcohol. Family history: DVT lung cancer Physical examination: VITAL SIGNS: 99.5, 77, 20, 1:30/83, 95% on 3 L 86% on room air GENERAL: Sitting up in a chair, breathing better EYES: Pupils equal. Conjunctiva normal. HEENT: External appearance of nose and ears normal, oral cavity grossly normal. NECK: JVD not raised; masses not palpable. HEART: First and second heart sounds are normal; some edema. LUNGS: Respiratory rate increased, decreased breath sounds. ABDOMEN: Soft, no tenderness, no guarding rigidity, liver spleen not palpable, no masses palpable. PSYCH: Alert and oriented x3; mood and affect normal. MUSCULAR skeletal: Evidence of OA in many joints INVESTIGATIONS, reviewed in the clinical context: August 08: White count 13.3 hemoglobin 10.1 potassium 4.5 BUN 30 creatinine 1.2 to pro-calcitonin 1.41 August 07: White count 14.5 hemoglobin 10.8 platelets 2244.3 creatinine 1.04 Chest x-ray film personally reviewed by me-possible fluid overload Blood culture positive for Streptococcus agalactiae group B Urine culture: Gram-negative bacillary White count 23.3 hemoglobin 12.7 platelets 23 sodium 139 potassium 4.3 BUN 48 creatinine 1.12 lactic acid 2.7 UA positive for leukoesterase, WBC Coronavirus [PCR]: Not detected EKG tracing personally reviewed by me-normal sinus rhythm, rate 77 nonspecific T-wave changes Computed tomography scan abdomen and pelvis with contrast: Liver mildly enlarged 21.6 cm. Gallbladder distended to upper limits of normal. No surrounding inflammatory changes. Assessment and plan: -Probable bacterial food poisoning.: Better Soft diet -Sepsis, with blood cultures positive for Streptococcus agalactiae group B IV fluids IV ceftriaxone -Acute UTI with cystitis IV ceftriaxone -Acute hypoxic respiratory failure from pulmonary edema 3 L of oxygen -Acute pulmonary edema from IV fluids IV Lasix 20 mg 1 today -Morbid obesity BMI 45.8 Weight loss measures and follow-up with PCP -July 2021 pulmonary embolism. eliquis -Diabetes mellitus type 2 and oral hypoglycemic, chronically on insulin Follow Accu-Cheks. Sliding scale insulin. Diabetic diet -Hyperlipidemia Lipitor 20 mg daily at bedtime -Essential hypertension Norvasc 10 mg daily Accupril 40 mg daily , -Primary osteoarthritis multiple joints bilaterally Tylenol as needed -CAD with stent Aspirin 81 mg daily, atenolol 50 mg twice a day, Lipitor 20 mg daily at bedtime -Anxiety depression otherwise specified Lexapro 20 mg daily -hyperuricemia Allopurinol 200 mg daily -Chronic kidney disease, stage III suspect diabetic nephropathy and hypertensive nephrosclerosis Follow renal function IV Lasix 20 mg 1. IV ceftriaxone. Repeat check stat x-rays in the morning.. Await cultures to finalize. Incentive spirometry.
--- NOTE | 2021-09-08 16:30 | P.CNPUL ---
History of Present Illness Consult date: 09/08/21 Requesting physician: Robb Wright Reason for consult: dyspnea Chief complaint: Nausea, vomiting, diarrhea History of present illness: This is a 65-year-old female patient with a known history of orbital obesity, obstructive sleep apnea utilizing CPAP in the outpatient setting, diabetes mellitus, coronary disease with previous stent placement 3, congestive heart failure, bilateral pulmonary emboli and anticoagulated with Eliquis hypertension, hyperlipidemia. Presented here to the hospital on 09/06/2021 with complaints of nausea, vomiting, diarrhea. Said some abdominal discomfort and p resented here for the same. DT scan of the abdomen and pelvis revealed borderline enlarged lymph nodes on the right side of the pelvis and enlarged along the upper right femoral chain. Suspect reactive versus inflammatory. Possible upstream infection. Periumbilical fat stranding. Mild circumflex brain showed bladder wall thickening. Possible acute kidney injury. Blood cultures positive for strep agalactiae group B, coag-negative staph. Urine culture positive for gram-negative bacilli. White count 13.3. Hemoglobin 10.1. Sodium 137. Potassium 4.5. Creatinine 1.22. Pro-calcitonin 1.41. Padron virus by PCR not detected. She is currently on ceftriaxone. Remains anticoagulated with Eliquis. She is seen today in consultation for occasional shortness of breath. She is currently sitting up in a chair at the bedside. Awake and alert in no acute distress. She is maintaining O2 saturation in the 90s on 3 L nasal cannula. She did desaturate to 86% on room air. X-ray revealed no pulmonary consolidation or congestive heart failure. No adverse change compared to previous 08/05/2021. Presently, she denies any worsening shortness of breath, cough or congestion. No hemoptysis. No chest tightness. Review of Systems REVIEW OF SYSTEMS: CONSTITUTIONAL: Denies any recent significant weight loss or weight gain. EYES: Denies change in vision. EARS, NOSE, MOUTH, THROAT: Denies headaches, denies sore throat. CARDIOVASCULAR: Denies chest pain, palpitations or syncopal episodes. RESPIRATORY: Positive for shortness of breath, cough, congestion no hemoptysis. GASTROINTESTINAL: As of her abdominal pain, nausea and vomiting, diarrhea GENITOURINARY: Denies hematuria, denies infections. MUSKULOSKELETAL: Denies pain, denies swelling. INTEGUMENTARY: Denies rash, denies eczema. NEUROLOGICAL: Denies recent memory loss, no recent seizure activity. PSYCHIATRIC: Denies anxiety, denies depression. HEMATOLOGIC/LYMPHATIC: Denies anemia, denies enlarged lymph nodes. Past Medical History Past Medical History: Chest Pain / Angina, Diabetes Mellitus, Hyperlipidemia, Hypertension, Skin Disorder Additional Past Medical History / Comment(s): SOB,ARTHRITIS History of Any Multi-Drug Resistant Organisms: None Reported Past Surgical History: Back Surgery, Section, Heart Catheterization With Stent, Hysterectomy, Orthopedic Surgery, Tonsillectomy Additional Past Surgical History / Comment(s): heart stents x2,BUNIONECTOMY BELLA, LEFT KNEE TORN MENISCUS, TRIGGER FINGER X2,Rods and screws to back,bella cataract, Total right knee replacement Past Anesthesia/Blood Transfusion Reactions: Motion Sickness, Postoperative Nausea & Vomiting (PONV) Additional Past Anesthesia/Blood Transfusion Reaction / Comment(s): no prob with prior blood transfusions Date of Last Stent Placement:: 10-25-17 Past Psychological History: Anxiety, Depression Smoking Status: Never smoker Past Alcohol Use History: None Reported Past Drug Use History: None Reported - Past Family History Father Family Medical History: Cancer, Deep Vein Thrombosis (DVT) Additional Family Medical History / Comment(s): lung cancer Mother Family Medical History: Cancer, Diabetes Mellitus Additional Family Medical History / Comment(s): heart disease Brother(s) Family Medical History: Pulmonary Embolus Medications and Allergies Home Medications Medication Instructions Recorded Confirmed Type Aspirin 81 mg PO DAILY 01/06/14 09/06/21 History Atenolol 50 mg PO BID 01/06/14 09/06/21 History INSULIN ASPART (NovoLOG) [NovoLOG 20 - 25 unit SQ AC-TID 07/23/18 09/06/21 History (formulary)] Multivitamin with Iron 1 tab PO DAILY 02/15/19 09/06/21 History [Multivitamins with Iron] Vit C/E/Zn/Coppr/Lutein/Zeaxan 1 tab PO DAILY 02/15/19 09/06/21 History [Preservision Areds 2 Softgel] Atorvastatin [Lipitor] 20 mg PO HS 04/11/19 09/06/21 History Escitalopram [Lexapro] 20 mg PO DAILY 04/11/19 09/06/21 History Isosorbide Mononitrate ER [Imdur] 30 mg PO HS 04/11/19 09/06/21 History Nitroglycerin Sl Tabs [Nitrostat] 0.4 mg SUBLINGUAL Q5M PRN 04/11/19 09/06/21 History amLODIPine [Norvasc] 10 mg PO DAILY #30 tab 04/16/19 09/06/21 Rx Ferrous Sulfate [Iron (65 MG 325 mg PO DAILY 09/12/19 09/06/21 History Elemental)] Insulin Glargine [Lantus Vial] 60 unit SQ BID 09/12/19 09/06/21 History Quinapril HCl [Accupril] 40 mg PO DAILY 09/12/19 09/06/21 History Furosemide [Lasix] 160 mg PO DAILY 07/23/21 09/06/21 History allopurinoL [Zyloprim] 200 mg PO DAILY 07/23/21 09/06/21 History calcitrioL [Calcitriol] 0.25 mcg PO MOFR 07/23/21 09/06/21 History glyBURIDE/METFORMIN HCL 2 tab PO BID 07/23/21 09/06/21 History [Glucovance 5-500 mg] metOLazone [Zaroxolyn] 5 mg PO DIRECTED PRN 07/23/21 09/06/21 History Albuterol Sulfate [Albuterol 1 - 2 puff PO RT-Q6H PRN 09/06/21 09/06/21 History Sulfate Hfa] Apixaban [Eliquis] 5 mg PO BID 09/06/21 09/06/21 History Allergies Allergy/AdvReac Type Severity Reaction Status Date / Time adhesive Allergy Rash/Hives Verified 09/06/21 11:19 Penicillins Allergy Dyspnea/THROAT Verified 09/06/21 11:18 SWELLING Sulfa (Sulfonamide Allergy Rash/Hives Verified 09/06/21 11:18 Antibiotics) Physical Exam Vitals: Vital Signs Temp Pulse Pulse Resp BP Pulse Ox Pulse Ox 09/08/21 13:39 76 09/08/21 13:23 76 09/08/21 12:05 98 09/08/21 08:51 99.5 F 77 19 181/68 95 09/08/21 05:35 98.4 F 67 18 130/83 95 09/07/21 20:00 98.0 F 75 20 155/79 92 L 09/07/21 18:03 98.4 F 77 36 H 170/87 92 L Pulse Ox Pulse Ox Pulse Ox 09/08/21 13:39 09/08/21 13:23 09/08/21 12:05 92 L 95 86 L 09/08/21 08:51 09/08/21 05:35 09/07/21 20:00 09/07/21 18:03 Intake and Output 09/08/21 09/08/21 09/08/21 06:59 14:59 22:59 Intake Total 200 Balance 200 Intake: Oral 200 GENERAL EXAM: Alert, pleasant morbidly obese 65-year-old female patient, on 3 L nasal cannula, comfortable in no apparent distress. HEAD: Normocephalic. EYES: Normal reaction of pupils, equal size. NOSE: Clear with pink turbinates. THROAT: No erythema or exudates. NECK: No masses, no JVD. CHEST: No chest wall deformity. LUNGS: Equal air entry with no crackles, wheeze, rhonchi or dullness. CVS: S1 and S2 normal with no audible murmur, regular rhythm. ABDOMEN: No hepatosplenomegaly, normal bowel sounds, no guarding or rigidity. SPINE: No scoliosis or deformity SKIN: No rashes CENTRAL NERVOUS SYSTEM: No focal deficits, tone is normal in all 4 extremities. EXTREMITIES: There is no peripheral edema. No clubbing, no cyanosis. Peripheral pulses are intact. Results - Laboratory Findings CBC and BMP: 09/08/21 08:02 09/08/21 08:02 PT/INR, D-dimer D-Dimer 0.41 mg/L FEU (<0.60) 09/06/21 05:02 Abnormal lab findings: Abnormal Labs 09/06/21 09/06/21 09/06/21 04:40 05:02 05:02 WBC 23.3 H RBC Hgb Hct Neutrophils # 21.4 H Lymphocytes # 0.6 L Monocytes # 1.1 H Sodium Carbon Dioxide BUN 48 H Creatinine 1.12 H Glucose 231 H POC Glucose (mg/dL) 229 H Plasma Lactic Acid Mina ALT 39 H Procalcitonin Urine Appearance Urine Protein Urine Blood Ur Leukocyte Esterase Urine WBC Urine WBC Clumps Urine Bacteria Urine Mucus 09/06/21 09/06/21 09/06/21 09:22 09:26 12:51 WBC RBC Hgb Hct Neutrophils # Lymphocytes # Monocytes # Sodium Carbon Dioxide BUN Creatinine Glucose POC Glucose (mg/dL) Plasma Lactic Acid Mina 2.7 H* 2.3 H* ALT Procalcitonin Urine Appearance Cloudy H Urine Protein 1+ H Urine Blood Small H Ur Leukocyte Esterase Large H Urine WBC >182 H Urine WBC Clumps Many H Urine Bacteria Many H Urine Mucus Rare H 09/06/21 09/06/21 09/06/21 13:47 15:37 16:56 WBC RBC Hgb Hct Neutrophils # Lymphocytes # Monocytes # Sodium Carbon Dioxide BUN Creatinine Glucose POC Glucose (mg/dL) 208 H 201 H 197 H Plasma Lactic Acid Mina ALT Procalcitonin Urine Appearance Urine Protein Urine Blood Ur Leukocyte Esterase Urine WBC Urine WBC Clumps Urine Bacteria Urine Mucus 09/06/21 09/07/21 09/07/21 21:11 05:29 06:31 WBC 14.5 H RBC 3.64 L Hgb 10.8 L Hct Neutrophils # 12.8 H Lymphocytes # 0.6 L Monocytes # Sodium Carbon Dioxide BUN Creatinine Glucose POC Glucose (mg/dL) 129 H 149 H Plasma Lactic Acid Mina ALT Procalcitonin Urine Appearance Urine Protein Urine Blood Ur Leukocyte Esterase Urine WBC Urine WBC Clumps Urine Bacteria Urine Mucus 09/07/21 09/07/21 09/07/21 06:31 07:27 11:05 WBC RBC Hgb Hct Neutrophils # Lymphocytes # Monocytes # Sodium 134 L Carbon Dioxide 20 L BUN 33 H Creatinine Glucose 171 H POC Glucose (mg/dL) 157 H 230 H Plasma Lactic Acid Mina ALT Procalcitonin Urine Appearance Urine Protein Urine Blood Ur Leukocyte Esterase Urine WBC Urine WBC Clumps Urine Bacteria Urine Mucus 09/07/21 09/07/21 09/08/21 17:12 22:19 08:02 WBC RBC Hgb Hct Neutrophils # Lymphocytes # Monocytes # Sodium Carbon Dioxide BUN Creatinine Glucose POC Glucose (mg/dL) 155 H 156 H Plasma Lactic Acid Mina ALT Procalcitonin 1.41 H Urine Appearance Urine Protein Urine Blood Ur Leukocyte Esterase Urine WBC Urine WBC Clumps Urine Bacteria Urine Mucus 09/08/21 09/08/21 09/08/21 08:02 08:02 11:18 WBC 13.3 H RBC 3.40 L Hgb 10.1 L Hct 31.4 L Neutrophils # 11.5 H Lymphocytes # 0.8 L Monocytes # Sodium Carbon Dioxide BUN 30 H Creatinine 1.22 H Glucose 148 H POC Glucose (mg/dL) 159 H Plasma Lactic Acid Mina ALT Procalcitonin Urine Appearance Urine Protein Urine Blood Ur Leukocyte Esterase Urine WBC Urine WBC Clumps Urine Bacteria Urine Mucus - Diagnostic Findings Chest x-ray: image reviewed Assessment and Plan Assessment: 1 Abdominal pain with nausea, vomiting, diarrhea 2 Urinary tract infection secondary to gram-negative bacilli 3 Bacteremia with strep agalactiae group B, coag-negative staph, possible contaminant 4 Morbid obesity 5 History of bilateral pulmonary emboli currently on Eliquis 6 Obstructive sleep apnea with an AHI of 44, on CPAP at 12 cm of water in the outpatient setting per Hypertension 8 Hyperlipidemia 9 Diabetes Mellitus Plan: The Patient Was Seen and Evaluated Today Chest x-ray and labs reviewed No acute pulmonary process Titrate the FiO2 as tolerated Antibiotics per ID services We will continue to follow and make further recommendations based on her clinical status I, the cosigning physician, performed a history & physical examination of the patient. Lungs sounds are clear. Maintaining good O2 saturations in the 90s on 3 L nasal cannula. I discussed the assessment and plan of care with my nurse practitioner, Rosi Burleson. I attest to the above consultation as dictated by her. Time with Patient: Greater than 30
[2021-09-08 16:49] LABS: Glucose,Whole Blood 199 mg/dL (75-99)
[2021-09-08 20:23] LABS: Glucose,Whole Blood 245 mg/dL (75-99)
[2021-09-08] MEDS: ATORVASTATIN 20 MG TAB PO SCH (21:12)
[2021-09-08] MEDS: ISOSORBIDE MONONITRATE ER 30 MG TAB.ER.24H PO SCH (21:14)
--- NOTE | 2021-09-08 22:17 | PN ---
PROGRESS NOTE DATE OF SERVICE: 09/08/2021 REASON FOR FOLLOWUP: UTI and bacteremia. INTERVAL HISTORY: Patient is afebrile. The patient is breathing comfortably. Patient denies having any chest pain, shortness of breath. Occasional cough. No nausea. No vomiting. No abdominal pain or diarrhea. PHYSICAL EXAMINATION: Blood pressure 152/65 with a pulse of 73, temperature 97.9. She is 95% on 2 L nasal cannula. General description is a middle-aged female up in the chair in no distress. Respiratory system: Unlabored breathing, decreased intensity of breath sounds. No wheeze. Heart S1, S2. Regular rate and rhythm. Abdomen soft, no tenderness. LABS: White count 13.3, creatinine 1.22. Urine with Klebsiella. Blood cultures Enterococcus agalactiae. DIAGNOSTIC IMPRESSION AND PLAN: 1. Patient admitted to the hospital with rigors and chills likely secondary to UTI with urine showing Klebsiella, covered with Rocephin 2 grams daily. 2. Patient with positive blood culture coagulase negative Staphylococcus agalactiae, question of possible contaminant. Patient to continue with Rocephin. Transition to oral antibiotic on discharge and monitor clinical course closely. MMODL / IJN: [id number] /
[2021-09-09] MEDS: ACETAMINOPHEN TAB 325 MG TAB PO PRN (05:51)
[2021-09-09 07:15] LABS: Glucose,Whole Blood 99 mg/dL (75-99)
[2021-09-09 07:15] LABS: Basophils % (A) 0 %; Eosinophils # (A) 0.3 k/uL (0-0.7); Eosinophils % (A) 3 %; HCT 31.3 % (34.0-46.0); HGB 10.2 gm/dL (11.4-16.0); Lymphocytes # (A) 1.1 k/uL (1.0-4.8); Lymphocytes % (A) 10 %; MCH 30.3 pg (25.0-35.0); MCHC 32.7 g/dL (31.0-37.0); MCV 92.9 fL (80.0-100.0); Mean Platelet Volume 7.8; Monocytes # (A) 0.6 k/uL (0-1.0); Monocytes % (A) 5 %; Neutrophils # (A) 9.2 k/uL (1.3-7.7); Neutrophils % (A) 81 %; Platelet Count 252 k/uL (150-450); RBC 3.37 m/uL (3.80-5.40); RDW 14.7 % (11.5-15.5); WBC 11.4 k/uL (3.8-10.6)
[2021-09-09 07:30] LABS: Calcium 9.1 mg/dL (8.4-10.2); Potassium 4.4 mmol/L (3.5-5.1)
[2021-09-09] MEDS: INSULIN ASPART (NovoLOG) 100 UNIT/ML VIAL SQ SCH ×2 (07:55→11:06)
[2021-09-09] MEDS: ASPIRIN 81 MG PO SCH (08:27)
[2021-09-09] MEDS: allopurinoL 100 MG TAB PO SCH (08:27)
[2021-09-09] MEDS: amLODIPine 10 MG TAB PO SCH (08:27)
[2021-09-09] MEDS: APIXABAN 5 MG TAB PO SCH (08:27)
[2021-09-09] MEDS: lisinopriL 20 MG TAB PO SCH (08:27)
[2021-09-09] MEDS: atenoloL 50 MG TAB PO SCH (08:32)
[2021-09-09] MEDS: ESCITALOPRAM 20 MG TAB PO SCH (08:33)
[2021-09-09] MEDS: INSULIN DETEMIR (LEVEMIR) 100 UNIT/ML SYR SQ SCH (09:08)
[2021-09-09] MEDS: IPRATROPIUM-ALBUTEROL 3 ML NEB INHALATION SCH ×2 (09:18→12:11)
--- NOTE | 2021-09-09 09:49 | XR ---
EXAMINATION TYPE: XR chest 2V DATE OF EXAM: 09/09/2021 COMPARISON: Chest x-ray 09/07/2021 HISTORY: Shortness of breath and cough TECHNIQUE: Frontal and lateral views of the chest are obtained. FINDINGS: Cardiac mediastinal silhouette is stable. There is no evident pneumothorax or pleural effu elian. Some minimal patchy perihilar density is questioned. Lung volumes are low. IMPRESSION: Findings may represent atelectatic change rather than pneumonia, exam is expiratory and rotated, consider follow-up as indicated
[2021-09-09 11:03] LABS: Glucose,Whole Blood 102 mg/dL (75-99)
[2021-09-09] MEDS: SODIUM CHLORIDE 0.9% 1,000 ML IV SCH (11:17)
--- NOTE | 2021-09-09 12:56 | P.PN ---
Subjective Progress Note Date: 09/09/21 This is a 65-year-old female patient with a known history of orbital obesity, obstructive sleep apnea utilizing CPAP in the outpatient setting, diabetes mellitus, coronary disease with previous stent placement 3, congestive heart failure, bilateral pulmonary emboli and anticoagulated with Eliquis hyperte nsion, hyperlipidemia. Presented here to the hospital on 09/06/2021 with complaints of nausea, vomiting, diarrhea. Said some abdominal discomfort and presented here for the same. DT scan of the abdomen and pelvis revealed borderline enlarged lymph nodes on the right side of the pelvis and enlarged along the upper right femoral chain. Suspect reactive versus inflammatory. Possible upstream infection. Periumbilical fat stranding. Mild circumflex brain showed bladder wall thickening. Possible acute kidney injury. Blood cultures positive for strep agalactiae group B, coag-negative staph. Urine culture positive for gram-negative bacilli. White count 13.3. Hemoglobin 10.1. Sodium 137. Potassium 4.5. Creatinine 1.22. Pro-calcitonin 1.41. Padron virus by PCR not detected. She is currently on ceftriaxone. Remains anticoagulated with Eliquis. She is seen today in consultation for occasional shortness of breath. She is currently sitting up in a chair at the bedside. Awake and alert in no acute distress. She is maintaining O2 saturation in the 90s on 3 L nasal cannula. She did desaturate to 86% on room air. X-ray revealed no pulmonary consolidation or congestive heart failure. No adverse change compared to previous 08/05/2021. Presently, she denies any worsening sh ortness of breath, cough or congestion. No hemoptysis. No chest tightness. The patient is seen today 09/09/2021 in follow-up on the regular medical floor. She is currently sitting up in a chair at the bedside. Awake and alert in no acute distress. No further issues with nausea vomiting or diarrhea. No worsening shortness of breath, cough or congestion. Chest x-ray reveals poor inspiratory effort and some atelectasis changes at the bases. She is working with the incentive spirometer. Urine culture was positive for Klebsiella pneumoniae. Blood culture positive for strep agalactiae group B. Coag-negative staph. White count 11.4. Hemoglobin 10.2. Sodium 139. Potassium 4.4. Creat inine 1.23. She remains on DuoNeb inhalations, antibiotics in the form of ceftriaxone. Anticoagulated with Eliquis. Objective - Vital Signs Vital signs: Vital Signs Temp 98.8 F 09/09/21 07:51 Pulse 66 09/09/21 12:28 Resp 20 09/09/21 07:51 BP 146/68 09/09/21 07:51 Pulse Ox 95 09/09/21 11:52 Intake & Output 09/08/21 09/09/21 09/09/21 18:59 06:59 18:59 Intake Total 290 Balance 290 Intake: Intake, IV Titration 290 Amount Sodium Chloride 0.9% 1, 240 000 ml @ 20 mls/hr IV . Q24H [facility] Rx#:[id number] cefTRIAXone 2 gm In 50 Sodium Chloride 0.9% 50 ml @ 100 mls/hr IVPB Q24HR [facility] Rx#:[id number] Other: # Voids 6 # Bowel Movements 1 - Exam GENERAL EXAM: Alert, pleasant morbidly obese 65-year-old female patient, on 3 L nasal cannula, comfortable in no apparent distress. HEAD: Normocephalic. EYES: Normal reaction of pupils, equal size. NOSE: Clear with pink turbinates. THROAT: No erythema or exudates. NECK: No masses, no JVD. CHEST: No chest wall deformity. LUNGS: Equal air entry with no crackles, wheeze, rhonchi or dullness. Diminished. CVS: S1 and S2 normal with no audible murmur, regular rhythm. ABDOMEN: No hepatosplenomegaly, normal bowel sounds, no guarding or rigidity. SPINE: No scoliosis or deformity SKIN: No rashes CENTRAL NERVOUS SYSTEM: No focal deficits, tone is normal in all 4 extremities. EXTREMITIES: There is no peripheral edema. No clubbing, no cyanosis. Peripheral pulses are intact. - Labs CBC & Chem 7: 09/09/21 06:41 09/09/21 06:41 Labs: Abnormal Lab Results - Last 24 Hours (Table) 09/08/21 09/08/21 09/09/21 Range/Units 16:48 20:18 06:41 WBC 11.4 H (3.8-10.6) k/uL RBC 3.37 L (3.80-5.40) m/uL Hgb 10.2 L (11.4-16.0) gm/dL Hct 31.3 L (34.0-46.0) % Neutrophils # 9.2 H (1.3-7.7) k/uL BUN (7-17) mg/dL Creatinine (0.52-1.04) mg/dL POC Glucose (mg/dL) 199 H 245 H (75-99) mg/dL 09/09/21 09/09/21 Range/Units 06:41 11:01 WBC (3.8-10.6) k/uL RBC (3.80-5.40) m/uL Hgb (11.4-16.0) gm/dL Hct (34.0-46.0) % Neutrophils # (1.3-7.7) k/uL BUN 34 H (7-17) mg/dL Creatinine 1.23 H (0.52-1.04) mg/dL POC Glucose (mg/dL) 102 H (75-99) mg/dL Microbiology - Last 24 Hours (Table) 09/06/21 09:26 Blood Culture Gram Stain - Final Blood Blood Culture - Final Strep agalactiae - (group b) 09/06/21 09:22 Urine Culture - Final Urine,Clean Catch Klebsiella pneumoniae 09/06/21 09:26 Blood Culture Gram Stain - Preliminary Blood Blood Culture - Preliminary Coagulase Negative Staph Assessment and Plan Assessment: 1 Abdominal pain with nausea, vomiting, diarrhea. Recovered 2 Urinary tract infection secondary to Klebsiella pneumoniae 3 Bacteremia with strep agalactiae group B, coag-negative staph, possible contaminant 4 Morbid obesity 5 History of bilateral pulmonary emboli currently on Eliquis 6 Obstructive sleep apnea with an AHI of 44, on CPAP at 12 cm of water in the outpatient setting 7 Hypertension 8 Hyperlipidemia 9 Diabetes Mellitus Plan: The Patient Was Seen and Evaluated Today Stable for discharge from the pulmonary standpoint Titrate the FiO2 as tolerated Evaluate for home oxygen Continue to utilize the incentive spirometer Antibiotics per ID services Follow-up in the office in 1-2 weeks' I, the cosigning physician, performed a history & physical examination of the patient. Lungs sounds are clear diminished. Maintaining good O2 saturations in the 90s on 3 L nasal cannula. I discussed the assessment and plan of care with my nurse practitioner, Rosi Burleson. I attest to the above note as dictated by her.
[2021-09-09 13:08] VITALS: BP 126/68; PULSE 71; RESP 18; TEMP 98.1
--- NOTE | 2021-09-09 14:45 | PN ---
PROGRESS NOTE DATE OF SERVICE: 09/09/2021 REASON FOR FOLLOWUP: 1. Klebsiella pneumoniae urinary tract infection. 2. Positive blood culture likely contamination. INTERVAL HISTORY: The patient is afebrile. She was seen on rounds this morning. She is breathing comfortably on room air. Denies any chest pain, shortness of breath or cough. No abdominal pain or diarrhea. PHYSICAL EXAMINATION: Blood pressure 120/68 with pulse 71, temperature 98.1. She is 98% on 2 L nasal cannula. General description is an elderly female up in the bed in no distress. Respiratory system: Unlabored breathing, decreased intensity of the breath sounds, no wheeze. Heart S1, S2. Regular rate and rhythm. Abdomen soft, no tenderness. LABS: White count 11.4, creatinine 1.23. DIAGNOSTIC IMPRESSION AND PLAN: Patient with Klebsiella pneumoniae UTI, possible bronchitis, clinically not behaving as pneumonia with repeat blood culture with coagulase negative Staphylococcus, possible contaminant. She responded to Rocephin, to finish therapy with oral Ceftin 500 mg twice a day for seven days with close outpatient follow up. Discussed with admitting physician. MMCECILIAL / IJN: [id number] /
--- NOTE | 2021-09-10 17:19 | P.DS ---
Providers Date of admission: 09/06/21 10:55 Expected date of discharge: 09/09/21 Attending physician: Robb Wright Consults: 09/06/21 22:07 Consult Physician Routine Consulting Provider: Josee Christie Consult Reason/Comments: pos blood culture Do you want consulting provider notified?: Yes, Notify in am 09/07/21 18:03 Consult Physician Routine Consulting Provider: Rafal Mann Consult Reason/Comments: Short of breath Do you want consulting provider notified?: Yes Primary care physician: [facility] Course: Chief Complaint: Nausea vomiting This is a very pleasant 65-year-old patient of Dr. Quinonez. Chronic stable medical conditions include diabetes, hypertension, hyperlipidemia, osteoarthritis, CAD with stent, anxiety depression. Patient was here in July 2021 admitted with pneumonia and felt a possible PE. Discharged in [facility]. Last night patient started feeling unwell. Developed chills. This morning had a fever. Also nauseated and started vomiting. Also had loose stools. Last night. Had abdominal discomfort. was not sick. Patient had no further vomiting or diarrhea here. Feeling somewhat better. Given IV fluids. Admitted with food poisoning, acute UTI with sepsis. Put on IV ceftriaxone. Blood cultures positive for Streptococcus agalactiae group B. ID consulted. Did going to fluid overload with pulmonary edema. Given IV Lasix. September 07: Overnight patient started having chills again. Blood cultures positive for gram-positive cocci in chains. ID consulted. Later today feeling a bit short of breath. Some wheezing. Check stat x-rays showed possible fluid overload. IV fluids cutback. 1 dose of IV Lasix 40 mg ordered. No diarrhea. Patient did a little bit. September 08: Patient feeling a bit better today. Sitting up in a chair. No fever. Requiring 3 L of nasal cannula. Appetite better today eating about 50%. - breakfast. September 09: Patient doing much better. No fever no chills. Pulse ox 95% on room air. Positive blood culture felt to be contaminated. Urine culture positive for klebsiella. Discussed with ID. Patient be discharged on 7 days of Ceftin. Discussion and discharge planning more than 35 minutes Consultation: Dr. mann from pulmonary Dr. Christie from ID Past medical history to include: Diabetes, hypertension, hyperlipidemia, osteoarthritis, CAD with stent, depression, anxiety , PE in July 2021 social history: . Does not smoke or drink alcohol. Family history: DVT lung cancer Physical examination: VITAL SIGNS: 98.1, 71, 18, 126/88, 95% on room air GENERAL: Sitting up in a chair, comfortable EYES: Pupils equal. Conjunctiva normal. HEENT: External appearance of nose and ears normal, oral cavity grossly normal. NECK: JVD not raised; masses not palpable. HEART: First and second heart sounds are normal; some edema. LUNGS: Respiratory rate normal, fair air entry. ABDOMEN: Soft, no tenderness, no guarding rigidity, liver spleen not palpable, no masses palpable. PSYCH: Alert and oriented x3; mood and affect normal. MUSCULAR skeletal: Evidence of OA in many joints INVESTIGATIONS, reviewed in the clinical context: August 6: White count 11.4 potassium 4.4 creatinine 1.23 August 08: White count 13.3 hemoglobin 10.1 potassium 4.5 BUN 30 creatinine 1.2 to pro-calcitonin 1.41 August 07: White count 14.5 hemoglobin 10.8 platelets 2244.3 creatinine 1.04 Chest x-ray film personally reviewed by me-possible fluid overload Blood culture positive for Streptococcus agalactiae group B Urine culture: Gram-negative bacillary White count 23.3 hemoglobin 12.7 platelets 23 sodium 139 potassium 4.3 BUN 48 creatinine 1.12 lactic acid 2.7 UA positive for leukoesterase, WBC Coronavirus [PCR]: Not detected EKG tracing personally reviewed by me-normal sinus rhythm, rate 77 nonspecific T-wave changes Computed tomography scan abdomen and pelvis with contrast: Liver mildly enlarged 21.6 cm. Gallbladder distended to upper limits of normal. No surrounding inflammatory changes. Assessment and plan: -Probable bacterial food poisoning.: Better Soft diet -Acute UTI with cystitis, causing sepsis IV ceftriaxone. Ceftin 5 mg twice a day for 7 days -Acute hypoxic respiratory failure from pulmonary edema: Improved -Acute pulmonary edema from IV fluids Received IV Lasix -Morbid obesity BMI 45.8 Weight loss measures and follow-up with PCP -July 2021 pulmonary embolism. eliquis -Diabetes mellitus type 2 and oral hypoglycemic, chronically on insulin Follow Accu-Cheks. Sliding scale insulin. Diabetic diet -Hyperlipidemia Lipitor 20 mg daily at bedtime -Essential hypertension Norvasc 10 mg daily Accupril 40 mg daily , -Primary osteoarthritis multiple joints bilaterally Tylenol as needed -CAD with stent Aspirin 81 mg daily, atenolol 50 mg twice a day, Lipitor 20 mg daily at bedtime -Anxiety depression otherwise specified Lexapro 20 mg daily -hyperuricemia Allopurinol 200 mg daily -Chronic kidney disease, stage III suspect diabetic nephropathy and hypertensive nephrosclerosis Follow renal function Disposition: Home Plan - Discharge Summary New Discharge Prescriptions: New Cefuroxime Axetil [Ceftin] 500 mg PO BID #14 tab Continue Aspirin 81 mg PO DAILY Atenolol 50 mg PO BID INSULIN ASPART (NovoLOG) [NovoLOG (formulary)] 20 - 25 unit SQ AC-TID Vit C/E/Zn/Coppr/Lutein/Zeaxan [Preservision Areds 2 Softgel] 1 tab PO DAILY Multivitamin with Iron [Multivitamins with Iron] 1 tab PO DAILY Nitroglycerin Sl Tabs [Nitrostat] 0.4 mg SUBLINGUAL Q5M PRN PRN Reason: Chest Pain Isosorbide Mononitrate ER [Imdur] 30 mg PO HS Atorvastatin [Lipitor] 20 mg PO HS Escitalopram [Lexapro] 20 mg PO DAILY amLODIPine [Norvasc] 10 mg PO DAILY #30 tab Ferrous Sulfate [Iron (65 MG Elemental)] 325 mg PO DAILY Quinapril HCl [Accupril] 40 mg PO DAILY calcitrioL [Calcitriol] 0.25 mcg PO MOFR glyBURIDE/METFORMIN HCL [Glucovance 5-500 mg] 2 tab PO BID allopurinoL [Zyloprim] 200 mg PO DAILY metOLazone [Zaroxolyn] 5 mg PO DIRECTED PRN PRN Reason: Edema Apixaban [Eliquis] 5 mg PO BID Albuterol Sulfate [Albuterol Sulfate Hfa] 1 - 2 puff PO RT-Q6H PRN PRN Reason: Shortness Of Breath Changed Furosemide [Lasix] 80 mg PO DAILY #0 Insulin Glargine [Lantus Vial] 45 unit SQ BID #0 Discharge Medication List Aspirin 81 mg PO DAILY 01/06/14 [History] Atenolol 50 mg PO BID 01/06/14 [History] INSULIN ASPART (NovoLOG) [NovoLOG (formulary)] 20 - 25 unit SQ AC-TID 07/23/18 [History] Multivitamin with Iron [Multivitamins with Iron] 1 tab PO DAILY 02/15/19 [History] Vit C/E/Zn/Coppr/Lutein/Zeaxan [Preservision Areds 2 Softgel] 1 tab PO DAILY 02/15/19 [History] Atorvastatin [Lipitor] 20 mg PO HS 04/11/19 [History] Escitalopram [Lexapro] 20 mg PO DAILY 04/11/19 [History] Isosorbide Mononitrate ER [Imdur] 30 mg PO HS 04/11/19 [History] Nitroglycerin Sl Tabs [Nitrostat] 0.4 mg SUBLINGUAL Q5M PRN 04/11/19 [History] amLODIPine [Norvasc] 10 mg PO DAILY #30 tab 04/16/19 [Rx] Ferrous Sulfate [Iron (65 MG Elemental)] 325 mg PO DAILY 09/12/19 [History] Quinapril HCl [Accupril] 40 mg PO DAILY 09/12/19 [History] allopurinoL [Zyloprim] 200 mg PO DAILY 07/23/21 [History] calcitrioL [Calcitriol] 0.25 mcg PO MOFR 07/23/21 [History] glyBURIDE/METFORMIN HCL [Glucovance 5-500 mg] 2 tab PO BID 07/23/21 [History] metOLazone [Zaroxolyn] 5 mg PO DIRECTED PRN 07/23/21 [History] Albuterol Sulfate [Albuterol Sulfate Hfa] 1 - 2 puff PO RT-Q6H PRN 09/06/21 [History] Apixaban [Eliquis] 5 mg PO BID 09/06/21 [History] Cefuroxime Axetil [Ceftin] 500 mg PO BID #14 tab 09/09/21 [Rx] Furosemide [Lasix] 80 mg PO DAILY #0 09/09/21 [Rx] Insulin Glargine [Lantus Vial] 45 unit SQ BID #0 09/09/21 [Rx] Follow up Appointment(s)/Referral(s): Uriel Quinonez MD [Primary Care Provider] - 09/13/21 11:00 am [employer] [NON-STAFF] - As Needed (Contact regarding shower chair) Patient Instructions/Handouts: Urinary Tract Infection in Women (DC) Activity/Diet/Wound Care/Special Instructions: fluid restriction 1800 cc/day
== END 2021-09-09 14:12 | disposition home or self-care (01) | DRG 871 ==
LOC: EC 04:19 → 5NMEDONC 10:55 → 3NCARDOBS 14:24
PROVIDERS: ADMIT Hospitalist; ATTEND Hospitalist
DX: A41.59 Other Gram-negative sepsis (principal); J96.01 Acute respiratory failure with hypoxia; I13.0 Hypertensive heart and chronic kidney disease with heart failure and stage 1 through stage 4 chronic kidney disease, or unspecified chronic kidney disease; N30.00 Acute cystitis without hematuria; Z68.42 Body mass index [BMI] 45.0-49.9, adult; J98.11 Atelectasis; A05.9 Bacterial foodborne intoxication, unspecified; E11.22 Type 2 diabetes mellitus with diabetic chronic kidney disease; I50.9 Heart failure, unspecified; E66.01 Morbid (severe) obesity due to excess calories; N18.30 Chronic kidney disease, stage 3 unspecified; Z79.4 Long term (current) use of insulin; Z20.822 Contact with and (suspected) exposure to COVID-19; E79.0 Hyperuricemia without signs of inflammatory arthritis and tophaceous disease; I25.10 Atherosclerotic heart disease of native coronary artery without angina pectoris; G47.33 Obstructive sleep apnea (adult) (pediatric); E78.5 Hyperlipidemia, unspecified; F41.8 Other specified anxiety disorders; M15.9 Polyosteoarthritis, unspecified; R59.9 Enlarged lymph nodes, unspecified; Z79.01 Long term (current) use of anticoagulants; Z79.82 Long term (current) use of aspirin; Z79.899 Other long term (current) drug therapy; Z86.711 Personal history of pulmonary embolism; Z87.01 Personal history of pneumonia (recurrent); Z95.5 Presence of coronary angioplasty implant and graft; Z98.891 History of uterine scar from previous surgery; Z87.2 Personal history of diseases of the skin and subcutaneous tissue; Z90.710 Acquired absence of both cervix and uterus; Z87.42 Personal history of other diseases of the female genital tract; Z90.89 Acquired absence of other organs; Z87.39 Personal history of other diseases of the musculoskeletal system and connective tissue; Z96.651 Presence of right artificial knee joint; Z98.42 Cataract extraction status, left eye; Z98.41 Cataract extraction status, right eye; Z98.890 Other specified postprocedural states; Z88.0 Allergy status to penicillin; Z88.2 Allergy status to sulfonamides; Z91.048 Other nonmedicinal substance allergy status; Z83.2 Family history of diseases of the blood and blood-forming organs and certain disorders involving the immune mechanism; Z80.1 Family history of malignant neoplasm of trachea, bronchus and lung; Z83.3 Family history of diabetes mellitus; Z82.49 Family history of ischemic heart disease and other diseases of the circulatory system
CPT/HCPCS: 36415; 71045; 71046; 74177; 80048; 80053; 81001; 82150; 83605; 83690; 84145; 84484; 85025; 85379; 87040; 87077; 87086; 87186; 87635; 93005; 94640; 94760; 96361; 96374; 96375; 96376; 99285

== ENCOUNTER → 2021-11-02 | Outpatient (CLI) | payer MEDICARE ==
[2021-11-02 12:48] LABS: African American GFR (CKD) 41.9 (60.0-200.0); Anion Gap 14.2 mmol/L (10.00-18.00); Calcium 9.8 mg/dL (8.7-10.3); Carbon Dioxide 23.8 mmol/L (20.0-27.5); Magnesium 2.7 mg/dL (1.5-2.4); Non-African American GFR(CKD) 36.2 (60.0-200.0); Potassium 3.9 mmol/L (3.5-5.5)
== END | disposition home or self-care (01) ==
LOC: LABWHC1 07:42
PROVIDERS: ATTEND Internal Medicine Nephrology
DX: I13.0 Hypertensive heart and chronic kidney disease with heart failure and stage 1 through stage 4 chronic kidney disease, or unspecified chronic kidney disease (principal); E11.22 Type 2 diabetes mellitus with diabetic chronic kidney disease; N18.31 Chronic kidney disease, stage 3a; E79.9 Disorder of purine and pyrimidine metabolism, unspecified; I50.9 Heart failure, unspecified
CPT/HCPCS: 36415; 80048; 83036; 83735

== ENCOUNTER → 2022-01-05 | Outpatient (CLI) | payer MEDICARE ==
[2022-01-05 18:43] LABS: ALT 21 U/L (8-44); AST 16 U/L (13-35); African American GFR (CKD) 41.6 (60.0-200.0); Albumin 4.2 g/dL (3.8-4.9); Albumin/Globulin Ratio 1.56 (1.60-3.17); Alkaline Phosphatase 86 U/L (41-126); BUN/Creat Ratio 45.53 Ratio (12.00-20.00); Blood Urea Nitrogen 68.3 mg/dL (9.0-27.0); Calcium 9.9 mg/dL (8.7-10.3); Carbon Dioxide 26.4 mmol/L (20.0-27.5); Chloride 97 mmol/L (96-109); Chol/HDL Ratio 4.51 Ratio; Globulin 2.7 g/dL (1.6-3.3); Glucose 167 mg/dL (70-110); LDL Cholesterol,Calculated 69.3 mg/dL (0.0-131.0); Non-African American GFR(CKD) 35.9 (60.0-200.0); Potassium 4.5 mmol/L (3.5-5.5); Sodium 138 mmol/L (135-145); Total Protein 6.9 g/dL (6.2-8.2)
== END | disposition home or self-care (01) ==
LOC: LABWHC1 09:48
PROVIDERS: ATTEND Internal Medicine Interventional Cardiology
DX: E78.2 Mixed hyperlipidemia (principal); I50.32 Chronic diastolic (congestive) heart failure
CPT/HCPCS: 36415; 80053; 80061; 83880

== ENCOUNTER → 2022-02-08 | Outpatient (CLI) | payer MEDICARE | END | disposition home or self-care (01) | LOC: LABWHC1 09:44 | PROVIDERS: ATTEND Family Medicine | DX: E11.21 Type 2 diabetes mellitus with diabetic nephropathy (principal) | CPT/HCPCS: 36415; 83036 ==

== ENCOUNTER → 2022-02-17 | Outpatient (CLI) | payer MEDICARE ==
--- NOTE | 2022-02-18 08:14 | MM ---
Reason for Exam: Screening (asymptomatic). Last screening mammogram was performed 12 month(s) ago. Patient History: Menarche at age 12. First Full-Term at age 32. Late child-bearing (after 30). Hysterectomy at age 32. Postmenopausal. 09/27/2018, Benign Core Biopsy on the left side. 09/27/2018, Benign Core Biopsy on the left side. Risk Values: Annabelle 5 year model risk: 3.5%. NCI Lifetime model risk: 12.1%. Prior Study Comparison: 02/04/2019 Left Diagnostic Mammogram, [facility]. 09/02/2019 Bilateral Screening Mammogram, [facility]. 02/08/2021 Bilateral Screening Mammogram, [facility]. Tissue Density: There are scattered fibroglandular densities. Findings: Analyzed By CAD. There is no suspicious group of microcalcifications or new suspicious mass in either breast. Overall Assessment: Benign, BI-RAD 2 Management: Screening Mammogram of both breasts in 1 year. A clinical breast exam by your physician is recommended on an annual basis and results should be correlated with mammographic findings. Electronically signed and approved by: Vernon Walls M.D. Radiologis
== END | disposition home or self-care (01) ==
LOC: RADMAMWWP 11:19
PROVIDERS: ATTEND Family Medicine
DX: Z12.31 Encounter for screening mammogram for malignant neoplasm of breast (principal); Z78.0 Asymptomatic menopausal state
CPT/HCPCS: 77063; 77067

== ENCOUNTER → 2022-03-09 | Outpatient (CLI) | payer MEDICARE ==
[2022-03-09 14:25] LABS: Basophils # (A) 0.07 X 10*3/uL (0.00-0.10); Basophils % (A) 0.6 %; Eosinophils # (A) 0.53 X 10*3/uL (0.04-0.35); Eosinophils % (A) 4.2 %; HGB 11.2 g/dL (12.0-15.0); Immature Grans, Automated 0.6 %; Lymphocytes # (A) 1.48 X 10*3/uL (0.90-5.00); Lymphocytes % (A) 11.7 %; MCH 27.9 pg (27.0-32.0); MCHC 30.3 g/dL (32.0-37.0); MCV 92.3 fL (80.0-97.0); Mean Platelet Volume 11.2 fL (9.5-12.2); Monocytes % (A) 4.7 %; NRBC Per 100 WBC 0 /100 WBCS (0.0-0.0); Neutrophils # (A) 9.93 X 10*3/uL (1.80-7.70); Neutrophils % (A) 78.2 %; Platelet Count 294 X 10*3/uL (140-440); RBC 4.01 X 10*6/uL (4.10-5.20); RDW 14.7 % (11.5-14.5); WBC 12.68 X 10*3/uL (4.50-10.00)
[2022-03-09 14:40] LABS: African American GFR (CKD) 38.5 (60.0-200.0); Anion Gap 13.7 mmol/L (10.00-18.00); BUN/Creat Ratio 30.75 Ratio (12.00-20.00); Blood Urea Nitrogen 49.2 mg/dL (9.0-27.0); Carbon Dioxide 26.3 mmol/L (20.0-27.5); Magnesium 2.3 mg/dL (1.5-2.4); Non-African American GFR(CKD) 33.2 (60.0-200.0); Potassium 4.9 mmol/L (3.5-5.5); Uric Acid 6.6 mg/dL (2.9-7.7)
== END | disposition home or self-care (01) ==
LOC: LABWHC1 10:12
PROVIDERS: ATTEND Internal Medicine Nephrology
DX: I12.9 Hypertensive chronic kidney disease with stage 1 through stage 4 chronic kidney disease, or unspecified chronic kidney disease (principal); E11.22 Type 2 diabetes mellitus with diabetic chronic kidney disease; N18.2 Chronic kidney disease, stage 2 (mild)
CPT/HCPCS: 36415; 80048; 82043; 82570; 83735; 83970; 84550; 85025

== ENCOUNTER → 2022-05-10 | Outpatient (CLI) | payer MEDICARE ==
[2022-05-10 15:33] LABS: ALT 29 U/L (8-44); AST 21 U/L (13-35); African American GFR (CKD) 35.8 (60.0-200.0); Albumin 4.5 g/dL (3.8-4.9); Albumin/Globulin Ratio 1.96 (1.60-3.17); Alkaline Phosphatase 86 U/L (41-126); BUN/Creat Ratio 33.41 Ratio (12.00-20.00); Blood Urea Nitrogen 56.8 mg/dL (9.0-27.0); Calcium 9.9 mg/dL (8.7-10.3); Carbon Dioxide 26.7 mmol/L (20.0-27.5); Chloride 101 mmol/L (96-109); Chol/HDL Ratio 4.26 Ratio; Globulin 2.3 g/dL (1.6-3.3); Glucose 124 mg/dL (70-110); LDL Cholesterol,Calculated 59.2 mg/dL (0.0-131.0); Non-African American GFR(CKD) 30.9 (60.0-200.0); Potassium 5.1 mmol/L (3.5-5.5); Sodium 141 mmol/L (135-145); Total Protein 6.8 g/dL (6.2-8.2)
== END | disposition home or self-care (01) ==
LOC: LABWHC1 10:16
PROVIDERS: ATTEND Internal Medicine Interventional Cardiology
DX: I11.0 Hypertensive heart disease with heart failure (principal); E78.2 Mixed hyperlipidemia; I50.32 Chronic diastolic (congestive) heart failure
CPT/HCPCS: 36415; 80053; 80061; 83036; 83880

== ENCOUNTER → 2022-08-18 | Outpatient (CLI) | payer MEDICARE ==
[2022-08-18 19:35] LABS: Basophils # (A) 0.07 X 10*3/uL (0.00-0.10); Basophils % (A) 0.6 %; Eosinophils # (A) 0.38 X 10*3/uL (0.04-0.35); Eosinophils % (A) 3.2 %; HCT 35.4 % (37.2-46.3); HGB 10.8 g/dL (12.0-15.0); Immature Grans, Automated 0.6 %; Lymphocytes # (A) 1.86 X 10*3/uL (0.90-5.00); Lymphocytes % (A) 15.8 %; MCH 28.6 pg (27.0-32.0); MCHC 30.5 g/dL (32.0-37.0); MCV 93.9 fL (80.0-97.0); Mean Platelet Volume 11.4 fL (9.5-12.2); Monocytes # (A) 0.81 X 10*3/uL (0.20-1.00); Monocytes % (A) 6.9 %; NRBC Per 100 WBC 0 /100 WBCS (0.0-0.0); Neutrophils # (A) 8.55 X 10*3/uL (1.80-7.70); Neutrophils % (A) 72.9 %; Platelet Count 232 X 10*3/uL (140-440); RBC 3.77 X 10*6/uL (4.10-5.20); WBC 11.74 X 10*3/uL (4.50-10.00)
[2022-08-18 22:22] LABS: ALT 24 U/L (8-44); AST 17 U/L (13-35); African American GFR (CKD) 35.8 (60.0-200.0); Albumin 4.5 g/dL (3.8-4.9); Albumin/Globulin Ratio 2.05 (1.60-3.17); Alkaline Phosphatase 87 U/L (41-126); BUN/Creat Ratio 34.47 Ratio (12.00-20.00); Blood Urea Nitrogen 58.6 mg/dL (9.0-27.0); Calcium 10.3 mg/dL (8.7-10.3); Carbon Dioxide 29.1 mmol/L (20.0-27.5); Chloride 98 mmol/L (96-109); Chol/HDL Ratio 4.33 Ratio; Globulin 2.2 g/dL (1.6-3.3); Glucose 72 mg/dL (70-110); LDL Cholesterol,Calculated 65.8 mg/dL (0.0-131.0); Non-African American GFR(CKD) 30.9 (60.0-200.0); Potassium 4.8 mmol/L (3.5-5.5); Sodium 141 mmol/L (135-145); Total Protein 6.7 g/dL (6.2-8.2)
== END | disposition home or self-care (01) ==
LOC: LABWHC1 11:00
PROVIDERS: ATTEND Family Medicine
DX: Z13.220 Encounter for screening for lipoid disorders (principal); E11.610 Type 2 diabetes mellitus with diabetic neuropathic arthropathy; R50.9 Fever, unspecified
CPT/HCPCS: 36415; 80053; 80061; 83036; 85025

== ENCOUNTER → 2022-09-21 | Outpatient (CLI) | payer MEDICARE ==
[2022-09-21 16:38] LABS: Basophils # (A) 0.05 X 10*3/uL (0.00-0.10); Basophils % (A) 0.4 %; Eosinophils # (A) 0.45 X 10*3/uL (0.04-0.35); HCT 35.1 % (37.2-46.3); HGB 10.7 g/dL (12.0-15.0); Immature Grans, Automated 0.5 %; Lymphocytes # (A) 1.65 X 10*3/uL (0.90-5.00); Lymphocytes % (A) 14.8 %; MCH 28.4 pg (27.0-32.0); MCHC 30.5 g/dL (32.0-37.0); MCV 93.1 fL (80.0-97.0); Mean Platelet Volume 11.5 fL (9.5-12.2); Monocytes # (A) 0.66 X 10*3/uL (0.20-1.00); Monocytes % (A) 5.9 %; NRBC Per 100 WBC 0 /100 WBCS (0.0-0.0); Neutrophils # (A) 8.31 X 10*3/uL (1.80-7.70); Neutrophils % (A) 74.4 %; Platelet Count 260 X 10*3/uL (140-440); RBC 3.77 X 10*6/uL (4.10-5.20); WBC 11.18 X 10*3/uL (4.50-10.00)
[2022-09-21 23:29] LABS: % Iron Saturation 12.23 (12.00-45.00); African American GFR (CKD) 34.8 (60.0-200.0); Anion Gap 17.2 mmol/L (10.00-18.00); BUN/Creat Ratio 37.76 Ratio (12.00-20.00); Blood Urea Nitrogen 65.7 mg/dL (9.0-27.0); Calcium 9.7 mg/dL (8.7-10.3); Carbon Dioxide 23.8 mmol/L (20.0-27.5); Ferritin 26.6 ng/mL (10.0-291.0); Magnesium 2.8 mg/dL (1.5-2.4); Potassium 4.4 mmol/L (3.5-5.5); Uric Acid 6.8 mg/dL (2.9-7.7)
[2022-09-22 09:50] LABS: Microalbumin Creatinine Ratio <30 mg/g Creat (0-30)
== END | disposition home or self-care (01) ==
LOC: LABWHC1 09:33
PROVIDERS: ATTEND Internal Medicine Nephrology
DX: I12.9 Hypertensive chronic kidney disease with stage 1 through stage 4 chronic kidney disease, or unspecified chronic kidney disease (principal); E11.22 Type 2 diabetes mellitus with diabetic chronic kidney disease; D63.1 Anemia in chronic kidney disease; N18.2 Chronic kidney disease, stage 2 (mild)
CPT/HCPCS: 36415; 80048; 82043; 82570; 82607; 82728; 82746; 83540; 83550; 83735; 83970; 84550; 85025

== ENCOUNTER → 2023-02-03 | Outpatient (CLI) | payer MEDICARE ==
[2023-02-03 16:26] LABS: Basophils # (A) 0.05 X 10*3/uL (0.00-0.10); Basophils % (A) 0.4 %; Eosinophils # (A) 0.46 X 10*3/uL (0.04-0.35); HCT 35.5 % (37.2-46.3); HGB 11.2 g/dL (12.0-15.0); Immature Grans, Automated 0.4 %; Lymphocytes # (A) 1.64 X 10*3/uL (0.90-5.00); Lymphocytes % (A) 14.4 %; MCH 29.1 pg (27.0-32.0); MCHC 31.5 g/dL (32.0-37.0); MCV 92.2 fL (80.0-97.0); Mean Platelet Volume 11.5 fL (9.5-12.2); Monocytes # (A) 0.66 X 10*3/uL (0.20-1.00); Monocytes % (A) 5.8 %; NRBC Per 100 WBC 0.2 /100 WBCS (0.0-0.0); Neutrophils # (A) 8.54 X 10*3/uL (1.80-7.70); Platelet Count 234 X 10*3/uL (140-440); RBC 3.85 X 10*6/uL (4.10-5.20); RDW 15.9 % (11.5-14.5)
[2023-02-03 16:44] LABS: Chol/HDL Ratio 4.05 Ratio; LDL Cholesterol,Calculated 59.7 mg/dL (0.0-131.0)
[2023-02-03 16:55] LABS: % Iron Saturation 20.75 (12.00-45.00); ALT 21 U/L (8-44); AST 19 U/L (13-35); African American GFR (CKD) 35.5 (60.0-200.0); Albumin 4.3 g/dL (3.8-4.9); Albumin/Globulin Ratio 1.79 (1.60-3.17); Alkaline Phosphatase 78 U/L (41-126); BUN/Creat Ratio 32.24 Ratio (12.00-20.00); Blood Urea Nitrogen 54.8 mg/dL (9.0-27.0); Calcium 10.1 mg/dL (8.7-10.3); Carbon Dioxide 27.4 mmol/L (20.0-27.5); Chloride 98 mmol/L (96-109); Ferritin 36.6 ng/mL (10.0-291.0); Globulin 2.4 g/dL (1.6-3.3); Glucose 93 mg/dL (70-110); Iron 74 ug/dL (50-170); Magnesium 2.3 mg/dL (1.5-2.4); Non-African American GFR(CKD) 30.7 (60.0-200.0); Potassium 4.2 mmol/L (3.5-5.5); Sodium 143 mmol/L (135-145); Total Iron Binding Capacity 356 ug/dL (228-460); Total Protein 6.7 g/dL (6.2-8.2); Uric Acid 5.9 mg/dL (2.9-7.7)
== END | disposition home or self-care (01) ==
LOC: LABWHC1 09:10
PROVIDERS: ATTEND Internal Medicine Interventional Cardiology
DX: I12.9 Hypertensive chronic kidney disease with stage 1 through stage 4 chronic kidney disease, or unspecified chronic kidney disease (principal); E78.2 Mixed hyperlipidemia; N18.31 Chronic kidney disease, stage 3a; D63.1 Anemia in chronic kidney disease; E11.22 Type 2 diabetes mellitus with diabetic chronic kidney disease
CPT/HCPCS: 36415; 80053; 80061; 82043; 82570; 82728; 83036; 83540; 83550; 83735; 83970; 84550; 85025

== ENCOUNTER → 2023-02-20 | Outpatient (CLI) | payer MEDICARE ==
--- NOTE | 2023-02-21 09:11 | MM ---
Reason for Exam: Screening (asymptomatic). Last screening mammogram was performed 12 month(s) ago. Patient History: Menarche at age 12. First Full-Term at age 32. Late child-bearing (after 30). Hysterectomy at age 32. Postmenopausal. 09/27/2018, Benign Core Biopsy on the left side. 09/27/2018, Benign Core Biopsy on the left side. Risk Values: Annabelle 5 year model risk: 3.5%. NCI Lifetime model risk: 11.7%. Prior Study Comparison: 09/02/2019 Bilateral Screening Mammogram, [facility]. 02/08/2021 Bilateral Screening Mammogram, [facility]. 02/17/2022 Bilateral MG 3D screening mammo w/cad, [facility]. Tissue Density: There are scattered fibroglandular densities. Findings: Analyzed By CAD. Unchanged global asymmetry upper outer quadrant right breast. Benign bilateral vascular calcifications. Nodularity medial left breast with a microclips related to prior biopsy. No significant change from prior exams. There is no suspicious group of microcalcifications or new suspicious mass in either breast. Overall Assessment: Benign, BI-RAD 2 Management: Screening Mammogram of both breasts in 1 year. See note below in regards to patient's increased 5 year Annabelle score. Patient should continue monthly self-breast exams. A clinical breast exam by your physician is recommended on an annual basis. This exam should not preclude additional follow-up of suspicious palpable abnormalities. Note on Annabelle scores and lifetime risk: 1. A Annabelle score greater than 3% is considered moderate risk. If this is the case, consider specialist referral to assess eligibility for a risk reducing agent. 2. If overall lifetime risk for the development of breast cancer is 20% or higher, the patient may qualify for future screening with alternating mammogram and breast MRI. Electronically signed and approved by: Italo Chavis M.D. Radiologist
== END | disposition home or self-care (01) ==
LOC: RADMAMWWP 15:35
PROVIDERS: ATTEND Family Medicine
DX: Z12.31 Encounter for screening mammogram for malignant neoplasm of breast (principal); Z78.0 Asymptomatic menopausal state
CPT/HCPCS: 77063; 77067

== ENCOUNTER 2023-07-08 11:15 | Emergency (ER) | payer MEDICARE ==
[2023-07-08 11:43] LABS: Glucose,Whole Blood 190 mg/dL (70-110)
--- NOTE | 2023-07-08 11:44 | ED ---
General Adult HPI - General Chief complaint: Recheck/Abnormal Lab/Rx Stated complaint: COVID Time Seen by Provider: 07/08/23 11:30 Source: patient, EMS, RN notes reviewed, old records reviewed Mode of arrival: EMS Limitations: no limitations - History of Present Illness Initial comments: This is a 67-year-old female presents emergency Department complaining that she was shaky and weak this morning. Patient states she was diagnosed with COVID on Monday and she started having symptoms on Monday night. Patient states she woke up and felt shaky she thought her sugar was low so she began eating some things and her sugar did come up by the time EMS arrived and currently she has no complaints other than she is thirsty. Patient denies any difficulty breathing shortness of breath or chest pain today. Patient denies any fever today but she has had a fever every day this week up until yesterday. Patient denies any sore throat. Patient denies headache patient denies numbness or weakness. Patient denies abdominal pain patient denies any nausea vomiting diarrhea. - Related Data Home Medications Medication Instructions Recorded Confirmed Aspirin 81 mg PO DAILY 01/06/14 09/06/21 Atenolol 50 mg PO BID 01/06/14 09/06/21 INSULIN ASPART (NovoLOG) [NovoLOG 20 - 25 unit SQ AC-TID 07/23/18 09/06/21 (formulary)] Multivitamin with Iron 1 tab PO DAILY 02/15/19 09/06/21 [Multivitamins with Iron] Vit C/E/Zn/Coppr/Lutein/Zeaxan 1 tab PO DAILY 02/15/19 09/06/21 [Preservision Areds 2 Softgel] Atorvastatin [Lipitor] 20 mg PO HS 04/11/19 09/06/21 Escitalopram [Lexapro] 20 mg PO DAILY 04/11/19 09/06/21 Isosorbide Mononitrate ER [Imdur] 30 mg PO HS 04/11/19 09/06/21 Nitroglycerin Sl Tabs [Nitrostat] 0.4 mg SUBLINGUAL Q5M PRN 04/11/19 09/06/21 Ferrous Sulfate [Iron (65 MG 325 mg PO DAILY 09/12/19 09/06/21 Elemental)] Quinapril HCl [Accupril] 40 mg PO DAILY 09/12/19 09/06/21 allopurinoL [Zyloprim] 200 mg PO DAILY 07/23/21 09/06/21 calcitrioL [Calcitriol] 0.25 mcg PO MOFR 07/23/21 09/06/21 glyBURIDE/METFORMIN HCL 2 tab PO BID 07/23/21 09/06/21 [Glucovance 5-500 mg] metOLazone [Zaroxolyn] 5 mg PO DIRECTED PRN 07/23/21 09/06/21 Albuterol Sulfate [Albuterol 1 - 2 puff PO RT-Q6H PRN 09/06/21 09/06/21 Sulfate Hfa] Apixaban [Eliquis] 5 mg PO BID 09/06/21 09/06/21 Previous Rx's Medication Instructions Recorded amLODIPine [Norvasc] 10 mg PO DAILY #30 tab 04/16/19 Furosemide [Lasix] 80 mg PO DAILY #0 09/09/21 Insulin Glargine [Lantus Vial] 45 unit SQ BID #0 09/09/21 cefUROXime axetiL [Ceftin] 500 mg PO BID #14 tab 09/09/21 Allergies Allergy/AdvReac Type Severity Reaction Status Date / Time adhesive Allergy Rash/Hives Verified 07/08/23 11:38 cefuroxime Allergy Rash/Hives Verified 07/08/23 11:40 Penicillins Allergy Dyspnea/THROAT Verified 07/08/23 11:38 SWELLING Sulfa (Sulfonamide Allergy Rash/Hives Verified 07/08/23 11:38 Antibiotics) Review of Systems ROS Statement: Those systems with pertinent positive or pertinent negative responses have been documented in the HPI. ROS Other: All systems not noted in ROS Statement are negative. Past Medical History Past Medical History: Chest Pain / Angina, Diabetes Mellitus, Hyperlipidemia, Hypertension, Skin Disorder Additional Past Medical History / Comment(s): SOB,ARTHRITIS History of Any Multi-Drug Resistant Organisms: None Reported Past Surgical History: Back Surgery, Section, Heart Catheterization Wi th Stent, Hysterectomy, Orthopedic Surgery, Tonsillectomy Additional Past Surgical History / Comment(s): heart stents x2,BUNIONECTOMY BELLA, LEFT KNEE TORN MENISCUS, TRIGGER FINGER X2,Rods and screws to back,bella cataract, Total right knee replacement Past Anesthesia/Blood Transfusion Reactions: Motion Sickness, Postoperative Nausea & Vomiting (PONV) Additional Past Anesthesia/Blood Transfusion Reaction / Comment(s): no prob with prior blood transfusions Date of Last Stent Placement:: 10-25-17 Past Psychological History: Anxiety, Depression Smoking Status: Never smoker Past Alcohol Use History: None Reported Past Drug Use History: None Reported - Past Family History Father Family Medical History: Cancer, Deep Vein Thrombosis (DVT) Additional Family Medical History / Comment(s): lung cancer Mother Family Medical History: Cancer, Diabetes Mellitus Additional Family Medical History / Comment(s): heart disease Brother(s) Family Medical History: Pulmonary Embolus General Exam - General Exam Comments Initial Comments: GENERAL: Patient is well-developed and well-nourished. Patient is nontoxic and well- hydrated and is in mild distress. ENT: Neck is soft and supple. No significant lymphadenopathy is noted. Oropharynx is clear. Moist mucous membranes. Neck has full range of motion without eliciting any pain. EYES: The sclera were anicteric and conjunctiva were pink and moist. Extraocular movements were intact and pupils were equal round and reactive to light. Eyelids were unremarkable. PULMONARY: Unlabored respirations. Good breath sounds bilaterally. No audible rales rhonchi or wheezing was noted. CARDIOVASCULAR: There is a regular rate and rhythm without any murmurs gallops or rubs. ABDOMEN: Soft and nontender with normal bowel sounds. SKIN: Skin is clear with no lesions or rashes and otherwise unremarkable. NEUROLOGIC: Patient is alert and oriented x3. Cranial nerves II through XII are grossly intact. Motor and sensory are also intact. Normal speech, volume and content. Symmetrical smile. MUSCULOSKELETAL: Normal extremities with adequate strength and full range of motion. No lower extremity swelling or edema. No calf tenderness. LYMPHATICS: No significant lymphadenopathy is noted PSYCHIATRIC: Normal psychiatric evaluation. Limitations: no limitations Course Vital Signs 07/08/23 11:29 Temperature 98.2 F Pulse Rate 63 Respiratory 16 Rate Blood Pressure 135/62 O2 Sat by Pulse 94 L Oximetry Medical Decision Making - Medical Decision Making Was pt. sent in by a medical professional or institution (, PA, DOCUMENTATION LIAISON, urgent care, hospital, or prison...) When possible be specific @ -No Did you speak to anyone other than the patient for history (EMS, parent, family, police, friend...)? What history was obtained from this source @ -No Did you review nursing and triage notes (agree or disagree)? Why? @ -I reviewed and agree with nursing and triage notes Were old charts reviewed (outside hosp., previous admission, EMS record, old EKG, old radiological studies, urgent care reports/EKG's, prison records)? Report findings @ -I have reviewed prior charts in prior lab work on this patient Differential Diagnosis (chest pain, altered mental status, abdominal pain women, abdominal pain men, vaginal bleeding, weakness, fever, dyspnea, syncope, headache, dizziness, GI bleed, back pain, seizure, CVA, palpatations, mental health, musculoskeletal)? @ -Differential Weakness: Hypoglycemia, shock, sepsis, hyponatremia, anemia, infection, [place], ETOH, adverse medicine reaction, overdose, stroke, this is not meant to be an all-inclusive list. EKG interpreted by me (3pts min.). @ -As above X-rays interpreted by me (1pt min.). @ -None done CT interpreted by me (1pt min.). @ -None done U/S interpreted by me (1pt. min.). @ -None done What testing was considered but not performed or refused? (CT, X-rays, U/S, labs)? Why? @ -None What meds were considered but not given or refused? Why? @ -None Did you discuss the management of the patient with other professionals (professionals i.e. , PA, DOCUMENTATION LIAISON, lab, RT, psych nurse, social work supervisor, hoop bender tank, teacher, geographic area intelligence officer, case briefer)? Give summary @ -No Was smoking cessation discussed for >3mins.? @ -No Was critical care preformed (if so, how long)? @ -No Were there social determinants of health that impacted care today? How? (Homelessness, low income, unemployed, alcoholism, drug addiction, transportation, low edu. Level, literacy, decrease access to med. care, assisted, rehab)? @ -No Was there de-escalation of care discussed even if they declined (Discuss DNR or withdrawal of care, Hospice)? DNR status @ -No What co-morbidities impacted this encounter? (DM, HTN, Smoking, COPD, CAD, Cancer, CVA, ARF, Chemo, Hep., AIDS, mental health diagnosis, sleep apnea, morbid obesity)? @ -None Was patient admitted / discharged? Hospital course, mention meds given and route, prescriptions, significant lab abnormalities, going to OR and other pertinent info. @ -She felt she was hypoglycemic as she has been before this is exact way she feels. Patient states she ate some by mouth but her at home when her blood sugar she was 76 at that time and feeling better. Patient has been a symptom right-sided ED stay she was able to get up and go to the bathroom and get up and walk around the hallway without problem and she felt comfortable going home. Undiagnosed new problem with uncertain prognosis? @ -No Drug Therapy requiring intensive monitoring for toxicity (Heparin, Nitro, Insulin, Cardizem)? @ -No Were any procedures done? @ -No Diagnosis/symptom? @ -Hypoglycemic, weakness Acute, or Chronic, or Acute on Chronic? @ -Acute Uncomplicated (without systemic symptoms) or Complicated (systemic symptoms)? @ -Complicated Side effects of treatment? @ -No Exacerbation, Progression, or Severe Exacerbation? @ -No Poses a threat to life or bodily function? How? (Chest pain, [place], [place], pneumonia, PE, COPD, DKA, ARF, appy, cholecystitis, CVA, Diverticulitis, Homicidal, Suicidal, threat to staff... and all critical care pts) @ -No - Lab Data Result diagrams: 07/08/23 12:12 07/08/23 12:12 Lab Results 07/08/23 07/08/23 07/08/23 Range/Units 11:41 12:12 12:12 WBC 7.7 (3.8-10.6) k/uL RBC 3.76 L (3.80-5.40) m/uL Hgb 11.4 (11.4-16.0) gm/dL Hct 35.3 (34.0-46.0) % MCV 93.8 (80.0-100.0) fL MCH 30.2 (25.0-35.0) pg MCHC 32.2 (31.0-37.0) g/dL RDW 15.3 (11.5-15.5) % Plt Count 261 (150-450) k/uL MPV 8.3 Neutrophils % 68 % Lymphocytes % 17 % Monocytes % 8 % Eosinophils % 3 % Basophils % 0 % Neutrophils # 5.2 (1.3-7.7) k/uL Lymphocytes # 1.3 (1.0-4.8) k/uL Monocytes # 0.6 (0-1.0) k/uL Eosinophils # 0.3 (0-0.7) k/uL Basophils # 0.0 (0-0.2) k/uL Sodium (137-145) mmol/L Potassium (3.5-5.1) mmol/L Chloride (98-107) mmol/L Carbon Dioxide (22-30) mmol/L Anion Gap mmol/L BUN (7-17) mg/dL Creatinine (0.52-1.04) mg/dL Est GFR (CKD-EPI)AfAm (>60 ml/min/1.73 sqM) Est GFR (CKD-EPI)NonAf (>60 ml/min/1.73 sqM) Glucose (74-99) mg/dL POC Glucose (mg/dL) 190 H (70-110) mg/dL POC Glu Hardscape Foreman ID Charu Wolf Calcium (8.4-10.2) mg/dL Magnesium (1.6-2.3) mg/dL Total Bilirubin (0.2-1.3) mg/dL AST (14-36) U/L ALT (4-34) U/L Alkaline Phosphatase (38-126) U/L Total Protein (6.3-8.2) g/dL Albumin (3.5-5.0) g/dL Urine Color Yellow Urine Appearance Clear (Clear) Urine pH 5.0 (5.0-8.0) Ur Specific [place] 1.018 (1.001-1.035) Urine Protein Negative (Negative) Urine Glucose (UA) 3+ H (Negative) Urine Ketones Negative (Negative) Urine Blood Negative (Negative) Urine Nitrite Negative (Negative) Urine Bilirubin Negative (Negative) Urine Urobilinogen <2.0 (<2.0) mg/dL Ur Leukocyte Esterase Negative (Negative) 07/08/23 Range/Units 12:12 WBC (3.8-10.6) k/uL RBC (3.80-5.40) m/uL Hgb (11.4-16.0) gm/dL Hct (34.0-46.0) % MCV (80.0-100.0) fL MCH (25.0-35.0) pg MCHC (31.0-37.0) g/dL RDW (11.5-15.5) % Plt Count (150-450) k/uL MPV Neutrophils % % Lymphocytes % % Monocytes % % Eosinophils % % Basophils % % Neutrophils # (1.3-7.7) k/uL Lymphocytes # (1.0-4.8) k/uL Monocytes # (0-1.0) k/uL Eosinophils # (0-0.7) k/uL Basophils # (0-0.2) k/uL Sodium 138 (137-145) mmol/L Potassium 5.0 (3.5-5.1) mmol/L Chloride 99 (98-107) mmol/L Carbon Dioxide 25 (22-30) mmol/L Anion Gap 14 mmol/L BUN 35 H (7-17) mg/dL Creatinine 1.74 H (0.52-1.04) mg/dL Est GFR (CKD-EPI)AfAm 35 (>60 ml/min/1.73 sqM) Est GFR (CKD-EPI)NonAf 30 (>60 ml/min/1.73 sqM) Glucose 181 H (74-99) mg/dL POC Glucose (mg/dL) (70-110) mg/dL POC Glu Hardscape Foreman ID Calcium 9.4 (8.4-10.2) mg/dL Magnesium 2.1 (1.6-2.3) mg/dL Total Bilirubin 0.4 (0.2-1.3) mg/dL AST 32 (14-36) U/L ALT 27 (4-34) U/L Alkaline Phosphatase 72 (38-126) U/L Total Protein 7.4 (6.3-8.2) g/dL Albumin 4.4 (3.5-5.0) g/dL Urine Color Urine Appearance (Clear) Urine pH (5.0-8.0) Ur Specific [place] (1.001-1.035) Urine Protein (Negative) Urine Glucose (UA) (Negative) Urine Ketones (Negative) Urine Blood (Negative) Urine Nitrite (Negative) Urine Bilirubin (Negative) Urine Urobilinogen (<2.0) mg/dL Ur Leukocyte Esterase (Negative) Disposition Clinical Impression: Hypoglycemia, Weakness Disposition: HOME SELF-CARE Condition: Good Instructions (If sedation given, give patient instructions): Hypoglycemia in a Person with Diabetes (ED) Is patient prescribed a controlled substance at d/c from ED?: No Referrals: Uriel Quinonez MD [Primary Care Provider] - 1-2 days Time of Disposition: 13:57
[2023-07-08 11:58] VITALS: TEMP 98.2
[2023-07-08 12:36] LABS: Basophils % (A) 0 %; Eosinophils # (A) 0.3 k/uL (0-0.7); Eosinophils % (A) 3 %; HCT 35.3 % (34.0-46.0); HGB 11.4 gm/dL (11.4-16.0); Lymphocytes # (A) 1.3 k/uL (1.0-4.8); Lymphocytes % (A) 17 %; MCH 30.2 pg (25.0-35.0); MCHC 32.2 g/dL (31.0-37.0); MCV 93.8 fL (80.0-100.0); Mean Platelet Volume 8.3; Monocytes # (A) 0.6 k/uL (0-1.0); Monocytes % (A) 8 %; Neutrophils # (A) 5.2 k/uL (1.3-7.7); Neutrophils % (A) 68 %; Platelet Count 261 k/uL (150-450); RBC 3.76 m/uL (3.80-5.40); RDW 15.3 % (11.5-15.5); WBC 7.7 k/uL (3.8-10.6)
[2023-07-08 13:10] LABS: Appearance,Urine Clear (Clear); Bilirubin,Urine Negative (Negative); Blood,Urine Negative (Negative); Color,Urine Yellow; Glucose,Urine (UA) 3+ (Negative); Ketones,Urine Negative (Negative); Leukocyte Esterase,Urine Negative (Negative); Nitrite,Urine Negative (Negative); Protein,Urine Negative (Negative); Specific Gravity,Urine 1.018 (1.001-1.035); Urobilinogen,Urine <2.0 mg/dL (<2.0)
[2023-07-08 13:20] LABS: Albumin 4.4 g/dL (3.5-5.0); Chloride 99 mmol/L (98-107); Glucose 181 mg/dL (74-99); Sodium 138 mmol/L (137-145); Total Protein 7.4 g/dL (6.3-8.2)
[2023-07-08 13:22] LABS: ALT 27 U/L (4-34); AST 32 U/L (14-36); African American GFR (CKD) 35 (>60 ml/min/1.73 sqM); Alkaline Phosphatase 72 U/L (38-126); Anion Gap 14 mmol/L; Blood Urea Nitrogen 35 mg/dL (7-17); Calcium 9.4 mg/dL (8.4-10.2); Carbon Dioxide 25 mmol/L (22-30); Magnesium 2.1 mg/dL (1.6-2.3); Non-African American GFR(CKD) 30 (>60 ml/min/1.73 sqM); Total Bilirubin 0.4 mg/dL (0.2-1.3)
[2023-07-08 14:43] VITALS: BP 132/70; PULSE 78; RESP 18
== END 2023-07-08 15:20 | disposition home or self-care (01) ==
LOC: EC 11:15
DX: E11.649 Type 2 diabetes mellitus with hypoglycemia without coma (principal); R53.1 Weakness; E78.5 Hyperlipidemia, unspecified; I10 Essential (primary) hypertension; F41.9 Anxiety disorder, unspecified; F32.A Depression, unspecified; Z79.84 Long term (current) use of oral hypoglycemic drugs; Z79.899 Other long term (current) drug therapy; Z79.82 Long term (current) use of aspirin; Z79.4 Long term (current) use of insulin; Z88.0 Allergy status to penicillin; Z88.2 Allergy status to sulfonamides; Z91.09 Other allergy status, other than to drugs and biological substances; Z88.8 Allergy status to other drugs, medicaments and biological substances; Z88.1 Allergy status to other antibiotic agents; Z95.5 Presence of coronary angioplasty implant and graft
CPT/HCPCS: 36415; 80053; 81003; 83735; 85025; 99284

== ENCOUNTER → 2023-08-02 | Outpatient (CLI) | payer MEDICARE ==
[2023-08-02 19:23] LABS: Basophils # (A) 0.05 X 10*3/uL (0.00-0.10); Basophils % (A) 0.5 %; Eosinophils # (A) 0.54 X 10*3/uL (0.04-0.35); Eosinophils % (A) 5.5 %; HCT 35.6 % (37.2-46.3); HGB 11.2 g/dL (12.0-15.0); Lymphocytes # (A) 1.68 X 10*3/uL (0.90-5.00); Lymphocytes % (A) 17.2 %; MCH 29.9 pg (27.0-32.0); MCHC 31.5 g/dL (32.0-37.0); MCV 95.2 FL (80.0-97.0); Mean Platelet Volume 11.7 FL (9.5-12.2); Monocytes # (A) 0.58 X 10*3/uL (0.20-1.00); Monocytes % (A) 5.9 %; NRBC Per 100 WBC 0 X 10*3/uL (0.00-0.01); Neutrophils # (A) 6.85 X 10*3/uL (1.80-7.70); Neutrophils % (A) 70.3 %; Platelet Count 218 X 10*3/uL (140-440); RBC 3.74 X 10*6/uL (4.10-5.20); RDW 15.1 % (11.5-14.5); WBC 9.76 X 10*3/uL (4.50-10.00)
[2023-08-02 22:55] LABS: Magnesium 2.4 mg/dL (1.5-2.4)
[2023-08-02 22:56] LABS: % Iron Saturation 16.52 (12.00-45.00); BUN/Creat Ratio 23.67 Ratio (12.00-20.00); Blood Urea Nitrogen 35.5 mg/dL (9.0-27.0); Calcium 10.2 mg/dL (8.7-10.3); Carbon Dioxide 26.1 mmol/L (21.6-31.8); Chloride 103 mmol/L (96-109); Ferritin 37.5 ng/mL (10.0-291.0); Glucose 137 mg/dL (70-110); Iron 55 UG/DL (50-170); Potassium 5.1 mmol/L (3.5-5.5); Sodium 143 mmol/L (135-145); Total Iron Binding Capacity 333 UG/DL (228-460); Uric Acid 5.5 mg/dL (2.9-7.7)
== END | disposition home or self-care (01) ==
LOC: LABWHC1 11:41
PROVIDERS: ATTEND Internal Medicine Nephrology
DX: I12.9 Hypertensive chronic kidney disease with stage 1 through stage 4 chronic kidney disease, or unspecified chronic kidney disease (principal); N18.31 Chronic kidney disease, stage 3a; E11.22 Type 2 diabetes mellitus with diabetic chronic kidney disease; D63.1 Anemia in chronic kidney disease
CPT/HCPCS: 36415; 80048; 82043; 82570; 82728; 83036; 83540; 83550; 83735; 83970; 84550; 85025

== ENCOUNTER 2023-12-13 12:37 | Emergency (ER) | payer MEDICARE, SELFPAY ==
[2023-12-13 13:07] VITALS: RESP 18
[2023-12-13] MEDS: DIPHENOX-ATROP 2.5-0.025 MG 1 EACH TAB PO STA (13:33)
[2023-12-13] MEDS: DICYCLOMINE 10 MG/ML 2 ML AMP IM STA (13:33)
[2023-12-13] MEDS: SODIUM CHLORIDE 0.9% 1,000 ML IV STA ×2 (13:34→16:01)
[2023-12-13 13:47] LABS: Basophils # (A) 0.1 k/uL (0-0.2); Basophils % (A) 1 %; Eosinophils # (A) 0.8 k/uL (0-0.7); Eosinophils % (A) 6 %; HCT 38.2 % (34.0-46.0); HGB 12.8 gm/dL (11.4-16.0); Lymphocytes # (A) 1.8 k/uL (1.0-4.8); Lymphocytes % (A) 14 %; MCH 31.4 pg (25.0-35.0); MCHC 33.6 g/dL (31.0-37.0); MCV 93.3 fL (80.0-100.0); Mean Platelet Volume 7.8; Monocytes # (A) 0.7 k/uL (0-1.0); Monocytes % (A) 6 %; Neutrophils # (A) 9.1 k/uL (1.3-7.7); Neutrophils % (A) 72 %; Platelet Count 341 k/uL (150-450); RBC 4.09 m/uL (3.80-5.40); RDW 15.2 % (11.5-15.5); WBC 12.7 k/uL (3.8-10.6)
--- NOTE | 2023-12-13 13:50 | ED ---
Nausea/Vomiting/Diarrhea HPI - General Chief complaint: Nausea/Vomiting/Diarrhea Stated complaint: Diarrhea,vomiting Time Seen by Provider: 12/13/23 12:51 Source: patient, RN notes reviewed Mode of arrival: ambulatory Limitations: no limitations - History of Present Illness Initial comments: This is a 68-year-old female who presents to the emergency department for nausea, vomiting, and diarrhea. States that symptoms started a week ago. The nausea and vomiting are intermittent, but states that the diarrhea is constant. Describes this as essentially straight liquid. She has already gone about 7 times today day. She has generalized abdominal cramping as well. Denies any recent antibiotic use or new foods. She is taking Imodium without any relief. Denies any fever/chills or sick contacts. She did a telehealth visit with her primary care provider today, who advised she go to the emergency department for further evaluation. MD complaint: nausea, vomiting, diarrhea, abdominal pain - Related Data Home Medications Medication Instructions Recorded Confirmed Aspirin 81 mg PO DAILY 01/06/14 09/06/21 Atenolol 50 mg PO BID 01/06/14 09/06/21 INSULIN ASPART (NovoLOG) [NovoLOG 20 - 25 unit SQ AC-TID 07/23/18 09/06/21 (formulary)] Multivitamin with Iron 1 tab PO DAILY 02/15/19 09/06/21 [Multivitamins with Iron] Vit C/E/Zn/Coppr/Lutein/Zeaxan 1 tab PO DAILY 02/15/19 09/06/21 [Preservision Areds 2 Softgel] Atorvastatin [Lipitor] 20 mg PO HS 04/11/19 09/06/21 Escitalopram [Lexapro] 20 mg PO DAILY 04/11/19 09/06/21 Isosorbide Mononitrate ER [Imdur] 30 mg PO HS 04/11/19 09/06/21 Nitroglycerin Sl Tabs [Nitrostat] 0.4 mg SUBLINGUAL Q5M PRN 04/11/19 09/06/21 Ferrous Sulfate [Iron (65 MG 325 mg PO DAILY 09/12/19 09/06/21 Elemental)] Quinapril HCl [Accupril] 40 mg PO DAILY 09/12/19 09/06/21 allopurinoL [Zyloprim] 200 mg PO DAILY 07/23/21 09/06/21 calcitrioL 0.25 mcg PO MOFR 07/23/21 09/06/21 glyBURIDE/METFORMIN HCL 2 tab PO BID 07/23/21 09/06/21 [Glucovance 5-500 mg] metOLazone [Zaroxolyn] 5 mg PO DIRECTED PRN 07/23/21 09/06/21 Albuterol Sulfate [Albuterol 1 - 2 puff PO RT-Q6H PRN 09/06/21 09/06/21 Sulfate Hfa] Apixaban [Eliquis] 5 mg PO BID 09/06/21 09/06/21 Previous Rx's Medication Instructions Recorded amLODIPine [Norvasc] 10 mg PO DAILY #30 tab 04/16/19 Furosemide [Lasix] 80 mg PO DAILY #0 09/09/21 Insulin Glargine [Lantus Vial] 45 unit SQ BID #0 09/09/21 cefUROXime axetiL [Ceftin] 500 mg PO BID #14 tab 09/09/21 Azithromycin [Zithromax] 500 mg PO DAILY 3 Days #3 tab 12/13/23 Bismuth Subsalicylate 525 mg PO DIRECTED PRN #60 tab 12/13/23 [Pepto-Bismol Ultra] Diphenox-Atrop 2.5-0.025 mg 1 - 2 tab PO QID PRN 3 Days #24 tab 12/13/23 [Lomotil] Ondansetron Odt [Zofran Odt] 4 mg PO Q8HR PRN #15 tab 12/13/23 Allergies Allergy/AdvReac Type Severity Reaction Status Date / Time adhesive Allergy Rash/Hives Verified 12/13/23 12:48 cefuroxime Allergy Rash/Hives Verified 12/13/23 12:48 Penicillins Allergy Dyspnea/THROAT Verified 12/13/23 12:48 SWELLING Sulfa (Sulfonamide Allergy Rash/Hives Verified 12/13/23 12:48 Antibiotics) Review of Systems ROS Statement: Those systems with pertinent positive or pertinent negative responses have been documented in the HPI. ROS Other: All systems not noted in ROS Statement are negative. Past Medical History Past Medical History: Chest Pain / Angina, Diabetes Mellitus, Hyperlipidemia, Hypertension, Skin Disorder Additional Past Medical History / Comment(s): SOB,ARTHRITIS History of Any Multi-Drug Resistant Organisms: None Reported Past Surgical History: Back Surgery, Section, Heart Catheterization With Stent, Hysterectomy, Orthopedic Surgery, Tonsillectomy Additional Past Surgical History / Comment(s): heart stents x2,BUNIONECTOMY BELLA, LEFT KNEE TORN MENISCUS, TRIGGER FINGER X2,Rods and screws to back,bella cataract, Total right knee replacement Past Anesthesia/Blood Transfusion Reactions: Motion Sickness, Postoperative Nausea & Vomiting (PONV) Additional Past Anesthesia/Blood Transfusion Reaction / Comment(s): no prob with prior blood transfusions Date of Last Stent Placement:: 10-25-17 Past Psychological History: Anxiety, Depression Smoking Status: Never smoker Past Alcohol Use History: None Reported Past Drug Use History: None Reported - Past Family History Father Family Medical History: Cancer, Deep Vein Thrombosis (DVT) Additional Family Medical History / Comment(s): lung cancer Mother Family Medical History: Cancer, Diabetes Mellitus Additional Family Medical History / Comment(s): heart disease Brother(s) Family Medical History: Pulmonary Embolus General Exam Limitations: no limitations General appearance: alert, in no apparent distress Head exam: Present: atraumatic, normocephalic, normal inspection Respiratory exam: Present: normal lung sounds bilaterally. Absent: respiratory distress, wheezes, rales, rhonchi, stridor Cardiovascular Exam: Present: regular rate, normal rhythm, normal heart sounds. Absent: systolic murmur, diastolic murmur, rubs, gallop, clicks GI/Abdominal exam: Present: soft, tenderness, normal bowel sounds. Absent: distended, guarding, rebound, rigid Neurological exam: Present: alert, oriented X3, CN II-XII intact Psychiatric exam: Present: normal affect, normal mood Skin exam: Present: warm, dry, intact, normal color. Absent: rash Course Vital Signs 12/13/23 12/13/23 12:45 16:41 Temperature 97.7 F 97.8 F Pulse Rate 63 66 Respiratory 18 18 Rate Blood Pressure 120/68 143/71 O2 Sat by Pulse 97 97 Oximetry Medical Decision Making - Medical Decision Making This is a 68 year old female who presents to the emergency department for nausea, vomiting, and diarrhea. Was pt. sent in by a medical professional or institution? @ -No Did you speak to anyone other than the patient for history? @ -No Did you review nursing and triage notes? @ -Yes, and I agree, it is accurate with regards to the patient's symptoms. Were old charts reviewed? @ -No Differential Diagnosis? @ -Differential Nausea and Vomiting: Gastroenteritis, cholecystitis, appendicitis, pancreatitis, migraine, benign positional vertigo, food borne illness, pyelonephritis, irritable bowel syndrome, influenza, Covid, GERD, incarcerated hernia, intestinal obstruction, this is not meant to be an all-inclusive list. EKG interpreted by me (3pts min.)? @ -EKG interpreted by me demonstrating the following: Sinus rhythm. Ventricular rate 60 bpm, PA interval 239 ms, QRS duration 98 ms, QTc 450 ms. X-rays interpreted by me (1pt min.)? @ -Not obtained CT interpreted by me (1pt min.)? @ -CT scan of the abdomen and pelvis obtained. My interpretation identifies no evidence of bowel wall thickening or free air. U/S interpreted by me (1pt. min.)? @ -Not obtained What testing was considered but not performed? (CT, X-rays, U/S, labs)? Why? @ -None What meds were considered but not given? Why? @ -None Did you discuss the management of the patient with other professionals? @ -No Did you reconcile home meds? @ -No Was smoking cessation discussed for >3mins.? @ -No Was critical care preformed (if so, how long)? @ -No Were there social determinants of health that impacted care today? How? (Homele ssness, low income, unemployed, alcoholism, drug addiction, transportation, low edu. Level, literacy, decrease access to med. care, fpc, rehab)? @ -No Was there de-escalation of care discussed even if they declined? (Discuss DNR or withdrawal of care, Hospice)? @ -No What co-morbidities impacted this encounter? (DM, HTN, Smoking, COPD, CAD, Canc er, CVA, Hep., AIDS, mental health diagnosis, sleep apnea, morbid obesity)? @ -DM, HLD, HTN Was patient admitted / discharged? @ -Discharged. Lab work demonstrates mild leukocytosis and was otherwise fairly unremarkable. Decreased renal function is stable when compared with prior. Urinalysis negative for signs of infection. COVID, influenza, and RSV testing were negative. C. difficile test negative as well. CT scan of the abdomen and pelvis obtained revealing no acute process. Patient treated with IV fluids, Bentyl, and Lomotil. Given the duration of her symptoms for 1 week, advised that we can treat her empirically with a short course of azithromycin. Initial dose administered in the emergency department. Prescription for Pepto- Bismol, Lomotil, and Zofran provided with dosing instructions reviewed since the Imodium has not been effective. She is advised that she needs to remain well- hydrated. Patient discharged home in stable condition and advised to follow-up with her primary care provider. Undiagnosed new problem with uncertain prognosis? @ -None Drug Therapy requiring intensive monitoring for toxicity (Heparin, Nitro, Insulin, Cardizem)? @ -None Were any procedures done? @ -None Diagnosis/symptom? @ -Diarrhea, Gastroenteritis Acute, or Chronic, or Acute on Chronic? @ -Acute Uncomplicated (without systemic symptoms) or Complicated (systemic symptoms)? @ -Uncomplicated Side effects of treatment? @ -None Exacerbation, Progression, or Severe Exacerbation] @ -Not applicable Poses a threat to life or bodily function? @ -No Return precautions reviewed in depth, the patient is instructed to return to the emergency department with any new, worsening, or concerning symptoms. Patient verbalized understanding. This case was discussed in detail with the attending ED physician, Dr. Ley. Presentation, findings, and treatment plan discussed in detail as well. - Lab Data Result diagrams: 12/13/23 13:28 12/13/23 13:28 Lab Results 12/13/23 12/13/23 12/13/23 Range/Units 13:28 13:28 13:28 WBC 12.7 H (3.8-10.6) k/uL RBC 4.09 (3.80-5.40) m/uL Hgb 12.8 (11.4-16.0) gm/dL Hct 38.2 (34.0-46.0) % MCV 93.3 (80.0-100.0) fL MCH 31.4 (25.0-35.0) pg MCHC 33.6 (31.0-37.0) g/dL RDW 15.2 (11.5-15.5) % Plt Count 341 (150-450) k/uL MPV 7.8 Neutrophils % 72 % Lymphocytes % 14 % Monocytes % 6 % Eosinophils % 6 % Basophils % 1 % Neutrophils # 9.1 H (1.3-7.7) k/uL Lymphocytes # 1.8 (1.0-4.8) k/uL Monocytes # 0.7 (0-1.0) k/uL Eosinophils # 0.8 H (0-0.7) k/uL Basophils # 0.1 (0-0.2) k/uL Sodium 139 (137-145) mmol/L Potassium 4.8 (3.5-5.1) mmol/L Chloride 109 H (98-107) mmol/L Carbon Dioxide 16 L (22-30) mmol/L Anion Gap 14 mmol/L BUN 55 H (7-17) mg/dL Creatinine 1.81 H (0.52-1.04) mg/dL Est GFR (CKD-EPI)AfAm 33 (>60 ml/min/1.73 sqM) Est GFR (CKD-EPI)NonAf 28 (>60 ml/min/1.73 sqM) Glucose 122 H (74-99) mg/dL POC Glucose (mg/dL) (70-110) mg/dL POC Glu Gastroenterologist ID Calcium 9.8 (8.4-10.2) mg/dL Magnesium (1.6-2.3) mg/dL Total Bilirubin 0.8 (0.2-1.3) mg/dL AST 38 H (14-36) U/L ALT 26 (4-34) U/L Alkaline Phosphatase 80 (38-126) U/L Troponin I (0.000-0.034) ng/mL Total Protein 7.9 (6.3-8.2) g/dL Albumin 4.8 (3.5-5.0) g/dL Amylase 52 (30-110) U/L Lipase 52 (23-300) U/L Urine Color Light Yellow Urine Appearance Clear (Clear) Urine pH 5.0 (5.0-8.0) Ur Specific Compton 1.014 (1.001-1.035) Urine Protein Negative (Negative) Urine Glucose (UA) Negative (Negative) Urine Ketones Negative (Negative) Urine Blood Negative (Negative) Urine Nitrite Negative (Negative) Urine Bilirubin Negative (Negative) Urine Urobilinogen <2.0 (<2.0) mg/dL Ur Leukocyte Esterase Trace H (Negative) Urine RBC 1 (0-5) /hpf Urine WBC 3 (0-5) /hpf Ur Squamous Epith Cells 3 (0-4) /hpf Urine Bacteria Rare H (None) /hpf Hyaline Casts 21 H (0-2) /lpf Urine Mucus Rare H (None) /hpf C. difficile (EIA) Intrp (Negative) Influenza Type A (PCR) (Not Detectd) Influenza Type B (PCR) (Not Detectd) RSV (PCR) (Not Detectd) SARS-CoV-2 (PCR) (Not Detectd) 12/13/23 12/13/23 12/13/23 Range/Units 13:28 13:28 14:12 WBC (3.8-10.6) k/uL RBC (3.80-5.40) m/uL Hgb (11.4-16.0) gm/dL Hct (34.0-46.0) % MCV (80.0-100.0) fL MCH (25.0-35.0) pg MCHC (31.0-37.0) g/dL RDW (11.5-15.5) % Plt Count (150-450) k/uL MPV Neutrophils % % Lymphocytes % % Monocytes % % Eosinophils % % Basophils % % Neutrophils # (1.3-7.7) k/uL Lymphocytes # (1.0-4.8) k/uL Monocytes # (0-1.0) k/uL Eosinophils # (0-0.7) k/uL Basophils # (0-0.2) k/uL Sodium (137-145) mmol/L Potassium (3.5-5.1) mmol/L Chloride (98-107) mmol/L Carbon Dioxide (22-30) mmol/L Anion Gap mmol/L BUN (7-17) mg/dL Creatinine (0.52-1.04) mg/dL Est GFR (CKD-EPI)AfAm (>60 ml/min/1.73 sqM) Est GFR (CKD-EPI)NonAf (>60 ml/min/1.73 sqM) Glucose (74-99) mg/dL POC Glucose (mg/dL) (70-110) mg/dL POC Glu Gastroenterologist ID Calcium (8.4-10.2) mg/dL Magnesium (1.6-2.3) mg/dL Total Bilirubin (0.2-1.3) mg/dL AST (14-36) U/L ALT (4-34) U/L Alkaline Phosphatase (38-126) U/L Troponin I <0.012 (0.000-0.034) ng/mL Total Protein (6.3-8.2) g/dL Albumin (3.5-5.0) g/dL Amylase (30-110) U/L Lipase (23-300) U/L Urine Color Urine Appearance (Clear) Urine pH (5.0-8.0) Ur Specific Compton (1.001-1.035) Urine Protein (Negative) Urine Glucose (UA) (Negative) Urine Ketones (Negative) Urine Blood (Negative) Urine Nitrite (Negative) Urine Bilirubin (Negative) Urine Urobilinogen (<2.0) mg/dL Ur Leukocyte Esterase (Negative) Urine RBC (0-5) /hpf Urine WBC (0-5) /hpf Ur Squamous Epith Cells (0-4) /hpf Urine Bacteria (None) /hpf Hyaline Casts (0-2) /lpf Urine Mucus (None) /hpf C. difficile (EIA) Intrp Negative (Negative) Influenza Type A (PCR) Not Detected (Not Detectd) Influenza Type B (PCR) Not Detected (Not Detectd) RSV (PCR) Not Detected (Not Detectd) SARS-CoV-2 (PCR) Not Detected (Not Detectd) 12/13/23 12/13/23 Range/Units 14:12 14:28 WBC (3.8-10.6) k/uL RBC (3.80-5.40) m/uL Hgb (11.4-16.0) gm/dL Hct (34.0-46.0) % MCV (80.0-100.0) fL MCH (25.0-35.0) pg MCHC (31.0-37.0) g/dL RDW (11.5-15.5) % Plt Count (150-450) k/uL MPV Neutrophils % % Lymphocytes % % Monocytes % % Eosinophils % % Basophils % % Neutrophils # (1.3-7.7) k/uL Lymphocytes # (1.0-4.8) k/uL Monocytes # (0-1.0) k/uL Eosinophils # (0-0.7) k/uL Basophils # (0-0.2) k/uL Sodium (137-145) mmol/L Potassium (3.5-5.1) mmol/L Chloride (98-107) mmol/L Carbon Dioxide (22-30) mmol/L Anion Gap mmol/L BUN (7-17) mg/dL Creatinine (0.52-1.04) mg/dL Est GFR (CKD-EPI)AfAm (>60 ml/min/1.73 sqM) Est GFR (CKD-EPI)NonAf (>60 ml/min/1.73 sqM) Glucose (74-99) mg/dL POC Glucose (mg/dL) 134 H (70-110) mg/dL POC Glu Gastroenterologist ID Parisa Stephens Calcium (8.4-10.2) mg/dL Magnesium 2.6 H (1.6-2.3) mg/dL Total Bilirubin (0.2-1.3) mg/dL AST (14-36) U/L ALT (4-34) U/L Alkaline Phosphatase (38-126) U/L Troponin I (0.000-0.034) ng/mL Total Protein (6.3-8.2) g/dL Albumin (3.5-5.0) g/dL Amylase (30-110) U/L Lipase (23-300) U/L Urine Color Urine Appearance (Clear) Urine pH (5.0-8.0) Ur Specific Compton (1.001-1.035) Urine Protein (Negative) Urine Glucose (UA) (Negative) Urine Ketones (Negative) Urine Blood (Negative) Urine Nitrite (Negative) Urine Bilirubin (Negative) Urine Urobilinogen (<2.0) mg/dL Ur Leukocyte Esterase (Negative) Urine RBC (0-5) /hpf Urine WBC (0-5) /hpf Ur Squamous Epith Cells (0-4) /hpf Urine Bacteria (None) /hpf Hyaline Casts (0-2) /lpf Urine Mucus (None) /hpf C. difficile (EIA) Intrp (Negative) Influenza Type A (PCR) (Not Detectd) Influenza Type B (PCR) (Not Detectd) RSV (PCR) (Not Detectd) SARS-CoV-2 (PCR) (Not Detectd) - Radiology Data Radiology results: report reviewed, image reviewed Disposition Clinical Impression: Diarrhea, Gastroenteritis Disposition: HOME SELF-CARE Instructions (If sedation given, give patient instructions): Bismuth Subsa licylate (By mouth), Acute Diarrhea (ED), Nutrition Tips for Relief of Diarrhea (ED) Additional Instructions: Return to the emergency department with any new, worsening, or concerning symptoms. You can take the Lomotil as 1 to 2 tablets up to 4 times daily as needed for diarrhea. The Pepto-Bismol can be taken as 1 tablet every hour as needed, not to exceed 4200 mg in 24 hours. Take the antibiotic as prescribed for an additional 3 days, with your first dose beginning tomorrow, as you received a dose in the emergency department today. You can take the Zofran up to every 8 hours as needed for nausea and vomiting. Make sure you drink plenty of fluids and remain well-hydrated. Follow up with your primary care provider in 1-2 days. Prescriptions: Diphenox-Atrop 2.5-0.025 mg [Lomotil] 1 - 2 tab PO QID PRN 3 Days #24 tab PRN Reason: Diarrhea Bismuth Subsalicylate [Pepto-Bismol Ultra] 525 mg PO DIRECTED PRN #60 tab PRN Reason: Diarrhea Azithromycin [Zithromax] 500 mg PO DAILY 3 Days #3 tab Ondansetron Odt [Zofran Odt] 4 mg PO Q8HR PRN #15 tab PRN Reason: Nausea And Vomiting Is patient prescribed a controlled substance at d/c from ED?: Yes When asked, does pt state using other controlled substances?: No If prescribed controlled substance>3 days was MAPS reviewed?: Prescribed <3 Days Referrals: Uriel Quinonez MD [Primary Care Provider] - 1-2 days Time of Disposition: 15:53
[2023-12-13 14:05] LABS: Appearance,Urine Clear (Clear); Bacteria,Urine Rare /hpf; Bilirubin,Urine Negative (Negative); Blood,Urine Negative (Negative); Color,Urine Light Yellow; Glucose,Urine (UA) Negative (Negative); Hyaline Casts,Urine 21 /lpf (0-2); Ketones,Urine Negative (Negative); Leukocyte Esterase,Urine Trace (Negative); Mucus,Urine Rare /hpf; Nitrite,Urine Negative (Negative); Protein,Urine Negative (Negative); RBC,Urine 1 /hpf (0-5); Specific Gravity,Urine 1.014 (1.001-1.035); Squamous Epithelial Cell,Urine 3 /hpf (0-4); Urobilinogen,Urine <2.0 mg/dL (<2.0); WBC,Urine 3 /hpf (0-5)
[2023-12-13 14:07] LABS: ALT 26 U/L (4-34); African American GFR (CKD) 33 (>60 ml/min/1.73 sqM); Amylase 52 U/L (30-110); Anion Gap 14 mmol/L; Blood Urea Nitrogen 55 mg/dL (7-17); Calcium 9.8 mg/dL (8.4-10.2); Carbon Dioxide 16 mmol/L (22-30); Chloride 109 mmol/L (98-107); Glucose 122 mg/dL (74-99); Lipase 52 U/L (23-300); Non-African American GFR(CKD) 28 (>60 ml/min/1.73 sqM); Sodium 139 mmol/L (137-145); Total Bilirubin 0.8 mg/dL (0.2-1.3)
[2023-12-13 14:24] LABS: Potassium 4.8 mmol/L (3.5-5.1); Total Protein 7.9 g/dL (6.3-8.2)
[2023-12-13 14:25] LABS: AST 38 U/L (14-36); Albumin 4.8 g/dL (3.5-5.0); Alkaline Phosphatase 80 U/L (38-126)
[2023-12-13 14:30] LABS: Glucose,Whole Blood 134 mg/dL (70-110)
--- NOTE | 2023-12-13 15:07 | CT ---
EXAMINATION TYPE: CT abdomen pelvis wo con DATE OF EXAM: 12/13/2023 COMPARISON: 09/06/2021 INDICATION: n/v/d x 1 week. DLP: 1442.2 mGycm, Automated exposure control for dose reduction was used. CONTRAST: 0 mL of Isovue 300. Study performed without Oral Contrast TECHNIQUE: Axial images were obtained from above the diaphragm to the pubic rami in the axial plane a t 5 mm thick sections. Reconstructed images are reviewed on the computer in the coronal plane. FINDINGS: Limited CT sections are obtained the lung bases. The lung bases are clear. CT ABDOMEN: Liver: Normal Spleen: Normal Pancreas: Normal Adrenal glands: Some minimal nodularity of the left adrenal gland may be present. This is stable in a ppearance from 2021. Right adrenal gland is unremarkable. Gallbladder: Normal Kidneys: No masses are evident. No hydronephrosis is present. No cysts are present. No renal stone s are evident. Aorta: Vascular calcification is within the aorta. Inferior vena cava: Normal. CT PELVIS: Beam hardening artifact from lower lumbar spine surgery limits evaluation Loops of bowel within the abdomen and pelvis are normal. The study is without oral contrast limit ing bowel evaluation. Appendix: Normal as visualized. Urinary bladder: Normal. Genitourinary structures: Uterus and ovaries are not identified Osseous structures: No suspicious lytic or sclerotic lesions. Sacroiliac joint degenerative changes a re present. Degenerative disc changes are in the lower lumbar spine. Pedicle screws from fixation are present within the lumbar spine IMPRESSION: 1. No suspicious abnormality with constipation symptoms.
[2023-12-13] MEDS: AZITHROMYCIN 500 MG TAB PO STA (16:01)
[2023-12-13] MEDS: BISMUTH SUBSALICYLATE 4,192 MG/240 ML BOTTLE PO STA (16:15)
[2023-12-13] MEDS: DIPHENOX-ATROP STARTER PACK 8 TAB BTL PO STA (16:40)
[2023-12-13 17:19] VITALS: BP 143/71; PULSE 66; TEMP 97.8
== END 2023-12-13 16:59 | disposition home or self-care (01) ==
LOC: EC 12:37
DX: K52.9 Noninfective gastroenteritis and colitis, unspecified (principal); Z91.09 Other allergy status, other than to drugs and biological substances; Z88.0 Allergy status to penicillin; Z88.2 Allergy status to sulfonamides; Z88.8 Allergy status to other drugs, medicaments and biological substances
CPT/HCPCS: 36415; 93005; 80053; 82150; 83690; 83735; 84484; 85025; 81001; 87324; 87636; 74176; 99284; 96372; 96360; 96361 ×2; J0500

== ENCOUNTER → 2024-02-13 | Outpatient (CLI) | payer MEDICARE, SELFPAY ==
[2024-02-13 14:52] LABS: Basophils # (A) 0.08 X 10*3/uL (0.00-0.10); Basophils % (A) 0.7 %; Eosinophils # (A) 0.46 X 10*3/uL (0.04-0.35); HGB 11.6 g/dL (12.0-15.0); Lymphocytes # (A) 1.87 X 10*3/uL (0.90-5.00); Lymphocytes % (A) 16.2 %; MCH 30.5 pg (27.0-32.0); MCHC 32.2 g/dL (32.0-37.0); MCV 94.7 FL (80.0-97.0); Mean Platelet Volume 11.1 FL (9.5-12.2); Monocytes # (A) 0.74 X 10*3/uL (0.20-1.00); Monocytes % (A) 6.4 %; NRBC Per 100 WBC 0.02 X 10*3/uL (0.00-0.01); Neutrophils # (A) 8.35 X 10*3/uL (1.80-7.70); Neutrophils % (A) 72.3 %; Platelet Count 261 X 10*3/uL (140-440); RDW 14.7 % (11.5-14.5); WBC 11.55 X 10*3/uL (4.50-10.00)
[2024-02-13 15:14] LABS: Chol/HDL Ratio 4.35 Ratio; Magnesium 2.5 mg/dL (1.5-2.4)
[2024-02-13 15:15] LABS: ALT 17 U/L (8-44); AST 14 U/L (13-35); Albumin 4.4 g/dL (3.8-4.9); Albumin/Globulin Ratio 1.76 Ratio (1.60-3.17); Alkaline Phosphatase 77 U/L (41-126); Blood Urea Nitrogen 82.4 mg/dL (9.0-27.0); Calcium 9.8 mg/dL (8.7-10.3); Carbon Dioxide 20.5 mmol/L (21.6-31.8); Chloride 106 mmol/L (96-109); Ferritin 69.4 ng/mL (10.0-291.0); Globulin 2.5 g/dL (1.6-3.3); Glucose 135 mg/dL (70-110); Iron 61 UG/DL (50-170); LDL Cholesterol,Calculated 54.2 mg/dL (0.0-131.0); Potassium 4.5 mmol/L (3.5-5.5); Sodium 144 mmol/L (135-145); Total Bilirubin <0.2 mg/dL (0.3-1.2); Total Iron Binding Capacity 316 UG/DL (228-460); Total Protein 6.9 g/dL (6.2-8.2); Uric Acid 5.2 mg/dL (2.9-7.7)
== END | disposition home or self-care (01) ==
LOC: LABWHC1 10:01
PROVIDERS: ATTEND Internal Medicine Interventional Cardiology
DX: I12.9 Hypertensive chronic kidney disease with stage 1 through stage 4 chronic kidney disease, or unspecified chronic kidney disease (principal); E78.2 Mixed hyperlipidemia; E11.22 Type 2 diabetes mellitus with diabetic chronic kidney disease; N18.31 Chronic kidney disease, stage 3a; D63.1 Anemia in chronic kidney disease
CPT/HCPCS: 36415; 80053; 80061; 82043; 82570; 82728; 83036; 83540; 83550; 83735; 83970; 84550; 85025

== ENCOUNTER → 2024-02-23 | Outpatient (CLI) | payer MEDICARE ==
--- NOTE | 2024-02-27 07:29 | MM ---
Reason for Exam: Screening (asymptomatic). Last screening mammogram was performed 12 month(s) ago. Patient History: Menarche at age 12. First Full-Term at age 32. Late child-bearing (after 30). Hysterectomy at age 32. Postmenopausal. Patient has history of breast feeding. 09/27/2018, Benign Core Biopsy on the left side. 09/27/2018, Benign Core Biopsy on the left side. Risk Values: Annabelle 5 year model risk: 3.5%. NCI Lifetime model risk: 11.2%. Prior Study Comparison: 02/08/2021 Bilateral Screening Mammogram, [facility]. 02/17/2022 Bilateral MG 3D screening mammo w/cad, [facility]. 02/20/2023 Bilateral MG 3D screening mammo w/cad, [facility]. Tissue Density: There are scattered areas of fibroglandular density. Findings: Analyzed By CAD. Unchanged bilateral areas of asymmetric density. Two microclips medial left breast from prior biopsies. There is no suspicious group of microcalcifications or new suspicious mass in either breast. Overall Assessment: Benign, BI-RAD 2 Management: Screening Mammogram of both breasts in 1 year. See note below in regards to patient's increased 5 year Annabelle score. Patient should continue monthly self-breast exams. A clinical breast exam by your physician is recommended on an annual basis. This exam should not preclude additional follow-up of suspicious palpable abnormalities. Note on Annabelle scores and lifetime risk: 1. A Annabelle score greater than 3% is considered moderate risk. If this is the case, consider specialist referral to assess eligibility for a risk reducing agent. 2. If overall lifetime risk for the development of breast cancer is 20% or higher, the patient may qualify for future screening with alternating mammogram and breast MRI. Electronically signed and approved by: Italo Chavis M.D. Radiologist
--- NOTE | 2024-02-27 15:38 | BD ---
EXAMINATION TYPE: Axial Bone Density DATE OF EXAM: 02/23/2024 CLINICAL HISTORY: 68 years old Female. ICD-10 CODE: M81.0 Age related oste Height: 62.5" Weight: 245lbs FRAX RISK QUESTIONS: Alcohol (3 or more units per day): No Family History (Parent hip fracture): Mother had pelvis fx from MVA Glucocorticoids (More than 3mos): No (Ex: prednisone, prednisolone, methylprednisolone, dexamethasone, and hydrocortisone). History of Fracture in Adulthood: Yes Secondary Osteoporosis: 1. Type 1 Diabetes: No 2. Hyperthyroidism: No 3. Menopause before 45: Yes 4. Malnutrition: No 5. Chronic liver disease: No Rheumatoid Arthritis: No Current Tobacco Use: No RISK FACTORS HISTORY OF: Hip Fracture (Right/Left): No Spine Fracture: No History of Wrist Fracture: No Surgery to Spine/Hip(right/left)/Wrist (right/left): Extensive lumbar spine surgery in 2012 MEDICATIONS: Thyroid Medications: No Osteoporosis Medications: No EXAM MEASUREMENTS: Bone mineral densitometry was performed using the [employer]. Bone mineral density about the R hip (g/cm2): 0.995 Bone mineral density about the L hip (g/cm2): 1.086 T Score values are as follows: -----R Neck: -1.3 -----L Neck: -0.8 -----R Total: -0.1 -----L Total: 0.6 Z Score values are as follows: -----R Neck: -0.5 -----L Neck: 0.1 -----R Total: 0.4 -----L Total: 1.2 Baseline @MPH Bone mineral density about the L Wrist (g/cm2): 0.715 T Score values are as follows: -----Dist. R+U: 0.6 -----Prox. R+U: 0.9 -----Radius total: 0.7 Z Score values are as follows: -----Dist. R+U: 2.3 -----Prox. R+U: 2.6 -----Radius total: 2.3 Baseline @MPH FRAX%s: The graph provided illustrates a 12.9% chance for a major osteoporotic fx and a 1.3% chance f or the hips probability for fx in 10 years time. IMPRESSION: Osteopenia (T Score between -2.5 and -1). There is slightly increased risk of fracture and the patient may be considered for treatment. Re-Screen 2-5 years. NOTE: T-SCORE=SD OF THE YOUNG ADULT MEAN.
== END | disposition home or self-care (01) ==
LOC: RADMAMWWP 10:44
PROVIDERS: ATTEND Family Medicine
DX: Z12.31 Encounter for screening mammogram for malignant neoplasm of breast (principal); M85.88 Other specified disorders of bone density and structure, other site; R92.323 Mammographic fibroglandular density, bilateral breasts; Z78.0 Asymptomatic menopausal state
CPT/HCPCS: 77063; 77067; 77080

== ENCOUNTER → 2024-06-25 | Outpatient (CLI) | payer MEDICARE ==
[~2024-06-25] MED LIST changes: -ALPRAZolam 0.25 MG TAB PO PRN; -ALPRAZolam 0.5 MG TAB PO PRN; -ASPIRIN 325 MG TAB PO STA; -NITROGLYCERIN SL TABS 0.4 MG TAB SUBLINGUAL PRN; +SODIUM CHLORIDE 0.9% 500 ML 500 ML in EMPTY BAG 1 BAG IV PRN
[2024-06-25 10:58] VITALS: BP 145/70; PULSE 69; RESP 16; TEMP 97.6
[2024-06-25] MEDS: SODIUM CHLORIDE 0.9% 500 ML 500 ML in EMPTY BAG 1 BAG IV PRN (11:00)
== END ==
LOC: PROCWHC3 10:30
PROVIDERS: ATTEND Internal Medicine Nephrology
CPT/HCPCS: 96365

== ENCOUNTER → 2024-07-23 | Outpatient (CLI) | payer MEDICARE ==
[2024-07-23 15:15] LABS: ALT 19 U/L (8-44); AST 17 U/L (13-35); LDL Cholesterol,Calculated 51.6 mg/dL (0.0-131.0)
== END | disposition home or self-care (01) ==
LOC: LABWHC1 10:43
PROVIDERS: ATTEND Internal Medicine Interventional Cardiology
DX: E78.2 Mixed hyperlipidemia (principal)
CPT/HCPCS: 36415; 80061; 84450; 84460

== ENCOUNTER → 2024-09-05 | Outpatient (CLI) | payer MEDICARE, SELFPAY ==
[2024-09-05 15:57] LABS: Basophils # (A) 0.04 X 10*3/uL (0.00-0.10); Basophils % (A) 0.5 %; Eosinophils # (A) 0.52 X 10*3/uL (0.04-0.35); Eosinophils % (A) 6.1 %; HCT 35.7 % (37.2-46.3); HGB 11.5 g/dL (12.0-15.0); Lymphocytes % (A) 16.3 %; MCH 30.7 pg (27.0-32.0); MCHC 32.2 g/dL (32.0-37.0); MCV 95.2 FL (80.0-97.0); Monocytes # (A) 0.68 X 10*3/uL (0.20-1.00); Monocytes % (A) 7.9 %; NRBC Per 100 WBC 0 X 10*3/uL (0.00-0.01); Neutrophils % (A) 68.6 %; Platelet Count 252 X 10*3/uL (140-440); RBC 3.75 X 10*6/uL (4.10-5.20); RDW 14.6 % (11.5-14.5); WBC 8.59 X 10*3/uL (4.50-10.00)
[2024-09-05 16:08] LABS: ALT 25 U/L (8-44); AST 18 U/L (13-35); Albumin 4.3 g/dL (3.8-4.9); Albumin/Globulin Ratio 1.72 Ratio (1.60-3.17); Alkaline Phosphatase 98 U/L (41-126); BUN/Creat Ratio 36.71 Ratio (12.00-20.00); Blood Urea Nitrogen 62.4 mg/dL (9.0-27.0); Calcium 9.9 mg/dL (8.7-10.3); Carbon Dioxide 23.6 mmol/L (21.6-31.8); Chloride 103 mmol/L (96-109); Chol/HDL Ratio 4.49 Ratio; Globulin 2.5 g/dL (1.6-3.3); Glucose 152 mg/dL (70-110); LDL Cholesterol,Calculated 61.8 mg/dL (0.0-131.0); Potassium 4.8 mmol/L (3.5-5.5); Sodium 141 mmol/L (135-145); Total Bilirubin 0.2 mg/dL (0.3-1.2); Total Protein 6.8 g/dL (6.2-8.2)
== END | disposition home or self-care (01) ==
LOC: LABWHC1 10:51
PROVIDERS: ATTEND Family Medicine
DX: I12.9 Hypertensive chronic kidney disease with stage 1 through stage 4 chronic kidney disease, or unspecified chronic kidney disease (principal); E11.9 Type 2 diabetes mellitus without complications; E78.5 Hyperlipidemia, unspecified; N18.4 Chronic kidney disease, stage 4 (severe)
CPT/HCPCS: 36415; 80053; 80061; 83036; 85025

== ENCOUNTER → 2024-12-03 | Outpatient (CLI) | payer MEDICARE, SELFPAY ==
[2024-12-04 02:37] LABS: Basophils # (A) 0.04 X 10*3/uL (0.00-0.10); Basophils % (A) 0.4 %; Eosinophils # (A) 0.53 X 10*3/uL (0.04-0.35); Eosinophils % (A) 5.2 %; HCT 38.8 % (37.2-46.3); HGB 12.4 g/dL (12.0-15.0); Lymphocytes % (A) 15.7 %; MCH 30.2 pg (27.0-32.0); MCV 94.6 FL (80.0-97.0); Mean Platelet Volume 10.9 FL (9.5-12.2); Monocytes # (A) 0.59 X 10*3/uL (0.20-1.00); Monocytes % (A) 5.8 %; NRBC Per 100 WBC 0 X 10*3/uL (0.00-0.01); Neutrophils # (A) 7.39 X 10*3/uL (1.80-7.70); Neutrophils % (A) 72.2 %; Platelet Count 265 X 10*3/uL (140-440); RDW 13.8 % (11.5-14.5); WBC 10.22 X 10*3/uL (4.50-10.00)
[2024-12-04 03:02] LABS: Microalbumin Creatinine Ratio <31 mg/g Cr (0-30); Urine Creatinine 39.1 mg/dL (28.0-217.0)
[2024-12-04 03:21] LABS: ALT 21 U/L (8-44); AST 22 U/L (13-35); Albumin 4.5 g/dL (3.8-4.9); Alkaline Phosphatase 87 U/L (41-126); BUN/Creat Ratio 38.94 Ratio (12.00-20.00); Blood Urea Nitrogen 66.2 mg/dL (9.0-27.0); Calcium 10.4 mg/dL (8.7-10.3); Carbon Dioxide 24.2 mmol/L (21.6-31.8); Chloride 101 mmol/L (96-109); Globulin 2.5 g/dL (1.6-3.3); Glucose 97 mg/dL (70-110); Iron 78 UG/DL (50-170); Magnesium 2.6 mg/dL (1.5-2.4); Potassium 4.7 mmol/L (3.5-5.5); Sodium 140 mmol/L (135-145); Total Bilirubin 0.4 mg/dL (0.3-1.2); Uric Acid 5.7 mg/dL (2.9-7.7)
== END | disposition home or self-care (01) ==
LOC: LABWHC1 15:36
PROVIDERS: ATTEND Internal Medicine Nephrology
DX: I12.9 Hypertensive chronic kidney disease with stage 1 through stage 4 chronic kidney disease, or unspecified chronic kidney disease (principal); N18.31 Chronic kidney disease, stage 3a; D63.1 Anemia in chronic kidney disease; E11.22 Type 2 diabetes mellitus with diabetic chronic kidney disease
CPT/HCPCS: 36415; 80053; 82043; 82570; 82607; 82728; 82746; 83540; 83735; 83970; 84550; 85025

== ENCOUNTER 2024-12-06 20:58 | Emergency (ER) | payer MEDICARE, SELFPAY ==
--- NOTE | 2024-12-06 21:29 | ED ---
ENT HPI - General Chief complaint: ENT Stated complaint: Nose bleed Time Seen by Provider: 12/06/24 21:13 Source: patient, RN notes reviewed Mode of arrival: wheelchair Limitations: no limitations - History of Present Illness Initial comments: This is a 69-year-old female presenting for epistaxis since 1400 today. Patient endorses bleeding from both nostrils, noting drainage down back of throat. Endorses daily use of Eliquis. Denies associated dizziness or other symptoms. Onset/Timin -: hour(s) Time: 14:00 Location: nose Context-Epistaxis: other (Eliquis use) - Related Data Home Medications Medication Instructions Recorded Confirmed Aspirin 81 mg PO DAILY 01/06/14 06/25/24 Atenolol 50 mg PO BID 01/06/14 06/25/24 INSULIN ASPART (NovoLOG) [NovoLOG 10 - 12 unit SQ AC-TID 07/23/18 06/25/24 (formulary)] Multivitamin with Iron 1 tab PO DAILY 02/15/19 06/25/24 [Multivitamins with Iron] Vit C/E/Zn/Coppr/Lutein/Zeaxan 1 tab PO DAILY 02/15/19 06/25/24 [Preservision Areds 2 Softgel] Atorvastatin [Lipitor] 20 mg PO HS 04/11/19 06/25/24 Escitalopram [Lexapro] 20 mg PO DAILY 04/11/19 06/25/24 Isosorbide Mononitrate ER [Imdur] 30 mg PO HS 04/11/19 06/25/24 Nitroglycerin Sl Tabs [Nitrostat] 0.4 mg SUBLINGUAL Q5M PRN 04/11/19 06/25/24 Ferrous Sulfate [Iron (65 MG 325 mg PO DAILY 09/12/19 06/25/24 Elemental)] Quinapril HCl [Accupril] 40 mg PO DAILY 09/12/19 06/25/24 allopurinoL [Zyloprim] 200 mg PO DAILY 07/23/21 06/25/24 calcitrioL 0.25 mcg PO MOFR 07/23/21 06/25/24 glyBURIDE/METFORMIN HCL 2 tab PO BID 07/23/21 06/25/24 [Glucovance 5-500 mg] metOLazone [Zaroxolyn] 5 mg PO DIRECTED PRN 07/23/21 06/25/24 Albuterol Sulfate [Albuterol 1 - 2 puff PO RT-Q6H PRN 09/06/21 06/25/24 Sulfate Hfa] Apixaban [Eliquis] 5 mg PO BID 09/06/21 06/25/24 Dapagliflozin Propanediol [Farxiga] 1 tab PO DAILY 06/25/24 06/25/24 Dulaglutide [Trulicity] 1 injection INJ WEEKLY 06/25/24 06/25/24 Insulin Glargine (Lantus) [Lantus 53 unit SQ BID 06/25/24 06/25/24 Vial] Previous Rx's Medication Instructions Recorded amLODIPine [Norvasc] 10 mg PO DAILY #30 tab 04/16/19 Furosemide [Lasix] 80 mg PO DAILY #0 09/09/21 Bismuth Subsalicylate 525 mg PO DIRECTED PRN #60 tab 12/13/23 [Pepto-Bismol Ultra] Diphenox-Atrop 2.5-0.025 mg 1 - 2 tab PO QID PRN 3 Days #24 tab 12/13/23 [Lomotil] Ondansetron Odt [Zofran Odt] 4 mg PO Q8HR PRN #15 tab 12/13/23 Doxycycline [Vibramycin] 100 mg PO BID 1 Days #6 capsule 12/06/24 Allergies Allergy/AdvReac Type Severity Reaction Status Date / Time adhesive Allergy Rash/Hives Verified 12/06/24 21:11 cefuroxime Allergy Rash/Hives Verified 12/06/24 21:11 Penicillins Allergy Dyspnea/THROAT Verified 12/06/24 21:11 SWELLING Sulfa (Sulfonamide Allergy Rash/Hives Verified 12/06/24 21:11 Antibiotics) Review of Systems ROS Statement: Those systems with pertinent positive or pertinent negative responses have been documented in the HPI. ROS Other: All systems not noted in ROS Statement are negative. Past Medical History Past Medical History: Chest Pain / Angina, Diabetes Mellitus, Hyperlipidemia, Hypertension, Skin Disorder Additional Past Medical History / Comment(s): SOB,ARTHRITIS History of Any Multi-Drug Resistant Organisms: None Reported Past Surgical History: Back Surgery, Section, Heart Catheterization With Stent, Hysterectomy, Orthopedic Surgery, Tonsillectomy Additional Past Surgical History / Comment(s): heart stents x2,BUNIONECTOMY BELLA, LEFT KNEE TORN MENISCUS, TRIGGER FINGER X2,Rods and screws to back,bella cataract, Total right knee replacement Past Anesthesia/Blood Transfusion Reactions: Motion Sickness, Postoperative Nausea & Vomiting (PONV) Additional Past Anesthesia/Blood Transfusion Reaction / Comment(s): no prob with prior blood transfusions Date of Last Stent Placement:: 10-25-17 Past Psychological History: Anxiety, Depression Smoking Status: Never smoker Past Alcohol Use History: None Reported Past Drug Use History: None Reported - Past Family History Father Family Medical History: Cancer, Deep Vein Thrombosis (DVT) Additional Family Medical History / Comment(s): lung cancer Mother Family Medical History: Cancer, Diabetes Mellitus Additional Family Medical History / Comment(s): heart disease Brother(s) Family Medical History: Pulmonary Embolus General Exam Limitations: no limitations General appearance: alert, in no apparent distress Head exam: Present: atraumatic, normocephalic, normal inspection Eye exam: Present: normal appearance, PERRL, EOMI. Absent: scleral icterus, conjunctival injection, periorbital swelling ENT exam: Present: normal oropharynx, mucous membranes moist, other (Ongoing bilateral epistaxis noted with no obvious anterior bleeding) Neck exam: Present: normal inspection. Absent: tenderness, meningismus, lymphadenopathy Respiratory exam: Present: normal lung sounds bilaterally. Absent: respiratory distress, wheezes, rales, rhonchi, stridor Cardiovascular Exam: Present: regular rate, normal rhythm, normal heart sounds. Absent: systolic murmur, diastolic murmur, rubs, gallop, clicks GI/Abdominal exam: Present: soft, normal bowel sounds. Absent: distended, tenderness, guarding, rebound, rigid Extremities exam: Present: normal inspection, full ROM, normal capillary refill. Absent: tenderness, pedal edema, joint swelling, calf tenderness Back exam: Present: normal inspection Neurological exam: Present: alert, oriented X3, CN II-XII intact Psychiatric exam: Present: normal affect, normal mood Skin exam: Present: warm, dry, intact, normal color. Absent: rash Course Vital Signs 12/06/24 12/06/24 21:09 22:58 Temperature 98 F 97.8 F Pulse Rate 69 68 Respiratory 18 16 Rate Blood Pressure 109/58 142/65 O2 Sat by Pulse 97 95 Oximetry Procedures - Procedures Initial comment: Rhino Rocket placed completely into left nare with some discomfort noted by patient. Inflated balloons without complication. No flowing blood down oropharynx following procedure Medical Decision Making - Medical Decision Making Was pt. sent in by a medical professional or institution ([facility], [facility], urgent care, hospital, or jail...) When possible be specific @ -[No] Did you speak to anyone other than the patient for history (EMS, parent, family, police, friend...)? What history was obtained from this source @ -[No] Did you review nursing and triage notes (agree or disagree)? Why? @ -[I reviewed and agree with nursing and triage notes] Were old charts reviewed (outside hosp., previous admission, EMS record, old EKG, old radiological studies, urgent care reports/EKG's, jail records)? Report findings @ -[No old charts were reviewed] Differential Diagnosis (chest pain, altered mental status, abdominal pain women, abdominal pain men, vaginal bleeding, weakness, fever, dyspnea, syncope, heada gila, dizziness, GI bleed, back pain, seizure, CVA, palpatations, mental health, musculoskeletal)? @ -Anterior epistaxis, posterior epistaxis, sinusitis, anemia, this is not an exhaustive list EKG interpreted by me (3pts min.). @ -Not done X-rays interpreted by me (1pt min.). @ -[None done] CT interpreted by me (1pt min.). @ -[None done] U/S interpreted by me (1pt. min.). @ -[None done] What testing was considered but not performed or refused? (CT, X-rays, U/S, labs)? Why? @ -[None] What meds were considered but not given or refused? Why? @ -[None] Did you discuss the management of the patient with other professionals (professionals i.e. [facility], [facility], lab, RT, psych nurse, bilingual social worker, supervisor general, teacher, aviation ordnance officer, ed case manager)? Give summary @ -[No] Was smoking cessation discussed for >3mins.? @ -[No] Was critical care preformed (if so, how long)? @ -[No] Were there social determinants of health that impacted care today? How? (Homelessness, low income, unemployed, alcoholism, drug addiction, transportation, low edu. Level, literacy, decrease access to med. care, custodial, rehab)? @ -[No] Was there de-escalation of care discussed even if they declined (Discuss DNR or withdrawal of care, Hospice)? DNR status @ -[No] What co-morbidities impacted this encounter? (DM, HTN, Smoking, COPD, CAD, Cancer, CVA, ARF, Chemo, Hep., AIDS, mental health diagnosis, sleep apnea, morbid obesity)? @ -Eliquis use Was patient admitted / discharged? Hospital course, mention meds given and route, prescriptions, significant lab abnormalities, going to OR and other pertinent info. @ -[hospital course] Undiagnosed new problem with uncertain prognosis? @ -[No] Drug Therapy requiring intensive monitoring for toxicity (Heparin, Nitro, Insulin, Cardizem)? @ -[No] Were any procedures done? @ -Rhino Rocket placed into left nare without complication Diagnosis/symptom? @ -Epistaxis with blood thinner use Acute, or Chronic, or Acute on Chronic? @ -Acute Uncomplicated (without systemic symptoms) or Complicated (systemic symptoms)? @ -Uncomplicated Side effects of treatment? @ -[No] Exacerbation, Progression, or Severe Exacerbation? @ -[No] Poses a threat to life or bodily function? How? (Chest pain, [place], NH, pneumonia, PE, COPD, DKA, ARF, appy, cholecystitis, CVA, Diverticulitis, Homicidal, Cecilia cidal, threat to staff... and all critical care pts) @ -[No] - Lab Data Result diagrams: 12/06/24 21:53 12/06/24 21:53 Lab Results 12/06/24 12/06/24 Range/Units 21:53 21:53 WBC 11.6 H (3.8-10.6) k/uL RBC 4.24 (3.80-5.40) m/uL Hgb 12.7 (11.4-16.0) gm/dL Hct 38.9 (34.0-46.0) % MCV 91.7 (80.0-100.0) fL MCH 30.0 (25.0-35.0) pg MCHC 32.7 (31.0-37.0) g/dL RDW 14.4 (11.5-15.5) % Plt Count 320 (150-450) k/uL MPV 7.3 Neutrophils % 72 % Lymphocytes % 15 % Monocytes % 6 % Eosinophils % 5 % Basophils % 1 % Neutrophils # 8.3 H (1.3-7.7) k/uL Lymphocytes # 1.8 (1.0-4.8) k/uL Monocytes # 0.6 (0-1.0) k/uL Eosinophils # 0.6 (0-0.7) k/uL Basophils # 0.1 (0-0.2) k/uL Sodium 138 (137-145) mmol/L Potassium 4.5 (3.5-5.1) mmol/L Chloride 98 (98-107) mmol/L Carbon Dioxide 25 (22-30) mmol/L Anion Gap 15 mmol/L BUN 79 H (7-17) mg/dL Creatinine 1.91 H (0.52-1.04) mg/dL Est GFR (CKD-EPI)AfAm 30 (>60 ml/min/1.73 sqM) Est GFR (CKD-EPI)NonAf 26 (>60 ml/min/1.73 sqM) Glucose 85 (74-99) mg/dL Calcium 10.0 (8.4-10.2) mg/dL Total Bilirubin 0.5 (0.2-1.3) mg/dL AST 24 (14-36) U/L ALT 22 (4-34) U/L Alkaline Phosphatase 78 (38-126) U/L Total Protein 7.4 (6.3-8.2) g/dL Albumin 4.7 (3.5-5.0) g/dL Disposition Clinical Impression: Epistaxis not due to trauma Disposition: HOME SELF-CARE Condition: Good Instructions (If sedation given, give patient instructions): Nosebleed (ED) Additional Instructions: Remove Rhino Rocket in 24 hours using syringe or follow-up with ENT on Monday for removal Prescriptions: Doxycycline [Vibramycin] 100 mg PO BID 1 Days #6 capsule Is patient prescribed a controlled substance at d/c from ED?: No Referrals: Uriel Quinonez MD [Primary Care Provider] - 1-2 days Chen Bhakta MD [Medical Doctor] - 1-2 days Time of Disposition: 22:47
[2024-12-06] MEDS: OXYMETAZOLINE 0.05% NASL SPRAY 1 SPRAY BOTTLE NASAL STA (21:44)
[2024-12-06 22:07] LABS: Basophils # (A) 0.1 k/uL (0-0.2); Basophils % (A) 1 %; Eosinophils # (A) 0.6 k/uL (0-0.7); Eosinophils % (A) 5 %; HCT 38.9 % (34.0-46.0); HGB 12.7 gm/dL (11.4-16.0); Lymphocytes # (A) 1.8 k/uL (1.0-4.8); Lymphocytes % (A) 15 %; MCHC 32.7 g/dL (31.0-37.0); MCV 91.7 fL (80.0-100.0); Mean Platelet Volume 7.3; Monocytes # (A) 0.6 k/uL (0-1.0); Monocytes % (A) 6 %; Neutrophils # (A) 8.3 k/uL (1.3-7.7); Neutrophils % (A) 72 %; Platelet Count 320 k/uL (150-450); RBC 4.24 m/uL (3.80-5.40); RDW 14.4 % (11.5-15.5); WBC 11.6 k/uL (3.8-10.6)
[2024-12-06 22:21] LABS: ALT 22 U/L (4-34); AST 24 U/L (14-36); African American GFR (CKD) 30 (>60 ml/min/1.73 sqM); Albumin 4.7 g/dL (3.5-5.0); Alkaline Phosphatase 78 U/L (38-126); Anion Gap 15 mmol/L; Blood Urea Nitrogen 79 mg/dL (7-17); Carbon Dioxide 25 mmol/L (22-30); Chloride 98 mmol/L (98-107); Glucose 85 mg/dL (74-99); Non-African American GFR(CKD) 26 (>60 ml/min/1.73 sqM); Potassium 4.5 mmol/L (3.5-5.1); Sodium 138 mmol/L (137-145); Total Bilirubin 0.5 mg/dL (0.2-1.3); Total Protein 7.4 g/dL (6.3-8.2)
[2024-12-06] MEDS: DOXYCYCLINE 100 MG TABLET PO ONE (22:52)
[2024-12-06 23:07] VITALS: BP 142/65; PULSE 68; RESP 16; TEMP 97.8
== END 2024-12-06 22:58 | disposition home or self-care (01) ==
LOC: EC 20:58
DX: R04.0 Epistaxis (principal); Z88.2 Allergy status to sulfonamides; Z88.0 Allergy status to penicillin; Z88.1 Allergy status to other antibiotic agents
CPT/HCPCS: 30901; 36415; 80053; 85025; 99283

== ENCOUNTER → 2024-12-17 | Outpatient (CLI) | payer MEDICARE, SELFPAY ==
[~2024-12-17] MED LIST changes: +SODIUM CHLORIDE 0.9% 250 ML in EMPTY BAG 1 BAG IV PRN; -SODIUM CHLORIDE 0.9% 500 ML 500 ML in EMPTY BAG 1 BAG IV PRN
[2024-12-17] MEDS: SODIUM CHLORIDE 0.9% 500 ML 500 ML in EMPTY BAG 1 BAG IV PRN (10:00)
[2024-12-17 10:05] VITALS: BP 120/69; PULSE 67; RESP 16; TEMP 97.2
== END ==
LOC: PROCWHC3 09:49
PROVIDERS: ATTEND Internal Medicine Nephrology
DX: E11.22 Type 2 diabetes mellitus with diabetic chronic kidney disease (principal); N18.31 Chronic kidney disease, stage 3a; D63.1 Anemia in chronic kidney disease
CPT/HCPCS: 96365; Q0138

== ENCOUNTER → 2025-03-14 | Outpatient (CLI) | payer MEDICARE ==
--- NOTE | 2025-03-14 14:29 | MM ---
Reason for Exam: Screening (asymptomatic). Last mammogram was performed 1 year(s) and 1 month(s) ago. Patient History: Menarche at age 12. First Full-Term at age 32. Late child-bearing (after 30). Hysterectomy at age 32. Postmenopausal. Patient has history of breast feeding. 09/27/2018, Benign Core Biopsy on the left side. 09/27/2018, Benign Core Biopsy on the left side. Risk Values: Annabelle 5 year model risk: 3.6%. NCI Lifetime model risk: 10.7%. Prior Study Comparison: 02/17/2022 Bilateral MG 3D screening mammo w/cad, [facility]. 02/20/2023 Bilateral MG 3D screening mammo w/cad, [facility]. 02/23/2024 Bilateral MG 3D screening mammo w/cad, [facility]. Tissue Density: There are scattered areas of fibroglandular density. Findings: Analyzed By CAD. There are 2 biopsy clips in the left breast redemonstrated. Benign-appearing Vascular calcification in both breasts is again seen. There is no suspicious group of microcalcifications or new suspicious mass in either breast. Overall Assessment: Benign, BI-RAD 2 Management: Screening Mammogram of both breasts in 1 year. . Patient should continue monthly self-breast exams. A clinical breast exam by your physician is recommended on an annual basis. This exam should not preclude additional follow-up of suspicious palpable abnormalities. Note on Annabelle scores and lifetime risk: 1. A Annabelle score greater than 3% is considered moderate risk. If this is the case, consider specialist referral to assess eligibility for a risk reducing agent. 2. If overall lifetime risk for the development of breast cancer is 20% or higher, the patient may qualify for future screening with alternating mammogram and breast MRI. [facility], , 03/14/2025 2:26 PM. Electronically signed and approved by: Timothy Delcid M.D.
== END | disposition home or self-care (01) ==
LOC: RADMAMWWP 13:30
PROVIDERS: ATTEND Family Medicine
DX: Z12.31 Encounter for screening mammogram for malignant neoplasm of breast (principal); R92.323 Mammographic fibroglandular density, bilateral breasts; Z78.0 Asymptomatic menopausal state
CPT/HCPCS: 77063; 77067